=== PATIENT | male | born 1940 | race Caucasian/White ===

== ENCOUNTER → 2018-01-28 14:07 | Outpatient (CLI) | payer MEDICARE, OTHER, SELFPAY ==
[2018-01-28 15:46] LABS: Absolute Lymphocyte Count 2.33 X10^3/ul (0.83-4.51); Basophil# 0.03 X10^3/uL; Basophil% 0.4 % (0-1); Eosinophil# 0.25 X10^3/uL; Eosinophils% 3.4 % (0-5); Hematocrit 44.8 % (40-54); Hemoglobin 15.1 g/dl (13.0-16.5); Lymphocyte # 2.33 X10^3/ul (4.0); Lymphocyte % 32.1 % (19-41); Mean Corp Hgb Conc 33.7 g/gl (32-36); Mean Corpuscular Hgb 31.5 pg (27.0-32.0); Mean Corpuscular Volume 93.5 fL (80-94); Mean Platelet Vol. 10.4 fl (6.2-12.0); Monocyte# 0.63 X10^3/uL; Monocyte% 8.7 % (0-10); Neutrophil # 3.99 X10^3/uL (2.7-7.7); Neutrophil % 55.1 % (47-70); Platelet Count 215 K/mm3 (150-450); RBC Distribution Width CV 13.9 % (11.6-14.6); RBC Distribution Width SD 45.5 fl (35.1-43.9); Red Blood Count 4.79 M/mm3 (4.6-6.2); White Blood Count 7.3 K/mm3 (4.4-11.0)
[2018-01-28 15:51] LABS: Anion Gap 8 (5-15); BUN 18 mg/dL (7-18); BUN/Creat Ratio 18.2 RATIO (10-20); Calcium,Total 8.7 mg/dL (8.5-10.1); Chloride 109 mmol/L (98-107); Creatinine, Serum 0.99 mg/dL (0.70-1.30); EST Glomerular Filtration Rate 78 mL/min (>60); Est Glom Filt Rate - Afr Amer 94 mL/min (>60); Glucose 104 mg/dL (74-106); Potassium 3.9 mmol/L (3.5-5.1); Sodium Level 141 mmol/L (136-145); T4 Free Direct 1.03 ng/dL (0.76-1.46); Thyroid Stim Hormone (TSH) 2.56 uIU/mL (0.358-3.74); Uric Acid 7.5 mg/dL (3.5-7.2)
[2018-01-28 16:31] LABS: POSITIVE COUNT NO; POSITIVE DIFFERENTIAL NO; POSITIVE MORPHOLOGY NO
== END ==
PROVIDERS: Family Provider Family Medicine; PCP Family Medicine; Visit Provider Family Medicine
DX: I10 Essential (primary) hypertension (principal); R73.01 Impaired fasting glucose; M10.9 Gout, unspecified
CPT/HCPCS: 36415; 80048; 84439; 84443; 84550; 85025

== ENCOUNTER 2018-03-12 23:30 | Emergency (ER) | payer MEDICARE, OTHER, SELFPAY ==
[2018-03-12 23:33] VITALS: BP 159/63; PULSE 81; RESP 16; TEMP 36.9; O2SAT 92; BMI 32.6
--- NOTE | 2018-03-12 23:56 | ED.RN ---
PT ARRIVES W/SWELLING AND WARMTH TO LEFT FOOT. HX: LEFT HIP SX. STATES LLE IS NORMALLY SLIGHTLY SWOLLEN, BUT IT HAS WORSENED. NO KNOWN INJURY.
--- NOTE | 2018-03-13 00:14 | RAD_ITS ---
STUDY: X-RAY - LEFT ANKLE REASON FOR EXAM: Male, 77 years old. Left leg edema and pain, no known injury TECHNIQUE: 3 view(s) of the ankle. COMPARISON: None. FINDINGS: Normal visualized distal tibia and fibula. Normal medial and lateral malleoli. Minimal sclerosis along the medial malleolus apex likely from previous injury. Normal tibiotalar articulation and ankle mortise. Normal visualized talus and calcaneus allowing for a calcaneal spur.. The visualized subtalar, talonavicular, calcaneocuboid and tarsal articulations are normal. There is interstitial edema and soft tissue swelling. RAD/Ankle min 3 Views IMPRESSION: Mild degenerative changes. There is no acute displaced fracture or dislocation. There is soft tissue swelling. Electronically Signed: Luzma Joseph MD at 2:10 EDT , Service support ,
[2018-03-13] MEDS: oxyCODONE 5 MG Tablet PO (00:33)
[2018-03-13 00:36] LABS: Absolute Lymphocyte Count 2.32 X10^3/ul (0.83-4.51); Basophil# 0.05 X10^3/uL; Basophil% 0.7 % (0-1); Eosinophil# 0.32 X10^3/uL; Eosinophils% 4.4 % (0-5); Hematocrit 44.6 % (40-54); Hemoglobin 14.6 g/dl (13.0-16.5); Lymphocyte # 2.32 X10^3/ul (4.0); Lymphocyte % 31.7 % (19-41); Mean Corp Hgb Conc 32.7 g/gl (32-36); Mean Corpuscular Hgb 31.5 pg (27.0-32.0); Mean Corpuscular Volume 96.3 fL (80-94); Mean Platelet Vol. 10.1 fl (6.2-12.0); Monocyte# 0.61 X10^3/uL; Monocyte% 8.3 % (0-10); Neutrophil % 54.8 % (47-70); POSITIVE COUNT NO; POSITIVE DIFFERENTIAL NO; POSITIVE MORPHOLOGY NO; Platelet Count 151 K/mm3 (150-450); RBC Distribution Width CV 13.8 % (11.6-14.6); RBC Distribution Width SD 47.1 fl (35.1-43.9); Red Blood Count 4.63 M/mm3 (4.6-6.2); White Blood Count 7.3 K/mm3 (4.4-11.0)
[2018-03-13 01:31] LABS: Erythrocyte Sedimentation Rate 24 mm/hr (0-20)
[2018-03-13 01:47] LABS: Anion Gap 9 (5-15); BUN 20 mg/dL (7-18); BUN/Creat Ratio 21.1 RATIO (10-20); CRP 4.95 mg/L (0.0-3.0); Calcium,Total 8.7 mg/dL (8.5-10.1); Chloride 111 mmol/L (98-107); Creatinine, Serum 0.95 mg/dL (0.70-1.30); EST Glomerular Filtration Rate 82 mL/min (>60); Est Glom Filt Rate - Afr Amer 99 mL/min (>60); Glucose 116 mg/dL (74-106); Sodium Level 139 mmol/L (136-145); Uric Acid 8.5 mg/dL (3.5-7.2)
--- NOTE | 2018-03-13 02:33 | ED.VISSUMM ---
- ER Visit Summary Date of Service: 03/13/18 Chief Complaint: Left leg swelling and pain History of Present Illness: The patient is a 77 M who presents with swelling and pain of the left ankle. He complains of severe pain rating it as 10 out of 10. No exacerbating or relieving factors. This has worsened over the course of 3 days. He cannot identify any injury fall or increased activity. No history of prior similar symptoms. No history of gout. He denies any systemic symptoms such as fevers nausea vomiting chest pain shortness of breath. Physical Examination: Afebrile vitals are stable Moist mucous membranes Heart regular rate and rhythm Lungs are clear Abdomen soft Patient has mild soft tissue swelling of the left ankle he has tenderness focal to the ankle joint but does not have focal bony tenderness there is very slight overlying erythema there is no lymphangitic streaking it is not hot to the touch she has normal distal sensation brisk capillary refill and easily palpable dorsalis pedis pulse Test Results: X-ray of the left ankle shows mild degenerative changes but no fracture no dislocation. Laboratory studies are notable for ESR 24, CRP 4.9, uric acid 8.5. No leukocytosis. Emergency Department Course and Treatment: My clinical suspicion is that this is gout. He has good short arc range of motion without pain. He has no fever or leukocytosis. He has no risk factors for septic arthritis. He does have elevation of his uric acid. There was not significant effusion on ankle x-ray so I did not attempt arthrocentesis here. We will empirically treat with prednisone and oxycodone. The patient will follow up with Dr. Muhammad. He was instructed on specific signs and symptoms to monitor for, conditions under which to return to the emergency department. All questions answered at bedside, patient agreeable to plan. Patient discharged. Treatment Plan: [] Disposition: Discharge Impression: Monoarticular arthritis of left ankle, suspect gout This note was generated with Casper dictation software. It may contain incorrect words, spelling, and punctuation that were not noted in review of the chart prior to signing ED Disposition - Plan for ED Patient: Chief Complaint: Edema Referrals: Ethan Mcgarry MD [Primary Care Provider] -
--- NOTE | 2018-03-13 02:36 | ED.DCSUM_ITS ---
- ER Visit Summary Date of Service: 03/13/18 Chief Complaint: Left leg swelling and pain History of Present Illness: The patient is a 77 M who presents with swelling and pain of the left ankle. He complains of severe pain rating it as 10 out of 10. No exacerbating or relieving factors. This has worsened over the course of 3 days. He cannot identify any injury fall or increased activity. No history of prior similar symptoms. No history of gout. He denies any systemic symptoms such as fevers nausea vomiting chest pain shortness of breath. Physical Examination: Afebrile vitals are stable Moist mucous membranes Heart regular rate and rhythm Lungs are clear Abdomen soft Patient has mild soft tissue swelling of the left ankle he has tenderness focal to the ankle joint but does not have focal bony tenderness there is very slight overlying erythema there is no lymphangitic streaking it is not hot to the touch she has normal distal sensation brisk capillary refill and easily palpable dorsalis pedis pulse Test Results: X-ray of the left ankle shows mild degenerative changes but no fracture no dislocation. Laboratory studies are notable for ESR 24, CRP 4.9, uric acid 8.5. No leukocytosis. Emergency Department Course and Treatment: My clinical suspicion is that this is gout. He has good short arc range of motion without pain. He has no fever or leukocytosis. He has no risk factors for septic arthritis. He does have elevation of his uric acid. There was not significant effusion on ankle x-ray so I did not attempt arthrocentesis here. We will empirically treat with prednisone and oxycodone. The patient will follow up with Dr. Muhammad. He was instructed on specific signs and symptoms to monitor for, conditions under which to return to the emergency department. All questions answered at bedside , patient agreeable to plan. Patient discharged. Treatment Plan: [] Disposition: Discharge Impression: Monoarticular arthritis of left ankle, suspect gout This note was generated with [employer] dictation software. It may contain incorrect words, spelling, and punctuation that were not noted in review of the chart prior to signing ED Disposition - Plan for ED Patient: Chief Complaint: Edema Referrals: Ethan Mcgarry MD [Primary Care Provider] -
--- NOTE | 2018-03-13 02:37 | ED.DEP ---
ED Disposition - Plan for ED Patient: Chief Complaint: Edema Instructions: ED Arthritis Gout Prescriptions: Oxycodone HCl/Acetaminophen [Percocet 5/325] 1 tab PO Q6H PRN PRN 3 Days #12 tab PRN Reason: Pain Prednisone [Deltasone] 60 mg PO DAILY #15 tab Referrals: Ethan Mcgarry MD [Primary Care Provider] - Thaddeus Muhammad MD [STAFF PHYSICIAN] -
--- NOTE | 2018-03-13 02:58 | ED.RN ---
IV DC'ED, CATHETER INTACT, SMALL GAUZE DRESSING PLACED. DISCHARGE INSTRUCTIONS GIVEN TO AND REVIEWED WITH PATIENT AND , BOTH DENY QUESTIONS OR CONCERNS AND VOICE UNDERSTANDING OF DISCHARGE INSTRUCTIONS. PT TO PRIVATE VEHICLE VIA WHEELCHAIR.
== END 2018-03-13 02:58 | disposition home or self-care (01) ==
PROVIDERS: Emergency Provider Emergency Medicine; Family Provider Family Medicine; PCP Family Medicine
DX: M19.072 Primary osteoarthritis, left ankle and foot (principal)
CPT/HCPCS: 73610; 80048; 84550; 85025; 85652; 86140; 99284

== ENCOUNTER 2018-10-08 10:26 | Emergency (ER) | payer MEDICARE, OTHER, SELFPAY ==
[2018-10-08 10:28] VITALS: BP 164/73; PULSE 67; RESP 18; TEMP 36.3; O2SAT 96; BMI 31.9
[2018-10-08] MEDS: HYDROcodone Bitartrate/Apap 5/325 Tablet PO (10:53)
--- NOTE | 2018-10-08 11:08 | RAD_ITS ---
STUDY: X-RAY - CERVICAL SPINE REASON FOR EXAM: Male, 78 years old. Pain of the left neck x5 days TECHNIQUE: 4 view(s) of the cervical spine were obtained. COMPARISON: None FINDINGS: Normal anterior atlantoaxial articulation. Normal odontoid process. Normal cervical lordosis. There is multi-level endplate spondylosis. There is multi-level degenerative disc disease with multilevel disc space narrowing. The soft tissue structures are unremarkable. RAD/Cerv Spine 2 or 3 Views IMPRESSION: Degenerative changes without acute findings Electronically Signed: Baltazar Garcia DO at 11:56 EST Tel , Service support ,
--- NOTE | 2018-10-08 11:31 | ED.VISSUMM ---
- ER Visit Summary Date of Service: 10/08/18 Chief Complaint: Atraumatic posterior right neck pain History of Present Illness: The patient is a 78 M who presents with atraumatic posterior right neck pain that started 4 days ago. He denies any radicular pain. He denies paresthesia, anesthesia motors. He does report pain with movement of his head to the right and left or flexion. He also complains of pain with abduction past 120 degrees on the right. He denies cardiac arrest 20 symptoms. He denies fever, chills or night sweats. He denies history of autoimmune disorder. He denies prior problems with his neck. He did have fusion of L3-[address] Ethan Juarez at [facility]. Physical Examination: Vital signs noted and remarkable for an elevated blood pressure 164/73. He appears uncomfortable. He has limited rotation of the right and left especially to the right. He has limited flexion. Extension causes him discomfort as well. Axillary, median, radial and ulnar function intact. Bicep, tricep and brachialis reflex are 1-2+ symmetric. Radial pulses palpable. Heart is regular without murmur, gallop or rub. Lungs are clear to auscultation. He does have reproducible pain on the right side as well as midline. There is no pain abrasion over the clavicle or AC joint. There is no pain the patient over the proximal humerus. Test Results: Three-view x-ray of the cervical spine reveals significant degenerative changes with disc space abnormality and multiple osteophytes. Emergency Department Course and Treatment: Patient was medicated with [place] tab 1 and C-spine series was obtained. Treatment Plan: Opiate analgesia since NSAIDs are not recommended in this 78-year-old patient. Follow-up with his PCP or outpatient physical therapy Disposition: Discharge to home with spouse Impression: Posterior right neck pain initial encounter Degenerative disc disease multilevel initial encounter This note was generated with [employer] dictation software. It may contain incorrect words, spelling, and punctuation that were not noted in review of the chart prior to signing ED Disposition - Plan for ED Patient: Disposition: Home or Assisted Living Chief Complaint: Other, Pain/Inj Instructions: Osteoarthritis: Common Sites, ED Degenerative Joint Disease Prescriptions: Hydrocodone Bitart/Apap 5-325 [[place] 5MG-325MG] 1 tablet PO Q6H PRN PRN 3 Days #10 tablet PRN Reason: Pain Referrals: Ethan Mcgarry MD [Primary Care Provider] - Additional Instructions: Your prescription was electronically transmitted to [facility] pharmacy located on back [facility].
--- NOTE | 2018-10-08 11:36 | ED.DCSUM_ITS ---
- ER Visit Summary Date of Service: 10/08/18 Chief Complaint: Atraumatic posterior right neck pain History of Present Illness: The patient is a 78 M who presents with atraumatic posterior right neck pain that started 4 days ago. He denies any radicular pain. He denies paresthesia, anesthesia motors. He does report pain with movement of his head to the right and left or flexion. He also complains of pain with abduction past 120 degrees on the right. He denies cardiac arrest 20 symptoms. He denies fever, chills or night sweats. He denies history of autoimmune disorder. He denies prior problems with his neck. He did have fusion of L3-[address] Ethan Juarez at [facility]. Physical Examination: Vital signs noted and remarkable for an elevated blood pressure 164/73. He appears uncomfortable. He has limited rotation of the right and left especially to the right. He has limited flexion. Extension causes him discomfort as well. Axillary, median, radial and ulnar function intact. Bicep, tricep and brachialis reflex are 1-2+ symmetric. Radial pulses palpable. Heart is regular without murmur, gallop or rub. Lungs are clear to auscultation. He does have reproducible pain on the right side as well as midline. There is no pain abrasion over the clavicle or AC joint. There is no pain the patient over the proximal humerus. Test Results: Three-view x-ray of the cervical spine reveals significant degenerative changes with disc space abnormality and multiple osteophytes. Emergency Department Course and Treatment: Patient was medicated with [place] tab 1 and C-spine series was obtained. Treatment Plan: Opiate analgesia since NSAIDs are not recommended in this 78-year-old patient. Follow-up with his PCP or outpatient physical therapy Disposition: Discharge to home with spouse Impression: Posterior right neck pain initial encounter Degenerative disc disease multilevel initial encounter This note was generated with [employer] dictation software. It may contain incorrect words, spelling, and punctuation that were not noted in review of the chart prior to signing ED Disposition - Plan for ED Patient: Disposition: Home or Assisted Living Chief Complaint: Other, Pain/Inj Instructions: Osteoarthritis: Common Sites, ED Degenerative Joint Disease Prescriptions: Hydrocodone Bitart/Apap 5-325 [[place] 5MG-325MG] 1 tablet PO Q6H PRN PRN 3 Days #10 tablet PRN Reason: Pain Referrals: Ethan Mcgarry MD [Primary Care Provider] - Additional Instructions: Your prescription was electronically transmitted to [facility] pharmacy located on back [facility].
[2018-10-08 11:45] VITALS: BP 170/70; PULSE 62; RESP 16; O2SAT 96
== END 2018-10-08 11:47 | disposition home or self-care (01) ==
PROVIDERS: Emergency Provider Emergency Medicine; Family Provider Family Medicine; PCP Family Medicine
DX: M50.30 Other cervical disc degeneration, unspecified cervical region (principal); Z87.891 Personal history of nicotine dependence
CPT/HCPCS: 72040; 99283

== ENCOUNTER 2019-01-04 12:51 | Emergency (ER) | payer MEDICARE, OTHER, SELFPAY ==
[2019-01-04 12:52] VITALS: BP 171/75; PULSE 74; RESP 15; TEMP 36.5; O2SAT 97; BMI 36.4
[2019-01-04 12:56] VITALS: BP 171/75; PULSE 73; RESP 15; O2SAT 97
--- NOTE | 2019-01-04 13:25 | CT_ITS ---
STUDY: CT BRAIN WITHOUT CONTRAST REASON FOR EXAM: Male, 78 years old. Sudden onset dizziness beginning today. Fall 2 days ago. RADIATION DOSAGE (If Supplied By Facility): CTDIvol = ( 44.99 ) mGy, DLP = ( 812.98 ) mGycm TECHNIQUE: Transaxial CT imaging of the brain was performed without administration of intravenous contrast material. Individualized dose optimization techniques were used for this CT. COMPARISON: No relevant priors. FINDINGS: Normal soft tissue structures. Normal calvarium. There is mild cerebral atrophy with widening of the extra-axial spaces and ventricular dilatation. Normal white matter tracts of the cerebral hemispheres. Normal basal ganglia and thalami. Normal brainstem. Normal cerebellum. There is no intracranial hemorrhage. There are no findings of an acute ischemic infarction. Normal visualized paranasal sinuses. CT/Brain/Head without Contrast IMPRESSION: Mild cerebral atrophy without acute intracranial or calvarial abnormality. Electronically Signed: Raoul Wilson DO at 14:31 EDT Tel [phone], Service support ,
--- NOTE | 2019-01-04 13:25 | RAD_ITS ---
STUDY: X-RAY CHEST REASON FOR EXAM: Male, 78 years old. Sudden onset of dizziness and weakness. TECHNIQUE: Single frontal view of the chest. COMPARISON: None. FINDINGS: The lungs are mildly hyperexpanded. There is no demonstrated pleural abnormality. There is borderline cardiomegaly. Normal mediastinum and lindsay. Normal visualized pulmonary arteries. Normal visualized aortic arch and descending thoracic aorta. Normal visualized thoracic spine. Normal visualized ribs, clavicles, and shoulders. There is no demonstrated abnormality of the visualized soft tissue structures of the upper abdomen. RAD/Chest 1 View IMPRESSION: No active or acute cardiopulmonary disease. Electronically Signed: Clark Layton MD at 14:18 EDT , Service support ,
--- NOTE | 2019-01-04 13:25 | EKG12_ITS ---
Test Reason : PALPS Blood Pressure : / mmHG Vent. Rate : 075 BPM Atrial Rate : 075 BPM P-R Int : 150 ms QRS Dur : 082 ms QT Int : 404 ms P-R-T Axes : 041 024 046 degrees QTc Int : 451 ms Sinus rhythm with occasional Premature ventricular complexes Otherwise normal ECG Confirmed by CONNOR BARNES, ISSAC ([id number]), news assignment editor BERNARD MARINO ([id number]) on 01/06/2019 11:24:11 AM Referred By: FARHEEN Confirmed By:ISSAC RYAN MD
--- NOTE | 2019-01-04 13:26 | ED.VISSUMM ---
- ER Visit Summary Date of Service: 01/04/19 Chief Complaint: Dizziness History of Present Illness: The patient is a 78 M sudden dizziness while standing in the kitchen helping with breakfast at 11 AM. States that on balance had to grab the counters. States vision changes where he was seeing bright blue, there is no loss of vision. Became weak needed help to the couch. There is no falls, no syncopal episodes no chest pains. Similar symptoms 2-3 days ago after getting out of bed to go to the restroom where he fell to his knees that resolved. No stroke history. Patient states he does not take any daily medicines had lower lumbar surgery June of last year he did take an aspirin of onset of symptoms today. No previous similar symptoms in the past. States afraid to walk get up due to concerns of recurrent symptoms. Physical Examination: General: Alert and oriented ?3, no acute distress HEENT: Normocephalic, atraumatic. Moist mucosa membranes Neck: supple, nontender. Cardiovascular: Regular rate and rhythm, no murmurs Respiratory: Normal breath sounds, symmetric, no distress Abdomen: Soft, nontender, nondistended Extremities: Nontender, no edema, pulses intact ?4 Neuro: no focal neurological deficits. NIH equals 0. Cerebellar testing normal. Test Results: EKG: Sinus rate of [address] or T wave changes. PVC noted. Hemoglobin 12.5 creatinine 0.92 2140, potassium 4.2. Troponin negative. Urine negative. Chest x-ray negative CT head negative. Emergency Department Course and Treatment: Patient with dizziness causing unstable gait. There is no focal neurological deficits. Workup initially for stroke protocol was negative. Urine negative. Patient ambulated to the restroom with no return of symptoms was feeling steady. Discussed with patient this time with him have a normal gait with no focal deficits and can safely send him home with outpatient follow-up and testing as needed. Signs and symptoms discussed to return. All questions were answered. Treatment Plan: [] Disposition: Discharge Impression: Acute dizziness This note was generated with [employer] dictation software. It may contain incorrect words, spelling, and punctuation that were not noted in review of the chart prior to signing ED Disposition - Plan for ED Patient: Disposition: Home or Assisted Living Diagnosis: Dizziness Instructions: ED Dizziness [facility] Referrals: Ethan Mcgarry MD [Primary Care Provider] - 3-5 Days
[2019-01-04 13:40] LABS: Absolute Lymphocyte Count 2.21 X10^3/ul (0.83-4.51); Absolute Neutrophil Count 3.2 X10^3/uL (2.0-7.7); Basophil# 0.02 X10^3/uL; Basophil% 0.3 % (0-1); Eosinophil# 0.21 X10^3/uL; Eosinophils% 3.4 % (0-5); Hematocrit 38.9 % (40-54); Hemoglobin 12.5 g/dl (13.0-16.5); Lymphocyte # 2.21 X10^3/ul (4.0); Lymphocyte % 35.9 % (19-41); Mean Corp Hgb Conc 32.1 g/gl (32-36); Mean Corpuscular Hgb 30.8 pg (27.0-32.0); Mean Corpuscular Volume 95.8 fL (80-94); Mean Platelet Vol. 9.9 fl (6.2-12.0); Monocyte# 0.53 X10^3/uL; Monocyte% 8.6 % (0-10); Neutrophil # 3.18 X10^3/uL (2.7-7.7); Neutrophil % 51.6 % (47-70); Platelet Count 150 K/mm3 (150-450); RBC Distribution Width CV 14.4 % (11.6-14.6); RBC Distribution Width SD 47.9 fl (35.1-43.9); Red Blood Count 4.06 M/mm3 (4.6-6.2); White Blood Count 6.2 K/mm3 (4.4-11.0)
[2019-01-04 13:44] LABS: POSITIVE COUNT NO; POSITIVE DIFFERENTIAL NO; POSITIVE MORPHOLOGY NO; Partial Thromboplast Time 30.1 Seconds (24.1-36.2); Prothrombin Time (Protime)PT. 13.3 SECONDS (11.7-14.9)
[2019-01-04 13:51] LABS: Anion Gap 4 (5-15); BUN 19 mg/dL (7-18); BUN/Creat Ratio 20.7 RATIO (10-20); Calcium,Total 8.7 mg/dL (8.5-10.1); Chloride 110 mmol/L (98-107); Creatinine, Serum 0.92 mg/dL (0.70-1.30); EST Glomerular Filtration Rate 85 mL/min (>60); Est Glom Filt Rate - Afr Amer 102 mL/min (>60); Estimated Creatinine Clearance 64.02 ml/min; Glucose 90 mg/dL (74-106); Potassium 4.2 mmol/L (3.5-5.1); Sodium Level 140 mmol/L (136-145)
[2019-01-04 13:56] LABS: Bedside Glucose 87 mg/dL (70-110)
[2019-01-04 14:00] LABS: Bacteria 0 SEEN /hpf (None Seen); Mucous, Urine 0 SEEN /hpf (<or=2+); Squamous Epithelial Cells - UA 0 SEEN /hpf (0-5); White Blood Cells 0 SEEN /hpf (0-5)
[2019-01-04 14:04] LABS: Color, Urine Yellow (Yellow); Glucose, Dipstick Normal (Normal); Ketone-Dipstick Negative (Negative); Leukocyte Esterase-Dipstick Negative /ul (Negative); Nitrite-Dipstick Negative (Negative); Occult Blood-Urine Negative /ul (Negative); Protein-Dipstick Negative (Negative); Specific Gravity, Urine 1.015 (1.002-1.030); Urine Bilirubin Dipstick Negative (Negative); Urine Clarity Clear (Clear); Urine Urobilinogen Normal (Normal)
[2019-01-04 14:09] LABS: Red Blood Cells-Urine 0-5 SEEN /hpf (0-5)
[2019-01-04 15:14] VITALS: BP 170/74; PULSE 64; RESP 14; O2SAT 98
== END 2019-01-04 15:15 | disposition home or self-care (01) ==
PROVIDERS: Emergency Provider Emergency Medicine; Family Provider Family Medicine; PCP Family Medicine
DX: R42 Dizziness and giddiness (principal); Z91.81 History of falling
CPT/HCPCS: 70450; 71045; 80048; 81001; 82962; 84484; 85025; 85610; 85730; 93005; 99284

== ENCOUNTER → 2019-01-13 13:59 | Outpatient (CLI) | payer MEDICARE, OTHER, SELFPAY ==
[2019-01-04 12:52] VITALS: BMI 36.4
[2019-01-13 16:18] LABS: Absolute Lymphocyte Count 2.57 X10^3/ul (0.83-4.51); Absolute Neutrophil Count 4.6 X10^3/uL (2.0-7.7); Basophil# 0.02 X10^3/uL; Basophil% 0.3 % (0-1); Eosinophil# 0.21 X10^3/uL; Eosinophils% 2.6 % (0-5); Hemoglobin 15.4 g/dl (13.0-16.5); Lymphocyte # 2.57 X10^3/ul (4.0); Lymphocyte % 32.2 % (19-41); Mean Corp Hgb Conc 33.5 g/gl (32-36); Mean Corpuscular Hgb 31.6 pg (27.0-32.0); Mean Corpuscular Volume 94.3 fL (80-94); Mean Platelet Vol. 10.5 fl (6.2-12.0); Monocyte# 0.63 X10^3/uL; Monocyte% 7.9 % (0-10); Neutrophil # 4.55 X10^3/uL (2.7-7.7); Neutrophil % 56.9 % (47-70); POSITIVE COUNT NO; POSITIVE DIFFERENTIAL NO; Platelet Count 219 K/mm3 (150-450); RBC Distribution Width CV 14.3 % (11.6-14.6); Red Blood Count 4.88 M/mm3 (4.6-6.2)
[2019-01-13 16:19] LABS: POSITIVE MORPHOLOGY NO
[2019-01-13 16:54] LABS: Vitamin B12 524 pg/mL (211-911)
[2019-01-13 16:59] LABS: Ferritin 433 ng/mL (26-388); Iron 74 ug/dL (65-175)
== END ==
PROVIDERS: Family Provider Family Medicine; PCP Family Medicine; Visit Provider Family Medicine
DX: D64.9 Anemia, unspecified (principal); D75.89 Other specified diseases of blood and blood-forming organs
CPT/HCPCS: 36415; 82607; 82728; 82746; 83540; 85025

== ENCOUNTER → 2019-01-15 12:52 | Outpatient (CLI) | payer MEDICARE, OTHER, SELFPAY ==
[2019-01-04 12:52] VITALS: BMI 36.4
--- NOTE | 2019-01-15 12:55 | CDU_ITS ---
Reason For Study: Recent TIA Rt. Velocities/BP Lt. Velocities/BP Prox CCA 113/11 cm/sec. Prox CCA 101/12 cm/sec. Mid CCA 114/16 cm/sec. Mid CCA 129/18 cm/sec. Dist CCA 79/13 cm/sec. Dist CCA 100/12 cm/sec. Prox ICA 61/11 cm/sec. Prox ICA 85/19 cm/sec. Mid ICA 84/17 cm/sec. Mid ICA 99/22 cm/sec. Dist ICA 99/24 cm/sec. Dist ICA 102/19 cm/sec. Rt. ICA/CCA = 0.9. Lt. ICA/CCA = 0.8. Prox ECA 283 cm/sec. Prox ECA 304 cm/sec. Rt. Vert. 67/7 cm/sec. Lt. Vert. 85/5 cm/sec. Right Extracranial There is heterogeneous, smooth atherosclerotic plaque noted in the right common carotid artery. There is heterogeneous, irregular atherosclerotic plaque noted in the right internal carotid artery. There is heterogeneous, irregular atherosclerotic plaque noted in the right external carotid artery. Antegrade flow is noted in the right vertebral artery. Left Extracranial There is heterogeneous, irregular atherosclerotic plaque noted in the left common carotid artery. There is heterogeneous, irregular atherosclerotic plaque noted in the left internal carotid artery. There is heterogeneous, irregular atherosclerotic plaque noted in the left external carotid artery. Antegrade flow is noted in the left vertebral artery. Procedure Carotid Duplex 36252. Exam performed in department. 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
== END ==
PROVIDERS: Family Provider Family Medicine; PCP Family Medicine; Referring Provider Family Medicine; Visit Provider Family Medicine
DX: G45.3 Amaurosis fugax (principal); Z86.73 Personal history of transient ischemic attack (TIA), and cerebral infarction without residual deficits
CPT/HCPCS: 93880

== ENCOUNTER → 2019-01-21 12:35 | Outpatient (CLI) | payer MEDICARE, OTHER, SELFPAY ==
[2019-01-04 12:52] VITALS: BMI 36.4
--- NOTE | 2019-01-21 13:45 | MRI_ITS ---
STUDY: MRI BRAIN WITH AND WITHOUT CONTRAST REASON FOR EXAM: Male, 78 years old. 2 episodes of dizziness and altered LOC with TIA TECHNIQUE: Standardized multiplanar fat and water weighted pulse sequences were obtained. 18 IV Dotarem was administered for the contrast portion of the examination. COMPARISON: CT 01/04/2019 FINDINGS: Normal size of the ventricles and extra-axial spaces for the patient's age. Normal white matter tracts of the supratentorial brain. Normal bilateral basal ganglia. Normal thalami. There is no extra-axial fluid accumulation. Normal flow voids within the major intracranial circulation suggesting patency by spin echo criteria. Normal venous enhancement. There is no enhancing intra-axial or extra-axial abnormality. Normal sella turcica, pituitary gland, infundibular stalk, optic chiasm and hypothalamus. Normal tectal plate and pineal gland. Normal midbrain, stanley and medulla. Normal cerebellum. Normal basal cisterns. Normal bilateral temporal bones. Normal bilateral internal auditory canals. There are bilateral ocular lens implants with otherwise normal intraorbital contents. Normal visualized paranasal sinuses. Right mastoid sinus disease. Normal visualized soft tissue structures. Normal visualized upper cervical spine. MRI/Brain W/WO Contrast IMPRESSION: No evidence of acute infarct, hemorrhage, mass, or abnormal enhancement. Electronically Signed: Ross Chester MD at 8:55 EDT Tel , Service support ,
== END ==
PROVIDERS: Family Provider Family Medicine; PCP Family Medicine; Referring Provider Family Medicine; Visit Provider Family Medicine
DX: G45.3 Amaurosis fugax (principal); Z86.73 Personal history of transient ischemic attack (TIA), and cerebral infarction without residual deficits
CPT/HCPCS: 70553; A9575

== ENCOUNTER → 2020-03-16 07:53 | Outpatient (CLI) | payer MEDICARE, OTHER, SELFPAY ==
--- NOTE | 2020-03-16 07:58 | RAD_ITS ---
STUDY: X-RAY - ESOPHAGUS (BARIUM SWALLOW) WITH FLUOROSCOPY REASON FOR EXAM: Male, 79 years old. DYSPHAGIA X 2 YRS, PHLEGM D/C, COUGHING X 3 MOS. POSSIBLE ALLERGIES? TECHNIQUE: 18 view(s) of the esophagus were obtained following swallowing of barium. FLUOROSCOPY TIME (if supplied): (0:37) minutes/seconds COMPARISON: None. FINDINGS: There is no demonstrated esophageal foreign body. There is no demonstrated stricture or mucosal abnormality. Normal gastroesophageal junction, without a demonstrated hiatal hernia. The patient ingested a 12 mm tablet of barium without any difficulty. Normal visualized aortic arch and descending thoracic aorta. Normal visualized pulmonary parenchyma. There are diffuse degenerative changes of the visualized thoracic spine. RAD/Esophagus Single Contrast IMPRESSION: Normal plain film x-ray examination (barium swallow) of the esophagus. Electronically Signed: Per Cordero, at 10:23 EDT , Service support ,
== END ==
PROVIDERS: PCP Family Medicine; Referring Provider Otolaryngology Otolaryngology/Facial Plastic Surgery; Visit Provider Otolaryngology Otolaryngology/Facial Plastic Surgery
DX: R13.10 Dysphagia, unspecified (principal)
CPT/HCPCS: 74220

== ENCOUNTER 2020-07-19 13:05 | Day surgery (SDC) | payer MEDICARE, OTHER, SELFPAY ==
[2020-07-19] VITALS (7 sets, daily range): BP systolic 140–167; BP diastolic 59–78; PULSE 64–70; RESP 16–18; TEMP 36.1–36.7; O2SAT 95–98; BMI 31.6
[2020-07-19] MEDS: Lactated Ringers 1,000 ML 100 ML IV (13:40)
--- NOTE | 2020-07-19 15:20 | RAD_ITS ---
STUDY: X-RAY - LUMBAR SPINE REASON FOR EXAM: Male, 79 years old. SPINAL CORD STIMULATOR INSERTION X2 LEADS, thoracolumbar area TECHNIQUE: 8 fluoroscopic guided view(s) of the lumbar spine were obtained. COMPARISON: None FINDINGS: Fluoroscopic guided spinal cord stimulator was inserted and 8 images were obtained for documentation. 291.5 seconds of fluoroscopic time utilized during the exam. RAD/Lumbar Spine 2 or 3 Views IMPRESSION: Fluoroscopic guided spinal cord stimulator insertion. Electronically Signed: Kevan Clark MD at 16:42 EDT , Service support ,
[2020-07-19] MEDS: Bupivacaine 0.25% 30 ML Vial (16:30)
--- NOTE | 2020-07-19 17:30 | OP.PCM_ITS ---
Report of Operation Date of Procedure: 07/19/20 Description of Surgical Findings:: Pre-Operative Diagnosis: Lumbosacral radiculopathy, lumbosacral degenerative disc disease, lumbosacral spinal stenosis, postlaminectomy syndrome of the lumbar spine Post-Operative Diagnosis: Lumbosacral radiculopathy, lumbosacral degenerative disc disease, lumbosacral spinal stenosis, postlaminectomy syndrome of the lumbar spine Surgery/Procedure Performed:: 1. Spinal cord stimulator thoracolumbar leads placement x2 #2 spinal cord stimulator Medtronic intellus generator placement #3 spinal cord stimulator generator pocket creation at the left gluteal region #4 spinal cord stimulator simple programming, 5-intraoperative fluoroscopic interpretation Description of Surgical Findings:: PROCEDURES: 1. Spinal cord stimulator thoracolumbar leads placement x2 #2 spinal cord stimulator Medtronic intellus generator placement #3 spinal cord stimulator generator pocket creation at the left gluteal region #4 spinal cord stimulator simple programming 5-intraoperative fluoroscopic interpretation PREOPERATIVE DIAGNOSES: Lumbosacral radiculopathy, lumbosacral degenerative disc disease, lumbosacral spinal stenosis, postlaminectomy syndrome of the lumbar spine POSTOPERATIVE DIAGNOSES: Lumbosacral radiculopathy, lumbosacral degenerative disc disease, lumbosacral spinal stenosis, postlaminectomy syndrome of the lumbar spine ANESTHESIA: MAC COMPLICATIONS: None BLOOD LOSS: Minimal <25 CC Implanted device: Spinal cord stimulator lead [id number] lot number [id number], lead #2 lot number [id number], Medtronic spinal cord stimulator generator intellus serial number [id number] PROCEDURE IN DETAIL: History and physical today was reviewed. Risks and benefits of procedure explained. The patient understood, agreed to procedure, informed consent was obtained. IV inserted per routine protocol. The patient was taken to the operating room, placed in the prone position with a pillow positioned underneath the abdomen. a 900 mg of clindamycin IV piggyback was infused per anesthesia. The lower back and left gluteal area was prepped and draped in a sterile fashion using iodine x3. The C-arm was brought in position for AP view at the L1-2vertebral bodies under direct visualization fluoroscopy on a true AP view the L2-3 interlaminar space was identified skin and subcutaneous tissue and size approximately 10 cc of a mix of 2% lidocaine and 0.25% Marcaine using a 25- gauge regular needle followed by a 25-gauge 6 inch spinal needle towards the interlaminar space at L2-3, the skin and subcutaneous tissue were then anesthetized and using an 11-gauge blade was then taken down to the skin and subcutaneous tissue using a 14-gauge 6 inch Touhy needle provided by the [employer] kit the needle was passed through the skin towards the interlaminar space at L1-2 and a paramedian approach the needle was then advanced under direct visualization fluoroscopy towards the interlaminar space at L1-2 [id number] technique was then carried to air towards the interlaminar space at L3-4 once the tip of the needle was in the epidural space and loss of resistance was encountered to air and after confirmation of AP as well as oblique view of the spinal cord stimulator lead was then advanced under direct visualization fluoroscopy to be at the tip of the lead at T8 and the bottom of the lead around mid T10 after confirmation of AP as well as lateral view to confirm correct placement of the lead in the posterior compartment of the epidural space the previous procedure was then repeated to a level above at L2-3 interlaminar space the second lead was then inserted under direct visualization with fluoroscopy to be at the mid T8 and mid T11 area the leads were were then connected to the external neurostimulator and patient was then awakened to confirm satisfactory coverage of the painful area once satisfactory coverage was then achieved the stylette of each needle was then removed and the skin and subcutaneous tissue on to the left of the paramedian needles was then taken anesthetized with a total of 10 cc of the previous mixture of 0.25% Marcaine and 2% lidocaine using a 25-gauge regular needle the incision was then taken down through the skin and subcutaneous tissue towards the fascia making sure hemostasis was then maintained via cautery, the spinal cord stimulator leads were then passed through the above incision and secured using the bi-wing and sutured down with a 2-0 nylon to the fascia at that level the spinal cord stimulator leads were then tunneled via a tunneler provided by the Medtronic kit towards the previously incised spinal cord stimulator battery at the left gluteal region skin and subcutaneous tissue were anesthetized with approximately 10 cc of a mix of 2% lidocaine and 0.25% Marcaine using a 25 gauge regular needle, skin and subcutaneous tissue was then taken down with the 11-gauge blade hemostasis was maintained with Bovie and direct pressure the incision was then taken down to the fascia and the battery was then secured with the 2-0 silk sutures that were the spinal cord stimulator leads the upper lead was then marked the new until spinal cord stimulator battery was then provided Via [employer] kit the battery was then reattached of the spinal cord stimulator make ensure that the top lead is attached to the top position from 0-7 electrodes and the bottom from 8-15 electrodes once impedance was then checked to be in the proper average number the intellus battery was then inserted into the pocket and impedance with when checked again the pocket was then inspected to confirm he mostasis in place, the intellus battery was then secured to the fascia using a 2-0 silk to the upper and lower eyes of the battery confirming an upward writing of the intellus facing posterior, once complete confirmation the battery was then placed in the position and the the mid paramedian and the gluteal incisions were then closed primarily through a 3-0 Vicryl in a interrupted fashion followed by a 4-0 chromic to the skin, hemostasis was then maintained during the procedure the skin was then covered with a Steri-Strips and bacitracin patient was then returned into the supine position in a stable condition and returned to recovery in a stable condition patient experienced no signs or symptoms of intrathecal or intravascular injection patient experienced no paresthesia the procedure was completed without any apparent difficulty any complication the patient appeared to tolerate well, motor as well as sensory exam was unchanged from prior to the procedure. ESTIMATED BLOOD LOSS: Minimal less than 25 mL ASSESSMENT AND PLAN: This is a 79-year-old male with lumbosacral radiculopathy lumbosacral degenerative disc disease lumbosacral spinal stenosis, postlaminectomy syndrome of the lumbar spine, status post 1. Spinal cord stimulator thoracolumbar leads placement x2 #2 spinal cord stimulator Medtronic intellus generator placement #3 spinal cord stimulator generator pocket creation at the left gluteal region #4 spinal cord stimulator simple programming, 5-intraoperative fluoroscopic interpretation patient will continue his current medications a prescription was provided to the patient for Z-rocio as directed. postop instruction were given in writing to the patient as well as verbally and in writing to his . the patient will follow approximately 1 week for reevaluation.
== END 2020-07-19 17:55 | disposition home or self-care (01) ==
LOC: SDC 13:06 → AC 13:07
PROVIDERS: PCP Family Medicine; Referring Provider Anesthesiology Pain Medicine; Visit Provider Anesthesiology Pain Medicine
PROC: (CPT 63685; principal; 2020-07-19 14:25)
DX: M51.36 Other intervertebral disc degeneration, lumbar region (principal); M51.17 Intervertebral disc disorders with radiculopathy, lumbosacral region; M96.1 Postlaminectomy syndrome, not elsewhere classified; M48.07 Spinal stenosis, lumbosacral region; M51.37 Other intervertebral disc degeneration, lumbosacral region; M47.817 Spondylosis without myelopathy or radiculopathy, lumbosacral region; M46.96 Unspecified inflammatory spondylopathy, lumbar region; Z79.891 Long term (current) use of opiate analgesic
CPT/HCPCS: 63650; 63685; 72100; 76000; C1778; C1820; J7120

== ENCOUNTER → 2022-11-24 | Outpatient (CLI) | payer MEDICARE, OTHER, SELFPAY ==
[2022-11-24 16:04] LABS: Erythrocyte Sedimentation Rate 13 mm/hr (0-20)
[2022-11-24 16:05] LABS: Absolute Lymphocyte Count 2.62 X10^3/uL (0.83-4.51); Absolute Neutrophil Count 3.5 X10^3/uL (2.0-7.7); Basophil# 0.04 X10^3/uL; Basophil% 0.6 % (0-1); Eosinophil# 0.27 X10^3/uL; Eosinophils% 3.8 % (0-5); Hematocrit 45.6 % (40-54); Hemoglobin 14.7 g/dL (13.0-16.5); Lymphocyte # 2.62 X10^3/ul (0.83-4.51); Lymphocyte % 36.8 % (19-41); Mean Corp Hgb Conc 32.2 g/dL (32-36); Mean Corpuscular Hgb 30.8 pg (27.0-32.0); Mean Corpuscular Volume 95.4 fL (80-94); Mean Platelet Vol. 10.1 fl (6.2-12.0); Monocyte# 0.68 X10^3/uL; Monocyte% 9.6 % (0-10); NRBC Flagged by Analyzer 0 % (0-5); Neutrophil # 3.49 X10^3/uL (2.7-7.7); Neutrophil % 49.1 % (47-70); Platelet Count 216 K/mm3 (150-450); RBC Distribution Width CV 14.1 % (11.6-14.6); RBC Distribution Width SD 49.7 fl (35.1-43.9); Red Blood Count 4.78 M/mm3 (4.6-6.2); White Blood Count 7.1 K/mm3 (4.4-11.0)
[2022-11-24 16:29] LABS: ALB/GLOB Ratio 0.9 RATIO (0.9-2.4); AST(SGOT) 30 U/L (15-37); Alanine Aminotransfer ALT/SGPT 39 U/L (16-61); Albumin, Serum 3.7 g/dL (3.2-5.0); Alkaline Phosphatase 47 U/L (45-117); Anion Gap 6 (5-15); BUN 16 mg/dL (7-18); BUN/Creat Ratio 15.2 RATIO (10-20); CRP < 2.90 mg/L (0.0-3.0); Calcium,Total 9.1 mg/dL (8.5-10.1); Chloride 108 mmol/L (98-107); Creatinine, Serum 1.05 mg/dL (0.70-1.30); EST Glomerular Filtration Rate 72 mL/min (>60); Est Glom Filt Rate - Afr Amer 87 mL/min (>60); Globulin 4.2 g/dL (2.2-4.2); Glucose 95 mg/dL (74-106); Potassium 4.2 mmol/L (3.5-5.1); Protein, Total 7.9 g/dL (6.4-8.2); Sodium Level 141 mmol/L (136-145)
[2022-11-27 16:09] LABS: Endomysial Antibody IgA Negative (Negative)
[2022-11-27 23:21] LABS: Immunoglobulin A 427 mg/dL (61-437); t-Transglutaminase IgA <2 U/mL (0-3)
== END | disposition home or self-care (01) ==
LOC: LAB 14:34
PROVIDERS: PCP Family Medicine; Referring Provider Internal Medicine Gastroenterology; Visit Provider Internal Medicine Gastroenterology
DX: D64.9 Anemia, unspecified (principal); K57.92 Diverticulitis of intestine, part unspecified, without perforation or abscess without bleeding
CPT/HCPCS: 36415; 80053; 82784; 83516; 85025; 85652; 86140; 86255

== ENCOUNTER → 2022-12-07 | Outpatient (CLI) | payer MEDICARE, OTHER, SELFPAY ==
--- NOTE | 2022-12-07 13:15 | CT_ITS ---
STUDY: CT ABDOMEN AND PELVIS WITH CONTRAST REASON FOR EXAM: Male, 82 years old. Diverticulitis. Left lower quadrant pain. RADIATION DOSAGE (If Supplied By Facility): CTDIvol = ( 12.14 ) mGy, DLP = ( 1345.76 ) mGycm TECHNIQUE: Transaxial images were obtained from the dome of the diaphragm to the symphysis pubis with oral contrast. Oral and amp; IV Gastrografin and amp; 100mL Isovue-300 was administered. Sagittal and coronal images were reconstructed. Individualized dose optimization techniques were used for this CT. COMPARISON: None. FINDINGS: Mild degree of increased markings at the lung bases suggestive of scarring and/or atelectasis. Coronary artery calcification. There is decreased attenuation of the liver consistent with steatosis. There are multiple gallstones. Normal spleen. Normal pancreas. Normal bilateral adrenal glands. Normal right kidney. Normal left kidney. Normal visualized stomach. Normal small intestine. There are multiple colonic diverticula consistent with diverticulosis. The appendix is visualized and appears normal. There is diffuse atherosclerotic calcification of the abdominal aorta, without a demonstrated aneurysm. Normal inferior vena cava. Normal retroperitoneum. Normal urinary bladder. Normal abdominal wall. There are diffuse degenerative changes of the visualized lumbar spine. The patient is status post fusion at the L4-L5 level. CT/Abdomen/Pelvis WITH Contrast IMPRESSION: Sigmoid diverticulosis. No radiographic evidence of acute diverticulitis at this time. Gallstones. Fatty infiltration of the liver. Findings suggestive of scarring at the lung bases. Coronary artery calcification. Electronically Signed: Per Cordero MD at 14:23 EST ,
== END | disposition home or self-care (01) ==
LOC: CT 13:14
PROVIDERS: Referring Provider Internal Medicine Gastroenterology; Visit Provider Internal Medicine Gastroenterology
DX: K57.92 Diverticulitis of intestine, part unspecified, without perforation or abscess without bleeding (principal)
CPT/HCPCS: 74177; Q9967

== ENCOUNTER → 2022-12-14 | Outpatient (CLI) | payer MEDICARE, OTHER, SELFPAY ==
[2022-12-14 17:49] LABS: Absolute Lymphocyte Count 2.55 X10^3/uL (0.83-4.51); Absolute Neutrophil Count 3.9 X10^3/uL (2.0-7.7); Basophil# 0.04 X10^3/uL; Basophil% 0.5 % (0-1); Eosinophil# 0.26 X10^3/uL; Eosinophils% 3.5 % (0-5); Hematocrit 46.8 % (40-54); Hemoglobin 14.8 g/dL (13.0-16.5); Lymphocyte # 2.55 X10^3/ul (0.83-4.51); Lymphocyte % 34.4 % (19-41); Mean Corp Hgb Conc 31.6 g/dL (32-36); Mean Corpuscular Hgb 30.6 pg (27.0-32.0); Mean Corpuscular Volume 96.9 fL (80-94); Mean Platelet Vol. 10.5 fl (6.2-12.0); Monocyte# 0.63 X10^3/uL; Monocyte% 8.5 % (0-10); NRBC Flagged by Analyzer 0 % (0-5); Neutrophil % 52.6 % (47-70); Platelet Count 207 K/mm3 (150-450); RBC Distribution Width CV 14.5 % (11.6-14.6); RBC Distribution Width SD 52.4 fl (35.1-43.9); Red Blood Count 4.83 M/mm3 (4.6-6.2); White Blood Count 7.4 K/mm3 (4.4-11.0)
[2022-12-14 18:35] LABS: ALB/GLOB Ratio 0.9 RATIO (0.9-2.4); AST(SGOT) 32 U/L (15-37); Alanine Aminotransfer ALT/SGPT 39 U/L (16-61); Albumin, Serum 3.8 g/dL (3.2-5.0); Alkaline Phosphatase 46 U/L (45-117); Anion Gap 8 (5-15); BUN 22 mg/dL (7-18); Calcium,Total 9.1 mg/dL (8.5-10.1); Chloride 108 mmol/L (98-107); Cholesterol 239 mg/dL (200); EST Glomerular Filtration Rate 68 mL/min (>60); Est Glom Filt Rate - Afr Amer 82 mL/min (>60); Globulin 4.1 g/dL (2.2-4.2); Glucose 98 mg/dL (74-106); High Density Lipoprotein 35 mg/dL; Potassium 4.1 mmol/L (3.5-5.1); Protein, Total 7.9 g/dL (6.4-8.2); Sodium Level 140 mmol/L (136-145); Thyroid Stim Hormone (TSH) 4.08 uIU/mL (0.358-3.74); Triglycerides 190 mg/dL; Very Low Density Lipoprotein 38 mg/dL (5-40)
[2022-12-15 11:49] LABS: T4 Free Direct 0.97 ng/dL (0.76-1.46)
[2022-12-18 19:02] LABS: Thyroglobulin Antibody < 1.0 IU/mL (0.0-0.9); Thyroid Peroxidase AB 57 IU/mL (0-34)
== END | disposition home or self-care (01) ==
LOC: MFPLAB 15:11
PROVIDERS: PCP Family Medicine; Referring Provider Family Medicine; Visit Provider Family Medicine
DX: R79.89 Other specified abnormal findings of blood chemistry (principal); R60.9 Edema, unspecified; E66.9 Obesity, unspecified; K57.92 Diverticulitis of intestine, part unspecified, without perforation or abscess without bleeding
CPT/HCPCS: 36415; 80053; 80061; 84439; 84443; 85025; 86376; 86800

== ENCOUNTER → 2022-12-26 | Outpatient (CLI) | payer MEDICARE, OTHER, SELFPAY ==
--- NOTE | 2022-12-26 09:20 | RAD_ITS ---
EXAM: FL Esophagram, Double Contrast HISTORY: DYSPHAGIA COMPARISON: None 0:48 seconds of fluoroscopy. 6 fluoroscopic images obtained, radiation dose of 17.78 mGy FINDINGS: Swallowing was initiated normally. No nasopharyngeal reflux or aspiration. No Zenker diverticulum noted on the lateral view. Normal peristaltic activity noted in the esophagus. No evidence of hiatal hernia or intraesophageal reflux, there was evidence of GE reflux. 13 mm barium pill passed through the esophagus without difficulty. RAD/Esophagus Dual Contrast IMPRESSION: GE reflux Electronically Signed: Hardy Nichols MD at 10:03 EDT ,
== END | disposition home or self-care (01) ==
LOC: RAD 09:14
PROVIDERS: PCP Family Medicine; Referring Provider Family Medicine; Visit Provider Family Medicine
DX: R13.10 Dysphagia, unspecified (principal)
CPT/HCPCS: 74221

== ENCOUNTER → 2023-02-27 | Outpatient (CLI) | payer MEDICARE, OTHER, SELFPAY ==
--- NOTE | 2023-02-27 13:40 | ECHOCS_ITS ---
Reason For Study: SHORTNESS OF BREATH Procedure This was a 2D Doppler, Color Flow transthoracic echocardiogram. The study was technically difficult. Exam performed in department. Left Ventricle Normal LV size. Left ventricular systolic function is normal. The estimated ejection fraction is 60 %. Stage 1 diastolic dysfunction. No regional wall motion abnormalities noted. Right Ventricle Normal RV size. Normal systolic function. Atria Normal left atrium. Normal right atrium. Mitral Valve Normal mitral valve. Tricuspid Valve Normal tricuspid valve. Aortic Valve Trisinus/trileaflet aortic valve. Pulmonic Valve Normal pulmonic valve. Great Vessels Normal aortic root. The pulmonary artery is normal size. Normal inferior vena cava. Pericardium/Pleural No pericardial effusion. Medication 22 gauge I.V. with prn adaptor inserted into right arm. Diluted definity 1ml given slow IV push to enhance endocardial definition. MMode/2D Measurements & Calculations LVIDd: 5.1 cm IVSd: 1.1 cm Ao root diam: 3.4 cm LVIDs: 3.5 cm LVPWd: 1.2 cm RVDd: 3.3 cm FS: 31.2 % LAV(MOD-bp): 36.6 ml LVAd ap4: 25.8 cm2 SV(MOD-sp4): 43.8 ml LAV(MOD-bp) Indexed: 17.5 ml/m2 LVLd ap4: 7.6 cm LAV(MOD-sp2): 38.1 ml EDV(MOD-sp4): 71.3 ml LAV(MOD-sp4): 31.0 ml EDV(sp4-el): 73.6 ml LVAs ap4: 14.3 cm2 LVLs ap4: 6.0 cm ESV(MOD-sp4): 27.6 ml ESV(sp4-el): 29.2 ml EF(MOD-sp4): 61.3 % EF(sp4-el): 60.4 % SV(sp4-el): 44.4 ml LA A4 area: 15.3 cm2 LA dimension(2D): 3.7 cm RA A4 area: 15.6 cm2 Time Measurements MV dec time: 0.22 sec Doppler Measurements & Calculations MV E max andrew: 90.9 cm/sec Lat Peak E' Andrew: 10.7 cm/sec Med Peak E' Andrew: 8.5 cm/sec MV A max andrew: 100.4 cm/sec E/E' lat: 8.5 E/E' med: 10.7 MV E/A: 0.91 Ao V2 max: 169.7 cm/sec LV V1 max: 93.2 cm/sec PA V2 max: 110.4 cm/sec Ao max P.5 mmHg LV V1 max P.5 mmHg ECHO/Echo Complete W/ Contrast Interpretation Summary Normal LV size. Left ventricular systolic function is normal. The estimated ejection fraction is 60 %. Stage 1 diastolic dysfunction. Contrast injection was performed. Ordering Physician: Mahin Ryan Referring Physician: Mahin Ryan Performed By: Rema Vieira RDCS
== END | disposition home or self-care (01) ==
LOC: CVS 13:23
PROVIDERS: PCP Family Medicine; Referring Provider Family Medicine; Visit Provider Family Medicine
DX: I65.29 Occlusion and stenosis of unspecified carotid artery (principal); R06.02 Shortness of breath
CPT/HCPCS: 93306; Q9957; A4216; C8929

== ENCOUNTER → 2023-03-02 | Outpatient (CLI) | payer MEDICARE, OTHER, SELFPAY ==
--- NOTE | 2023-03-02 13:32 | CDU_ITS ---
Reason For Study: Carotid stenosis Rt. Velocities/BP Lt. Velocities/BP Prox CCA 105.8/11.3 cm/sec. Prox CCA 97.1/13.5 cm/sec. Mid CCA 100.3/10.2 cm/sec. Mid CCA 97.1/14.6 cm/sec. Dist CCA 88.3/11.3 cm/sec. Dist CCA 88.3/11.3 cm/sec. Prox ICA 79.1/15.2 cm/sec. Prox ICA 84.6/18.8 cm/sec. Mid ICA 112/17 cm/sec. Mid ICA 101/20.6 cm/sec. Dist ICA 99.2/18.8 cm/sec. Dist ICA 104.7/20.6 cm/sec. Rt. ICA/CCA = 1.12. Lt. ICA/CCA = 1.08. Prox ECA 272.5 cm/sec. Prox ECA 208.1 cm/sec. Rt. Vert. 40.9/6.9 cm/sec. Lt. Vert. 43.2/4.7 cm/sec. Right Extracranial There is homogeneous, smooth atherosclerotic plaque noted in the right common carotid artery. There is heterogeneous, irregular atherosclerotic plaque noted in the right internal carotid artery. There is heterogeneous, irregular atherosclerotic plaque noted in the right external carotid artery. Antegrade flow is noted in the right vertebral artery. Left Extracranial There is homogeneous, smooth atherosclerotic plaque noted in the left common carotid artery. There is heterogeneous, irregular atherosclerotic plaque noted in the left internal carotid artery. There is heterogeneous, irregular atherosclerotic plaque noted in the left external carotid artery. Antegrade flow is noted in the left vertebral artery. Procedure Carotid Duplex [id number]. This is a Carotid Duplex examination using B-mode, color flow and specral Doppler. Exam performed in department. VL/Carotid Duplex Ultrasound Interpretation Summary Irregular calcific plaque at the proximal right internal carotid artery with le ss than 50% stenosis Greater than 50% stenosis right external carotid artery Irregular calcific plaque at the proximal left internal carotid artery with les s than 50% stenosis Greater than 50% stenosis left external carotid artery Patent and antegrade vertebral arteries bilaterally No change from the previous examination of January 15, 2019 Ordering Physician: Mahin Ryan Referring Physician: Mahin Ryan Performed By: Griselda Preston RVT
--- NOTE | 2023-03-05 16:39 | SP.MBSS_ITS ---
Modified Barium Swallow - Patient Information Study Date: 03/02/23 Study Time: 13:00 Direct Billable Minutes: 120 Total Minutes procedure & reportin Diagnosis: Dysphagia (R13.10) Referring Physician: Mahin Ryan Reason for Referral: Objectively assess swallow function, assess risk for aspiration, and determine recommendations for least restrictive diet textures and compensatory strategies to improve safety of swallow. Medical History: PMH: GERD, hiatal hernia, HTN, HLD, diverticulitis (SEE EMR for full PMH). Current Diet Ordered: Regular textures / Thin liquids Mental Status: WNL Respiratory Status: Oxygenating on Room Air - Penetration-Aspiration Scale Penetration-Aspiration Scale: OBJECTIVE ASSESSMENT OF SWALLOW FUNCTION (QUANTITATIVE ? PER TRIAL): PENETRATION / ASPIRATION SCALE (TENORIO): 1 = does not enter airway 2 = enters airway/above vocal folds/ejected 3 = enters airway/above vocal folds/not ejected 4 = enters airway/contacts vocal folds/ejected 5 = enters airway/contacts vocal folds/not ejected 6 = enters airway/below vocal folds/ejected 7 = enters airway/below vocal folds/not ejected despite effort 8 = enters airway/below vocal folds/no effort VIDEOFLOROSCOPIC SCALE SCORE (TENORIO): Grade I = aspiration of material that has penetrated into the laryngeal vestibule, intact cough reflex Grade II = aspiration < 10 % of the bolus, intact cough reflex Grade III = aspiration of < 10 % of the bolus, reduced cough reflex or aspiration of > 10 % of the bolus, intact cough reflex Grade IV = aspiration of > 10 % of the bolus, reduced cough reflex - Penetration-Aspiration Scale Score Thin Liquid via teaspoon Result: 1= does not enter airway Thin Liquid via teaspoon Trial 2 Result: 1= does not enter airway Thin Liquid via small single sip from cup Result: 3= enters airways/above vocal folds/not ejected - trace contrast remaining in the laryngeal vestibule after the trial [place] Thick Liquid via small single sip from cup Result: 2= enter airway/above vocal folds/ejected Pudding via teaspoon with esophageal screen Result: 1= does not enter airway 1/2 Cookie Result: 1= does not enter airway Thin Liquid via sequential sips from straw Result: 5= enters airways/contacts vocal folds/not ejected - CANNOT DEFINITIVELY RULE OUT ASPIRATION - difficult to fully view the trachea below the level of the vocal folds due to pt's body habitus Thin Liquid via single sip from straw Result: 5= enters airways/contacts vocal folds/not ejected Thin Liquid via small single sip from cup Effortful swallow Result: 2= enter airway/above vocal folds/ejected - Oral Phase Labial Seal: No Labial Escape Tongue Control During Bolus Hold: Posterior escape of less than half of bolus Bolus Preparation/Mastication: Disorganized chewing/mashing with solid pieces of bolus unchewed - small piece of un-chewed cookie remained in the laryngeal vestibule after the swallow Bolus Transport/Lingual Motion: Delayed initiation of tongue motion Oral Residue: Residue collection on oral structures - Pharyngeal Phase Initiation of Pharyngeal Swallow: Bolus head at posterior laryngeal surgace of epiglottis Soft Palate Elevation: Trace column of contrast/air between soft palate and pharyngeal wall Laryngeal Elevation: Partial superior movement thyroid cart/partial apprx aryt- epig petiole Anterior Hyoid Excursion: Partial anterior movement Epiglottic Movement: Partial inversion Laryngeal Vestibule Closure at Height of Swallow: Incomplete; narrow column of air/contrast in laryngeal vestibule Pharyngeal Stripping Wave: Present - diminished Pharyngoesophageal Segment Opening: Parital distension and partial duration; parital obstruction of flow Tongue Base Retraction: Wide column of contrast between tongue base & post. pharyngeal wall Pharyngeal Residue: Majority of contrast within or on pharyngeal structures - ~1/2 of large, sequential sips remained after the initial swallow - Esophageal Phase Esophageal Clearance: Esophageal retention w/ retrograde flow below pharyngoesophageal seg. - Diagnosis/Impression Diagnosis: Mild oropharyngeal phase dysphagia (R13.12) Impression: The oral phase is primarily marked by... -Decreased bolus control with <1/2 of the bolus spilling posteriorly to the posterior surface of the epiglottis prior to swallow onset observed with sequential sips of thin liquids. -Timely mastication. The patient did, however, have a small piece of cookie that appeared un-chewed and remained in the pharynx after the swallow. Liquid wash effectively cleared residue. The pharyngeal phase is primarily marked by... -Mildly decreased airway closure during the swallow due to partial anterior hyoid excursion, partial epiglottic inversion, and decreased laryngeal elevation. Anterior cervical osteophytes at C3-4 and C4-5 (confirmed by radiologist, Dr. Lux) are impacting epiglottic inversion. Decreased epiglottic inversion is resulting in increased pharyngeal residues in the vallecula; however, patient is able to compensate with use of multiple swallows to mostly clear residues from the vallecula. -Decreased tongue base retraction, UES opening/duration, and pharyngeal stripping wave. -Deep laryngeal penetration of thin liquids via single and sequential straw sips to the vocal folds, which did not reliably eject placing patient at increased risk for aspiration. Decreased bolus size/rate and use of effortful swallows were most effective in decreasing risk for aspiration. The esophageal phase is primarily marked by... -Esophageal retention of pudding and thin liquids in lower esophagus with retrograde flow remaining well below the upper esophageal sphincter. - Recommendations Diet: Regular Textures, Thin Liquids Comment: hard/effortful swallows on bites/sips, continue use of double swallows (pt independently completes as needed at this time) Compensatory Strategies: Small Bites, Small Sips, No Straws, Slow Rate, Alternate bites/solids and sips/liquids, Sitting upright, Remain sitting upright for 30 minutes after PO intake Recommend Repeat Modified Barium Swallow: No Need for Skilled Speech Therapy Services: Yes Comment: Will recommend the patient for outpatient dysphagia therapy to address deficits in oropharyngeal swallow function. Will recommend the patient for oropharyngeal strengthening to improve tongue base retraction, hyolaryngeal elevation/excursion, pharyngeal contraction, and duration of UES opening (consider Maryjane, CTAR, effortful, Veronica). The patient would benefit from thorough education regarding diet recommendations and recommended compensatory strategies. Recommended Referrals: GI Consult Education Completed: 1. Described result of evaluation., 2. Pt understands evaluation & agrees with goals and treatment plan., 7. Pt requires further education on strategies & risks. - Status Active ST Patient: Active - Contact Information [facility] Speech Therapy:: Veronica Garcia M.A. [facility]PERFORMAN[employer] MAKEUP ARTIST Speech-Language Pathologist [facility] [address] [place] [address] [email or web address] [phone] 03/05/23 16:53
== END | disposition home or self-care (01) ==
PROVIDERS: PCP Family Medicine; Referring Provider Family Medicine; Visit Provider Family Medicine
DX: I65.23 Occlusion and stenosis of bilateral carotid arteries (principal); R13.10 Dysphagia, unspecified; R06.02 Shortness of breath
CPT/HCPCS: 74230; 92611; 93880

== ENCOUNTER → 2023-06-29 | Outpatient (CLI) | payer MEDICARE, OTHER, SELFPAY ==
[2023-06-29 12:07] LABS: Absolute Lymphocyte Count 2.26 X10^3/uL (0.83-4.51); Absolute Neutrophil Count 3.5 X10^3/uL (2.0-7.7); Basophil# 0.04 X10^3/uL; Basophil% 0.6 % (0-1); Eosinophil# 0.25 X10^3/uL; Eosinophils% 3.8 % (0-5); Hematocrit 45.6 % (40-54); Hemoglobin 14.7 g/dL (13.0-16.5); Lymphocyte # 2.26 X10^3/ul (0.83-4.51); Lymphocyte % 34.4 % (19-41); Mean Corp Hgb Conc 32.2 g/dL (32-36); Mean Corpuscular Hgb 31.1 pg (27.0-32.0); Mean Corpuscular Volume 96.4 fL (80-94); Monocyte# 0.55 X10^3/uL; Monocyte% 8.4 % (0-10); NRBC Flagged by Analyzer 0 % (0-5); Neutrophil # 3.45 X10^3/uL (2.7-7.7); Neutrophil % 52.5 % (47-70); Platelet Count 172 K/mm3 (150-450); RBC Distribution Width CV 13.3 % (11.6-14.6); RBC Distribution Width SD 47.5 fl (35.1-43.9); Red Blood Count 4.73 M/mm3 (4.6-6.2); White Blood Count 6.6 K/mm3 (4.4-11.0)
[2023-06-29 12:31] LABS: ALB/GLOB Ratio 0.9 RATIO (0.9-2.4); AST(SGOT) 29 U/L (15-37); Alanine Aminotransfer ALT/SGPT 33 U/L (16-61); Albumin, Serum 3.5 g/dL (3.2-5.0); Alkaline Phosphatase 59 U/L (45-117); Anion Gap 4 (5-15); BUN 17 mg/dL (7-18); Chloride 109 mmol/L (98-107); Cholesterol 137 mg/dL (200); Creatinine, Serum 1.06 mg/dL (0.70-1.30); EST Glomerular Filtration Rate 71 mL/min (>60); Est Glom Filt Rate - Afr Amer 86 mL/min (>60); Globulin 4.1 g/dL (2.2-4.2); Glucose 108 mg/dL (74-106); High Density Lipoprotein 40 mg/dL; Potassium 3.9 mmol/L (3.5-5.1); Protein, Total 7.6 g/dL (6.4-8.2); Sodium Level 139 mmol/L (136-145); T4 Free Direct 0.97 ng/dL (0.76-1.46); Triglycerides 182 mg/dL; Very Low Density Lipoprotein 36 mg/dL (5-40)
== END | disposition home or self-care (01) ==
LOC: MTLAB 11:11
PROVIDERS: PCP Family Medicine; Referring Provider Family Medicine; Visit Provider Family Medicine
DX: E78.5 Hyperlipidemia, unspecified (principal); E06.3 Autoimmune thyroiditis
CPT/HCPCS: 36415; 80053; 80061; 84439; 84443; 85025

== ENCOUNTER 2023-12-04 11:30 | Outpatient (RCR) | payer MEDICARE, OTHER, SELFPAY ==
--- NOTE | 2023-04-10 19:49 | ST ---
[facility] Speech Pathology [address] [place] [address] Modified Barium Swallow Study MR#: [id number] Acct: [id number] Name: HANNAH BLOCK I Rep #: [id number] : 1940 82 From: Veronica Garcia M.A., [facility]-PIPE WASHER Modified Barium Swallow - Patient Information Study Date: 03/02/23 Study Time: 13:00 Direct Billable Minutes: 120 Total Minutes procedure & reportin Diagnosis: Dysphagia (R13.10) Referring Physician: Mahin Ryan Reason for Referral: Objectively assess swallow function, assess risk for aspiration, and determine recommendations for least restrictive diet textures and compensatory strategies to improve safety of swallow. Medical History: PMH: GERD, hiatal hernia, HTN, HLD, diverticulitis (SEE EMR for full PMH). Current Diet Ordered: Regular textures / Thin liquids Mental Status: WNL Respiratory Status: Oxygenating on Room Air - Penetration-Aspiration Scale Penetration-Aspiration Scale: OBJECTIVE ASSESSMENT OF SWALLOW FUNCTION (QUANTITATIVE ? PER TRIAL): PENETRATION / ASPIRATION SCALE (TENORIO): 1 = does not enter airway 2 = enters airway/above vocal folds/ejected 3 = enters airway/above vocal folds/not ejected 4 = enters airway/contacts vocal folds/ejected 5 = enters airway/contacts vocal folds/not ejected 6 = enters airway/below vocal folds/ejected 7 = enters airway/below vocal folds/not ejected despite effort 8 = enters airway/below vocal folds/no effort VIDEOFLOROSCOPIC SCALE SCORE (TENORIO): Grade I = aspiration of material that has penetrated into the laryngeal vestibule, intact cough reflex Grade II = aspiration < 10 % of the bolus, intact cough reflex Grade III = aspiration of < 10 % of the bolus, reduced cough reflex or aspiration of > 10 % of the bolus, intact cough reflex Grade IV = aspiration of > 10 % of the bolus, reduced cough reflex - Penetration-Aspiration Scale Score Thin Liquid via teaspoon Result: 1= does not enter airway Thin Liquid via teaspoon Trial 2 Result: 1= does not enter airway Thin Liquid via small single sip from cup Result: 3= enters airways/above vocal folds/not ejected - trace contrast remaining in the laryngeal vestibule after the trial [place] Thick Liquid via small single sip from cup Result: 2= enter airway/above vocal folds/ejected Pudding via teaspoon with esophageal screen Result: 1= does not enter airway 1/2 Cookie Result: 1= does not enter airway Thin Liquid via sequential sips from straw Result: 5= enters airways/contacts vocal folds/not ejected - CANNOT DEFINITIVELY RULE OUT ASPIRATION - difficult to fully view the trachea below the level of the vocal folds due to pt's body habitus Thin Liquid via single sip from straw Result: 5= enters airways/contacts vocal folds/not ejected Thin Liquid via small single sip from cup Effortful swallow Result: 2= enter airway/above vocal folds/ejected - Oral Phase Labial Seal: No Labial Escape Tongue Control During Bolus Hold: Posterior escape of less than half of bolus Bolus Preparation/Mastication: Disorganized chewing/mashing with solid pieces of bolus unchewed - small piece of un-chewed cookie remained in the laryngeal vestibule after the swallow Bolus Transport/Lingual Motion: Delayed initiation of tongue motion Oral Residue: Residue collection on oral structures - Pharyngeal Phase Initiation of Pharyngeal Swallow: Bolus head at posterior laryngeal surgace of epiglottis Soft Palate Elevation: Trace column of contrast/air between soft palate and pharyngeal wall Laryngeal Elevation: Partial superior movement thyroid cart/partial apprx aryt-epig petiole Anterior Hyoid Excursion: Partial anterior movement Epiglottic Movement: Partial inversion Laryngeal Vestibule Closure at Height of Swallow: Incomplete; narrow column of air/contrast in laryngeal vestibule Pharyngeal Stripping Wave: Present - diminished Pharyngoesophageal Segment Opening: Parital distension and partial duration; parital obstruction of flow Tongue Base Retraction: Wide column of contrast between tongue base & post. pharyngeal wall Pharyngeal Residue: Majority of contrast within or on pharyngeal structures - ~1/2 of large, sequential sips remained after the initial swallow - Esophageal Phase Esophageal Clearance: Esophageal retention w/ retrograde flow below pharyngoesophageal seg. - Diagnosis/Impression Diagnosis: Mild oropharyngeal phase dysphagia (R13.12) Impression: The oral phase is primarily marked by... -Decreased bolus control with <1/2 of the bolus spilling posteriorly to the posterior surface of the epiglottis prior to swallow onset observed with sequential sips of thin liquids. -Timely mastication. The patient did, however, have a small piece of cookie that appeared un-chewed and remained in the pharynx after the swallow. Liquid wash effectively cleared residue. The pharyngeal phase is primarily marked by... -Mildly decreased airway closure during the swallow due to partial anterior hyoid excursion, partial epiglottic inversion, and decreased laryngeal elevation. Anterior cervical osteophytes at C3-4 and C4-5 (confirmed by radiologist, Dr. Lux) are impacting epiglottic inversion. Decreased epiglottic inversion is resulting in increased pharyngeal residues in the vallecula; however, patient is able to compensate with use of multiple swallows to mostly clear residues from the vallecula. -Decreased tongue base retraction, UES opening/duration, and pharyngeal stripping wave. -Deep laryngeal penetration of thin liquids via single and sequential straw sips to the vocal folds, which did not reliably eject placing patient at increased risk for aspiration. Decreased bolus size/rate and use of effortful swallows were most effective in decreasing risk for aspiration. The esophageal phase is primarily marked by... -Esophageal retention of pudding and thin liquids in lower esophagus with retrograde flow remaining well below the upper esophageal sphincter. - Recommendations Diet: Regular Textures, Thin Liquids Comment: hard/effortful swallows on bites/sips, continue use of double swallows (pt independently completes as needed at this time) Compensatory Strategies: Small Bites, Small Sips, No Straws, Slow Rate, Alternate bites/solids and sips/liquids, Sitting upright, Remain sitting upright for 30 minutes after PO intake Recommend Repeat Modified Barium Swallow: No Need for Skilled Speech Therapy Services: Yes Comment: Will recommend the patient for outpatient dysphagia therapy to address deficits in oropharyngeal swallow function. Will recommend the patient for oropharyngeal strengthening to improve tongue base retraction, hyolaryngeal elevation/excursion, pharyngeal contraction, and duration of UES opening (consider Maryjane, CTAR, effortful, Veronica). The patient would benefit from thorough education regarding diet recommendations and recommended compensatory strategies. Recommended Referrals: GI Consult Education Completed: 1. Described result of evaluation., 2. Pt understands evaluation & agrees with goals and treatment plan., 7. Pt requires further education on strategies & risks. - Status Active ST Patient: Active - Contact Information [facility] Speech Therapy:: Veronica Garcia M.A. [facility] Speech-Language Pathologist [place] [address] [address] [email or web address] [phone] 03/05/23 16:53 03/06/23 0913 <Electronically signed by Veronica Garcia M.A., [facility]-PIPE WASHER> Date/Time Veronica Garcia M.A., CCC-PIPE WASHER
--- NOTE | 2023-04-10 20:09 | HP.SP.EV_ITS ---
Visit History - Visit Info Date of Eval: 04/10/23 Visit: 1 Insurance Date Limit: 10/14/23 [employer]: MAL - History Attending Doctor: Reason for Referral: DYSPHAGIA / RX HERE Medical Diagnosis: Mild Oropharyngeal Dysphagia Previous speech therapy: No Results: MBSS completed on 03/05/23. SEE RESULTS BELOW. Other Relevant Medical History/Diagnoses/Surgery: HANNAH BLOCK is an 82 year old male who presents to [facility] Speech Therapy on 04/10/23 for follow-up from an MBSS completed on 03/05/23. MBSS revealing mild oropharyngeal dysphagia with recommendations for outpatient speech therapy to improve tongue base retraction, hyolaryngeal elevation and excursion, pharyngeal wall contraction, and duration and extension of UES. Hannah reporting adhering to recommendations at the time of MBSS for his safe swallowing strategies of effortful swallows, multiple swallows, and no straws. Pt reporting less frequent difficulty at home when implementing these strategies. Medications related to this diagnosis: balsalazide Smoking Status: Former smoker - Diagnosis Diagnosis: Mild Oropharyngeal Dysphagia - Pain Is pain an issue with your current prescribed condition?: No - Personal Preferred language: Andorran History - History Previous speech therapy: No Smoking Status: Former smoker Hx Smoking: Yes - QUIT 48 YRS AGO Hx Tobacco Use: No - Pain Is pain an issue with your current prescribed condition?: No Patient Allergies - Allergies Allergies adhesive tape Allergy (Intermediate, Verified 10/10/22 09:44) Other metoprolol Allergy (Intermediate, Verified 10/10/22 09:44) Other piperacillin [From Zosyn] Allergy (Intermediate, Verified 10/10/22 09:44) Other tazobactam [From Zosyn] Allergy (Intermediate, Verified 10/10/22 09:44) Other iodine Allergy (Verified 10/10/22 09:44) Anaphylaxis Penicillins [PCN] Allergy (Verified 10/10/22 09:44) Anaphylaxis shellfish derived Allergy (Verified 10/10/22 09:44) Anaphylaxis Subjective Dysphagia - Symptoms Reported Symptoms/Problems with: Difficulty Swallowing Solids, Difficulty Swallowing Liquids - Current Diet Solids Current Diet: Regular - Current Diet Liquids Current Liquids: Thin - Comments Questionnaire -: Pt reporting that he wears a BiPap at night between 7-[address] commenting on Pt's rough, gravelly voice. Pt does have a hx of GERD and hiatal hernia which he is seeing GI for. Pt reports not seeing ENT. Pt reporting drinking water throughout the day to help with the dryness he experiences from the BiPap. Education -: Extensive education provided re: Pt's MBSS results. Reviewed the safe swallowing strategies recommended at the time of the MBSS with Pt reporting that he adheres to not using straws, using multiple swallows intermittently throughout the course of a meal, and using effortful swallows when consuming meds and when he feels the bolus getting caught in throat. Direct education provided re: 6 oropharyngeal strengthening exercises including CTAR, Effortful Swallow, Gargle, Maryjane, Veronica, and Shaker. Rx all exercises except the gargle for 10 reps, 2x/day. Gargle for 5 reps, 2x/day and to only complete with water following oral care. Education provided re: importance of oral health to help prevent aspiration pneumonia given the degree of penetration observed on the MBSS. Education provided re: potential for participation in FEES to objectively assess swallow function following 4 weeks of home exercise program. A FEES would objectively assess his swallow function along with visualization of the vocal folds to assess rough, gravelly vocal quality. Pt showing understanding for all education presented today. A handout was provided for the exercises along with a checklist to keep track of completion. Modified Barium Results Hx MBS Report Entered: Yes MBS Results (from prior exam): 04/10/23 19:49 Speech Therapy by Marian Saldivar [facility] Speech Pathology [address] [place] [address] Modified Barium Swallow Study MR#: [id number] Acct: [id number] Name: HANNAH BLOCK I Rep #:[id number] : 1940 82 From: Veronica Harper, [facility]-PRODUCTION DIRECTOR Modified Barium Swallow - Patient Information Study Date: 03/02/23 Study Time: 13:00 Direct Billable Minutes: 120 Total Minutes procedure & reportin Diagnosis: Dysphagia (R13.10) Referring Physician: Mahin Ryan Reason for Referral: Objectively assess swallow function, assess risk for aspiration, and determine recommendations for least restrictive diet textures and compensatory strategies to improve safety of swallow. Medical History: PMH: GERD, hiatal hernia, HTN, HLD, diverticulitis (SEE EMR for full PMH). Current Diet Ordered: Regular textures / Thin liquids Mental Status: WNL Respiratory Status: Oxygenating on Room Air - Penetration-Aspiration Scale Penetration-Aspiration Scale: OBJECTIVE ASSESSMENT OF SWALLOW FUNCTION (QUANTITATIVE ? PER TRIAL): PENETRATION / ASPIRATION SCALE (TENORIO): 1 = does not enter airway 2 = enters airway/above vocal folds/ejected 3 = enters airway/above vocal folds/not ejected 4 = enters airway/contacts vocal folds/ejected 5 = enters airway/contacts vocal folds/not ejected 6 = enters airway/below vocal folds/ejected 7 = enters airway/below vocal folds/not ejected despite effort 8 = enters airway/below vocal folds/no effort VIDEOFLOROSCOPIC SCALE SCORE (TENORIO): Grade I = aspiration of material that has penetrated into the laryngeal vestibule, intact cough reflex Grade II = aspiration < 10 % of the bolus, intact cough reflex Grade III = aspiration of < 10 % of the bolus, reduced cough reflex or aspiration of > 10 % of the bolus, intact cough reflex Grade IV = aspiration of > 10 % of the bolus, reduced cough reflex - Penetration-Aspiration Scale Score Thin Liquid via teaspoon Result: 1= does not enter airway Thin Liquid via teaspoon Trial 2 Result: 1= does not enter airway Thin Liquid via small single sip from cup Result: 3= enters airways/above vocal folds/not ejected - trace contrast remaining in the laryngeal vestibule after the trial [place] Thick Liquid via small single sip from cup Result: 2= enter airway/above vocal folds/ejected Pudding via teaspoon with esophageal screen Result: 1= does not enter airway 1/2 Cookie Result: 1= does not enter airway Thin Liquid via sequential sips from straw Result: 5= enters airways/contacts vocal folds/not ejected - CANNOT DEFINITIVELY RULE OUT ASPIRATION - difficult to fully view the trachea below the level of the vocal folds due to pt's body habitus Thin Liquid via single sip from straw Result: 5= enters airways/contacts vocal folds/not ejected Thin Liquid via small single sip from cup Effortful swallow Result: 2= enter airway/above vocal folds/ejected - Oral Phase Labial Seal: No Labial Escape Tongue Control During Bolus Hold: Posterior escape of less than half of bolus Bolus Preparation/Mastication: Disorganized chewing/mashing with solid pieces of bolus unchewed - small piece of un-chewed cookie remained in the laryngeal vestibule after the swallow Bolus Transport/Lingual Motion: Delayed initiation of tongue motion Oral Residue: Residue collection on oral structures - Pharyngeal Phase Initiation of Pharyngeal Swallow: Bolus head at posterior laryngeal surgace of epiglottis Soft Palate Elevation: Trace column of contrast/air between soft palate and pharyngeal wall Laryngeal Elevation: Partial superior movement thyroid cart/partial apprx aryt- epig petiole Anterior Hyoid Excursion: Partial anterior movement Epiglottic Movement: Partial inversion Laryngeal Vestibule Closure at Height of Swallow: Incomplete; narrow column of air/contrast in laryngeal vestibule Pharyngeal Stripping Wave: Present - diminished Pharyngoesophageal Segment Opening: Parital distension and partial duration; parital obstruction of flow Tongue Base Retraction: Wide column of contrast between tongue base & post. pharyngeal wall Pharyngeal Residue: Majority of contrast within or on pharyngeal structures - ~1/2 of large, sequential sips remained after the initial swallow - Esophageal Phase Esophageal Clearance: Esophageal retention w/ retrograde flow below pharyngoesophageal seg. - Diagnosis/Impression Diagnosis: Mild oropharyngeal phase dysphagia (R13.12) Impression: The oral phase is primarily marked by... -Decreased bolus control with <1/2 of the bolus spilling posteriorly to the posterior surface of the epiglottis prior to swallow onset observed with sequential sips of thin liquids. -Timely mastication. The patient did, however, have a small piece of cookie that appeared un-chewed and remained in the pharynx after the swallow. Liquid wash effectively cleared residue. The pharyngeal phase is primarily marked by... -Mildly decreased airway closure during the swallow due to partial anterior hyoid excursion, partial epiglottic inversion, and decreased laryngeal elevation. Anterior cervical osteophytes at C3-4 and C4-5 (confirmed by r adiologist, Dr. Lux) are impacting epiglottic inversion. Decreased epiglottic inversion is resulting in increased pharyngeal residues in the vallecula; however, patient is able to compensate with use of multiple swallows to mostly clear residues from the vallecula. -Decreased tongue base retraction, UES opening/duration, and pharyngeal stripping wave. -Deep laryngeal penetration of thin liquids via single and sequential straw sips to the vocal folds, which did not reliably eject placing patient at increased risk for aspiration. Decreased bolus size/rate and use of effortful swallows were most effective in decreasing risk for aspiration. The esophageal phase is primarily marked by... -Esophageal retention of pudding and thin liquids in lower esophagus with retrograde flow remaining well below the upper esophageal sphincter. - Recommendations Diet: Regular Textures, Thin Liquids Comment: hard/effortful swallows on bites/sips, continue use of double swallows (pt independently completes as needed at this time) Compensatory Strategies: Small Bites, Small Sips, No Straws, Slow Rate, Alternate bites/solids and sips/liquids, Sitting upright, Remain sitting upright for 30 minutes after PO intake Recommend Repeat Modified Barium Swallow: No Need for Skilled Speech Therapy Services: Yes Comment: Will recommend the patient for outpatient dysphagia therapy to address deficits in oropharyngeal swallow function. Will recommend the patient for oropharyngeal strengthening to improve tongue base retraction, hyolaryngeal elevation/excursion, pharyngeal contraction, and duration of UES opening (consi mary Maryjane, CTAR, effortful, Veronica). The patient would benefit from thorough education regarding diet recommendations and recommended compensatory strategies. Recommended Referrals: GI Consult Education Completed: 1. Described result of evaluation., 2. Pt understands evaluation & agrees with goals and treatment plan., 7. Pt requires further ed ucation on strategies & risks. - Status Active ST Patient: Active - Contact Information [facility] Speech Therapy:: Veronica Garcia M.A. [facility] DIRECT[facility] Speech-Language Pathologist [address] [place] [address] [email or web address] [phone] 03/05/23 16:53 03/06/23 0913 <Electronically signed by Veronica Garcia M.A., CCC-PRODUCTION DIRECTOR> Date/Time Veronica Garcia M.A., CCC-PRODUCTION DIRECTOR Initialized on 04/10/23 19:49 - END OF NOTE Swallowing Performance Scale - Swallowing Performance Scale Swallowing Performance Scale Result: 4 Mild to Moderate Plan - Plan Plan: Will rx Pt for skilled outpatient tx to address mild deficits in oropharyngeal dysphagia. Pt would benefit from training and education re: process of diet tolerance checks, swallowing exercises, and objective assessment of swallowing function via FEES to aid in oropharyngeal strengthening and recommendations for least restrictive diet. Without skilled intervention, Pt is at risk for consuming a restrictive diet putting him at risk for aspiration pneumonia and atrophy of laryngeal musculature. - Recommendations Treatment Warranted: Yes Treatment Warranted: Dysphagia Comment: Pt would be appropriate for follow up with FEES imaging to assess benefit of oropharyngeal strengthening exercise program along with objective assessment of vocal quality. - Progress Prognosis: Good - Frequency Frequency: 1x/Week Duration: 2 Months - Goals that are Established Determination:: Goals will be added/modified as deemed necessary and appropriate. Therapy will be discontinued when results of re-evaluation indicate therapy is no longer needed or lack of progress has been documented. - Goal #1-5 Goal #1: Hannah will complete oropharyngeal exercises for 10 reps, 2x/day (CTAR, Effortful Swallow, Gargle, Maryjane, Veronica, and Shaker) independently to improve tongue base retraction, PES opening/distention, and hyolaryngeal elevation and excursion across 4 weeks. Goal #2: Hannah will participate in FEES to objectively assess Pt's oropharyngeal swallow function to determine the least restrictive means of nutrition and progress from participating in pharyngeal strengthening exercises. Goal #3: Hannah will utilize swallowing strategies (multiple swallows, no straws, effortful swallow) and tolerate least restrictive diet with no overt s/s of aspiration/penetration to aid in safe consumption of solid/liquids independently. Education - Patient has Indicated that the Following Identified Educational Needs: None The Patient has indicated that they have no educational or learning abilities that may effect their care.: Yes - Patient Instruction Patient Education: Diagnosis, Treatment Plan, Goals, Safety Precautions, Diet Level, Home Exercise Program Person Taught: Patient Teaching Method: Discussion, Demonstration, Handout, Teach back Response to teaching: Return demonstration, Verbalize understanding, Teaching Completed
--- NOTE | 2023-11-05 18:54 | SP.FEES_ITS ---
FEES Patient Information Date of Evaluation: 10/29/23 Time of Evaluation: 10:10 DIAGNOSIS:: Dysphagia Staff Providing this Care/Treatment:: CODI Direct Billable Minutes: 115 Subjective: Subjective:: HANNAH BLOCK is an 83 year old male who presents to [facility] for a FEES swallowing evaluation for follow-up from an MBSS completed on 03/05/23. MBSS revealing mild oropharyngeal dysphagia with recommendations for outpatient speech therapy to improve tongue base retraction, hyolaryngeal elevation and excursion, pharyngeal wall contraction, and duration and extension of UES. Hannah reporting adhering to recommendations at the time of MBSS for his safe swallowing strategies of effortful swallows, multiple swallows, and no straws. He participated in 3 sessions of dysphagia therapy in April 2023. FEES completed to reassess current abilities. Current Diet: Drinks/Liquids:: Thin Foods:: Regular Medication Administration:: orally Respiratory Status: Observation:: Room Air Vocal Quality: Observations:: Raspy Cognition: Observations:: WNL Dysphagia: TX/DX History:: Yes and MBSS Fiberoptic Endoscope: Size: 3.4 mm Nare:: Left Position During FEES: Position During FEES:: Upright Location: In Chair Anatomy: + Velopharyngeal Port Observations Movement: Yes and Symmetrical +Nasopharynx Observations Tissue Description: Davila red Location: Diffuse +Oropharynx Observations: Tissue Description: Moist and Davila red Location: Diffuse +Hypopharynx Observation: Tissue Description: Moist and Davila red Comments:: Observed Anterior cervical osteophytes at C3-4 and C4-5 (confirmed by radiologist, Dr. Lux per MBS on 03/06/23). Noted diffuse cobblestone appearance. Secretions: Description:: Thick and Clear Location:: Nasopharynx, Oropharynx, Hypopharynx and Diffuse Phonation: Arytenoid Adduction & Abduction: Patient participated in vocal screening tasks of sustained phonation task along with pitch glides with appropriate arytenoid adduction observed. Vocal Folds:: WNL Penetration-Aspiration Scale Penetration-Aspiration Scale Swallowing: Initiation:: Vallecula and Piriform Sinus Swallowing Trials: Swallowing Trials Results Below: Thin Liquid: Trial 1: Water - single sip Administered:: via a cup Aspiration: No - aspiration Residue: Yes Residue Location: Residue Location Piriform Sinuses PAS Score: PAS Score *1 Trial 2: Water - single sip Administered:: via a cup Residue: Yes Residue Location: Residue Location Vallecula PAS Score: PAS Score *1 Trial 3: water - sequential Administered:: via a cup Strategy: Double Swallow Aspiration: No - aspiration Residue: Yes Residue Location: Residue Location Piriform Sinuses PAS Score: PAS Score *1 Trial 4: water- single sips Administered:: via a straw Aspiration: No - aspiration Residue Location: Residue Location Vallecula PAS Score: PAS Score *5 Soft & Bite Texture: Trial 1: Mixed fruit cup Administered:: via a teaspoon Strategy: Double Swallow Aspiration: No - aspiration PAS Score: PAS Score *1 Regular Texture: Trial 1: Sahil Chip Strategy: Double Swallow and Liquid Wash Aspiration: No - aspiration Residue: Yes Residue Location: Residue Location Vallecula PAS Score: PAS Score *1 Trial 2: Granola Bar Strategy: Double Swallow and Liquid Wash Aspiration: No - aspiration Residue Location: Residue Location Vallecula PAS Score: PAS Score *1 Result: During second presentation of single cup sip of water, a small amount (droplet) of thin liquid prior to swallow was observed to project over the epiglottis toward laryngeal vestibule. Unable to determine if it progressed towards trachea or pyriform sinus due to patient triggering swallow. Unable to rule out penetration or aspiration of this droplet. All regular trials had spillage to vallecula with one bite of granola bar spilling to pyriform sinus prior to swallow trigger. Diffuse residue from all trials noted in vallecula and pyriform sinuses that clears majority of it with double swallow and liquid wash. Suspect base of the tongue weakness along with reduced pharyngeal wall movement which resulted in residue. Pharyngeal constriction was incomplete due to noting pink out instead of complete (white out) on all swallows. Noted intermittent piecemeal deglutition of solids. Recommendations: Recommended Diet Grade & Liquid Drinks/Liquids:: Thin Foods:: Regular Medication Administration:: orally Supervision/Cues: None Recommended Compensatory Strategies: Recommended Small Bites, Double Swallow, Small Sips, No Straws, Slow Rate, Alternate bites/solids and sips/liquids, Sitting upright, Remain sitting upright for 30 minutes after PO intake. Recommend Repeat Fiberoptic Endoscopic Evaluation of Swallowing: No Prognosis: Prognosis: Good Frequency: Frequency: Monthly Duration: 2 Months Visits in this POC: 2 Education: Education Completed: 1. Described result of evaluation. and 2. Pt understands evaluation & agrees with goals and treatment plan. Goals that are Established Determination:: Goals will be added/modified as deemed necessary and appropriate. Therapy will be discontinued when results of re-evaluation indicate therapy is no longer needed or lack of progress has been documented. Goal #1: Hannah will complete oropharyngeal exercises for 10 reps, 2x/day (CTAR, Effortful Swallow, Gargle, Maryjane, Veronica, and Shaker) independently to improve tongue base retraction, PES opening/distention, and hyolaryngeal elevation and excursion across 4 weeks. Goal #2: Hannah will participate in FEES to objectively assess Pt's oropharyngeal swallow function to determine the least restrictive means of nutrition and progress from participating in pharyngeal strengthening exercises. Goal #3: Hannah will utilize swallowing strategies (multiple swallows, no straws, effortful swallow) and tolerate least restrictive diet with no overt s/s of aspiration/penetration to aid in safe consumption of solid/liquids independently.
--- NOTE | 2023-12-05 14:31 | HP.SP.DC ---
ST Discharge Summary Discharged: Discharge: HANNAH BLOCK is an 83 year old male who presented to [facility] on April 10, 2023, following concern for dysphagia. He participated in 3 weeks of therapy to initiate a HEP targeting oropharyngeal strengthening and compensatory strategies during PO intake. He recently participated in a fiberoptic endoscopic evaluation of swallowing on 10/29/23 to objectively assess overall swallowing function following implementation of HEP. Results of the FEES indicated continuing diet of regular solids and thin liquids following compensatory strategies of Small Bites, Double Swallow, Small Sips, No Straws, Slow Rate, Alternate bites/solids and sips/liquids, Sitting upright, Remain sitting upright for 30 minutes after PO intake. Pt continues with mild tongue base weakness and mild pharyngeal constriction weakness. He was given new handouts and education on a HEP. Pt continues to complain of hoarseness in his voice. Suspect this may be d/t his hx of GERD (which is treated with Nexium) given his laryngeal vestibule appearing red and inflamed. However, Pt indicating noticing his hoarse voice only appearing within the past year or so despite a longer hx of GERD. Recommended Pt follow-up with PCP or ENT to determine management of hoarseness d/t GERD. Thank you for allowing me to participate in the care of your patient. Please contact me with any questions. Will re-evaluate following a script from physician.
== END 2023-12-04 19:00 | disposition home or self-care (01) ==
LOC: SP 11:30
PROVIDERS: PCP Family Medicine; Visit Provider Family Medicine
DX: R13.12 Dysphagia, oropharyngeal phase (principal)
CPT/HCPCS: 92526; 92610; 92612

== ENCOUNTER → 2024-07-30 | Outpatient (CLI) | payer MEDICARE, OTHER, SELFPAY ==
[2024-07-30 17:43] LABS: Absolute Lymphocyte Count 2.84 X10^3/uL (0.83-4.51); Absolute Neutrophil Count 4.1 X10^3/uL (2.0-7.7); Basophil# 0.04 X10^3/uL; Basophil% 0.5 % (0-1); Eosinophil# 0.26 X10^3/uL; Eosinophils% 3.3 % (0-5); Hematocrit 45.9 % (40-54); Hemoglobin 15.1 g/dL (13.0-16.5); Lymphocyte # 2.84 X10^3/ul (0.83-4.51); Lymphocyte % 35.9 % (19-41); Mean Corp Hgb Conc 32.9 g/dL (32-36); Mean Corpuscular Hgb 30.9 pg (27.0-32.0); Mean Corpuscular Volume 94.1 fL (80-94); Mean Platelet Vol. 10.6 fl (6.2-12.0); Monocyte# 0.67 X10^3/uL; Monocyte% 8.5 % (0-10); NRBC Flagged by Analyzer 0 % (0-5); Neutrophil # 4.07 X10^3/uL (2.7-7.7); Neutrophil % 51.4 % (47-70); Platelet Count 203 K/mm3 (150-450); RBC Distribution Width CV 13.6 % (11.6-14.6); RBC Distribution Width SD 46.9 fl (35.1-43.9); Red Blood Count 4.88 M/mm3 (4.6-6.2); White Blood Count 7.9 K/mm3 (4.4-11.0)
[2024-07-30 18:14] LABS: ALB/GLOB Ratio 0.8 RATIO (0.9-2.4); AST(SGOT) 39 U/L (15-37); Alanine Aminotransfer ALT/SGPT 56 U/L (16-61); Albumin, Serum 3.4 g/dL (3.2-5.0); Alkaline Phosphatase 71 U/L (45-117); Anion Gap 7 (5-15); BUN 19 mg/dL (7-18); BUN/Creat Ratio 14.7 RATIO (10-20); Calcium,Total 8.9 mg/dL (8.5-10.1); Chloride 108 mmol/L (98-107); Cholesterol 216 mg/dL (200); Creatinine, Serum 1.29 mg/dL (0.70-1.30); EST Glomerular Filtration Rate 56 mL/min (>60); Est Glom Filt Rate - Afr Amer 68 mL/min (>60); Globulin 4.1 g/dL (2.2-4.2); Glucose 99 mg/dL (74-106); High Density Lipoprotein 36 mg/dL; Potassium 3.8 mmol/L (3.5-5.1); Protein, Total 7.5 g/dL (6.4-8.2); Sodium Level 139 mmol/L (136-145); Triglycerides 173 mg/dL; Very Low Density Lipoprotein 35 mg/dL (5-40)
== END | disposition home or self-care (01) ==
LOC: MTLAB 15:46
PROVIDERS: PCP Family Medicine; Referring Provider Family Medicine; Visit Provider Family Medicine
DX: E06.3 Autoimmune thyroiditis (principal); E78.5 Hyperlipidemia, unspecified; I10 Essential (primary) hypertension
CPT/HCPCS: 36415; 80053; 80061; 84439; 84443; 85025

== ENCOUNTER → 2024-08-22 | Outpatient (CLI) | payer MEDICARE, OTHER, SELFPAY | END | disposition home or self-care (01) | LOC: MTRAD 09:46 | PROVIDERS: PCP Family Medicine; Referring Provider Family Medicine; Visit Provider Family Medicine | DX: J20.9 Acute bronchitis, unspecified (principal) | CPT/HCPCS: 71046 ==

== ENCOUNTER → 2024-12-18 | Outpatient (CLI) | payer MEDICARE, OTHER, SELFPAY ==
[2024-12-18 14:43] LABS: Absolute Lymphocyte Count 2.25 X10^3/uL (0.83-4.51); Absolute Neutrophil Count 3.4 X10^3/uL (2.0-7.7); Basophil# 0.05 X10^3/uL; Basophil% 0.8 % (0-1); Eosinophil# 0.29 X10^3/uL; Eosinophils% 4.5 % (0-5); Hematocrit 40.8 % (40-54); Hemoglobin 13.7 g/dL (13.0-16.5); Lymphocyte # 2.25 X10^3/ul (0.83-4.51); Lymphocyte % 34.6 % (19-41); Mean Corp Hgb Conc 33.6 g/dL (32-36); Mean Corpuscular Hgb 31.6 pg (27.0-32.0); Mean Corpuscular Volume 94.2 fL (80-94); Mean Platelet Vol. 10.4 fl (6.2-12.0); Monocyte# 0.49 X10^3/uL; Monocyte% 7.5 % (0-10); NRBC Flagged by Analyzer 0 % (0-5); Neutrophil % 52.3 % (47-70); Platelet Count 178 K/mm3 (150-450); RBC Distribution Width CV 13.5 % (11.6-14.6); RBC Distribution Width SD 47.4 fl (35.1-43.9); Red Blood Count 4.33 M/mm3 (4.6-6.2); White Blood Count 6.5 K/mm3 (4.4-11.0)
[2024-12-18 15:04] LABS: ALB/GLOB Ratio 1.2 RATIO (0.9-2.4); AST(SGOT) 40 U/L (<=37); Alanine Aminotransfer ALT/SGPT 52 U/L (<=46); Albumin, Serum 3.9 g/dL (3.4-4.8); Alkaline Phosphatase 74 U/L (40-129); Anion Gap 11 (5-15); BUN 18 mg/dL (4-19); Carbon Dioxide 23.4 mmol/L (21.0-32.0); Chloride 107 mmol/L (98-108); Cholesterol 162 mg/dL (<=200); Creatinine, Serum 1.03 mg/dL (0.70-1.20); EST Glomerular Filtration Rate 72 (>60); Globulin 3.1 g/dL (2.2-4.2); Glucose 100 mg/dL (70-99); High Density Lipoprotein 38 mg/dL; Low Density Lipoprotein Calc. 87 mg/dL; Potassium 3.7 mmol/L (3.3-5.1); Sodium Level 142 mmol/L (133-145); Total Bilirubin 0.37 mg/dL (0.00-1.30); Triglycerides 184 mg/dL; Very Low Density Lipoprotein 37 mg/dL (5-40); cholesterol:hdl ratio screen 4.29
== END | disposition home or self-care (01) ==
PROVIDERS: PCP Family Medicine; Referring Provider Family Medicine; Visit Provider Family Medicine
DX: I10 Essential (primary) hypertension (principal); E06.3 Autoimmune thyroiditis
CPT/HCPCS: 36415; 80053; 80061; 84439; 84443; 85025

== ENCOUNTER → 2025-02-17 | Outpatient (CLI) | payer MEDICARE, OTHER, SELFPAY ==
--- NOTE | 2025-02-17 09:44 | CDU_ITS ---
Reason For Study Reason For Study: Rt ICA Stenosis Rt. Velocities/BP Lt. Velocities/BP Prox CCA 87.9/16.7 cm/sec. Prox CCA 100.8/13.0 cm/sec. Mid CCA 84.2/21.6 cm/sec. Mid CCA 115.8/17.4 cm/sec. Dist CCA 72.0/17.9 cm/sec. Dist CCA 113.9/15.1 cm/sec. Prox ICA 144.0/45.2 cm/sec. Prox ICA 103.0/23.9 cm/sec. Mid ICA 137.9/29.1 cm/sec. Mid ICA 113.9/30.5 cm/sec. Dist ICA 146.7/32.7 cm/sec. Dist ICA 113.9/28.3 cm/sec. Rt. ICA/CCA = 1.7. Lt. ICA/CCA = 1.0. Prox ECA 316.2/37.7 cm/sec. Prox ECA 177.5/9.4 cm/sec. Rt. Vert. 64.6/9.3 cm/sec. Lt. Vert. 54.8/5.4 cm/sec. Right Extracranial There is heterogeneous, irregular atherosclerotic plaque noted in the right common carotid artery. There is heterogeneous, irregular atherosclerotic plaque noted in the right internal carotid artery. There is heterogeneous, irregular atherosclerotic plaque noted in the right external carotid artery. Antegrade flow is noted in the right vertebral artery. Left Extracranial There is heterogeneous, smooth atherosclerotic plaque noted in the left common carotid artery. There is heterogeneous, irregular atherosclerotic plaque noted in the left internal carotid artery. There is heterogeneous, irregular atherosclerotic plaque noted in the left external carotid artery. Antegrade flow is noted in the left vertebral artery. Procedure Carotid Duplex [id number]. This is a Carotid Duplex examination using B-mode, color flow and specral Doppler. The exam was diagnostic. Exam performed in department. 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 Mild (<50%) stenosis left extracranial internal carotid. Patent and antegrade vertebrals bilaterally. Ordering Physician: Mahin Ryan Referring Physician: Mahin Ryan Performed By: Jevon Davenport RVT
== END | disposition home or self-care (01) ==
LOC: CVS 09:43
PROVIDERS: PCP Family Medicine; Referring Provider Family Medicine; Visit Provider Family Medicine
DX: I65.23 Occlusion and stenosis of bilateral carotid arteries (principal)
CPT/HCPCS: 93880

== ENCOUNTER → 2025-06-24 | Outpatient (CLI) | payer MEDICARE, OTHER, SELFPAY ==
[2025-06-24 11:23] LABS: Mucous, Urine 0 SEEN /hpf (<or=2+); Red Blood Cells-Urine 0 SEEN /hpf (0-5); Squamous Epithelial Cells - UA 0 SEEN /hpf (0-5)
[2025-06-24 15:26] LABS: Hematocrit 39.8 % (40-54); Hemoglobin 13.0 g/dL (13.0-16.5); Immature Granulocytes Count 0.010 X10^3/uL (0.0-0.0); Mean Corp Hgb Conc 32.7 g/dL (32-36); Mean Corpuscular Volume 95.0 fL (80-94); Mean Platelet Vol. 11.0 fl (6.2-12.0); NRBC Flagged by Analyzer 0 % (0-5); Platelet Count 183 K/mm3 (150-450); RBC Distribution Width CV 13.8 % (11.6-14.6); RBC Distribution Width SD 47.7 fl (35.1-43.9); Red Blood Count 4.19 M/mm3 (4.6-6.2); White Blood Count 7.7 K/mm3 (4.4-11.0)
[2025-06-24 15:35] LABS: Color, Urine Yellow (Yellow); Glucose, Dipstick Normal (Normal); Ketone-Dipstick Negative (Negative); Leukocyte Esterase-Dipstick Negative /ul (Negative); Nitrite-Dipstick Negative (Negative); Occult Blood-Urine Negative /ul (Negative); Protein-Dipstick 15 mg/dl (Negative); Specific Gravity, Urine 1.010 (1.002-1.030); Urine Bilirubin Dipstick Negative (Negative)
[2025-06-24 16:07] LABS: AST(SGOT) 27 U/L (<=37); Alanine Aminotransfer ALT/SGPT 26 U/L (<=46); Albumin, Serum 3.9 g/dL (3.4-4.8); Alkaline Phosphatase 70 U/L (40-129); Anion Gap 11 (5-15); BUN 21 mg/dL (4-19); BUN/Creat Ratio 16.3 RATIO (10-20); Calcium,Total 9.2 mg/dL (7.6-11.0); Carbon Dioxide 23.8 mmol/L (21.0-32.0); Chloride 106 mmol/L (98-108); Cholesterol 162 mg/dL (<=200); Globulin 3.2 g/dL (2.2-4.2); Glucose 93 mg/dL (70-99); Low Density Lipoprotein Calc. 104 mg/dL; Potassium 4.1 mmol/L (3.3-5.1); Triglycerides 130 mg/dL; Very Low Density Lipoprotein 26 mg/dL (5-40); cholesterol:hdl ratio screen 4.98
== END | disposition home or self-care (01) ==
LOC: MTLAB 11:05
PROVIDERS: PCP Family Medicine; Referring Provider Family Medicine; Visit Provider Family Medicine
DX: I10 Essential (primary) hypertension (principal); R73.09 Other abnormal glucose; E06.3 Autoimmune thyroiditis; E78.5 Hyperlipidemia, unspecified
CPT/HCPCS: 36415; 80053; 80061; 81001; 83036; 84439; 84443; 85025

== ENCOUNTER → 2025-07-02 | Outpatient (CLI) | payer MEDICARE, OTHER, SELFPAY ==
[2025-07-02 12:55] LABS: Anion Gap 12 (5-15); BUN 23 mg/dL (4-19); BUN/Creat Ratio 21.1 RATIO (10-20); Calcium,Total 9.0 mg/dL (7.6-11.0); Carbon Dioxide 22.1 mmol/L (21.0-32.0); Chloride 107 mmol/L (98-108); Glucose 103 mg/dL (70-99); Potassium 4.0 mmol/L (3.3-5.1)
== END | disposition home or self-care (01) ==
LOC: LAB.FUTURE 11:08
PROVIDERS: PCP Family Medicine; Visit Provider Family Medicine
DX: I10 Essential (primary) hypertension (principal)
CPT/HCPCS: 36415; 80048

== ENCOUNTER 2025-09-16 16:11 | Observation (INO) | payer MEDICARE, OTHER, SELFPAY ==
[2025-09-16] VITALS (7 sets, daily range): BP systolic 170–205; BP diastolic 67–83; PULSE 62–74; RESP 15–18; TEMP 36.7–36.8; O2SAT 96–100; BMI 32.3; BMI 31.8
--- NOTE | 2025-09-16 16:23 | EX.ED.VIS.EY ---
HPI History of Present Illness Chief Complaint: Eye Problem Informant: patient Onset/Context/Timing Location: Right Eye Onset: Today Context: Sudden Onset Timing: Intermittent Worsened by: Nothing Relieved by: Nothing Associated Symptoms Visual Changes: right: Visual field cut History of injury: No Narrative Narrative: Patient presents with vision loss to his right eye that occurred today. Patient states that around 2 PM today he noted loss of vision of his right eye that looked like a curtain being pulled down over his vision. Patient states this last approximately 20 minutes. Patient states he saw his pipe fitter helper who examined him and referred him to the emergency department. Patient states nothing makes it better and nothing makes it worse. Patient denies any headaches or weakness. [facility] Medical History (Updated 09/16/25 @ 18:[address] Dayton Haynes, DO) Diverticulitis History of squamous cell carcinoma Lumbar disc disease Impaired fasting glucose HLD (hyperlipidemia) Osteoarthritis EFREN (obstructive sleep apnea) Internal hemorrhoids BPH (benign prostatic hyperplasia) HTN (hypertension) Gout Hiatal hernia GERD (gastroesophageal reflux disease) Benign neoplasm of colon Actinic keratosis Home Medications ?Medication ?Instructions ?Recorded ?Last Taken ?Type losartan 100 mg tablet 100 mg PO QDAY 01/28/25 Unknown History pravastatin 20 mg tablet 20 mg PO QDAY 01/28/25 Unknown History lubiprostone 8 mcg capsule 8 mcg PO BID #60 caps 02/03/25 Unknown Rx (Amitiza) Allergy/AdvReac Type Severity Reaction Status Date / Time adhesive tape Allergy Intermediate Other Verified 09/16/25 16:12 metoprolol Allergy Intermediate Other Verified 09/16/25 16:12 piperacillin (From Zosyn) Allergy Intermediate Other Verified 09/16/25 16:12 tazobactam (From Zosyn) Allergy Intermediate Other Verified 09/16/25 16:12 iodine Allergy Anaphylaxis Verified 09/16/25 16:12 Penicillins (PCN) Allergy Anaphylaxis Verified 09/16/25 16:12 shellfish derived Allergy Anaphylaxis Verified 09/16/25 16:12 Family History Father TIA (transient ischemic attack) Brother Melanoma Surgical History S/P insertion of spinal cord stimulator S/P left knee arthroscopy History of back surgery History of cataract extraction Status post bilateral total hip replacement Social History (Updated 09/16/25 @ 17:14 by Janeth Hernandez) household members: spouse housing: house Smoking Status: Former smoker alcohol intake: current ROS ROS ED Constitutional Constitutional ED: Denies chills or fever(s) Eyes Eyes: Reports change in vision right ENT ENT ED: Denies rhinorrhea or sore throat Cardiovascular Cardiovascular: Denies chest pain or palpitations Respiratory/Chest Respiratory/Chest: Denies cough or dyspnea Gastrointestinal Gastrointestinal: Denies nausea or vomiting Genitourinary Genitourinary ED: Denies dysuria or hematuria Musculoskeletal Musculoskeletal: Reports back pain; Denies neck pain Integumentary Denies abscess or rash Neurologic Neurologic: Denies headache(s) or weakness Allergic/Immunologic Allergic/Immunologic ED: Denies mouth swelling or urticaria EXAM Physical Exam Const Vital Signs: 09/16/25 16:12 Temperature 98.3 F Temperature Source Oral Pulse Rate 74 Respiratory Rate 18 Blood Pressure 205/76 H Blood Pressure Mean 119 Pulse Ox 100 Oxygen Delivery Method Room Air Positive well nourished and well developed General Appearance ED: well developed and NAD HEENT atraumatic Eyes Eyes Narrative: The right pupil was dilated. (Patient reports this was done at the pipe fitter helper office). Extraocular muscles are intact. Conjunctiva is clear. Neck supple and no JVD Resp normal respiratory effort and clear to auscultation bilaterally Cardio regular rate and regular rhythm Neuro oriented x3, CN's II-XII intact bilaterally, moves all extremities and no sensory deficits noted Sensorium / Orientation: alert Motor Exam: strength 5/5 throughout MDM MDM MDM Narrative Medical decision making narrative: Stroke workup was initiated. CT scan of the brain will be obtained to assess for stroke and intracranial bleeding. CTA of the head and neck will be obtained to assess for large vessel occlusion and vascular stenosis. EKG will be obtained to assess for cardiac dysrhythmia and cardiac ischemia. CBC will be obtained to assess for leukocytosis and anemia. Basic metabolic profile will be obtained to assess for electrolyte abnormality and renal function. High-sensitivity troponin will be obtained to assess for cardiac ischemia. 2-hour repeat high-sensitivity troponin will be obtained to assess for ongoing cardiac ischemia. Radiography Diagnostic Testing: CT scan of the brain was obtained. There is no acute large territorial infarction. This was interpreted by the radiologist. I also independently reviewed the images. I do not see any acute infarct or bleed. CTA of the head and neck was obtained. There is no evidence of large vessel occlusion. There is bilateral carotid stenosis. There is moderate on the left and there is an area of severe stenosis on the right. This was interpreted by the radiologist. I also independently reviewed the images. They did not see any evidence of large vessel occlusion or intracranial bleeding. EKG Initial EKG: Attestation: I personally reviewed and interpreted this EKG as follows: Interpretation: Sinus Rhythm (With occasional PVC with a rate of 65) and Non-Specific ST Changes Comments: EKG was obtained. On my independent interpretation, it showed a normal sinus rhythm with occasional PVC with a rate of 65. TN interval, QRS interval, and QTc intervals were all normal. [place] was normal. There are nonspecific ST-T wave changes. Prior EKG tracings: available for review Prior: Unchanged (01/04/2019) Management Discussion w/another healthcare provider: Hospitalist Treatment and Re-Evaluation Narrative: Patient's blood pressure improved to 179/76. Patient was advised of his findings. Patient was advised of the need for hospitalization for further evaluation. Patient is agreeable with this. Case was discussed with the hospitalist. He will admit the patient to PCU for observation. Patient and spouse understood and were agreeable with the plan. All questions were answered. Discharge Plan Dx/Rx/DC Orders Clinical Impression: Amaurosis fugax of right eye, Hypertension, EFREN (obstructive sleep apnea) Disposition Disposition: Acute Care Hospital [facility]
--- NOTE | 2025-09-16 16:31 | CT_ITS ---
PROCEDURE: STROKE BRAIN/HEAD WITHOUT CONT 09/16/2025 REASON FOR EXAM: NEURO DEFICIT, ACUTE, STROKE SUSPECTED TECHNIQUE: Procedure Code: CTBR.ST Modality: CT Procedure: STROKE BRAIN/HEAD WITHOUT CONT Coronal and Sagittal reconstruction series were provided. One or more dose reduction techniques were used (e.g., Automated exposure control, adjustment of the mA and/or kV according to patient size, use of iterative reconstruction technique. RADIATION DOSE SUMMARY: DLP: 890 MGycm COMPARISON: Head none FINDINGS: There is no acute infarct, intracranial hemorrhage, or mass effect. There is no hydrocephalus or significant midline shift. There is moderate to severe chronic microvascular ischemic changes and moderate to severe parenchymal volume loss. No acute, depressed calvarial fractures. No large scalp hematomas. The paranasal sinuses are clear. CT/STROKE Brain/Head without Cont IMPRESSION: No acute, large territorial infarction. Stroke Alert: Negative The critical findings in the findings and impression above were relayed directl y by me by telephone to Dayton Haynes on 09/16/2025 at 5:31 pm EST with readback verification. Reading Location: [id number]
--- NOTE | 2025-09-16 16:31 | EKG12_ITS ---
Test Reason : Blood Pressure : */* mmHG Vent. Rate : 65 BPM Atrial Rate : 65 BPM P-R Int : 160 ms QRS Dur : 90 ms QT Int : 458 ms P-R-T Axes : 36 40 51 degrees QTcB Int : 476 ms Sinus rhythm with occasional Premature ventricular complexes Nonspecific ST abnormality Abnormal ECG Confirmed by CONNOR BARNES, ISSAC ([id number]), communications editor ZEINAB GONZALEZ ([id number]) on 09/18/2025 9:05:06 AM Referred By: Confirmed By: ISSAC RYAN MD
--- NOTE | 2025-09-16 16:32 | CT_ITS ---
PROCEDURE: STROKE CTA HEAD AND NECK W/CON 09/16/2025 REASON FOR EXAM: NEURO DEFICIT, ACUTE, STROKE SUSPECTED TECHNIQUE: Procedure Code: CTCTA.ST.HN Modality: CT Procedure: STROKE CTA HEAD AND NECK W/CON Multiplanar Sagittal and Coronal images were obtained. CONTRAST: 100 mL of Isovue 370 One or more dose reduction techniques were used (e.g., Automated exposure control, adjustment of the mA and/or kV according to patient size, use of iterative reconstruction technique). RADIATION DOSE SUMMARY: DLP: 1857 mGycm COMPARISON: none FINDINGS: The aortic arch demonstrates a type I configuration. The ostia of the great vessels are patent. There is conventional branching. The right CCA is patent. There is mild to moderate stenosis of the right carotid bifurcation by NASCET criteria. Severe stenosis of the proximal right ICA best seen on series 5, image 228, due to atherosclerotic plaque. The right MCA and right KAMLA appear patent. There is no large vessel occlusion. The left CCA is patent. There is mild to moderate stenoses at the left carotid bifurcation by NASCET criteria. Mild stenosis of the proximal left ICA and carotid siphon due to atherosclerotic plaque. The left MCA and left KAMLA appear patent. There is no large vessel occlusion. The right vertebral artery arises from the right subclavian artery. The left vertebral artery arises from the left subclavian artery. Both vertebral arteries are patent. Both vertebral arteries join to form the patent basilar artery. Both posterior cerebral arteries arise from the tip of the basilar. origin of the left [employer] INSTALLATION SPECIALIST. both proximal IRR[employer] INSTALLATION SPECIALIST segments are patent. There is no large vessel occlusion. There is no enhancing intracranial mass. Shotty cervical lymph nodes are identified. The thyroid gland is heterogeneous. The lung apices demonstrate no pneumothorax. No destructive osseous abnormalities identified. 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 Scattered mild to moderate stenosis due to atherosclerotic plaque. No large ve ssel occlusions. Reading Location: [id number]
[2025-09-16 17:00] LABS: Hematocrit 40.7 % (40-54); Hemoglobin 13.7 g/dL (13.0-16.5); Immature Granulocytes Count 0.020 X10^3/uL (0.0-0.0); Mean Corp Hgb Conc 33.7 g/dL (32-36); Mean Corpuscular Volume 92.7 fL (80-94); Mean Platelet Vol. 10.2 fl (6.2-12.0); NRBC Flagged by Analyzer 0 % (0-5); Platelet Count 197 K/mm3 (150-450); RBC Distribution Width CV 13.5 % (11.6-14.6); RBC Distribution Width SD 46.2 fl (35.1-43.9); Red Blood Count 4.39 M/mm3 (4.6-6.2); White Blood Count 8.2 K/mm3 (4.4-11.0)
[2025-09-16 17:10] LABS: Prothrombin Time (Protime)PT. 14.8 SECONDS (11.7-14.9)
[2025-09-16 17:11] LABS: Partial Thromboplast Time 29.1 Seconds (24.1-36.2)
[2025-09-16 17:21] LABS: Anion Gap 15 (5-15); BUN 19 mg/dL (4-19); BUN/Creat Ratio 17.5 RATIO (10-20); Calcium,Total 9.0 mg/dL (7.6-11.0); Carbon Dioxide 19.3 mmol/L (21.0-32.0); Chloride 106 mmol/L (98-108); Estimated Creatinine Clearance 55.85 ml/min (50-250); Glucose 100 mg/dL (70-99); Potassium 4.2 mmol/L (3.3-5.1)
[2025-09-16 17:37] LABS: Troponin T High Sensitivity 13 ng/L (<=22)
--- NOTE | 2025-09-16 18:39 | ED.RN ---
Pt. called out for nurse. This RN entered patients room and pt. requested for all monitoring devices to be removed. Pt. then stated I did all these tests 2 hours ago and no one has come back in. This RN explained to patient that the drYann would be back in to discuss test results when all results were back. Pt. then stated Well i know he has the results back he is just too busy to come in here. Pt. requesting clothes to get dress and have PIV removed. PT. agreeable to waiting for PIV removal until after sees patient. Dr Haynes notified and he stated he would be in to talk to patient.
--- NOTE | 2025-09-16 19:00 | ECHOCS_ITS ---
Reason For Study Reason For Study: TIA/CVA Procedure This was a 2D Doppler, Color Flow transthoracic echocardiogram. The study was technically difficult. Due to body habitus. Contrast injection was performed. Exam performed portable in patient room. Left Ventricle Normal LV size. Left ventricular systolic function is normal. The left ventricular ejection fraction is 65 %. Stage 1 diastolic dysfunction. No regional wall motion abnormalities noted. Right Ventricle Normal RV size. Normal systolic function. Atria The left atrium is mildly enlarged. Normal right atrium. Mitral Valve Normal mitral valve. Mild (1+) eccentric mitral valve insufficiency. Tricuspid Valve Normal tricuspid valve. Mild (1+) tricuspid valve insufficiency. Pulmonary artery systolic pressure is 26 mmHg. Aortic Valve Trisinus/trileaflet aortic valve. Mild focal aortic valve calcification. Pulmonic Valve Normal pulmonic valve. Great Vessels Normal aortic root. The pulmonary artery is normal size. Inferior vena cava collapse with respiration. Pericardium/Pleural No pericardial effusion. Medication Diluted definity 2.0ml given slow IV push to enhance endocardial definition. MMode/2D Measurements & Calculations LVIDd: 5.4 cm IVSd: 1.0 cm Ao root diam: 3.1 cm LVIDs: 4.0 cm LVPWd: 1.0 cm RVDd: 3.8 cm FS: 26.4 % LAV(MOD-bp): 71.2 ml LVAd ap4: 31.8 cm2 LVAd ap2: 34.0 cm2 LAV(MOD-bp) Indexed: 34.2 ml/m2 LVLd ap4: 8.4 cm LVLd ap2: 9.0 cm LAV(MOD-sp2): 62.5 ml EDV(MOD-sp4): 100.4 ml EDV(MOD-sp2): 109.4 ml LAV(MOD-sp4): 74.9 ml EDV(sp4-el): 101.6 ml EDV(sp2-el): 108.7 ml LVAs ap4: 16.4 cm2 LVAs ap2: 19.1 cm2 LVLs ap4: 7.4 cm LVLs ap2: 7.8 cm ESV(MOD-sp4): 31.1 ml ESV(MOD-sp2): 41.7 ml ESV(sp4-el): 30.9 ml ESV(sp2-el): 39.6 ml EF(MOD-sp4): 69.0 % EF(MOD-sp2): 61.9 % EF(sp4-el): 69.6 % SV(MOD-sp4): 69.3 ml SV(MOD-sp2): 67.7 ml SV(sp4-el): 70.7 ml SI(MOD-sp4): 33.3 ml/m2 SI(MOD-sp2): 32.5 ml/m2 LA A4 area: 23.2 cm2 LA dimension(2D): 4.5 cm TAPSE: 2.7 cm Time Measurements MV dec time: 0.23 sec Doppler Measurements & Calculations MV E max andrew: 54.7 cm/sec Lat Peak E' Andrew: 9.0 cm/sec Med Peak E' Andrew: 4.9 cm/sec MV A max andrew: 84.3 cm/sec E/E' lat: 6.1 E/E' med: 11.1 MV E/A: 0.65 MV V2 max: 119.3 cm/sec MV P1/2t max andrew: 89.8 cm/sec Ao V2 max: 154.3 cm/sec MV max P.7 mmHg MV P1/2t: 94.4 msec Ao max P.5 mmHg MV V2 mean: 59.7 cm/sec MV dec slope: 278.7 cm/sec2 Ao V2 mean: 107.5 cm/sec MV mean P.7 mmHg MVA(P1/2t): 2.3 cm2 Ao mean P.3 mmHg MV V2 VTI: 25.1 cm Ao V2 VTI: 39.3 cm AV (velocity ratio): 0.55 LV V1 max: 75.0 cm/sec PA V2 max: 118.5 cm/sec PI dec slope: 218.2 cm/sec2 LV V1 max P.2 mmHg LV V1 mean P.4 mmHg LV V1 mean: 57.3 cm/sec LV V1 VTI: 21.8 cm TR max andrew: 240.8 cm/sec TR max P.2 mmHg ECHO/Echo Complete W/ Contrast Interpretation Summary Normal LV size. Left ventricular systolic function is normal. The left ventricular ejection fraction is 65 %. Stage 1 diastolic dysfunction. Pulmonary artery systolic pressure is 26 mmHg. Ordering Physician: Dayton Villagomez Referring Physician: Mahin Ryan Performed By: Cris Chen, KAYE, RVT
--- NOTE | 2025-09-16 19:14 | PCM.HP.STD ---
[facility] - General General Date of Service: 09/16/25 Chief Complaint: Right eye vision changes HPI Narrative HANNAH BLOCK, is a 85 M who presents with right eye vision changes. Today, the patient was in normal state of health and his vision went black in his right eye. Symptoms lasted about 20 minutes. 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 Patient denied any other symptoms such as headache, dysarthria, paresthesias and weakness. 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 [ ] [facility] Medical History Diverticulitis History of squamous cell carcinoma Lumbar disc disease Impaired fasting glucose HLD (hyperlipidemia) Osteoarthritis EFREN (obstructive sleep apnea) Internal hemorrhoids BPH (benign prostatic hyperplasia) HTN (hypertension) Gout Hiatal hernia GERD (gastroesophageal reflux disease) Benign neoplasm of colon Actinic keratosis Home Medications ?Medication ?Instructions ?Recorded ?Last Taken ?Type losartan 100 mg tablet 100 mg PO QDAY 01/28/25 Unknown History pravastatin 20 mg tablet 20 mg PO QDAY 01/28/25 Unknown History lubiprostone 8 mcg capsule 8 mcg PO BID #60 caps 02/03/25 Unknown Rx (Amitiza) Allergy/AdvReac Type Severity Reaction Status Date / Time adhesive tape Allergy Intermediate Other Verified 09/16/25 16:12 metoprolol Allergy Intermediate Other Verified 09/16/25 16:12 piperacillin (From Zosyn) Allergy Intermediate Other Verified 09/16/25 16:12 tazobactam (From Zosyn) Allergy Intermediate Other Verified 09/16/25 16:12 iodine Allergy Anaphylaxis Verified 09/16/25 16:12 Penicillins (PCN) Allergy Anaphylaxis Verified 09/16/25 16:12 shellfish derived Allergy Anaphylaxis Verified 09/16/25 16:12 Family History Father TIA (transient ischemic attack) Brother Melanoma Surgical History S/P insertion of spinal cord stimulator S/P left knee arthroscopy History of back surgery History of cataract extraction Status post bilateral total hip replacement Social History household members: spouse housing: house Smoking Status: Former smoker alcohol intake: current ROS ROS Narrative All review of systems were negative except as mentioned above in the history of present illness and the other review of systems. Vital Signs Vital Signs Vital Signs: 09/16/25 16:12 09/16/25 17:11 09/16/25 18:00 Temperature 36.8 C Temperature Source Oral Pulse Rate 74 68 62 Respiratory Rate 18 17 15 Blood Pressure 205/76 H 170/67 H 179/76 H Blood Pressure Mean 119 101 110 Pulse Ox 100 Oxygen Delivery Method Room Air Weight Weight: 96.615 kg Body Mass Index (BMI) 32.3 Physical Exam Const alert and no apparent distress HEENT normocephalic, head/scalp atraumatic, hearing grossly normal bilaterally, moist oral mucous membranes, oropharynx normal and dentition normal Eyes EOMs intact bilaterally and conjunctivae normal Eyes Narrative: Dilated right pupil as he did not have a dilated for his ophthalmology exam today. Neck no lymphadenopathy and no carotid bruits Resp normal respiratory effort, no retractions, no use of accessory muscles and clear to auscultation bilaterally Cardio regular rate, regular rhythm, S1 normal heart sound and S2 normal heart sound GI normal to inspection, nondistended, normoactive bowel sounds, soft to palpation, non-tender and non-distended Extremity normal to inspection, full ROM and no clubbing, cyanosis or edema Neuro oriented x3, moves all extremities and no focal motor deficits Sensorium / Orientation: awake, alert, oriented to person, oriented to place and oriented to time Coordination / Balance: [id number] test normal Speech: speech normal Psych affect normal Results Lab / Micro Data Attestation: I reviewed the patient's lab results. 09/16/25 16:50 09/16/25 16:50 Labs: Laboratory Results - last 24 hr 09/16/25 16:50: WBC 8.2, RBC 4.39 L, Hgb 13.7, Hct 40.7, MCV 92.7, MCH 31.2, MCHC 33.7, RDW Std Deviation 46.2 H, RDW Coeff of Kelsey 13.5, Plt Count 197, MPV 10.2, Immature Gran % (Auto) 0.200, Neut % (Auto) 51.1, Lymph % (Auto) 33.8, Dooly % (Auto) 8.4, Eos % (Auto) 5.9 H, Baso % (Auto) 0.6, Absolute Neuts (auto) 4.2, Absolute Lymphs (auto) 2.76, Nucleated RBC % 0, PT 14.8, INR 1.1, APTT 29.1, Sodium 140, Potassium 4.2, Chloride 106, Carbon Dioxide 19.3 L, Anion Gap 15, BUN 19, Creatinine 1.09, Estim Creat Clear Calc 55.85, Est GFR (MDRD) Non-Af 67, BUN/Creatinine Ratio 17.5, Glucose 100 H, Calcium 9.0, Troponin T High Sens 13 EKG Initial EKG: Attestation: I personally reviewed and interpreted this EKG as follows: Prior EKG tracings: available for review EKG Rhythm Intrepretation: Sinus Rhythm Imaging Radiology Impression Brain CT 09/16/25 16:31 IMPRESSION: No acute, large territorial infarction. Stroke Alert: Negative The critical findings in the findings and impression above were relayed directly by me by telephone to Dayton Haynes on 09/16/2025 at 5:31 pm EST with readback verification. Reading Location: [facility] Head/Neck CTA 09/16/25 16:32 IMPRESSION: Severe stenosis of the proximal right ICA due to atherosclerotic plaque with distal reconstitution as above. Scattered mild to moderate stenosis due to atherosclerotic plaque. No large vessel occlusions. Reading Location: [facility] Assessment & Plan Assessment/Plan (1) Amaurosis fugax of right eye: PLAN: Symptoms lasted about 20 minutes and have completely abated. Patient already takes daily baby aspirin and will continue with that. Patient underwent head CT and CTA of the head and neck showed no acute stroke nor any LVO. Though CTA did show severe stenosis of the proximal right ICA. Patient MRI of the brain as well as 2 echocardiogram fasting lipid panel. [facility] to evaluate and make further recommendations. PLAN: Plan Hypertension will allow permissive hypertensive at this point time in light of the amaurosis fugax Hyperlipidemia: Will check a fasting lipid panel but continue with the pravastatin. VTE prophylaxis: Low risk not indicated this time given observation status. CODE STATUS: Verified with patient. Patient is DNR comfort care as noted patient. Case discussed with patient's at bedside. Disposition: Patient be admitted overnight as observation status. Anticipated disposition will be on the fourth after all the testing and neurology evaluation are completed. Charges/Coding Visit Charges Inpatient E&M: 88717 Init Hosp L2
[2025-09-16 19:19] LABS: Troponin T High Sens 2 HR 14 ng/L (<=22)
[2025-09-16 21:46] LABS: Troponin T High Sens 4 HR 16 ng/L (<=22)
[2025-09-17 01:00] VITALS: BP 152/66; PULSE 70; RESP 18; TEMP 36.4; O2SAT 94
[2025-09-17 02:41] VITALS: BMI 31.8
[2025-09-17 02:42] VITALS: BMI 31.8
[2025-09-17 05:00] VITALS: BP 141/77; PULSE 72; RESP 18; TEMP 36.3; O2SAT 96
--- NOTE | 2025-09-17 07:51 | CDU_ITS ---
Reason For Study Reason For Study: ICA Stenosis Rt. Velocities/BP Lt. Velocities/BP Prox CCA 97.7/11.8 cm/sec. Prox CCA 122.1/12.3 cm/sec. Mid CCA 86.7/11.8 cm/sec. Mid CCA 130.8/21.1 cm/sec. Dist CCA 80.6/10.6 cm/sec. Dist CCA 101.6/13.9 cm/sec. Prox ICA 308.4/69.1 cm/sec. Prox ICA 86.9/16.7 cm/sec. Mid ICA 225.0/26.9 cm/sec. Mid ICA 97.9/23.0 cm/sec. Dist ICA 153.9/31.0 cm/sec. Dist ICA 110.7/23.0 cm/sec. Rt. ICA/CCA = 3.6. Lt. ICA/CCA = 0.8. Prox ECA 334.9/9.7 cm/sec. Prox ECA 179.7/0.0 cm/sec. Rt. Vert. 49.0/6.2 cm/sec. Lt. Vert. 66.8/4.7 cm/sec. Right Extracranial There is homogeneous, smooth atherosclerotic plaque noted in the right common carotid artery. There is heterogeneous, irregular atherosclerotic plaque noted in the right internal carotid artery. There is heterogeneous, irregular atherosclerotic plaque noted in the right external carotid artery. Antegrade flow is noted in the right vertebral artery. Left Extracranial There is heterogeneous, irregular atherosclerotic plaque noted in the left common carotid artery. There is heterogeneous, irregular atherosclerotic plaque noted in the left internal carotid artery. There is heterogeneous, irregular atherosclerotic plaque noted in the left external carotid artery. Antegrade flow is noted in the left vertebral artery. Procedure Carotid Duplex 09136. This is a Carotid Duplex examination using B-mode, color flow and specral Doppler. Exam performed in department. 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 Mild (<50%) stenosi s left extracranial internal carotid. Flow within the vertebral arteries is antegrade bilaterally. Elevated velocitie s in the right external carotid artery are suggestive of stenosis >50%. Ordering Physician: Gladis Wilks Referring Physician: Mahin Ryan MD Performed By: Apple Rm and Student, RVT
--- NOTE | 2025-09-17 07:55 | PCM.DC.SUM ---
Providers Date of Admission: 09/16/25 Date of Discharge: 09/17/25 Primary Care Physician: Dr. Mahin Ryan MD Consultations 09/16/25 20:16 Consult: Tele-Neurology Routine Consulting Provider: [facility] Reason for Consult: Acute Ischemic Stroke/TIA EMERGENT Consult: No MD Notified: Yes Date Notified: 09/16/25 Time Notified: 20:49 Method of Notification: Answering Service Nursing Unit Staff Notify [facility] of Tele-Neurology Consult: Yes Reason For Visit: VISION CHANGE Diagnosis Discharge Diagnosis (1) Amaurosis fugax of right eye: Status: Acute Code(s): G45.3 - Amaurosis fugax Medications at Discharge Home Medications losartan 100 mg tablet 100 mg PO QDAY blood pressure 01/28/25 aspirin 81 mg capsule 81 mg PO DAILY heart health 09/16/25 esomeprazole magnesium 20 mg capsule,delayed release (Acid Corn Husk Baler (esomeprazole)) 20 mg PO DAILY reflux 09/16/25 vit C 250 mg-vit E 90 mg-zinc 40 mg-copper 1 [id number] capsule (PreserVision AREDS-2) 1 tab PO BID macular degeneration 09/16/25 atorvastatin 40 mg tablet 40 mg PO QHS #30 tabs 09/17/25 clopidogrel 75 mg tablet 75 mg PO DAILY #30 tabs 09/17/25 Hospital Course Procedures 2-D Echocardiogram, EKG and - (CT brain/CTA head and neck/carotid ultrasound/MRI brain) Summary of Care Provided Minutes Spent on Discharge: 37 Hospital Course: Mr. Paredes is an 85-year-old white male who presented to the emergency department at [facility] on 09/16/2025 with a chief complaint of right visual changes. He was in his normal state of health when his eye went completely black on the right side. It lasted about 20 minutes and then resolved. He went to his clinical phlebotomist and his eye looked good with his vision in 2019 and he refer the patient to the emergency room for amaurosis fugax workup. Patient had no other associated symptoms. Patient has known history of carotid artery stenosis. Vital signs on presentation showed a temperature of 36.8, heart rate was 74, initial blood pressure was 205/76 with a repeat of 170/67 and pulse ox was 100% on room air. CBC was unremarkable. Chemistry panel was unremarkable. Initial troponin was 13. Blood glucose was 100. EKG was sinus rhythm without any ST-T wave changes concerning for acute ischemia. CTA of the brain was unremarkable. CTA of the head and neck showed severe stenosis in the proximal right carotid internal artery due to atherosclerotic plaque with distal reconstitution and scattered mild to moderate stenosis on the right. No large vessel occlusion was identified. He was admitted to the PCU for ongoing workup as a stroke. [facility] neurolog[facility] was consulted. He was placed on aspirin, statin and an MRI and echocardiogram were ordered. He had a recent hemoglobin A1c on 06/24/2025 which was 5.6 so this was not repeated. His total cholesterol was 145 with an LDL of 94 and HDL of 28 on no cholesterol medication at home. Echocardiogram showed normal ejection fraction at 65% with stage I diastolic dysfunction and pulm artery systolic pressure of 26 mmHg. MRI was unremarkable for acute findings. His blood pressure medicine was held to allow for permissive hypertension on admission. Blood pressure medication was restarted at discharge. He was continued on aspirin and Plavix was added to his home regimen as well as atorvastatin 40 mg at at bedtime. I discussed the case with Dr. Brooks from vascular surgery with regards to his right carotid stenosis and he will need follow-up as soon as possible. Patient is to call the office tomorrow and set up an appointment to be seen. I do suspect he will either need a carotid endarterectomy or carotid stent. Patient and family were informed of the findings. He will also likely need improved blood pressure control. I do not have a good idea of what his blood pressure runs typically at baseline. We did restart his losartan 100 mg daily at discharge and I encouraged him to follow-up with his primary care physician within the next week. He states he already has appointment on the and will keep that. We did discuss the goal blood pressure for him at this time would be under 130/80. Patient voiced understanding. Prescriptions for his atorvastatin and Plavix were sent to the local pharmacy at the time of discharge. Discharge diagnoses: Amaurosis fugax Hyperlipidemia Essential hypertension Carotid artery stenosis bilateral right greater than left Macular degeneration GERD Obesity History of diverticulitis Osteoarthritis EFREN BPH without obstruction Hiatal hernia Physical Exam Const alert, oriented x3, no apparent distress and no limitations Constitutional Narrative: Obese, elderly, white male, very pleasant, family at bedside, appears comfortable, nontoxic General Appearance: cooperative, comfortable, well kempt and well developed Exam Limitations: no limitations Nutritional Appearance: obese HEENT normocephalic, head/scalp atraumatic and moist oral mucous membranes; Negative for hearing grossly normal bilaterally HEENT Narrative: Mild to moderate hearing loss, Mallampati is 3, no thrush Resp normal respiratory effort, no retractions, no use of accessory muscles and clear to auscultation bilaterally Auscultation: Negative for crackles, rhonchi or wheezes Cardio regular rate, regular rhythm, S1 normal heart sound, S2 normal heart sound, no murmurs, no rub, no gallops and no clicks GI normal to inspection, nondistended, normoactive bowel sounds, soft to palpation and non-tender Extremity no clubbing, cyanosis or edema Extremity Narrative: 2+ pedal and radial pulses Neuro moves all extremities and no focal motor deficits Speech: speech normal Psych affect normal Psych Narrative: Very pleasant, makes good eye contact, interacts appropriately Weight / BMI Weight Weight: 95.1 kg Body Mass Index (BMI) 31.8 ABG / Lab / Microbiology Data 09/16/25 16:50 09/16/25 16:50 Laboratory: Laboratory Results - last 24 hr 09/16/25 18:53: Troponin T Hi Sens 2 Hr 14 09/16/25 20:56: Troponin T Hi Sens 4Hr 16 09/17/25 05:55: Triglycerides 130, Cholesterol 145, LDL Cholesterol, Calc 94, VLDL Cholesterol 26, HDL Cholesterol 28 L, Cholesterol/HDL Ratio 5.20 Radiography Diagnostic Testing: Radiology Impression Echocardiogram 09/16/25 19:00 Interpretation Summary Normal LV size. Left ventricular systolic function is normal. The left ventricular ejection fraction is 65 %. Stage 1 diastolic dysfunction. Pulmonary artery systolic pressure is 26 mmHg. Ordering Physician: Dayton Villagomez Referring Physician: Mahin Ryan Performed By: Cris Chen, KAYE, RVT Brain MRI 09/17/25 19:00 IMPRESSION: No acute infarct, hemorrhage, or significant mass effect. Chronic microvascular ischemic changes. Reading Location: [facility] D/C Instructions Discharge Activity: Return to Normal Activity DC O2, CPAP, BIPAP Needs Home O2 Discharge instructions: No Meaningful Use Info Meaningful Use Meaningful Use Diagnoses (Choose all that apply): None applicable Discharge Plan Admission Admit Date/Time: 09/16/25 18:56 Primary Reason for Your Visit: Amaurosis fugax right eye Attending Provider: Gladis Wilks Primary Care Provider: Mahin Ryan Consulting Providers: Martín Woodward; Dariusz Lutz; Kathi Bates; Priyanka Knowles; Valentina Francis; London Rushing; Petra Prescott; Jeyson Hidalgo; Anoop Angel; Patrick Camp; Aisha Rader; Maribell Hawk; Tab Ta; Guera Cotsa; Emily Daniel; Garry Lozano; Gustavo Patel; Zainab Price; Juwan Heard; Orquidea Wilks; Keyur Navarro; Dayton Villagomez Discharge Orders/Prescriptions Prescriptions: New atorvastatin 40 mg Tablet 40 mg PO QHS Qty: 30 2RF clopidogrel 75 mg Tablet 75 mg PO DAILY Qty: 30 2RF Continued losartan 100 mg tablet 100 mg PO QDAY aspirin 81 mg capsule 81 mg PO DAILY esomeprazole magnesium [Acid Corn Husk Baler (esomeprazole)] 20 mg capsule,delayed release(DR/EC) 20 mg PO DAILY PreserVision AREDS-2 250-90-40-1 mg capsule 1 tab PO BID Discontinued pravastatin 20 mg tablet 20 mg PO QDAY Referrals / Follow Up: Dayton Brooks MD [Med Staff - Active Staff, Vascular Surgery] - See Referral Note Referral Note: Call tomorrow and ask for follow-up as soon as possible for significant blockage in your right internal carotid artery Mahin Ryan MD [Primary Care Provider, Family Practice] - See Referral Note Referral Note: As scheduled on 09/23/2025 Disposition Disposition (needs filled in before D/C Order can be placed): Home, Self Care Charges/Coding Visit Charges Inpatient E&M: 43335 Disch Hosp >30min
[2025-09-17 09:13] LABS: Cholesterol 145 mg/dL (<=200); Low Density Lipoprotein Calc. 94 mg/dL; Triglycerides 130 mg/dL; Very Low Density Lipoprotein 26 mg/dL (5-40); cholesterol:hdl ratio screen 5.20
[2025-09-17 10:00] VITALS: BP 159/69; PULSE 74; RESP 17; TEMP 37.1; O2SAT 96
--- NOTE | 2025-09-17 13:50 | CON.PCM.NE_ITS ---
Assessment and Plan: Stroke Assessment/Plan HANNAH BLOCK is a 85 M with a history of HTN, HLD, EFREN who presents for evaluation of Amaurasis fugax. Neurological examination shows NIH 0 Neuroimaging shows ABDIAS stenosis. LICA stenosis. Recommend DAPT Vascular or NSGY consult for DCA, and possible stent for Symptomatic Carotid. High dose statin - change Pravastatin to Lipitor 80 Control SBP < 130 - Anti-platelet medication: Aspirin 81 mg daily/ Plavix - Occupational/ Physical therapy consults - DVT prophylaxis with SCDs and heparin SQ - Vascular risk factor modification. The following are the recommended guidelines: LDL Goal < 70 Smoking Cessation Diabetes Management alf blood pressure control should achieve <130/80 mmHg. BP management should aim to achieve long-term contorl in a reasonable amount of time, taking into consideration the individual patient's requirements and characteristics. Weight Management: Goal for BMI is 18.5 -24.9 kg/m2 Alcohol: No more than 2 drinks/day for men or 1 drink/day for non- women - Promote lifestyle modification: weight control, physical activity, moderation of alcohol intake, moderate sodium intake. Followup with PCP in 1-2 weeks, and in Neurology clinic in 6-12 weeks. Vascular Clinic within 13 days. HPI Consult Data Date of Consult: 09/17/25 HPI Narrative HPI Narrative: HANNAH BLOCK, is a 85 M who presents [ ] [facility] Medical History Diverticulitis History of squamous cell carcinoma Lumbar disc disease Impaired fasting glucose HLD (hyperlipidemia) Osteoarthritis EFREN (obstructive sleep apnea) Internal hemorrhoids BPH (benign prostatic hyperplasia) HTN (hypertension) Gout Hiatal hernia GERD (gastroesophageal reflux disease) Benign neoplasm of colon Actinic keratosis Home Medications ?Medication ?Instructions ?Recorded ?Last Taken ?Type losartan 100 mg tablet 100 mg PO QDAY 01/28/2512/09 History pravastatin 20 mg tablet 20 mg PO QDAY 01/28/2509/15 History aspirin 81 mg capsule 81 mg PO DAILY 09/16/2512/09 History esomeprazole magnesium 20 mg 20 mg PO DAILY 09/16/25 1 11/16/24 History capsule,delayed release (Acid Instructional Technologist (esomeprazole)) vit C 250 mg-vit E 90 mg-zinc 40 1 tab PO BID macular degeneration 09/16/25 09/15/25 History mg-copper 1 [id number] capsule (PreserVision AREDS-2) Allergy/AdvReac Type Severity Reaction Status Date / Time adhesive tape Allergy Intermediate Other Verified 09/16/25 16:12 metoprolol Allergy Intermediate Other Verified 09/16/25 16:12 piperacillin (From Zosyn) Allergy Intermediate Other Verified 09/16/25 16:12 tazobactam (From Zosyn) Allergy Intermediate Other Verified 09/16/25 16:12 iodine Allergy Anaphylaxis Verified 09/16/25 16:12 Penicillins (PCN) Allergy Anaphylaxis Verified 09/16/25 16:12 shellfish derived Allergy Anaphylaxis Verified 09/16/25 16:12 Family History Father TIA (transient ischemic attack) Brother Melanoma Surgical History S/P insertion of spinal cord stimulator S/P left knee arthroscopy History of back surgery History of cataract extraction Status post bilateral total hip replacement Social History household members: spouse housing: house Smoking Status: Former smoker alcohol intake: current Vital Signs Vital Signs Vital Signs: 09/16/25 16:12 09/16/25 17:11 09/16/25 18:00 Temperature 98.3 F Temperature Source Oral Pulse Rate 74 68 62 Respiratory Rate 18 17 15 Respiratory Effort Respiratory Depth Respiratory Pattern Blood Pressure 205/76 H 170/67 H 179/76 H Blood Pressure Mean 119 101 110 Blood Pressure Source Blood Pressure Position Blood Pressure Location Pulse Ox 100 Oxygen Delivery Method Room Air 09/16/25 20:04 09/16/25 21:00 09/16/25 21:00 Temperature 98.3 F 98.1 F Temperature Source Oral Pulse Rate 62 72 Respiratory Rate 15 18 Respiratory Effort Normal Non-Labored Respiratory Depth Normal Respiratory Pattern Normal Blood Pressure 179/76 H 204/83 H Blood Pressure Mean 110 123 Blood Pressure Source Monitor Blood Pressure Position Semi-Fowlers Blood Pressure Location Right Arm Pulse Ox 100 96 Oxygen Delivery Method Room Air Room Air 09/16/25 22:03 09/16/25 22:05 09/17/25 01:00 Temperature 97.6 F L Temperature Source Temporal Pulse Rate 70 Respiratory Rate 18 Respiratory Effort Respiratory Depth Respiratory Pattern Blood Pressure 198/72 H 192/74 H 152/66 H Blood Pressure Mean 114 113 94 Blood Pressure Source Monitor Manual Monitor Blood Pressure Position Semi-Fowlers Semi-Fowlers Semi-Fowlers Blood Pressure Location Right Arm Right Arm Right Arm Pulse Ox 94 Oxygen Delivery Method Room Air 09/17/25 05:00 09/17/25 10:00 09/17/25 10:00 Temperature 97.3 F L 98.8 F Temperature Source Temporal Oral Pulse Rate 72 74 Respiratory Rate 18 17 Respiratory Effort Normal Non-Labored Respiratory Depth Normal Respiratory Pattern Normal Blood Pressure 141/77 H 159/69 H Blood Pressure Mean 98 99 Blood Pressure Source Monitor Monitor Blood Pressure Position Semi-Fowlers Semi-Fowlers Blood Pressure Location Right Forearm Right Arm Pulse Ox 96 96 Oxygen Delivery Method Room Air Room Air Room Air 09/17/25 10:35 Temperature Temperature Source Pulse Rate Respiratory Rate Respiratory Effort Respiratory Depth Respiratory Pattern Blood Pressure Blood Pressure Mean Blood Pressure Source Blood Pressure Position Blood Pressure Location Pulse Ox Oxygen Delivery Method Room Air Weight Weight: 95.1 kg Body Mass Index (BMI) 31.8 EEG Results Procedure Details EEG Procedure Details: HANNAH BLOCK is a 85 year old M with a past medical history of , who presents for evaluation of Electroencephalogram on DATE at TIME Lab / Micro Data 09/16/25 16:50 09/16/25 16:50 Labs: Laboratory Results - last 24 hr 09/16/25 16:50: WBC 8.2, RBC 4.39 L, Hgb 13.7, Hct 40.7, MCV 92.7, MCH 31.2, MCHC 33.7, RDW Std Deviation 46.2 H, RDW Coeff of Kelsey 13.5, Plt Count 197, MPV 10.2, Immature Gran % (Auto) 0.200, Neut % (Auto) 51.1, Lymph % (Auto) 33.8, [place] % (Auto) 8.4, Eos % (Auto) 5.9 H, Baso % (Auto) 0.6, Absolute Neuts (auto) 4.2, Absolute Lymphs (auto) 2.76, Nucleated RBC % 0, PT 14.8, INR 1.1, APTT 29.1, Sodium 140, Potassium 4.2, Chloride 106, Carbon Dioxide 19.3 L, Anion Gap 15, BUN 19, Creatinine 1.09, Estim Creat Clear Calc 55.85, Est GFR (MDRD) Non-Af 67, BUN/Creatinine Ratio 17.5, Glucose 100 H, Calcium 9.0, Troponin T High Sens 13 09/16/25 18:53: Troponin T Hi Sens 2 Hr 14 09/16/25 20:56: Troponin T Hi Sens 4Hr 16 09/17/25 05:55: Triglycerides 130, Cholesterol 145, LDL Cholesterol, Calc 94, VLDL Cholesterol 26, HDL Cholesterol 28 L, Cholesterol/HDL Ratio 5.20 Imaging Radiology Impression Brain CT 09/16/25 16:31 IMPRESSION: No acute, large territorial infarction. Stroke Alert: Negative The critical findings in the findings and impression above were relayed directly by me by telephone to Dayton Haynes on 09/16/2025 at 5:31 pm EST with readback verification. 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 Scattered mild to moderate stenosis due to atherosclerotic plaque. No large vessel occlusions. Reading Location: [facility] Echocardiogram 09/16/25 19:00 Interpretation Summary Normal LV size. Left ventricular systolic function is normal. The left ventricular ejection fraction is 65 %. Stage 1 diastolic dysfunction. Pulmonary artery systolic pressure is 26 mmHg. Ordering Physician: Dayton Villagomez Referring Physician: Mahin Ryan Performed By: Cris Chen, RDCS, RVT Active Medications Active Medications Active Medications: Current Medications Generic Name Dose Route Start Last Admin Trade Name Freq PRN Reason Stop Dose Admin Acetaminophen 650 mg 09/16/25 20:16 Acetaminophen 325 Mg Tablet PO Q6H PRN PRN Pain 1-10 Or Fever>100.7 Clopidogrel Bisulfate 75 mg 09/17/25 10:00 09/17/25 10:12 Clopidogrel Bisulfate 75 Mg Tablet PO 75 mg DAILY KYMBERLY Administration Hydralazine HCl 5 mg 09/16/25 20:16 Hydralazine 20 Mg/Ml Vial IV 09/17/25 20:16 Q30M PRN maintain BP parameters with HR <60 Sodium Chloride 250 mls @ 15 mls/hr 09/16/25 20:55 IV .[id number] PRN Saline Flush Sodium Chloride 250 mls @ 15 mls/hr 09/16/25 20:55 IV .[id number] PRN Additional IVPB Infusion Labetalol HCl 10 - 20 mg 09/16/25 20:16 Labetalol 20 Mg/4 Ml Vial IV 09/17/25 20:16 Q10M PRN PRN maintain BP parameters with HR >/=60 Ondansetron HCl 4 mg 09/16/25 20:16 Ondansetron 4 Mg/2 Ml Vial IV Q8H PRN PRN NAUSEA/VOMITING Pravastatin Sodium 20 mg 09/16/25 22:00 09/16/25 21:56 Pravastatin 20 Mg Tablet PO 20 mg QHS KYMBERLY Administration Sodium Chloride 10 - 40 ml 09/16/25 20:55 0.9% Saline Lock 10 Ml Syringe IV UD PRN SALINE FLUSH NIHSS NIHSS Nursing Documentation NIHSS Nursing Documentation: NIHSS: Ischemic Stroke/TIA Start: 09/16/25 20:16 Text: For PCU Patients: NIH and Neuro Check every 4 Status: Active hours, PRN and with change in RN caregiver. Freq: [id number] Protocol: Activity Type Activity Date Activity User E-sign Co-sign Detail Recorded Client Recorded Date Recorded By Document 09/17/25 10:00 EM [id number] 09/17/25 10:11 EM 09/17/25 10:00 NIH Stroke Scale [NIHSS] A score of 0 is normal or asymptomatic . Total possible score is 42. Inpatient: RN or Physician to activate a stroke alert for onset of new stroke symptoms or with NIHSS increase >/= 3 points. Following change in neurological status, NIHSS will be performed per physician order or more frequently PRN. -1a. Level of Consciousness 0 - Alert; keenly responsive -1b. LOC Questions 0 - Answers BOTH questions correctly -1c. LOC Commands 0 - Performs BOTH tasks correctly -2. Best Gaze 0 - Normal -3. Visual 0 - No visual loss -4. Facial Palsy 0 - Normal symmetrical movements -5a. Left Arm 0 - No drift; arm holds 90 ( or 45) degrees for full 10 seconds -5b. Right Arm 0 - No drift; arm holds 90 ( or 45) degrees for full 10 seconds -6a. Left Leg 0 - No drift; leg holds 30- degree position for full 5 seconds -6b. Right Leg 0 - No drift; leg holds 30- degree position for full 5 seconds -7. Limb Ataxia 0 - Absent -8. Sensory 0 - Normal; no sensory loss -9. Best Language 0 - No aphasia; normal -10. Dysarthria 0 - Normal -11. Extinction and Inattention 0 - No abnormality -Total 0 Query Text:A score of 0 is normal or asymptomatic. Total possible score is 42 . ED: Notify Physician for NIHSS increase by > / = 3 points. Inpatient: RN or Physician to activate a stroke alert for NIHSS increase of > / = 3 points. Coma Scale [Assess] -Eye Opening Spontaneous -Motor Obeys Commands -Verbal Oriented [Total] -Coma Scale Total 15
--- NOTE | 2025-09-17 14:29 | CHAPLAIN ---
Type of Pastoral Visit _x__ Initial Visit ___ Follow-up Visit ___ On-call Visit ___ General Patient Visit ___ Spiritual Assessment ___ Family Conference ___ Bereavement ___ Rapid Response ___ Code Blue ___ Other (describe below) Pastoral Care Referral From _x__ Patient ___ Family ___ Nurse ___ Physician ___ Lead Php Developer ___ Conditioner Tumbler Operator ___ Other (describe below) Sacrament/Intervention _x__ Active listening ___ Anointing ___ Jewish ___ Bereavement ___ Communion ___ Apple exploration ___ ___ Life review _x__ Prayer ___ Reconciliation ___ Sacrament of Sick _x__ Supportive presence ___ Wedding ___ Other (describe below) Pastoral Comments patient is welcoming and immediately asks some questions and interacts in conversation; pt believes that he is doing pretty well but just wanting to get things checked out; spouse, son, and daughter are in the room and showing much support and interest; family attends buddhist and asks for prayer support; casual visit with mostly positive atmosphere
--- NOTE | 2025-09-17 15:55 | CASEMGMT ---
Social Work Per imaging pt negative for stroke, therefore PHQ9 not completed. MARILYNN Cedeño
[2025-09-17 16:00] VITALS: BP 183/69; PULSE 71; RESP 17; TEMP 37.1; O2SAT 96
--- NOTE | 2025-09-17 16:18 | CASEMGMT ---
ZAVALA Met with patient to complete ZAVALA form. ZAVALA form and its content were verbally explained and patient's questions were answered to the best of my ability.? Patient voiced understanding and signed ZAVALA form.? Patient provided a copy of signed ZAVALA form and original placed in patient's chart.? Patient had no further questions. Gala Mensah, Discharge Planning Asst
[2025-09-17 16:52] VITALS: BMI 31.8
--- NOTE | 2025-09-17 19:00 | MRI_ITS ---
PROCEDURE: BRAIN WITHOUT CONTRAST 09/17/2025 REASON FOR EXAM: VISION CHANGES TECHNIQUE: Procedure Code: MRIBR Modality: MR Procedure: BRAIN WITHOUT CONTRAST Multiplanar and multisequence images were obtained. COMPARISON: MRI brain 01/21/2019 FINDINGS: No acute infarct or hemorrhage. There are periventricular and subcortical T2/FLAIR white matter hyperintensities in the cerebral hemispheres compatible with chronic microvascular changes. No extra-axial fluid collection. No significant mass effect or herniation of the brain. Global cerebral volume loss. No hydrocephalus. The basal cisterns are patent. The intracranial large vessel arterial flow voids are maintained. The mastoid air cells clear. There is scattered paranasal mucosal thickening. Bilateral ocular lens replacements. The calvarial bone marrow signal is within normal limits. MRI/Brain without Contrast IMPRESSION: No acute infarct, hemorrhage, or significant mass effect. Chronic microvascular ischemic changes. Reading Location: [id number]
== END 2025-09-17 18:44 | disposition home or self-care (01) ==
LOC: ED 18:59 → PCU 19:59
PROVIDERS: Emergency Provider Emergency Medicine; PCP Family Medicine; Visit Provider Internal Medicine
DX: G45.3 Amaurosis fugax (principal); Z79.02 Long term (current) use of antithrombotics/antiplatelets; N40.0 Benign prostatic hyperplasia without lower urinary tract symptoms; K21.9 Gastro-esophageal reflux disease without esophagitis; Z79.82 Long term (current) use of aspirin; H35.30 Unspecified macular degeneration; I10 Essential (primary) hypertension; G47.33 Obstructive sleep apnea (adult) (pediatric); K44.9 Diaphragmatic hernia without obstruction or gangrene; Z87.891 Personal history of nicotine dependence; M19.90 Unspecified osteoarthritis, unspecified site; E78.5 Hyperlipidemia, unspecified; E66.9 Obesity, unspecified; I65.23 Occlusion and stenosis of bilateral carotid arteries
CPT/HCPCS: 36415; 70450; 70496; 70498; 70551; 80048; 80061; 84484; 85025; 85610; 85730; 92610; 93005; 93306; 93880; 97802; 99221; 99285; Q9957; Q9967; A4216; C8929; G0378

== ENCOUNTER 2025-10-13 09:50 | Inpatient (IN) | payer MEDICARE, OTHER, SELFPAY ==
--- NOTE | 2025-09-29 15:35 | PAT.ANESEVAL ---
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 When Was Last Pacemaker Check QUESTION #4 FULL TEXT: You/Your Family Experience fever (hyperthermia) with Anesthesia Last Oral Intake Last Oral intake: Last Oral Intake NPO since Meds taken in AM with sips of water? Meds patient instructed to take am of surgery PONV PONV - healthcare liaison: PONV - healthcare liaison Female No 09/29/25 15:15 HX of Motion Sickness No 09/29/25 15:15 HX of N/V After Surgery No 09/29/25 15:15 Non-Smoker Yes 09/29/25 15:15 Duration of Surgery greater Yes 09/29/25 15:15 than 60 minutes Number of Risk Factors 2 09/29/25 15:15 PONV Score Moderate Risk 09/29/25 15:15 Height & Weight Height & Weight: Anesthesia: Height & Weight Height 5 ft 8 in 09/17/25 16:01 Respiratory Assessment Respiratory Assessment - healthcare liaison: Respiratory Tract Infection Hx - healthcare liaison Hx Respiratory Tract Infection No 09/29/25 15:15 STOP Sleep Apnea STOP Sleep Apnea - healthcare liaison: STOP Sleep Apnea - healthcare liaison Hx Hypertension Yes: CONTROLLED ON MED 09/29/25 15:15 Hx Sleep Apnea Yes 09/29/25 15:15 CPAP No 09/29/25 15:15 BIPAP Yes 09/29/25 15:15 Do you snore loudly (louder than talking or can be heard Do you often feel tired/ fatigued/ sleepy during daytime? Has anyone observed you stop breathing during sleep? STOP Results Positive 09/29/25 15:15 QUESTION #5 FULL TEXT : Do you snore loudly (louder than talking or can be heard through closed doors)? 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 Specify any problems Hx of Preganancy in last 3 N/A 09/29/25 15:15 Months Nurse Filling Out Transfusion VCHRISTIN 09/29/25 15:15 & Questions: Date: 09/29/25 09/29/25 15:15 Time: 15:17 09/29/25 15:15 Patient unable to answer at this time (ie. confused, unrespo /Reproduction History /Reproductive History - healthcare liaison: /Reproductive Hx- healthcare liaison Hx Now No 09/29/25 15:15 Gestational Age (in weeks): EDC: Hx Hx Para Hx Section SAB No 09/29/25 15:15 Does the father of the baby or his family experience fever w Father of the baby Malignant Hypertension history comment PFSH Medical History Hearing aid worn Wears glasses Cancer Alcohol use Arthritis High cholesterol Back pain TIA (transient ischemic attack) Gastric reflux Non-smoker BiPAP (biphasic positive airway pressure) dependence Sleep apnea Hx of edema Hx of echocardiogram History of Holter monitoring Amaurosis fugax of right eye Diverticulitis History of squamous cell carcinoma Lumbar disc disease Impaired fasting glucose HLD (hyperlipidemia) Osteoarthritis EFREN (obstructive sleep apnea) Internal hemorrhoids BPH (benign prostatic hyperplasia) HTN (hypertension) Gout Hiatal hernia GERD (gastroesophageal reflux disease) Benign neoplasm of colon Actinic keratosis Home Medications ?Medication ?Instructions ?Recorded ?Last Taken ?Type losartan 100 mg tablet 100 mg PO QDAY blood pressure 01/28/25 09/15/25 History aspirin 81 mg capsule 81 mg PO DAILY heart health 09/16/25 09/15/25 History esomeprazole magnesium 20 mg 20 mg PO DAILY reflux 09/16/25 09/15/25 History capsule,delayed release (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)) vit C 250 mg-vit E 90 mg-zinc 40 1 tab PO BID macular degeneration 09/16/25 09/15/25 History mg-copper 1 cs-spvhbo-szhasa capsule (PreserVision AREDS-2) atorvastatin 40 mg tablet 40 mg PO QHS CHOLESTEROL #30 tabs 09/17/25 Unknown Rx clopidogrel 75 mg tablet 75 mg PO DAILY BLOOD THINNER #30 09/17/25 Unknown Rx tabs prednisone 50 mg tablet 50 mg PO Q6H STEROID 3 doses #3 09/24/25 Unknown Rx tabs ticagrelor 90 mg tablet 90 mg PO Q12H BLOOD THINNER #70 09/24/25 Unknown Rx tabs amlodipine 5 mg tablet 5 mg PO DAILY BP 09/29/25 Unknown History Allergy/AdvReac Type Severity Reaction Status Date / Time adhesive tape Allergy Intermediate Other Verified 09/29/25 14:57 metoprolol Allergy Intermediate Other Verified 09/29/25 14:57 piperacillin (From Zosyn) Allergy Intermediate Other Verified 09/29/25 14:57 tazobactam (From Zosyn) Allergy Intermediate Other Verified 09/29/25 14:57 iodine Allergy Anaphylaxis Verified 09/29/25 14:57 Penicillins (PCN) Allergy Anaphylaxis Verified 09/29/25 14:57 shellfish derived Allergy Anaphylaxis Verified 09/29/25 14:57 Family History Father TIA (transient ischemic attack) Brother Melanoma Surgical History S/P insertion of spinal cord stimulator S/P left knee arthroscopy History of back surgery History of cataract extraction Status post bilateral total hip replacement Social History household members: spouse housing: house Smoking Status: Former smoker alcohol intake: current Audit: Pertinent Findings Pertinent Findings EKG Perinent findings: [facility] Cardiovascular Services [address] [place] [address] 12 Lead EKG 09/16/25 1651 MR#: [id number] Acct: [id number] Name: HANNAH BLOCK I Rep #: [id number] : 1940 85 From: Terrence Ryan MD Attending Dr: Dr. Gladis Wilks, DO Status: DIS UMA Ordering Dr: Dayton Haynes DO Date: 09/16/25 Location: U Sex: M C Admitted: 09/16/25 Test Reason : Blood Pressure : */* mmHG Vent. Rate : 65 BPM Atrial Rate : 65 BPM P-R Int : 160 ms QRS Dur : 90 ms QT Int : 458 ms P-R-T Axes : 36 40 51 degrees QTcB Int : 476 ms Sinus rhythm with occasional Premature ventricular complexes Nonspecific ST abnormality Abnormal ECG Confirmed by CONNOR BARNES, TERRENCE ([id number]), city editor ZEINAB GONZALEZ ([id number]) on 09/18/2025 9:05:06 AM Referred By: Confirmed By: TERRENCE RYAN MD 09/18/25 09 Date Terrence Ryan MD CC: Dr. Dayton Haynes, ; Dr. Mahin Ryan MD; Dr. Gladis Wilks, ~ Signed Echo (EF%) pertinent findings: [facility] Cardiovascular Services [address] [place] [address] Echo Complete W/ Contrast 09/17/25 0756 MR#: [id number] Acct: [id number] Name: HANNAH BLOCK I Rep #: [id number] : 1940 85 From: Terrence Ryan MD Attending Dr: Dr. Gladis Wilks, DO Status: ADM UMA Ordering Dr: Dayton Villagomez DO Date: 09/16/25 Location: [facility] Sex: M C Admitted: 09/16/25 Reason For Study Reason For Study: TIA/CVA Procedure This was a 2D Doppler, Color Flow transthoracic echocardiogram. The study was technically difficult. Due to body habitus. Contrast injection was performed. Exam performed portable in patient room. Left Ventricle Normal LV size. Left ventricular systolic function is normal. The left ventricular ejection fraction is 65 %. Stage 1 diastolic dysfunction. No regional wall motion abnormalities noted. Right Ventricle Normal RV size. Normal systolic function. Atria The left atrium is mildly enlarged. Normal right atrium. Mitral Valve Normal mitral valve. Mild (1+) eccentric mitral valve insufficiency. Tricuspid Valve Normal tricuspid valve. Mild (1+) tricuspid valve insufficiency. Pulmonary artery systolic pressure is 26 mmHg. Aortic Valve Trisinus/trileaflet aortic valve. Mild focal aortic valve calcification. Pulmonic Valve Normal pulmonic valve. Great Vessels Normal aortic root. The pulmonary artery is normal size. Inferior vena cava collapse with respiration. Pericardium/Pleural No pericardial effusion. Medication Diluted definity 2.0ml given slow IV push to enhance endocardial definition. MMode/2D Measurements & Calculations LVIDd: 5.4 cm IVSd: 1.0 cm Ao root diam: 3.1 cm LVIDs: 4.0 cm LVPWd: 1.0 cm RVDd: 3.8 cm FS: 26.4 % LAV(MOD-bp): 71.2 ml LVAd ap4: 31.8 cm2 LVAd ap2: 34.0 cm2 LAV(MOD-bp) Indexed: 34.2 ml/m2 LVLd ap4: 8.4 cm LVLd ap2: 9.0 cm LAV(MOD-sp2): 62.5 ml EDV(MOD-sp4): 100.4 ml EDV(MOD-sp2): 109.4 ml LAV(MOD-sp4): 74.9 ml EDV(sp4-el): 101.6 ml EDV(sp2-el): 108.7 ml LVAs ap4: 16.4 cm2 LVAs ap2: 19.1 cm2 LVLs ap4: 7.4 cm LVLs ap2: 7.8 cm ESV(MOD-sp4): 31.1 ml ESV(MOD-sp2): 41.7 ml ESV(sp4-el): 30.9 ml ESV(sp2-el): 39.6 ml EF(MOD-sp4): 69.0 % EF(MOD-sp2): 61.9 % EF(sp4-el): 69.6 % SV(MOD-sp4): 69.3 ml SV(MOD-sp2): 67.7 ml SV(sp4-el): 70.7 ml SI(MOD-sp4): 33.3 ml/m2 SI(MOD-sp2): 32.5 ml/m2 LA A4 area: 23.2 cm2 LA dimension(2D): 4.5 cm TAPSE: 2.7 cm Time Measurements MV dec time: 0.23 sec Doppler Measurements & Calculations MV E max andrew: 54.7 cm/sec Lat Peak E' Andrew: 9.0 cm/sec Med Peak E' Andrew: 4.9 cm/sec MV A max andrew: 84.3 cm/sec E/E' lat: 6.1 E/E' med: 11.1 MV E/A: 0.65 MV V2 max: 119.3 cm/sec MV P1/2t max andrew: 89.8 cm/sec Ao V2 max: 154.3 cm/sec MV max P.7 mmHg MV P1/2t: 94.4 msec Ao max P.5 mmHg MV V2 mean: 59.7 cm/sec MV dec slope: 278.7 cm/sec2 Ao V2 mean: 107.5 cm/sec MV mean P.7 mmHg MVA(P1/2t): 2.3 cm2 Ao mean P.3 mmHg MV V2 VTI: 25.1 cm Ao V2 VTI: 39.3 cm AV (velocity ratio): 0.55 LV V1 max: 75.0 cm/sec PA V2 max: 118.5 cm/sec PI dec slope: 218.2 cm/sec2 LV V1 max P.2 mmHg LV V1 mean P.4 mmHg LV V1 mean: 57.3 cm/sec LV V1 VTI: 21.8 cm TR max andrew: 240.8 cm/sec TR max P.2 mmHg ECHO/Echo Complete W/ Contrast Interpretation Summary Normal LV size. Left ventricular systolic function is normal. The left ventricular ejection fraction is 65 %. Stage 1 diastolic dysfunction. Pulmonary artery systolic pressure is 26 mmHg. Ordering Physician: Dayton Villagomez Referring Physician: Mahin Ryan Performed By: Cris Chen, KAYE, RVT 09/17/25 1225 Date Terrence Ryan MD CC: Dr. Dayton Villagomez DO; Dr. Mahin Ryan MD; Dr. Gladis Wilks DO ~ Date Dictated: 09/17/25 0756 Date Transcribed: 09/17/25 122 Sports Medicine Physician: Signed Additional pertinent findings: [facility] Cardi[facility] Services [address] [place] [address] Carotid Duplex Ultrasound 09/17/25 0910 MR#: [id number] Acct: [id number] Name: HANNAH BLOCK I Rep #: [id number] : 1940 85 From: Jordon Martinez MD Attending Dr: Dr. Gladis Wilks DO Status: DIS UMA Ordering Dr: Gladis Wilks DO Date: 09/17/25 Location: [facility] Sex: M C Admitted: 09/16/25 Reason For Study Reason For Study: ICA Stenosis Rt. Velocities/BP Lt. Velocities/BP Prox CCA 97.7/11.8 cm/sec. Prox CCA 122.1/12.3 cm/sec. Mid CCA 86.7/11.8 cm/sec. Mid CCA 130.8/21.1 cm/sec. Dist CCA 80.6/10.6 cm/sec. Dist CCA 101.6/13.9 cm/sec. Prox ICA 308.4/69.1 cm/sec. Prox ICA 86.9/16.7 cm/sec. Mid ICA 225.0/26.9 cm/sec. Mid ICA 97.9/23.0 cm/sec. Dist ICA 153.9/31.0 cm/sec. Dist ICA 110.7/23.0 cm/sec. Rt. ICA/CCA = 3.6. Lt. ICA/CCA = 0.8. Prox ECA 334.9/9.7 cm/sec. Prox ECA 179.7/0.0 cm/sec. Rt. Vert. 49.0/6.2 cm/sec. Lt. Vert. 66.8/4.7 cm/sec. Right Extracranial There is homogeneous, smooth atherosclerotic plaque noted in the right common carotid artery. There is heterogeneous, irregular atherosclerotic plaque noted in the right internal carotid artery. There is heterogeneous, irregular atherosclerotic plaque noted in the right external carotid artery. Antegrade flow is noted in the right vertebral artery. Left Extracranial There is heterogeneous, irregular atherosclerotic plaque noted in the left common carotid artery. There is heterogeneous, irregular atherosclerotic plaque noted in the left internal carotid artery. There is heterogeneous, irregular atherosclerotic plaque noted in the left external carotid artery. Antegrade flow is noted in the left vertebral artery. Procedure Carotid Duplex [id number]. This is a Carotid Duplex examination using B-mode, color flow and specral Doppler. Exam performed in department. 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 Mild (<50%) stenosis left extracranial internal carotid. Flow within the vertebral arteries is antegrade bilaterally. Elevated velocities in the right external carotid artery are suggestive of stenosis >50%. Ordering Physician: Gladis Wilks Referring Physician: Mahin Ryan MD Performed By: Apple Rm and Student, T 09/18/252136 Date Jordon Martinez MD CC: Dr. Mahin Ryan MD; Dr. Gladis Wilks DO ~ Date Dictated: 09/17/25909 Date Transcribed: 09/18/252136 Sports Medicine Physician: Signed Recommendation Anesthesia Recommendation Anesthesia recommendation: OPTIMIZED for anesthesia
[2025-10-02 10:27] LABS: Hematocrit 40.0 % (40-54); Hemoglobin 13.3 g/dL (13.0-16.5); Mean Corp Hgb Conc 33.3 g/dL (32-36); Mean Corpuscular Volume 93.0 fL (80-94); Mean Platelet Vol. 10.2 fl (6.2-12.0); Platelet Count 190 K/mm3 (150-450); RBC Distribution Width CV 13.4 % (11.6-14.6); RBC Distribution Width SD 45.8 fl (35.1-43.9); Red Blood Count 4.30 M/mm3 (4.6-6.2); White Blood Count 8.4 K/mm3 (4.4-11.0)
[2025-10-02 11:06] LABS: Anion Gap 13 (5-15); BUN 25 mg/dL (4-19); BUN/Creat Ratio 19.9 RATIO (10-20); Calcium,Total 9.3 mg/dL (7.6-11.0); Carbon Dioxide 23.2 mmol/L (21.0-32.0); Chloride 107 mmol/L (98-108); Glucose 108 mg/dL (70-99); Potassium 4.4 mmol/L (3.3-5.1)
[2025-10-13] VITALS (24 sets, daily range): BP systolic 110–182; BP diastolic 46–72; PULSE 73–97; RESP 11–22; TEMP 35.7–37.4; O2SAT 94–99; BMI 31.5; BMI 31.9
--- OUTSIDE RECORDS SUMMARY | 2025-10-13 05:19 | XMS RPT_ITS | CCD ---
Author Organization [facility] Care Team Providers Care Business Services Administrator Name Role Phone Aleks Garcia Unavailable Unavailable PROVIDER, UNKNOWN Unavailable Unavailable No, PCP Unavailable Unavailable Mahni Erwin II Unavailable Unavailable Ethan Mcgarry Unavailable Unavailable Connor DANIELLE, Nerissa Unavailable UnavailEthan Ramos Unavailable [phone] Loni Pineda Unavailable Unavailmike Ryan RN, Nerissa Unavailable Unavailmike Ryan RN, Nerissa Unavailable UnavailEthan Ramos Unavailable Unavailable Unavailable Dr. Ethan Mcgarry Primary Care Provider Dr. Ethan Mcgarry Referring Provider Dr. Kennedy Kenny Attending Provider Dr. Ethan Mcgarry Primary Care Provider Dr. Ethan Mcgarry Referring Provider Dr. Kennedy Kenny Attending Provider Dr. Ethan Mcgarry Primary Care Unavail able Dr. Marc Rahman Attending Unavaila ble Dr. Mahin Ryan Primary Care Provider [phone] Dr. Terrence Bullard Attending Provider Dr. Terrence Bullard Referring Provider Dr. Mahin Ryan Referring Provider Dr. Jonny Shoemaker Attending Provider Connor DANIELLE, Nerissa Unavailable UnavailROSS Torres JR Attending Unavailable Dr. Mahin Ryan Primary Care Provider Dr. Mahin Ryan Referring Provider [phone] JUANITA Pak Attending Provider Dr. Mahin Ryan MD Primary Care Provider [phone] Dr. Mahin Ryan MD Attending Provider [phone] Dr. Mahin Ryan MD Referring Provider Isac JOHNSON-CSofia Attending Provider Dr. Dayton Brooks MD Attending Provider Dr. Mahin Ryan MD Primary Care Physician Shelby BARNES, Dr. Mahin Vicente Attending Physician Dr. Mahin Ryan MD Referring Provider Mahin Ryan Primary Care Unavailable Mahin Ryan Referring Unavailable Sofia Chau Attending Unavailable Mahin Ryan Primary Care Unavailable Mahin Ryan Referring Unavailable Mahin Ryan Attending Unavailable Mahin Ryan Referring Unavailable Mahin Ryan Attending Unavailable Mahin Ryan Primary Care Unavailable Mahin Ryan Referring Unavailable Mahin Ryan Attending Unavailable Mahin Ryan Primary Care Unavailable Mahin Ryan Referring Unavailable Mahin Ryan Attending Unavailable Mahin Ryan Primary Care Unavailable Mahin Ryan Primary Care Unavailable Mahin Ryan Referring Unavailable Dayton Brooks Attending Unavailable Mahin Ryan Primary Care Unavailable Mahin Ryan Attending Unavailable Mahin Ryan Primary Care Unavailable Mahin Ryan Referring Unavailable Mahin Ryan Attending Unavailable SELF Referring Unavailable KOSTAS YI Attending Unavailable Allergies Allergy Classification Reported Allergen(s) Allergy Type Date of Onset Reaction(s) Facility (2 sources) Adhesive bandage; Translations: [Adhesive Bandages] drug allergy [place] Work Phone: (20 sources) Amoxicillin; Translations: [amoxicillin] Drug Allergy 5 [facility] (3 sources) Ciprofloxacin; Translations: [Cipro] Drug Allergy Palpitations, Rash [facility] Work Phone: (20 sources) Iodine; Translations: [iodine] Drug Allergy 5 Hives, Swelling [facility] (20 sources) Metoprolol; Translations: [metoprolol] Drug Allergy 6 Other: See Comments [facility] (2 sources) Penicillins; Translations: [Penicillins] drug allergy [facility] Work Phone: (2 sources) Piperacillin / tazobactam; Translations: [Zosyn] Drug Allergy [facility] Work Phone: (20 sources) shellfish, unspecified; Translations: [SHELLFISH] food allergy 5 Hives [facility] Work Phone: (20 sources) Adhesive Tape; Translations: [ADHESIVE TAPE (ROSINS)] Allergy to substance 4 Other: See Comments [facility] Work Phone: (20 sources) Ciprofloxacin; Translations: [CIPROFLOXACIN] Drug Allergy 2 Rash [facility] (20 sources) Naproxen; Translations: [NAPROXEN] Drug Allergy 6 Other: See Comments [facility] (20 sources) Piperacillin / tazobactam; Translations: [PIPERACILLIN-TA ZOBACTAM] Drug Allergy 8 [facility] (18 sources) Polysporin, Bacitracin [Other] Propensity to adverse reactions 2 Rash [facility] Work Phone: (1 source) Tape - Adhesive, Bandaids, Paper Hives/Urticaria [facility] (12 sources) Adhesive Tape; Translations: [adhesive tape] Allergy to substance [address] [facility] (11 sources) Penicillins Allergy to substance [address] [facility] (11 sources) Piperacillin Drug Allergy [address] [facility] (12 sources) Shellfish; Translations: [shellfish derived] Allergy to substance [address] [facility] (11 sources) tazobactam Drug Allergy [address] [facility] (10 sources) Doxycycline; Translations: [DOXYCYCLINE] Drug Allergy 3 Swelling [facility] (1 source) OTHER; Translations: [OTHER] Propensity to adverse reactions (disorder) [address] [facility] (1 source) Penicillins Drug allergy (disorder) [address] [facility] (1 source) Piperacillin Drug Allergy [address] [facility] (1 source) tazobactam Drug Allergy [address] [facility] (1 source) Bacitracin; Translations: [BACITRACIN] Drug Allergy 5 [facility] Medications Current Medications Medication Drug Class(es) Dates Sig (Normalized) Sig (Original) CPAP/BIPAP/OTHER (20 sources) Start: 03-23-2023 End: 08-07-2050 CPAP/BIPAP/OTHER Indications: Obstructive sleep apnea (adult) (pediatric) Pressure adjust to IPAP 19, EPAP 9, PS 5 cm H2O, suitable mask per pt preference, chin strap, head gear, humidity, tubing, lifetime supplies. G47.33 EFREN 1 Each 11 03/23/2023 08/07/2050 Active Start: 11-29-2022 End: 04-15-2050 CPAP/BIPAP/OTHER Pressure ad just to IPAP 19, EPAP 12, PS 5 cm H2O, suitable mask per pt preference, chin strap, head gear, humidity, tubing, lifetime supplies. G47.33 EFREN 1 Each 11 11/29/2022 04/15/2050 Active Start: 08-28-2022 End: 11-29-2022 CPAP/BIPAP/OTHER Indications : Obstructive sleep apnea (adult) (pediatric) Auto titrating Bilevel PAP with IPAP max 25, EPAP min 12 cmH2O with pressure support (PS) 5 cmH2O. A medium ResMed AirFit F30 full face mask. 1 Each 0 08/28/2022 11/29/2022 Discontinued Start: 08-28-2022 End: 01-12-2050 CPAP/BIPAP/OTHER Indications : Obstructive sleep apnea (adult) (pediatric) Auto titrating Bilevel PAP with IPAP max 25, EPAP min 12 cmH2O with pressure support (PS) 5 cmH2O. A medium ResMed AirFit F30 full face mask. 1 Each 0 08/28/2022 01/12/2050 Active Start: 08-23-2022 End: 11-29-2022 CPAP/BIPAP/OTHER Indications : Obstructive sleep apnea (adult) (pediatric) Auto titrating Bilevel PAP with IPAP max 25, EPAP min 15 cmH2O with pressure support (PS) 5 cmH2O. A medium ResMed AirFit F30 full face mask. 1 Each 0 08/23/2022 11/29/2022 Discontinued Start: 08-23-2022 End: 01-07-2050 CPAP/BIPAP/OTHER Indications : Obstructive sleep apnea (adult) (pediatric) Auto titrating Bilevel PAP with IPAP max 25, EPAP min 15 cmH2O with pressure support (PS) 5 cmH2O. A medium ResMed AirFit F30 full face mask. 1 Each 0 08/23/2022 01/07/2050 Active Comment on above: Auto titrating Bilev el PAP with IPAP max 25, EPAP min 15 cmH2O with pressure support (PS) 5 cmH2O. A medium ResMed AirFit F30 full face mask. Auto titrating Bilev el PAP with IPAP max 25, EPAP min 12 cmH2O with pressure support (PS) 5 cmH2O. A medium ResMed AirFit F30 full face mask. Pressure adjust to I PAP 19, EPAP 12, PS 5 cm H2O, suitable mask per pt preference, chin strap, head gear, humidity, tubing, lifetime supplies. G47.33 EFREN Pressure adjust to I PAP 19, EPAP 9, PS 5 cm H2O, suitable mask per pt preference, chin strap, head gear, humidity, tubing, lifetime supplies. G47.33 EFREN hydrocortisone 25 mg/ml topical cream (18 sources) Corticosteroid Start: 017 hydrocortisone 2.5 % cream Indications: Eczema intertrigo , Tinea pedis, unspecified laterality Apply to irritant dermatitis rash at any sensitive deep fold areas (eg., groin area), selectively twice up to three times per day until clear and then stop or taper off as able. AVOID direct application to eyelids//eyes. 60 g 01/16/2017 Active Comment on above: Apply to irritant de rmatitis rash at any sensitive deep fold areas (eg., groin area), selectively twice up to three times per day until clear and then stop or taper off as able. AVOID direct application to eyelids//eyes. losartan potassium 100 mg oral tablet (3 sources) Angiotensin 2 Receptor Gatito Start: 025 take 1 tablet by mouth once daily lubiprostone 0.008 mg oral capsule (3 sources) Chloride Channel Activator Start: 025 take 1 capsule by mouth twice daily multivitamin tablet (18 sources) Start: 014 take 1 tablet by mouth once daily multivitamin tablet Take 1 tablet by mouth once daily. 0 07/13/2014 Active Comment on above: Take 1 tablet by christy once daily. pravastatin sodium 20 mg oral tablet (3 sources) HMG-CoA Reductase Inhibitor Start: 025 take 1 tablet by mouth once daily psyllium 3400 mg powder for oral suspension (8 sources) Psyllium Seed-Escalera crose Take 1 Tablespoonful by mouth once daily. Active Comment on above: Take 1 Tablespoonful by mouth once daily. vvhageo-zpof-ifppf-ore g-capryl 100 mg-150 mg- 50 mg-150 mg cap (18 sources) take 1 capsule by mouth once daily mzbwhvy-ramw-djtwi-or eg-capryl 100 mg-150 mg- 50 mg-150 mg cap Take 300 mg by mouth once daily. Active take 1 capsule by mo [facility] once daily pqhojkp-atpp-xgxfj-oreg-capryl 100 mg-15 0 mg- 50 mg-150 mg cap Take 300 mg by mouth once daily. 0 Active Comment on above: Take 300 mg by mouth once daily. Completed/Discontinued Medications Medication Drug Class(es) Dates Sig (Normalized) Sig (Original) acetaminophen 325 mg / HYDROcodone bitartrate 5 mg oral tablet (11 sources) Opioid Agonist Start: 10-08-2018 End: 10-11-2018 Hydrocodone-Acetamino phen 1 TABLET tablet Discontinued 1 {tbl} PO EVERY 6 HOURS NEEDED as needed for Pain 10 3 0 October 08, 2018 1:00am October 10, 2018 1:00am October 11, 2018 1:08am Degeneration of intervertebral disc of cervical region Other cervical disc degeneration, unspecified cervical region Start: 10-08-2018 End: 10-11-2018 take 1 tablet by mouth every six hours as needed Hydrocodone-Acetaminophen Discontinued 1 TABLET PO EVERY 6 HOURS NEEDED 10 3 October 08, 2018 12:00am October 11, 2018 12:08am 24 hr alfuzosin hydrochloride 10 mg extended release oral tablet (20 sources) alpha-Adrenergic Gatito Start: 02-23-2011 End: 11-29-2022 take 1 tablet by mouth once daily Alfuzosin 10 MG Tab.Er.24h Discontinued 10 mg PO DAILY August 20, 2017 1:00am August 25, 2017 8:25am Comment on above: Take 1 tablet by christy once daily. balsalazide disodium 750 mg oral capsule (6 sources) Aminosalicylate Start: 04-09-2023 End: 07-08-2023 take 1 capsule by mouth once daily Balsalazide 750 mg capsule Discontinued 2250 mg PO DAILY 270 90 0 April 09, 2023 12:00am July 07, 2023 12:00am July 08, 2023 12:04am Start: 04-09-2023 End: 07-08-2023 take 2250 mg by mouth once daily Balsalazide Discontinued 2250 MG PO DAILY 270 90 April 08, 2023 11:00pm July 07, 2023 11:04pm celecoxib 100 mg oral capsule (2 sources) Nonsteroidal Anti-inflammatory Drug Celecoxib 100 MG Ora l Capsule Quantity: 0 Refills: 0 Ordered: 21-Jul-2019 DO Active Celecoxib 100 MG Oral Capsule Refills: 0 Active cholestyramine resin 4000 mg powder for oral suspension (3 sources) Bile Acid Sequestrant Start: 01-28-2025 End: 01-28-2025 Cholestyramine (With Sugar) 4 gram powder Discontinued NMA PO January 28, 2025 12:00am January 28, 2025 9:01am CPAP (20 sources) Start: 09-16-2021 End: 11-29-2022 [facility] 1 Each 09/16/2021 11/29/2022 Discontinued Start: 09-16-2021 [facility]. 1 Each 09/16/2021 Active Start: 06-06-2021 End: 11-29-2022 CPAP Indications: Obstructiv e sleep apnea (adult) (pediatric) Please adjust AutoPAP to 12-16 cmH2O with download in 2 weeks. Thank you. 1 Device 06/06/2021 11/29/2022 Discontinued Start: 06-06-2021 CPAP Indicatio ns: Obstructive sleep apnea (adult) (pediatric) Please adjust AutoPAP to 12-16 cmH2O with download in 2 weeks. Thank you. 1 Device 06/06/2021 Active Start: 02-11-2021 End: 11-29-2022 CPAP Indications: Obstructiv e sleep apnea (adult) (pediatric) Please change autoPAP setting to 12-20 cmH2O. 1 Device 02/11/2021 11/29/2022 Discontinued Start: 02-11-2021 CPAP Indicatio ns: Obstructive sleep apnea (adult) (pediatric) Please change autoPAP setting to 12-20 cmH2O. 1 Device 02/11/2021 Active Start: 01-21-2021 End: 11-29-2022 CPAP Indications: Obstructiv e sleep apnea (adult) (pediatric) Please increase pressure to 13 cmH2O on patient's CPAP. Please also get a download from his auto-PAP device as unclear why he was unable to tolerate. Thank you. 1 Device 01/21/2021 11/29/2022 Discontinued Start: 01-21-2021 CPAP Indicatio ns: Obstructive sleep apnea (adult) (pediatric) Please increase pressure to 13 cmH2O on patient's CPAP. Please also get a download from his auto-PAP device as unclear why he was unable to tolerate. Thank you. 1 Device 01/21/2021 Active Start: 11-19-2020 End: 11-29-2022 CPAP Indications: Obstructiv e sleep apnea (adult) (pediatric) Please set Auto-PAP with humidity for 8-16 cmH2O. Please provide us download in 4 weeks. Thank you. DME = [facility] 1 Device 11/19/2020 11/29/2022 Discontinued Start: 11-19-2020 CPAP Indicatio ns: Obstructive sleep apnea (adult) (pediatric) Please set Auto-PAP with humidity for 8-16 cmH2O. Please provide us download in 4 weeks. Thank you. DME = [facility] 1 Device 11/19/2020 Active Start: 10-18-2020 End: 11-29-2022 CPAP Indications: Obstructiv e sleep apnea (adult) (pediatric) Please increase PAP setting to 12 cmH2O, and provide use download in 4 weeks for review. Ross Saldaña MD 1 Device 10/18/2020 11/29/2022 Discontinued Start: 10-18-2020 CPAP Indicatio ns: Obstructive sleep apnea (adult) (pediatric) Please increase PAP setting to 12 cmH2O, and provide use download in 4 weeks for review. Ross Saldaña MD 1 Device 10/18/2020 Active Comment on above: Please increase PAP setting to 12 cmH2O, and provide use download in 4 weeks for review. Ross Saldaña MD Please set Auto-PAP with humidity for 8-16 cmH2O. Please provide us download in 4 weeks. Thank you. DME = [facility] Please increase pres sure to 13 cmH2O on patient's CPAP. Please also get a download from his auto-PAP device as unclear why he was unable to tolerate. Thank you. Please change autoPA P setting to 12-20 cmH2O. Please adjust AutoPA P to 12-16 cmH2O with download in 2 weeks. Thank you. Mask fitting at [facility] when available. diphenhydrAMINE hydrochloride 25 mg oral capsule (10 sources) Histamine-1 Receptor Antagonist Start: 023 End: 025 take 1 capsule by mouth every hour as needed, then take 1 capsule by mouth once as needed Diphenhydramine Hcl (Benadryl) 25 mg capsule Discontinued 25 mg PO Q8H 4 0 December 05, 2022 1:00am January 28, 2025 8:28am take one capsule one hour prior to procedure. May repeat one capsule every eight hours after as needed. doxycycline hyclate 100 mg oral capsule (7 sources) Tetracycline-class Drug Start: 023 End: 023 take 1 capsule by mouth twice daily Doxycycline Hyclate 100 mg capsule Discontinued 100 mg PO TWICE A DAY 56 28 0 February 21, 2023 12:00am March 20, 2023 12:00am March 21, 2023 12:03am Fish Oil CAPS (1 source) Fish Oil CAPS Quantity: 0 Refills: 0 Ordered: 21-Jul-2019 DO Active gabapentin 300 mg oral capsule (13 sources) Anti-epileptic Agent Start: 020 End: 022 take 1 capsule by mouth three times daily at mealtime Gabapentin 300 MG capsule Discontinued 300 mg PO 3 TIMES DAILY WITH MEALS July 16, 2020 12:00am October 10, 2022 10:45am Start: 11-05-2018 Gabapentin 100 MG Oral Capsule Quantity: 90 Refills: 0 Ordered: 05-Nov-2018 DO Start : 05-Nov-2018 Active Start: 11-05-2018 Gabapentin 100 MG Oral Capsule Quantity: 90 Refills: 0 Start : 05-Nov-2018 Active imipramine hydrochloride 50 mg oral tablet (2 sources) Tricyclic Antidepressant Start: 07-28-2019 take 1 tablet by mouth once daily Imipramine HCl - 50 MG Oral Tablet Take 1 tablet daily Quantity: 30 Refills: 11 Ordered: 28-Jul-2019 Mahin Erwin II, MD Start : 28-Jul-2019 Active ketoconazole 20 mg/ml topical cream (10 sources) Azole Antifungal Start: 07-04-2016 End: 11-29-2022 ketoconazole (NIZORAL) 2 % cream Apply 1 application to affected area once daily. to groin rash 30 g 5 07/04/2016 11/29/2022 Discontinued Comment on above: Apply 1 application to affected area once daily. to groin rash linaclotide 0.145 mg oral capsule (3 sources) Guanylate Cyclase-C Agonist Start: 01-28-2025 End: 02-03-2025 take 1 capsule by mouth once daily in the morning Linaclotide (Linzess) 145 mcg capsule Discontinued 145 ug PO EVERY MORNING 90 0 January 28, 2025 12:00am February 03, 2025 5:19pm magnesium oxide 400 mg oral tablet (11 sources) Start: 10-10-2022 End: 01-28-2025 take 1 tablet by mouth once daily Magnesium Oxide 400 mg magnesium tablet Discontinued 400 mg PO DAILY October 10, 2022 1:00am January 28, 2025 8:28am Metamucil Fiber PACK (1 source) Metamucil Fiber PACK Refills: 0 Active Metamucil Fiber PACK (1 source) Metamucil Fiber PACK Quantity: 0 Refills: 0 Ordered: 21-Jul-2019 DO Active Multi Vitamin Oral Tablet (1 source) Multi Vitamin Oral Tablet Refills: 0 Active Multivitamin (One Daily Multivitamin) tablet (11 sources) Start: 10-10-2022 End: 01-28-2025 take 1 tablet by mouth once daily Multivitamin (One Daily Multivitamin) tablet Discontinued 1 {tbl} PO DAILY October 10, 2022 1:00am January 28, 2025 9:01am Start: 10-10-2022 take 1 tablet by christy th once daily Multivitamin (One Daily Multivitamin) tablet Active 1 {tbl} PO DAILY October 10, 2022 1:00am Start: 10-10-2022 take 1 tablet by christy th once daily Multivitamin (One Daily Multivitamin) tablet Active 1 TABLET PO DAILY October 10, 2022 1:00am Start: 10-10-2022 take 1 tablet by christy th once daily Multivitamin (One Daily Multivitamin) tablet Active 1 TABLET PO DAILY October 10, 2022 12:00am Fish Oil CAPS (1 source) Fish Oil CAPS Refills: 0 Active predniSONE 20 mg oral tablet (10 sources) Start: 023 End: take 1 tablet by mouth once daily Prednisone 20 mg tablet Discontinued 20 mg PO DAILY 1 0 December 05, 2022 1:00am January 28, 2025 8:28am take one hour prior to procedure Psyllium Seed-Sucrose (METAMUCIL) powd (10 sources) Psyllium Seed-Sucrose (METAMUCIL) powd Take 1 Tablespoonful by mouth once daily. 0 Active Comment on above: Take 1 Tablespoonful by mouth once daily. sildenafil 50 mg oral tablet (10 sources) Phosphodiesterase 5 Inhibitor Start: 007 End: sildenafil (VIAGRA) 50 mg ORAL Tab Take one(1) tablet 30-60 minutes before sexual intercourse as needed. 0 04/10/2007 11/29/2022 Discontinued Comment on above: Take one(1) tablet 3 0-60 minutes before sexual intercourse as needed. sulfamethoxazole 800 mg / trimethoprim 160 mg oral tablet (5 sources) Dihydrofolate Reductase Inhibitor Antibacterial, Sulfonamide Antimicrobial Start: 023 End: Sulfamethoxazole-Tr imethoprim (Bactrim Ds) 800-160 mg tablet Discontinued 1 {tbl} PO Q12H 14 7 0 September 20, 2023 1:00am September 26, 2023 1:00am September 27, 2023 1:05am sulfaSALAzine 500 mg delayed release oral tablet (7 sources) Aminosalicylate Start: 023 End: 025 take 1 g by mouth twice daily Sulfasalazine 500 mg tablet,delayed release (DR/EC) Discontinued 1 g PO TWICE A DAY 120 30 February 21, 2023 12:00am January 28, 2025 8:28am Start: 02-21-2023 take 1 g by mouth twice daily Sulfasalazine Active 1 GM PO TWICE A DAY 120 February 20, 2023 11:00pm Turmeric Curcumin Oral Capsu le (1 source) Turmeric Curcumi n Oral Capsule Quantity: 0 Refills: 0 Ordered: 23-Oct-2022 DO Active Vitamin C CAPS (1 source) Vitamin C CAPS Q uantity: 0 Refills: 0 Ordered: 23-Oct-2022 DO Active Vitamin D CAPS (1 source) Vitamin D CAPS Q uantity: 0 Refills: 0 Ordered: 23-Oct-2022 DO Active NEGATED: Highlighted row has not occurred!No Current Medications (1 source) No Current Medic ations Problems Active Problems Problem Classification Problem Date Documented Da te Episodic/Chronic Abdominal hernia (18 sources) Diaphragmatic hernia; Translations: [Diaphragmatic hernia without obstruction or gangrene] 06-27-2006 Episodic Chronic ulcer of skin (18 sources) Pressure ulcer of unspecified site, unspecified stage; Translations: [Pressure ulcer, unspecified site] Onset: 5 07-14-2015 Chronic Conditions associated with dizziness or vertigo (11 sources) Dizziness; Translations: [Dizziness and giddiness] 01-05-2019 Episodic Disorders of lipid metabolism (20 sources) Hyperlipidemia; Translations: [Hyperlipidemia, unspecified] Onset: 6 11-04-2015 Chronic Diverticulosis and diverticulitis (20 sources) Diverticulosis of colon; Translations: [Diverticulosis of large intestine without perforation or abscess without bleeding] 06-27-2006 Chronic Esophageal disorders (18 sources) Gastroesophageal reflux disease; Translations: [Gastro-esophageal reflux disease without esophagitis] 06-27-2006 Chronic Essential hypertension (20 sources) Essential hypertension; Translations: [Essential (primary) hypertension] Onset: 6 Resolved: 6 10-10-2021 Chronic Genitourinary symptoms and ill-defined conditions (2 sources) Urinary incontinence; Translations: [Urinary incontinence, unspecified] Chronic Genitourinary symptoms and ill-defined conditions (4 sources) Retention of urine, unspecified; Translations: [Nocturia] Onset: 8 Episodic Hyperplasia of prostate (20 sources) Benign prostatic hypertrophy without outflow obstruction; Translations: [Benign prostatic hyperplasia without lower urinary tract symptoms] 06-27-2006 Chronic Occlusion or stenosis of precerebral arteries (1 source) Occlusion and stenosis of bilateral carotid arteries; Translations: [Occlusion and stenosis of bilateral carotid arteries] Onset: 5 Chronic Open wounds of extremities (1 source) Laceration of hand; Translations: [Open wound of hand except finger(s) alone, without mention of complication] 03-24-2022 Episodic Osteoarthritis (20 sources) Osteoarthritis; Translations: [Unspecified osteoarthritis, unspecified site] Onset: 5 06-27-2006 Chronic Other connective tissue disease (18 sources) History of total hip arthroplasty; Translations: [Presence of unspecified artificial hip joint] Onset: 4 07-27-2014 Chronic Other gastrointestinal disorders (4 sources) Constipation; Translations: [Constipation, unspecified] 01-28-2025 Episodic Other nervous system disorders (18 sources) Piriformis syndrome; Translations: [Lesion of sciatic nerve, unspecified lower limb] Onset: 6 12-05-2015 Chronic Other non-traumatic joint disorders (1 source) Knee pain; Translations: [Knee pain] Episodic Other non-traumatic joint disorders (1 source) Pain in unspecified knee; Translations: [Knee pain] Episodic Other nutritional; endocrine; and metabolic disorders (20 sources) Obesity; Translations: [Obesity, unspecified] Onset: 6 06-27-2006 Chronic Other skin disorders (18 sources) Actinic keratosis; Translations: [Actinic keratosis] 04-07-2011 Episodic Residual codes; unclassified (20 sources) Obstructive sleep apnea syndrome; Translations: [Obstructive sleep apnea (adult) (pediatric)] Onset: 1 Chronic Residual codes; unclassified (2 sources) Obstructive sleep apnea (adult) (pediatric); Translations: [Obstructive sleep apnea] Onset: 3 Chronic Skin and subcutaneous tissue infections (14 sources) Paronychia of finger; Translations: [Cellulitis of right finger] Onset: 9 Resolved: 4 09-20-2023 Episodic Spondylosis; intervertebral disc disorders; other back problems (18 sources) Degeneration of intervertebral disc; Translations: [Degeneration of intervertebral disc, site unspecified] Onset: 7 04-10-2007 Chronic Thyroid disorders (1 source) Autoimmune thyroiditis; Translations: [Autoimmune thyroiditis] Onset: Chronic Unclassified (2 sources) LACERATION TO RT HAND 03-24-2022 Comment on above: LACERATION TO RT CORRIGAN D Unclassified (1 source) Hand laceration 03-24-2022 Past or Other Problems Problem Classification Problem Date Documented Da te Episodic/Chronic Acute bronchitis (1 source) Acute bronchitis, unspecified; Translations: [Acute bronchitis, unspecified] Onset: 09-17-2024 Episodic Allergic reactions (20 sources) Allergy status to penicillin; Translations: [Radiographic dye allergy status] Onset: 05-19-2009 Resolved: 08-26-2010 09-29-2010 Episodic Complications of surgical procedures or medical care (4 sources) Postoperative wound infection; Translations: [Infection following a procedure, other surgical site, initial encounter] Onset: 04-06-2013 Resolved: 04-23-2014 04-23-2014 Episodic Diabetes mellitus without complication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 150-[address] [facility] Comment on above: Order Comment: Order Date: 06/24/25 Order Info: 018- - CBCD Performed By: #### L 506.0400, L100.0100, L500.4100, L501.9985, L500.4050, L501.9520 #### [facility] [address] [place], [address] RBC (Bld) [#/Vol] 4.19 10*6/uL Low 4.6-6.2 [facility] Comment on above: Order Comment: Order Date: 06/24/25 Order Info: 0184-1 - CBCD Performed By: #### L 506.0400, L100.0100, L500.4100, L501.9985, L500.4050, L501.9520 #### [facility] [address] [place], [address] RDW SD 47.7 fl High 35.1-43.[address] [facility] Comment on above: Order Comment: Order Date: 06/24/25 Order Info: 0184-1 - CBCD Performed By: #### L 506.0400, L100.0100, L500.4100, L501.9985, L500.4050, L501.9520 #### [facility] [address] [facility] [place], [address] WBC (Bld) [#/Vol] 7.7 10*3/uL Normal 4.4-11.0 [facility] Comment on above: Order Comment: Order Date: 06/24/25 Order Info: 0184-1 - CBCD Performed By: #### L 506.0400, L100.0100, L500.4100, L501.9985, L500.4050, L501.9520 #### [facility] [address] [place], [address] Calculated very low density lipoprotein (VLDL) cholesterol measurementOrdered By: Mahin Ryan on 06-24-2025 Calculated very low density lipoprotein (VLDL) cholesterol measurement 26 mg/dL 5-[address] [facility] Carbon dioxide, total [Moles /volume] in Central venous bloodOrdered By: Mahin Ryan on 06-24-2025 CO2 [Moles/Vol] 23.8 mmol/L 21.0-32.[address] [facility] Chloride assayOrdered By: Yuni Ryan on 06-24-2025 Chloride [Moles/Vol] 106 mmol/L 98-108 [facility] Metabolic Prof ilon 06-24-2025 Albumin [Mass/Vol] 3.9 g/dL Normal 3.4-4.8 [facility] Comment on above: Order Comment: Order Date: 07/31/24 Order Info: 666-10 - BMP Order Date: 06/24/25 Order Info: 785-1 - CMP Order Info: [id number] - LIPID Order Info: 6-3 - TSH Order Info: 4-7 - T4F Performed By: #### L 506.0400, L100.0100, L500.4100, L501.9985, L500.4050, L501.9520 #### [facility] [address] [place], [place], [id number] Albumin/Globulin [Mass ratio] 1.2 {ratio} Normal 0.9-2.[address] [facility] Comment on above: Order Comment: Order Date: 07/31/24 Order Info: 666-10 - BMP Order Date: 06/24/25 Order Info: 785-10 - CMP Order Info: - LIPID Order Info: 3 - TSH Order Info: 3024-7 - T4F Performed By: #### L 506.0400, L100.0100, L500.4100, L501.9985, L500.4050, L501.9520 #### [facility] [address] [place], [place], [id number] ALK PHOS 70 U/L Normal 40-[address] [facility] Comment on above: Order Comment: Order Date: 07/31/24 Order Info: 666-10 - BMP Order Date: 06/24/25 Order Info: 1 - CMP Order Info: [id number] - LIPID Order Info: 3016-3 - TSH Order Info: 3024-7 - T4F Performed By: #### L 506.0400, L100.0100, L500.4100, L501.9985, L500.4050, L501.9520 #### [facility] [address] [place], [address] ALT [Catalytic activity/Vol] 26 U/L Normal <=[address] [facility] Comment on above: Order Comment: Order Date: 07/31/24 Order Info: 06- - BMP Order Date: 06/24/25 Order Info: 86-1 - CMP Order Info: [id number] - LIPID Order Info: 3016-3 - TSH Order Info: 3024-7 - T4F Performed By: #### L 506.0400, L100.0100, L500.4100, L501.9985, L500.4050, L501.9520 #### [facility] [address] [place], [place], [id number] AST [Catalytic activity/Vol] 27 U/L Normal <=[address] [facility] Comment on above: Order Comment: Order Date: 07/31/24 Order Info: 666-10 - BMP Order Date: 06/24/25 Order Info: 785-1 - CMP Order Info: [id number] - LIPID Order Info: 3016-3 - TSH Order Info: 3024-7 - T4F Performed By: #### L 506.0400, L100.0100, L500.4100, L501.9985, L500.4050, L501.9520 #### [facility] [address] [place], [place], [address] Bilirubin [Mass/Vol] 0.48 mg/dL Normal 0.00-1.30 [facility] Comment on above: Order Comment: Order Date: 07/31/24 Order Info: 666-10 - BMP Order Date: 06/24/25 Order Info: 0786-1 - CMP Order Info: [id number] - LIPID Order Info: 3016-3 - TSH Order Info: 3024-7 - T4F Performed By: #### L 506.0400, L100.0100, L500.4100, L501.9985, L500.4050, L501.9520 #### [facility] [address] [place], [address] BUN/CRE 16.3 RATIO Normal 10-[address] [facility] Comment on above: Order Comment: Order Date: 07/31/24 Order Info: 666- - BMP Order Date: 06/24/25 Order Info: 0786-1 - CMP Order Info: [id number] - LIPID Order Info: 3016-3 - TSH Order Info: 3024-7 - T4F Performed By: #### L 506.0400, L100.0100, L500.4100, L501.9985, L500.4050, L501.9520 #### [facility] [address] [place], [address] Calcium [Mass/Vol] 9.2 mg/dL Normal 7.6-11.0 [facility] Comment on above: Order Comment: Order Date: 07/31/24 Order Info: 666-10 - BMP Order Date: 06/24/25 Order Info: 785-1 - CMP Order Info: [id number] - LIPID Order Info: 6-3 - TSH Order Info: 3024-7 - T4F Performed By: #### L 506.0400, L100.0100, L500.4100, L501.9985, L500.4050, L501.9520 #### [facility] [address] [place], [address] Chloride [Moles/Vol] 106 mmol/L Normal 98-108 [facility] Comment on above: Order Comment: Order Date: 07/31/24 Order Info: 666-10 - BMP Order Date: 06/24/25 Order Info: 86-1 - CMP Order Info: [id number] - LIPID Order Info: 3016-3 - TSH Order Info: 3024-7 - T4F Performed By: #### L 506.0400, L100.0100, L500.4100, L501.9985, L500.4050, L501.9520 #### [facility] [address] [place], [address] CO2 [Moles/Vol] 23.8 mmol/L Normal 21.0-32.[address] [facility] Comment on above: Order Comment: Order Date: 07/31/24 Order Info: 0667-1 - BMP Order Date: 06/24/25 Order Info: 0786-1 - CMP Order Info: [id number] - LIPID Order Info: 3016-3 - TSH Order Info: 3024-7 - T4F Performed By: #### L 506.0400, L100.0100, L500.4100, L501.9985, L500.4050, L501.9520 #### [facility] [address] [place], [address] Creatinine [Mass/Vol] 1.27 mg/dL High 0.70-1.20 [facility] Comment on above: Order Comment: Order Date: 07/31/24 Order Info: 06- - BMP Order Date: 06/24/25 Order Info: 0786-1 - CMP Order Info: [id number] - LIPID Order Info: 6-3 - TSH Order Info: 3024-7 - T4F Performed By: #### L 506.0400, L100.0100, L500.4100, L501.9985, L500.4050, L501.9520 #### [facility] [address] [place], [address] GAP 11 Normal 5-[address] [facility] Comment on above: Order Comment: Order Date: 07/31/24 Order Info: 0667- - BMP Order Date: 06/24/25 Order Info: 0786-1 - CMP Order Info: [id number] - LIPID Order Info: 3016-3 - TSH Order Info: 3024-7 - T4F Performed By: #### L 506.0400, L100.0100, L500.4100, L501.9985, L500.4050, L501.9520 #### [facility] [address] [place], [address] GFR/1.73 sq M.predicted among non-blacks MDRD (S/P/Bld) [Vol rate/Area] 56 mL/min/{1.73_m2} Low >[address] [facility] Comment on above: Order Comment: Order Date: 07/31/24 Order Info: 666- - BMP Order Date: 06/24/25 Order Info: 07-1 - CMP Order Info: [id number] - LIPID Order Info: 3015-12 - TSH Order Info: 3024-04 - T4F Result Comment: mL/m in/1.73m2 CKD-EPI Creatinine Equation (2020) Performed By: #### L 506.0400, L100.0100, L500.4100, L501.9985, L500.4050, L501.9520 #### [facility] [address] [place], [place], [id number] Globulin (S) [Mass/Vol] 3.2 g/dL Normal 2.2-4.2 [facility] Comment on above: Order Comment: Order Date: 07/31/24 Order Info: 666-10 - BMP Order Date: 06/24/25 Order Info: 785-10 - CMP Order Info: - LIPID Order Info: 3015-12 - TSH Order Info: 3024-04 - T4F Performed By: #### L 506.0400, L100.0100, L500.4100, L501.9985, L500.4050, L501.9520 #### [facility] [address] [place], [place], [address] Glucose [Mass/Vol] 93 mg/dL Normal 70-99 [facility] Comment on above: Order Comment: Order Date: 07/31/24 Order Info: 666-10 - BMP Order Date: 06/24/25 Order Info: 07 - CMP Order Info: [id number] - LIPID Order Info: 3015-12 - TSH Order Info: 7 - T4F Performed By: #### L 506.0400, L100.0100, L500.4100, L501.9985, L500.4050, L501.9520 #### [facility] [address] [place], [address] Potassium [Moles/Vol] 4.1 mmol/L Normal 3.3-5.1 [facility] Comment on above: Order Comment: Order Date: 07/31/24 Order Info: 666-10 - BMP Order Date: 06/24/25 Order Info: 86-1 - CMP Order Info: 80012-3 - LIPID Order Info: 3016-3 - TSH Order Info: 3024-7 - T4F Performed By: #### L 506.0400, L100.0100, L500.4100, L501.9985, L500.4050, L501.9520 #### [facility] [address] [place], [address] Sodium [Moles/Vol] 140 mmol/L Normal 133-145 [facility] Comment on above: Order Comment: Order Date: 07/31/24 Order Info: 666-10 - BMP Order Date: 06/24/25 Order Info: 785-1 - CMP Order Info: 03456-7 - LIPID Order Info: 6-3 - TSH Order Info: 3024-7 - T4F Performed By: #### L 506.0400, L100.0100, L500.4100, L501.9985, L500.4050, L501.9520 #### [facility] [address] [place], [address] T PROT 7.0 g/dL Normal 5.9-8.[address] [facility] Comment on above: Order Comment: Order Date: 07/31/24 Order Info: 666-10 - BMP Order Date: 06/24/25 Order Info: 785-1 - CMP Order Info: [id number] - LIPID Order Info: 3016-3 - TSH Order Info: 3024-7 - T4F Performed By: #### L 506.0400, L100.0100, L500.4100, L501.9985, L500.4050, L501.9520 #### [facility] [address] [place], [place], [address] Urea nitrogen [Mass/Vol] 21 mg/dL High 4-[address] [facility] Comment on above: Order Comment: Order Date: 07/31/24 Order Info: 0667-1 - BMP Order Date: 06/24/25 Order Info: 0786-1 - CMP Order Info: [id number] - LIPID Order Info: 3016-3 - TSH Order Info: 3024-7 - T4F Performed By: #### L 506.0400, L100.0100, L500.4100, L501.9985, L500.4050, L501.9520 #### [facility] [address] [place], [address] Eosinophil percentageOrdered By: Mahin Ryan on 06-24-2025 Eosinophils/100 WBC (Bld) 5.2 % High 0-[address] [facility] Erythrocyte distribution wid th ratioOrdered By: Mahin Ryan on 06-24-2025 Erythrocyte distribution width (RBC) [Ratio] 13.8 % 11.6-14.[address] [facility] Erythrocyte distribution wid th standard deviationOrdered By: Mahin Ryan on 06-24-2025 Erythrocyte distribution width (RBC) [Ratio] 47.7 fl High 35.1-43.[address] [facility] Glomerular filtration rate ( GFR) estimation/1.73 sq m using serum, plasma, or whole bOrdered By: Mahin Ryan on 06-24-2025 GFR/1.73 sq M.predicted among non-blacks MDRD (S/P/Bld) [Vol rate/Area] 56 mL/min/{1.73_m2} Low >[address] [facility] Comment on above: mL/min/1.73m2 CKD-EP I Creatinine Equation (2020) Hematocrit Auto (Bld) [Volum e fraction]Ordered By: Mahin Ryan on 06-24-2025 Hematocrit (Bld) [Volume fraction] 39.8 % Low 40-[address] [facility] Hemoglobin A1con 06-24-2025 HbA1c (Bld) [Mass fraction] 5.6 % Normal <=5.[address] [facility] Comment on above: Order Comment: Order Date: 06/24/25Order Info: 4548-4 - A1C Result Comment: Norm al < 5.7 % Prediabetic 5.7 - 6.4 % Diabetic >or= 6.5 % Please note range changes. Performed By: #### L 501.9520, L506.0400, L500.4100, L500.4050, L100.0100 #### [facility] [address] [place], [place], [address] Hemoglobin A1c percentageOrd ered By: Mahin Ryan on 06-24-2025 HbA1c (Bld) [Mass fraction] 5.6 % <5.[address] [facility] Comment on above: Normal < 5.7 % Predi abetic 5.7 - 6.4 % Diabetic >or= 6.5 % Please note range changes. Hemoglobin measurementOrdere d By: Mahin Ryan on 06-24-2025 Hemoglobin (Bld) [Mass/Vol] 13.0 g/dL 13.0-16.[address] [facility] Immature granulocytes/100 WB C Auto (Bld)Ordered By: Mahin Ryan on 06-24-2025 Immature granulocytes/100 WBC (Bld) 0.100 % 0.0-0.[address] [facility] Comment on above: IG% - Immature Granu locytes (promyelocytes, myelocytes and metamyelocytes) > 1% indicates that a LEFT SHIFT is Present. Ketones Test strip Ql (U)Ord ered By: Mahin Ryan on 06-24-2025 Ketones Ql (U) Negative Negative [facility] LDL calc ser/plasOrdered By: Mahin Ryan on 06-24-2025 Cholesterol in LDL [Mass/Vol] 104 mg/dL [facility] Comment on above: Aarswgjnjs=477-820 m g/dL & Higher Zuxz=582 mg/dL or greaterFriedwald Equation for LDL-C Laboratory - Chemistry and C hemistry - challengeOrdered By: Mahin Ryan on 06-24-2025 AST [Catalytic activity/Vol] 27 U/L <[address] [facility] Lipid Profileon 06-24-2025 CHOL:HDL 4.[address] [facility] Comment on above: Order Comment: Order Date: 07/31/24Order Info: 666- - BMPOrder Date: 06/24/25Order Info: 86-1 - CMPOrder Info: [id number] - LIPIDOrder Info: 3 - TSHOrder Info: 3024-04 T4F Performed By: #### L 501.9520, L506.0400, L500.4100, L500.4050, L100.0100 #### [facility] [address] [place], [address] Cholesterol [Mass/Vol] 162 mg/dL Normal <=200 [facility] Comment on above: Order Comment: Order Date: 07/31/24Order Info: 666-10 - BMPOrder Date: 06/24/25Order Info: 785-1 - CMPOrder Info: [id number] - LIPIDOrder Info: 3 - TSHOrder Info: 3024-04 - T4F Result Comment: Chol esterol level, Desirable <200 mg/dL Borderline high cholesterol 200-239 mg/dL High cholesterol >=240 mg/dL Recommendations of the NCEP Adult Treatment Panel for the following risk-cutoff thresholds for the [place] population. Performed By: #### L 501.9520, L506.0400, L500.4100, L500.4050, L100.0100 #### [facility] [address] [place], [address] Cholesterol in HDL [Mass/Vol] 33 mg/dL Low [facility] Comment on above: Order Comment: Order Date: 07/31/24Order Info: 666-10 - BMPOrder Date: 06/24/25Order Info: 785-1 - CMPOrder Info: [id number] - LIPIDOrder Info: 3 - TSHOrder Info: 3024-04 - T4F Result Comment: Elysia onal Cholesterol Education Program (NCEP) guidelines: <40 mg/dL: Low HDL-cholesterol (major risk factor for CHD) >= 60 mg/dL: High HDL-cholesterol (negative risk factor for CHD) HDL-cholesterol is affected by a number of factors, e.g. smoking, exercise, hormones, sex and age. Performed By: #### L 501.9520, L506.0400, L500.4100, L500.4050, L100.0100 #### [facility] [address] [place], [address] Cholesterol in LDL [Mass/Vol] 104 mg/dL Normal [facility] Comment on above: Order Comment: Order Date: 07/31/24Order Info: 666- - BMPOrder Date: 06/24/25Order Info: 0786-1 - CMPOrder Info: [id number] - LIPIDOrder Info: [id number] - TSHOrder Info: 302-7 - T4F Result Comment: Bord nptlmv=408-825 mg/dL Higher Lumz=456 mg/dL or greater Friedwald Equation for LDL-C Performed By: #### L 501.9520, L506.0400, L500.4100, L500.4050, L100.0100 #### [facility] [address] [place], [address] Cholesterol in VLDL [Mass/Vol] 26 mg/dL Normal 5-[address] [facility] Comment on above: Order Comment: Order Date: 07/31/24Order Info: 666-10 - BMPOrder Date: 06/24/25Order Info: 785-1 - CMPOrder Info: [id number] - LIPIDOrder Info: [id number] - TSHOrder Info: 47 - T4F Performed By: #### L 501.9520, L506.0400, L500.4100, L500.4050, L100.0100 #### [facility] [address] [place], [address] Triglyceride [Mass/Vol] 130 mg/dL Normal [facility] Comment on above: Order Comment: Order Date: 07/31/24Order Info: 666- - BMPOrder Date: 06/24/25Order Info: 0786-1 - CMPOrder Info: [id number] - LIPIDOrder Info: [id number] - TSHOrder Info: 3024-7 - T4F Result Comment: The drugs N-Acetylcysteine and Metamizole may falsely depress this assay. Normal range: <150 mg/dL Borderline High: 150-199 mg/dL High: 200-499 mg/dL Very High: >500 mg/dL Performed By: #### L 501.9520, L506.0400, L500.4100, L500.4050, L100.0100 #### [facility] [address] [place], [address] MCV (mean corpuscular volume ) determinationOrdered By: Mahin Ryan on 06-24-2025 MCV (RBC) [Entitic vol] 95.0 fL High 80-94 [facility] Mean corpuscular hemoglobin (MCH) determinationOrdered By: Mahin Ryan on 06-24-2025 MCH (RBC) [Entitic mass] 31.0 pg 27.0-32.[address] [facility] Mean corpuscular hemoglobin concentration (MCHC) determinationOrdered By: Mahin Ryan on 06-24-2025 MCHC (RBC) [Mass/Vol] 32.7 g/dL 32-36 [facility] Mean platelet volume determi nationOrdered By: Mahin Ryan on 06-24-2025 Platelet mean volume (Bld) [Entitic vol] 11.0 fL 6.2-12.[address] [facility] Microscopic analysis of urin e for red blood cells (RBC)Ordered By: Mahin Ryan on 06-24-2025 Microscopic analysis of urine for red blood cells (RBC) 0 SEEN /hpf 0-[address] [facility] Monocyte percentageOrdered B y: Mahin Ryan on 06-24-2025 Monocytes/100 WBC (Bld) 9.2 % 0-10 [facility] Mucus LM Ql (Urine sed)Order ed By: Mahin Ryan on 06-24-2025 Mucus Ql (Urine sed) 0 SEEN /hpf [facility] Neutrophil percentageOrdered By: Mahin Ryan on 06-24-2025 Neutrophils/100 WBC (Bld) 51.8 % 47-[address] [facility] Nitrite Test strip Ql (U)Ord ered By: Mahin Ryan on 06-24-2025 Nitrite Ql (U) Negative Negative [facility] Nucleated red blood cell per centageOrdered By: Mahin Ryan on 06-24-2025 Nucleated RBC/100 WBC (Bld) [Ratio] 0 % 0-[address] [facility] Platelet countOrdered By: Yuni Ryan on 06-24-2025 Platelets (Bld) [#/Vol] 183 10*3/uL 150-[address] [facility] Potassium measurement (mass/ volume)Ordered By: Mahin Ryan on 06-24-2025 Potassium (Unsp spec) [Mass/Vol] 4.1 mmol/L 3.3-5.[address] [facility] Protein Test strip Ql (U)Ord ered By: aMhin Ryan on 06-24-2025 Protein Ql (U) 15 mg/dl High Negative [facility] RBC Auto (Bld) [#/Vol]Ordere d By: Mahin Ryan on 06-24-2025 RBC (Bld) [#/Vol] 4.19 10*6/uL Low 4.6-6.2 [facility] Screening total cholesterol/ high density lipoprotein (HDL) cholesterol ratioOrdered By: Mahin Ryan on 06-24-2025 Cholesterol.total/Choles terol in HDL [Mass ratio] 4.98 {ratio} [facility] Serum creatinine measurement (mass/volume)Ordered By: Mahin Ryan on 06-24-2025 Creatinine [Mass/Vol] 1.27 mg/dL High 0.70-1.20 [facility] Serum globulin measurementOr dered By: Mahin Ryan on 06-24-2025 Globulin (S) [Mass/Vol] 3.2 g/dL 2.2-4.2 [facility] Serum glucose measurement (m ass/volume)Ordered By: Mahin Ryan on 06-24-2025 Glucose [Mass/Vol] 93 mg/dL 70-99 [facility] Serum or plasma alanine rogers otransferase (ALT) measurementOrdered By: Mahin Ryan on 06-24-2025 ALT [Catalytic activity/Vol] 26 U/L <[address] [facility] Serum or plasma albumin cammie urement (mass/volume)Ordered By: Mahin Ryan on 06-24-2025 Albumin [Mass/Vol] 3.9 g/dL 3.4-4.8 [facility] Serum or plasma albumin/glob ulin mass ratioOrdered By: Mahin Ryan on 06-24-2025 Albumin/Globulin [Mass ratio] 1.2 {ratio} 0.9-2.[address] [facility] Serum or plasma alkaline abel sphatase measurementOrdered By: Mahin Ryan on 06-24-2025 ALP [Catalytic activity/Vol] 70 U/L 40-[address] [facility] Serum or plasma calcium cammie urement (mass/volume)Ordered By: Mahin Ryan on 06-24-2025 Calcium [Mass/Vol] 9.2 mg/dL 7.6-11.0 [facility] Serum or plasma cholesterol in HDL measurement (mass/volume)Ordered By: Mahin Ryan on 06-24-2025 Cholesterol in HDL [Mass/Vol] 33 mg/dL Low >[address] [facility] Comment on above: National Cholesterol Education Program (NCEP) guidelines:<40 mg/dL: Low HDL-cholesterol (major risk factor for CHD)>= 60 mg/dL: High HDL-cholesterol (negative risk factor for CHD)HDL-cholesterol is affected by a number of factors, e.g. smoking, exercise, hormones, sex and age. Serum or plasma cholesterol measurement (mass/volume)Ordered By: Mahin Ryan on 06-24-2025 Cholesterol [Mass/Vol] 162 mg/dL <201 [facility] Comment on above: Cholesterol level, D esirable <200 mg/dLBorderline high cholesterol 200-239 mg/dLHigh cholesterol >=240 mg/dLRecommendations of the NCEP Adult Treatment Panel for the following risk-cutoff thresholds for the [place] population. Serum or plasma urea nitroge n measurement (mass/volume)Ordered By: Mahin Ryan on 06-24-2025 Urea nitrogen [Mass/Vol] 21 mg/dL High 4-[address] [facility] Sodium levelOrdered By: Mahin Ryan on 06-24-2025 Sodium [Moles/Vol] 140 mmol/L 133-145 [facility] Squamous epithelial cells de tection in urine sediment by light microscopyOrdered By: Mahin Ryan on 06-24-2025 Epithelial cells.squamous LM Ql (Urine sed) 0 SEEN /hpf 0-[address] [facility] T4 Free Directon 06-24-2025 T4 FREE DIRECT 1.10 ng/dL Normal 0.76-1.[address] [facility] Comment on above: Order Comment: Order Date: 07/31/24Order Info: [id number] - BMPOrder Date: 06/24/25Order Info: [id number] - CMPOrder Info: [id number] - LIPIDOrder Info: [id number] - TSHOrder Info: 7 - T4F Performed By: #### L 501.9520, L506.0400, L500.4100, L500.4050, L100.0100 #### [facility] [address] [place], [address] T4 freeOrdered By: Mahin osborne on 06-24-2025 Free T4 [Mass/Vol] 1.10 ng/dL 0.76-1.46 [facility] TSH DL <= 0.005 mIU/L QnOrde red By: Mahin Ryan on 06-24-2025 TSH Qn 3.930 uIU/mL 0.300-4.[address] [facility] Thyroid Stim Hormone (TSH)on 06-24-2025 TSH 3.930 uIU/mL Normal 0.300-4.[address] [facility] Comment on above: Order Comment: Order Date: 07/31/24Order Info: [id number] - BMPOrder Date: 06/24/25Order Info: [id number] - CMPOrder Info: [id number] - LIPIDOrder Info: 3 - TSHOrder Info: 7 - T4F Performed By: #### L 501.9520, L506.0400, L500.4100, L500.4050, L100.0100 #### [facility] [address] [place], [address] Total proteinOrdered By: Aubrey Ryan on 06-24-2025 Protein [Mass/Vol] 7.0 g/dL 5.9-8.4 [facility] Triglycerides measurementOrd ered By: Mahin Ryan on 06-24-2025 Triglyceride [Mass/Vol] 130 mg/dL <199 [facility] Comment on above: The drugs N-Acetylcy steine and Metamizole may falsely depress this assay. Normal range: <150 mg/dLBorderline High: 150-199 mg/dLHigh: 200-499 mg/dLVery High: >500 mg/dL Urinalysis, Completeon 06-24 BACTERIA 0 SEEN Normal None Seen [facility] Comment on above: Order Comment: CLEAN CATCH Performed By: #### L 501.9520, L506.0400, L500.4100, L500.4050, L100.0100 #### [facility] [address] [place], [address] EPI,SQUAMOUS 0 SEEN Normal 0-[address] [facility] Comment on above: Order Comment: CLEAN CATCH Performed By: #### L 501.9520, L506.0400, L500.4100, L500.4050, L100.0100 #### [facility] [address] [place], [address] Mucus Ql (Urine sed) 0 SEEN Normal [facility] Comment on above: Order Comment: CLEAN CATCH Performed By: #### L 501.9520, L506.0400, L500.4100, L500.4050, L100.0100 #### [facility] [address] [place], [address] RBC 0 SEEN Normal 0-[address] [facility] Comment on above: Order Comment: CLEAN CATCH Performed By: #### L 501.9520, L506.0400, L500.4100, L500.4050, L100.0100 #### [facility] [address] [place], [address] WBC 0 SEEN Normal 0-[address] [facility] Comment on above: Order Comment: CLEAN CATCH Performed By: #### L 501.9520, L506.0400, L500.4100, L500.4050, L100.0100 #### [facility] [address] [place], [address] Urine clarityOrdered By: Aubrey Ryan on 06-24-2025 Clarity (U) Clear Clear [facility] Urine color determinationOrd ered By: Mahin Ryan on 06-24-2025 Color (U) Yellow Yellow [facility] Urine glucose detectionOrder ed By: Mahin Ryan on 06-24-2025 Glucose Ql (U) Normal mg/dl Normal [facility] Urine leukocyte esterase det ection by dipstickOrdered By: Mahin Ryan on 06-24-2025 Leukocyte esterase Test strip Ql (U) Negative Negative [facility] Urine pHOrdered By: Mahin sims on 06-24-2025 pH (U) 6.0 [pH] 5.0 - 8.[address] [facility] Urine sediment bacteria coun t by microscopy (number/high power field)Ordered By: Mahin Ryan on 06-24-2025 Bacteria LM.HPF (Urine sed) [#/Area] 0 /[HPF] None Seen [facility] Urine specific gravity measu rementOrdered By: Mahin Ryan on 06-24-2025 Specific gravity (U) [Rel density] 1.010 1.002-1.[address] [facility] Urine urobilinogen measureme ntOrdered By: Mahin Ryan on 06-24-2025 Urobilinogen Ql (U) Normal mg/dl Normal [facility] White blood cell (WBC) count Ordered By: Mahin Ryan on 06-24-2025 WBC (Bld) [#/Vol] 7.7 10*3/uL 4.4-11.0 [facility] White blood cell countOrdere d By: Mahin Ryan on 06-24-2025 White blood cell count 0 SEEN /hpf 0-5 [facility] Carotid Duplex Ultrasoundon 02-17-2025 Carotid Duplex Ultrasound [facility] [address] [place] [address] Carotid Duplex Ultrasound 02/17/25 0953 MR#: [id number] Acct: [id number] Name: PAREDESHANNAH I Rep #: [id number] : 1940 84 From: Dayton Brooks MD Attending Dr: Dr. Mahin Ryan MD Status: R EG CLI Ordering Dr: Mahin Ryan MD Date: 02/17/25 Location: [facility] Sex: M C Admitted: Reason For Study Reason For Study: Rt ICA Stenosis Rt. Velocities/BP Lt. Velocities/BP Prox CCA 87.9/16.7 cm/sec. Prox CCA 100.8/13.0 cm/sec. Mid CCA 84.2/21.6 cm/sec. Mid CCA 115.8/17.4 cm/sec. Dist CCA 72.0/17.9 cm/sec. Dist CCA 113.9/15.1 cm/sec. Prox ICA 144.0/45.2 cm/sec. Prox ICA 103.0/23.9 cm/sec. Mid ICA 137.9/29.1 cm/sec. Mid ICA 113.9/30.5 cm/sec. Dist ICA 146.7/32.7 cm/sec. Dist ICA 113.9/28.3 cm/sec. Rt. ICA/CCA = 1.7. Lt. ICA/CCA = 1.0. Prox ECA 316.2/37.7 cm/sec. Prox ECA 177.5/9.4 cm/sec. Rt. Vert. 64.6/9.3 cm/sec. Lt. Vert. 54.8/5.4 cm/sec. Right Extracranial There is heterogeneous, irregular atherosclerotic plaque noted in the right common carotid artery. There is heterogeneous, irregular atherosclerotic plaque noted in the right internal carotid artery. There is heterogeneous, irregular atherosclerotic plaque noted in the right external carotid artery. Antegrade flow is noted in the right vertebral artery. Left Extracranial There is heterogeneous, smooth atherosclerotic plaque noted in the left common carotid artery. There is heterogeneous, irregular atherosclerotic plaque noted in the left internal carotid artery. There is heterogeneous, irregular atherosclerotic plaque noted in the left external carotid artery. Antegrade flow is noted in the left vertebral artery. Procedure Carotid Duplex 17187. This is a Carotid Duplex examination using B-mode, color flow and specral Doppler. The exam was diagnostic. Exam performed in department. 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 Mild (<50%) stenosis left extracranial internal carotid. Patent and antegrade vertebrals bilaterally. Ordering Physician: Mahin Ryan Referring Physician: Mahin Ryan Performed By: Jevon Davenport T 02/17/25 1237 Date Dayton Brooks MD CC: Dr. Mahin Ryan MD Date Dictated: 02/17/2553 Date Transcribed: 02/17/25 1237 Network Programmer: Signed Normal [facility] Duplex ultrasound of carotid artery reportOrdered By: Dayton Brooks on 02-17-2025 Study report [facility] [address] [place] [address] Carotid Duplex Ultrasound 02/17/2553 MR#: [id number] Acct: [id number] Name: HANNAH PAREDES I Rep #:[id number] : 1940 84 From: Dayton Bean Attending Dr: Dr. Mahin Ryan MD Status: REG CLI Ordering Dr: Mahin Ryan MD Date: 02/17/25 Location: [facility] Sex: M C Admitted: Reason For Study Reason For Study: Rt ICA Stenosis Rt. Velocities/BP Lt. Velocities/BP Prox CCA 87.9/16.7 cm/sec. Prox CCA 100.8/13.0 cm/sec. Mid CCA 84.2/21.6 cm/sec. Mid CCA 115.8/17.4 cm/sec. Dist CCA 72.0/17.9 cm/sec. Dist CCA 113.9/15.1 cm/sec. Prox ICA 144.0/45.2 cm/sec. Prox ICA 103.0/23.9 cm/sec. Mid ICA 137.9/29.1 cm/sec. Mid ICA 113.9/30.5 cm/sec. Dist ICA 146.7/32.7 cm/sec. Dist ICA 113.9/28.3 cm/sec. Rt. ICA/CCA = 1.7. Lt. ICA/CCA = 1.0. Prox ECA 316.2/37.7 cm/sec. Prox ECA 177.5/9.4 cm/sec. Rt. Vert. 64.6/9.3 cm/sec. Lt. Vert. 54.8/5.4 cm/sec. Right Extracranial There is heterogeneous, irregular atherosclerotic plaque noted in the right common carotid artery. There is heterogeneous, irregular atherosclerotic plaque noted in the right internal carotid artery. There is heterogeneous, irregular atherosclerotic plaque noted in the right external carotid artery. Antegrade flow is noted in the right vertebral artery. Left Extracranial There is heterogeneous, smooth atherosclerotic plaque noted in the left common carotid artery. There is heterogeneous, irregular atherosclerotic plaque noted in the left internal carotid artery. There is heterogeneous, irregular atherosclerotic plaque noted in the left external carotid artery. Antegrade flowis noted in the left vertebral artery. Procedure Carotid Duplex 57572. This is a Carotid Duplex examination using B-mode, color flow and specral Doppler. The exam was diagnostic. Exam performed in department. 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 Mild (<50%) stenosis left extracranial internal carotid. Patent and antegrade vertebrals bilaterally. Ordering Physician: Mahin Ryan Referring Physician: Mahin Ryan Performed By: Jevon Davenport RVT 02/17/25 1237 Date _ Dayton Brooks MD CC: Dr. Mahin Ryan MD ~ Date Dictated: 02/17/2553 Date Transcribed: 02/17/25 1237 Network Programmer: Signed [facility] Work Phone: Pathology biopsy report Jorge (Tiss)on 02-09-2025 AP DISCLAIMER Normal [facility] Comment on above: Order Comment: Speci men Type: TISSUE SPECIMEN Ordering Facility: [facility] Address: [address] [place] [address] Result Comment: Doreen brady Developed Test (LDT) Disclaimer: Performance characteristics of immunohistochemical, immunofluorescent, and chromogenic in-situ hybridization tests have been determined by the performing laboratory within [facility] Pathology and Laboratory Medicine Department ([facility], [facility], [facility], [facility], [facility], [facility], or [facility]) in a manner consistent with CLIA requirements. One or more of these tests may not have been cleared or approved by the FDA. RT[facility]PLM is regulated under CLIA as qualified to perform high-complexity testing. These tests are used for clinical purposes. These should not be regarded as investigational or for research. Positive and negative controls stain appropriately. Performed By: #### 6 6121-5 #### [facility] CLIA [id number] [address] [place] [address] [place] CASE REPORT Normal [facility] Comment on above: Order Comment: Speci men Type: TISSUE SPECIMEN Ordering Facility: [facility] Address: [address] [place] [address] Result Comment: Surg ical Pathology Report Case: [id number] Authorizing Provider: Albert Stoner MD Collected: 02/09/2025 11:38 AM Ordering Location: [facility] Received: 02/10/2025 09:05 PM [facility] Pathologist: Kate Rahman MD Specimen: Skin, Shave Biopsy, Left distal calf Performed By: #### 6 6121-5 #### [facility] CLIA [id number] [address] [place], [place] [id number] [place] CLINICAL HIST[place] Morphology: Annular erythematous scaly plaque. DDX: Neoplasm of uncertain behavior vs psoriasis vs majocchi. Normal [facility] Comment on above: Order Comment: Speci men Type: TISSUE SPECIMEN Ordering Facility: [facility] Address: [address] [place] [address] Performed By: #### 6 6121-5 #### [facility] CLIA [id number] [address] [place] [address] [place] FINAL DIAGNOSIS Normal [facility] Comment on above: Order Comment: Speci men Type: TISSUE SPECIMEN Ordering Facility: [facility] Address: [address] [place] [address] Result Comment: A. S kin, left distal calf, shave biopsy: - Porokeratosis. CR 02/12/2025 at 1422 EDT Performed By: #### 6 6121-5 #### [facility] CLIA [id number] [address] [place] [address] [place] FINAL PERFORMING LAB Normal [facility] Comment on above: Order Comment: Speci men Type: TISSUE SPECIMEN Ordering Facility: [facility] Address: [address] [place] [address] Result Comment: Diag nostic interpretation performed at: [facility], [address] [place], [place] [address] CLIA# [id number] Manager Statistical Programming: Newton Morton MD Performed By: #### 6 6121-5 #### [facility] CLIA [id number] [address] [place] [address] [place] GROSS DESCRIPTION Normal [facility] Comment on above: Order Comment: Speci men Type: TISSUE SPECIMEN Ordering Facility: [facility] Address: [address] [place] [address] Result Comment: A. S kin, Shave Biopsy Received in formalin is a 1.3 x 1.1 x 0.1 cm shave of skin. On the skin surface there is a 1.3 cm rao-brown and slightly elevated area. The specimen is trisected. Totally submitted in two cassettes. SS February 10, 2025 11:51 PM Gross examination performed at [facility], [address] [place] [address] Performed By: #### 6 6121-5 #### [facility] CLIA [id number] [address] [place] [address] Gastroenterology Visit Repor ton 01-28-2025 Gastroenterology Visit Report [facility] [address] [place] [address] OFFICE VISIT Date of Service: 01/28/25 MR#: [id number] Acct: [id number] Name: HANNAH PAREDES I Rep #: [id number] : 1940 Provider: NATE oliva Age/Sex: 84/M Location: [facility] Status: Signed Intake Vital Signs 09/20/23 13:49 01/28/25 08:35 Height 5 ft 8 in 5 ft 8 in Weight: 214 lb BMI 32.5 BP 163/79 H Respiration 18 Pulse 70 Pulse Oximetry (%) 94 Oxygen Delivery Method room air Intake Visit Reasons: constipation Chief Complaint: constipation Dredge Or Barge [place] Hand Required: No Is patient in pain?: No Allergies adhesive tape Allergy (Intermediate, Verified 01/28/25 08:32) Other metoprolol Allergy (Intermediate, Verified 01/28/25 08:32) Other piperacillin (From Zosyn) Allergy (Intermediate, Verified 01/28/25 08:32) Other tazobactam (From Zosyn) Allergy (Intermediate, Verified 01/28/25 08:32) Other iodine Allergy (Verified 01/28/25 08:32) Anaphylaxis Penicillins (PCN) Allergy (Verified 01/28/25 08:32) Anaphylaxis shellfish derived Allergy (Verified 01/28/25 08:32) Anaphylaxis Medications ???Medication ???Instructions ???Recorded ???Confirmed ???Type linaclotide 145 mcg capsule 145 mcg PO QAM #90 caps 01/28/25 0 01/28/25 Rx (Linzess) losartan 100 mg tablet 100 mg PO QDAY 01/28/25 01/28/25 H istory pravastatin 20 mg tablet 20 mg PO QDAY 01/28/25 01/28/25 Hi story Have you fallen in the past year?: No Nurse's Note: Has been having a difficult time balancing his bowel movements. He was constipated frequently now its more like diarrhea. He feels like he isn't emptying all of the way. Dr. Kenny [facility] Medical History Diverticulitis History of squamous cell carcinoma Lumbar disc disease Impaired fasting glucose HLD (hyperlipidemia) Osteoarthritis EFREN (obstructive sleep apnea) Internal hemorrhoids BPH (benign prostatic hyperplasia) HTN (hypertension) Gout Hiatal hernia GERD (gastroesophageal reflux disease) Benign neoplasm of colon Actinic keratosis Surgical History S/P insertion of spinal cord stimulator S/P left knee arthroscopy History of back surgery History of cataract extraction Status post bilateral total hip replacement Family History Father TIA (transient ischemic attack) Brother Melanoma Social History Smoking Status: Former smoker alcohol intake: current HPI HPI Chief Complaint: constipation Details: HANNAH PAREDES, is a 84 M who presents to the office today for OV 02/21/[address] Kenny Patient is still having some left lower quadrant abdominal pain with some bloating. It is not constant pain. He has been a little bit more constipated. He denies any blood per rectum. He had CT scan abdomen pelvis that displayed diverticulosis. He is not having any abdominal pain at this time. I will put him on sulfasalazine and doxycycline for sigmoid colitis associated with diverticulosis. I also gave him and antiinflammatory diet. Medications: New doxycycline hyclate 100 mg PO BID 56 caps 0RF 28 days sulfasalazine 1 g (2 x 500 mg) PO BID 120 tabs 1RF 30 days - reports he quit taking OTC supplement yesterday with Burberine for constipation and stools are now moving a little better - states he does not fully evacuate - straining with BM - he has a BM daily - reports after 6 months of Sulfasalazine LLQ pain resolved and has done very well - reports a weight loss of nearly 20lbs with a low carb diet B: yogurt with berries L: D: protein, vegetable, starch - he is taking 1 tsp of Metamucil once daily - reports his water intake is 6 glasses a day - reports his exercise/activity is limited due to back pain ROS Const Constitutional: Positive for weight change (loss); No fatigue or fever(s) ENT ENT: No difficulty swallowing Gastro GI: Positive for bloating; No abdominal pain, belching, change in bowel habits, change in stool character, coffee ground emesis, constipation, cramping, diarrhea, heartburn, difficulty swallowing, feeling full early, excessive flatus, incontinent of stools, Vomiting blood/hematemesis, Blood in stool, loose stools, Black,tarry stools, nausea/dyspepsia, pain with swallowing, vomiting or other Musc Musculoskeletal: Positive for abnormal gait and Arthritis; No joint pain Skin Skin: No yellowing of the eye or itchy eyes Neuro Neurology: Positive for abnormal gait Psych Psychiatric: No anxiety and No depression Endo Endocrine: Positive for weight change (loss); No fatigue Aller/Imm Allergy/Immunologic: No (more content not included)... Normal [facility] Absolute lymphocyte countOrd ered By: Mahin Ryan on 12-18-2024 Lymphocytes Auto (Unsp spec) [#/Vol] 2.25 10*3/uL 0.83-4.[address] [facility] Absolute neutrophil countOrd ered By: Mahin Ryan on 12-18-2024 Neutrophils (Bld) [#/Vol] 3.4 10*3/uL 2.0-7.[address] [facility] Anion gap in Serum or Plasma Ordered By: Mahin Ryan on 12-18-2024 Anion gap [Moles/Vol] 11 mmol/L 5-15 [facility] Automated lymphocyte count a s percentage of total leukocytesOrdered By: Mahin Ryan on 12-18-2024 Lymphocytes/100 WBC Auto (Unsp spec) 34.6 % 19-[address] [facility] BUN/creatinine ratioOrdered By: Mahin Shelby on 12-18-2024 Urea nitrogen/Creatinine [Mass ratio] 17.0 mg/mg 10- [facility] Basophil percentageOrdered B y: Mahin Ryan on 12-18-2024 Basophils/100 WBC (Bld) 0.8 % 0-1 [facility] Bilirubin, totalOrdered By: Mahin Ryan on 12-18-2024 Bilirubin [Mass/Vol] 0.37 mg/dL 0.00-1.30 [facility] CBC W/Diff, Automatedon Absolute Lymph 2.25 X10 3/uL Normal 0.83-4.[address] [facility] Comment on above: Order Comment: Order Date: 12/18/24Order Info: [id number] - CBCD Performed By: #### L 501.9520, L506.0400, L500.4100, L500.4050, L100.0100 #### [facility] [address] [place], [address] Absolute Neut 3.4 X10 3/uL Normal 2.0-7.[address] [facility] Comment on above: Order Comment: Order Date: 12/18/24Order Info: [id number] - CBCD Performed By: #### L 501.9520, L506.0400, L500.4100, L500.4050, L100.0100 #### [facility] [address] [place], [address] Basophils/100 WBC (Bld) 0.8 % Normal 0-1 [facility] Comment on above: Order Comment: Order Date: 12/18/24Order Info: [id number] - CBCD Performed By: #### L 501.9520, L506.0400, L500.4100, L500.4050, L100.0100 #### [facility] [address] [place], [address] Eosinophils/100 WBC (Bld) 4.5 % Normal 0-[address] [facility] Comment on above: Order Comment: Order Date: 12/18/24Order Info: 0184-1 - CBCD Performed By: #### L 501.9520, L506.0400, L500.4100, L500.4050, L100.0100 #### [facility] [address] [place], [address] Erythrocyte distribution width (RBC) [Ratio] 13.5 % Normal 11.6-14.[address] [facility] Comment on above: Order Comment: Order Date: 12/18/24Order Info: [id number] - CBCD Performed By: #### L 501.9520, L506.0400, L500.4100, L500.4050, L100.0100 #### [facility] [address] [place], [address] Hematocrit (Bld) [Volume fraction] 40.8 % Normal 40-[address] [facility] Comment on above: Order Comment: Order Date: 12/18/24Order Info: [id number] - CBCD Performed By: #### L 501.9520, L506.0400, L500.4100, L500.4050, L100.0100 #### [facility] [address] [place], [address] Hemoglobin (Bld) [Mass/Vol] 13.7 g/dL Normal 13.0-16.[address] [facility] Comment on above: Order Comment: Order Date: 12/18/24Order Info: 0184-1 - CBCD Performed By: #### L 501.9520, L506.0400, L500.4100, L500.4050, L100.0100 #### [facility] [address] [place], [address] IG% 0.300 Normal 0.0-0.[address] [facility] Comment on above: Order Comment: Order Date: 12/18/24Order Info: [id number] - CBCD Result Comment: IG% - Immature Granulocytes (promyelocytes, myelocytes and metamyelocytes) > 1% indicates that a LEFT SHIFT is Present. Performed By: #### L 501.9520, L506.0400, L500.4100, L500.4050, L100.0100 #### [facility] [address] [place], [address] Lymphocytes/100 WBC (Bld) 34.6 % Normal 19-[address] [facility] Comment on above: Order Comment: Order Date: 12/18/24Order Info: 0184-1 - CBCD Performed By: #### L 501.9520, L506.0400, L500.4100, L500.4050, L100.0100 #### [facility] [address] [place], [address] MCH (RBC) [Entitic mass] 31.6 pg Normal 27.0-32.[address] [facility] Comment on above: Order Comment: Order Date: 12/18/24Order Info: 0184-1 - CBCD Performed By: #### L 501.9520, L506.0400, L500.4100, L500.4050, L100.0100 #### [facility] [address] [place], [address] MCHC (RBC) [Mass/Vol] 33.6 g/dL Normal 32-36 [facility] Comment on above: Order Comment: Order Date: 12/18/24Order Info: 0184-1 - CBCD Performed By: #### L 501.9520, L506.0400, L500.4100, L500.4050, L100.0100 #### [facility] [address] [place], [address] MCV (RBC) [Entitic vol] 94.2 fL High 80-94 [facility] Comment on above: Order Comment: Order Date: 12/18/24Order Info: 0184-1 - CBCD Performed By: #### L 501.9520, L506.0400, L500.4100, L500.4050, L100.0100 #### [facility] [address] [place], [address] Monocytes/100 WBC (Bld) 7.5 % Normal 0-10 [facility] Comment on above: Order Comment: Order Date: 12/18/24Order Info: [id number] - CBCD Performed By: #### L 501.9520, L506.0400, L500.4100, L500.4050, L100.0100 #### [facility] [address] [place], [address] Neutrophils/100 WBC (Bld) 52.3 % Normal 47-[address] [facility] Comment on above: Order Comment: Order Date: 12/18/24Order Info: [id number] - CBCD Performed By: #### L 501.9520, L506.0400, L500.4100, L500.4050, L100.0100 #### [facility] [address] [place], [address] Nucleated RBC (Bld) [#/Vol] 0 10*3/uL Normal 0-[address] [facility] Comment on above: Order Comment: Order Date: 12/18/24Order Info: [id number] - CBCD Performed By: #### L 501.9520, L506.0400, L500.4100, L500.4050, L100.0100 #### [facility] [address] [place], [address] Platelet mean volume (Bld) [Entitic vol] 10.4 fL Normal 6.2-12.[address] [facility] Comment on above: Order Comment: Order Date: 12/18/24Order Info: [id number] - CBCD Performed By: #### L 501.9520, L506.0400, L500.4100, L500.4050, L100.0100 #### [facility] [address] [place], [address] Platelets (Bld) [#/Vol] 178 10*3/uL Normal 150-[address] [facility] Comment on above: Order Comment: Order Date: 12/18/24Order Info: [id number] - CBCD Performed By: #### L 501.9520, L506.0400, L500.4100, L500.4050, L100.0100 #### [facility] [address] [place], [address] RBC (Bld) [#/Vol] 4.33 10*6/uL Low 4.6-6.2 [facility] Comment on above: Order Comment: Order Date: 12/18/24Order Info: [id number] - CBCD Performed By: #### L 501.9520, L506.0400, L500.4100, L500.4050, L100.0100 #### [facility] [address] [place], [address] RDW SD 47.4 fl High 35.1-43.[address] [facility] Comment on above: Order Comment: Order Date: 12/18/24Order Info: [id number] - CBCD Performed By: #### L 501.9520, L506.0400, L500.4100, L500.4050, L100.0100 #### [facility] [address] [place], [address] WBC (Bld) [#/Vol] 6.5 10*3/uL Normal 4.4-11.0 [facility] Comment on above: Order Comment: Order Date: 12/18/24Order Info: [id number] - CBCD Performed By: #### L 501.9520, L506.0400, L500.4100, L500.4050, L100.0100 #### [facility] [address] [place], [address] Calculated very low density lipoprotein (VLDL) cholesterol measurementOrdered By: Mahin Ryan on 12-18-2024 Calculated very low density lipoprotein (VLDL) cholesterol measurement 37 mg/dL 5-[address] [facility] VLDL Cholesterol 37 mg/dL 5-[address] [facility] Carbon dioxide, total [Moles /volume] in Central venous bloodOrdered By: Mahin Ryan on 12-18-2024 CO2 [Moles/Vol] 23.4 mmol/L 21.0-32.[address] [facility] Chloride assayOrdered By: Yuni Ryan on 12-18-2024 Chloride [Moles/Vol] 107 mmol/L 98-108 [facility] ilon 12-18-2024 Albumin [Mass/Vol] 3.9 g/dL Normal 3.4-4.8 [facility] Comment on above: Order Comment: Order Date: 12/18/24Order Info: [id number] - CMPOrder Info: [id number] - LIPIDOrder Info: [id number] - TSHOrder Info: 7 - T4F Performed By: #### L 501.9520, L506.0400, L500.4100, L500.4050, L100.0100 #### [facility] [address] [place], [address] Albumin/Globulin [Mass ratio] 1.2 {ratio} Normal 0.9-2.[address] [facility] Comment on above: Order Comment: Order Date: 12/18/24Order Info: [id number] - CMPOrder Info: [id number] - LIPIDOrder Info: 3 - TSHOrder Info: [id number] - T4F Performed By: #### L 501.9520, L506.0400, L500.4100, L500.4050, L100.0100 #### [facility] [address] [place], [address] ALK PHOS 74 U/L Normal 40-[address] [facility] Comment on above: Order Comment: Order Date: 12/18/24Order Info: [id number] - CMPOrder Info: [id number] - LIPIDOrder Info: 3 - TSHOrder Info: 7 - T4F Performed By: #### L 501.9520, L506.0400, L500.4100, L500.4050, L100.0100 #### [facility] [address] [place], [address] ALT [Catalytic activity/Vol] 52 U/L High <=[address] [facility] Comment on above: Order Comment: Order Date: 12/18/24Order Info: [id number] - CMPOrder Info: [id number] - LIPIDOrder Info: [id number] - TSHOrder Info: [id number] - T4F Performed By: #### L 501.9520, L506.0400, L500.4100, L500.4050, L100.0100 #### [facility] [address] [place], [address] AST [Catalytic activity/Vol] 40 U/L High <=[address] [facility] Comment on above: Order Comment: Order Date: 12/18/24Order Info: [id number] - CMPOrder Info: [id number] - LIPIDOrder Info: 6-3 - TSHOrder Info: [id number] - T4F Performed By: #### L 501.9520, L506.0400, L500.4100, L500.4050, L100.0100 #### [facility] [address] [place], [address] Bilirubin [Mass/Vol] 0.37 mg/dL Normal 0.00-1.30 [facility] Comment on above: Order Comment: Order Date: 12/18/24Order Info: [id number] - CMPOrder Info: [id number] - LIPIDOrder Info: [id number] - TSHOrder Info: [id number] - T4F Performed By: #### L 501.9520, L506.0400, L500.4100, L500.4050, L100.0100 #### [facility] [address] [place], [address] BUN/CRE 17.0 RATIO Normal 10-[address] [facility] Comment on above: Order Comment: Order Date: 12/18/24Order Info: 86-1 - CMPOrder Info: [id number] - LIPIDOrder Info: [id number] - TSHOrder Info: [id number] - T4F Performed By: #### L 501.9520, L506.0400, L500.4100, L500.4050, L100.0100 #### [facility] [address] [place], [address] Calcium [Mass/Vol] 9.0 mg/dL Normal 7.6-11.0 [facility] Comment on above: Order Comment: Order Date: 12/18/24Order Info: 86-1 - CMPOrder Info: [id number] - LIPIDOrder Info: 3 - TSHOrder Info: [id number] - T4F Performed By: #### L 501.9520, L506.0400, L500.4100, L500.4050, L100.0100 #### [facility] [address] [place], [address] Chloride [Moles/Vol] 107 mmol/L Normal 98-108 [facility] Comment on above: Order Comment: Order Date: 12/18/24Order Info: 86-1 - CMPOrder Info: [id number] - LIPIDOrder Info: 6-3 - TSHOrder Info: [id number] - T4F Performed By: #### L 501.9520, L506.0400, L500.4100, L500.4050, L100.0100 #### [facility] [address] [place], [address] CO2 [Moles/Vol] 23.4 mmol/L Normal 21.0-32.[address] [facility] Comment on above: Order Comment: Order Date: 12/18/24Order Info: 86-1 - CMPOrder Info: [id number] - LIPIDOrder Info: [id number] - TSHOrder Info: [id number] - T4F Performed By: #### L 501.9520, L506.0400, L500.4100, L500.4050, L100.0100 #### [facility] [address] [place], [address] Creatinine [Mass/Vol] 1.03 mg/dL Normal 0.70-1.20 [facility] Comment on above: Order Comment: Order Date: 12/18/24Order Info: [id number] - CMPOrder Info: [id number] - LIPIDOrder Info: [id number] - TSHOrder Info: [id number] - T4F Performed By: #### L 501.9520, L506.0400, L500.4100, L500.4050, L100.0100 #### [facility] [address] [place], [address] GAP 11 Normal 5-[address] [facility] Comment on above: Order Comment: Order Date: 12/18/24Order Info: [id number] - CMPOrder Info: [id number] - LIPIDOrder Info: 3 - TSHOrder Info: 7 - T4F Performed By: #### L 501.9520, L506.0400, L500.4100, L500.4050, L100.0100 #### [facility] [address] [place], [address] GFR/1.73 sq M.predicted among non-blacks MDRD (S/P/Bld) [Vol rate/Area] 72 mL/min/{1.73_m2} Normal >[address] [facility] Comment on above: Order Comment: Order Date: 12/18/24Order Info: [id number] - CMPOrder Info: [id number] - LIPIDOrder Info: [id number] - TSHOrder Info: [id number] - T4F Result Comment: mL/m in/1.73m2 CKD-EPI Creatinine Equation (2020) Performed By: #### L 501.9520, L506.0400, L500.4100, L500.4050, L100.0100 #### [facility] [address] [place], [address] Globulin (S) [Mass/Vol] 3.1 g/dL Normal 2.2-4.2 [facility] Comment on above: Order Comment: Order Date: 12/18/24Order Info: [id number] - CMPOrder Info: [id number] - LIPIDOrder Info: [id number] - TSHOrder Info: [id number] - T4F Performed By: #### L 501.9520, L506.0400, L500.4100, L500.4050, L100.0100 #### [facility] [address] [place], [address] Glucose [Mass/Vol] 100 mg/dL High 70-99 [facility] Comment on above: Order Comment: Order Date: 12/18/24Order Info: [id number] - CMPOrder Info: [id number] - LIPIDOrder Info: 3 - TSHOrder Info: [id number] - T4F Performed By: #### L 501.9520, L506.0400, L500.4100, L500.4050, L100.0100 #### [facility] [address] [place], [address] Potassium [Moles/Vol] 3.7 mmol/L Normal 3.3-5.1 [facility] Comment on above: Order Comment: Order Date: 12/18/24Order Info: 07-1 - CMPOrder Info: [id number] - LIPIDOrder Info: 3 - TSHOrder Info: [id number] - T4F Performed By: #### L 501.9520, L506.0400, L500.4100, L500.4050, L100.0100 #### [facility] [address] [place], [address] Sodium [Moles/Vol] 142 mmol/L Normal 133-145 [facility] Comment on above: Order Comment: Order Date: 12/18/24Order Info: [id number] - CMPOrder Info: [id number] - LIPIDOrder Info: 3 - TSHOrder Info: [id number] - T4F Performed By: #### L 501.9520, L506.0400, L500.4100, L500.4050, L100.0100 #### [facility] [address] [place], [place], [address] T PROT 7.0 g/dL Normal 5.9-8.[address] [facility] Comment on above: Order Comment: Order Date: 12/18/24Order Info: [id number] - CMPOrder Info: [id number] - LIPIDOrder Info: 6-3 - TSHOrder Info: [id number] - T4F Performed By: #### L 501.9520, L506.0400, L500.4100, L500.4050, L100.0100 #### [facility] [address] [place], [address] Urea nitrogen [Mass/Vol] 18 mg/dL Normal 4-[address] [facility] Comment on above: Order Comment: Order Date: 12/18/24Order Info: [id number] - CMPOrder Info: [id number] - LIPIDOrder Info: 6-3 - TSHOrder Info: [id number] - T4F Performed By: #### L 501.9520, L506.0400, L500.4100, L500.4050, L100.0100 #### [facility] [address] [place], [place], [address] Eosinophil percentageOrdered By: Mahin Ryan on 12-18-2024 Eosinophils/100 WBC (Bld) 4.5 % 0-[address] [facility] Erythrocyte distribution wid th ratioOrdered By: Mahin Ryan on 12-18-2024 Erythrocyte distribution width (RBC) [Ratio] 13.5 % 11.6-14.[address] [facility] Erythrocyte distribution wid th standard deviationOrdered By: Mahin Ryan on 12-18-2024 Erythrocyte distribution width (RBC) [Entitic vol] 47.4 fL High 35.1-43.[address] [facility] Erythrocyte distribution width (RBC) [Ratio] 47.4 fl High 35.1-43.[address] [facility] GFR/1.73 sq M.predicted kamala g non-blacks MDRD (S/P/Bld) [Vol rate/Area]Ordered By: Mahin Ryan on 12-18-2024 Estimated GFR (MDRD) Non-Af Amer 72 >[address] [facility] Comment on above: mL/min/1.73m2 CKD-EP I Creatinine Equation (2020) Glomerular filtration rate ( GFR) estimation/1.73 sq m using serum, plasma, or whole bOrdered By: Mahin Ryan on 12-18-2024 GFR/1.73 sq M.predicted among non-blacks MDRD (S/P/Bld) [Vol rate/Area] 72 mL/min/{1.73_m2} >[address] [facility] Comment on above: mL/min/1.73m2 CKD-EP I Creatinine Equation (2020) Hematocrit Auto (Bld) [Volum e fraction]Ordered By: Mahin Ryan on 12-18-2024 Hematocrit (Bld) [Volume fraction] 40.8 % 40-[address] [facility] Hemoglobin measurementOrdere d By: Mahin Ryan on 12-18-2024 Hemoglobin (Bld) [Mass/Vol] 13.7 g/dL 13.0-16.[address] [facility] Immature granulocytes/100 WB C Auto (Bld)Ordered By: Mahin Ryan on 12-18-2024 Immature granulocytes/100 WBC (Bld) 0.300 % 0.0-0.[address] [facility] Comment on above: IG% - Immature Granu locytes (promyelocytes, myelocytes and metamyelocytes) > 1% indicates that a LEFT SHIFT is Present. LDL calc ser/plasOrdered By: Mahin Ryan on 12-18-2024 Cholesterol in LDL [Mass/Vol] 87 mg/dL [facility] Comment on above: Qwkizoqomp=032-461 m g/dL & Higher Qqpr=250 mg/dL or greater LDL Cholesterol, Calculated 87 mg/dL [facility] Comment on above: Jmowjertgo=131-440 m g/dL & Higher Kwoc=220 mg/dL or greater Laboratory - Chemistry and C hemistry - challengeOrdered By: Mahin Ryan on 12-18-2024 AST [Catalytic activity/Vol] 40 U/L High <[address] [facility] Lipid Profileon 12-18-2024 CHOL:HDL 4.[address] [facility] Comment on above: Order Comment: Order Date: 12/18/24Order Info: [id number] - CMPOrder Info: [id number] - LIPIDOrder Info: 6-3 - TSHOrder Info: 7 - T4F Performed By: #### L 501.9520, L506.0400, L500.4100, L500.4050, L100.0100 #### [facility] [address] [place], [address] Cholesterol [Mass/Vol] 162 mg/dL Normal <=200 [facility] Comment on above: Order Comment: Order Date: 12/18/24Order Info: [id number] - CMPOrder Info: [id number] - LIPIDOrder Info: 63 - TSHOrder Info: 7 - T4F Result Comment: Chol esterol level, Desirable <200 mg/dL Borderline high cholesterol 200-239 mg/dL High cholesterol >=240 mg/dL Recommendations of the NCEP Adult Treatment Panel for the following risk-cutoff thresholds for the [place] population. Performed By: #### L 501.9520, L506.0400, L500.4100, L500.4050, L100.0100 #### [facility] [address] [place], [address] Cholesterol in HDL [Mass/Vol] 38 mg/dL Low [facility] Comment on above: Order Comment: Order Date: 12/18/24Order Info: [id number] - CMPOrder Info: [id number] - LIPIDOrder Info: 63 - TSHOrder Info: 7 - T4F Result Comment: Elysia onal Cholesterol Education Program (NCEP) guidelines: <40 mg/dL: Low HDL-cholesterol (major risk factor for CHD) >= 60 mg/dL: High HDL-cholesterol (negative risk factor for CHD) HDL-cholesterol is affected by a number of factors, e.g. smoking, exercise, hormones, sex and age. Performed By: #### L 501.9520, L506.0400, L500.4100, L500.4050, L100.0100 #### [facility] [address] [place], [address] Cholesterol in LDL [Mass/Vol] 87 mg/dL Normal [facility] Comment on above: Order Comment: Order Date: 12/18/24Order Info: [id number] - CMPOrder Info: [id number] - LIPIDOrder Info: 6-3 - TSHOrder Info: [id number] - T4F Result Comment: Bord kmtame=383-060 mg/dL Higher Ksvj=438 mg/dL or greater Performed By: #### L 501.9520, L506.0400, L500.4100, L500.4050, L100.0100 #### [facility] [address] [place], [address] Cholesterol in VLDL [Mass/Vol] 37 mg/dL Normal 5-[address] [facility] Comment on above: Order Comment: Order Date: 12/18/24Order Info: 07-1 - CMPOrder Info: [id number] - LIPIDOrder Info: 63 - TSHOrder Info: [id number] - T4F Performed By: #### L 501.9520, L506.0400, L500.4100, L500.4050, L100.0100 #### [facility] [address] [place], [address] Triglyceride [Mass/Vol] 184 mg/dL Normal [facility] Comment on above: Order Comment: Order Date: 12/18/24Order Info: 07-1 - CMPOrder Info: [id number] - LIPIDOrder Info: 63 - TSHOrder Info: [id number] - T4F Result Comment: The drugs N-Acetylcysteine and Metamizole may falsely depress this assay. Normal range: <150 mg/dL Borderline High: 150-199 mg/dL High: 200-499 mg/dL Very High: >500 mg/dL Performed By: #### L 501.9520, L506.0400, L500.4100, L500.4050, L100.0100 #### [facility] [place], [address] Lymphocytes Auto (Unsp spec) [#/Vol]Ordered By: Mahin Ryan on 12-18-2024 Lymphocytes (Bld) [#/Vol] 2.25 10*3/uL 0.83-4.[address] [facility] Lymphocytes/100 WBC Auto (Un sp spec)Ordered By: Mahin Ryan on 12-18-2024 Lymphocytes/100 WBC (Bld) 34.6 % 19-[address] [facility] MCV (mean corpuscular volume ) determinationOrdered By: Mahin Ryan on 12-18-2024 MCV (RBC) [Entitic vol] 94.2 fL High 80-94 [facility] Mean corpuscular hemoglobin (MCH) determinationOrdered By: Mahin Ryan on 12-18-2024 MCH (RBC) [Entitic mass] 31.6 pg 27.0-32.[address] [facility] Mean corpuscular hemoglobin concentration (MCHC) determinationOrdered By: Mahin Ryan on 12-18-2024 MCHC (RBC) [Mass/Vol] 33.6 g/dL 32-36 [facility] Mean platelet volume determi nationOrdered By: Mahin Ryan on 12-18-2024 Platelet mean volume (Bld) [Entitic vol] 10.4 fL 6.2-12.[address] [facility] Monocyte percentageOrdered B y: Mahin Ryan on 12-18-2024 Monocytes/100 WBC (Bld) 7.5 % 0-10 [facility] Neutrophil percentageOrdered By: Mahin Ryan on 12-18-2024 Neutrophils/100 WBC (Bld) 52.3 % 47-[address] [facility] Nucleated red blood cell per centageOrdered By: Mahin Ryan on 12-18-2024 Nucleated RBC/100 WBC (Bld) [Ratio] 0 % 0-[address] [facility] Platelet countOrdered By: Yuni Ryan on 12-18-2024 Platelets (Bld) [#/Vol] 178 10*3/uL 150-[address] [facility] Potassium (Unsp spec) [Mass/ Vol]Ordered By: Mahin Ryan on 12-18-2024 Potassium [Moles/Vol] 3.7 mmol/L 3.3-5.1 [facility] Potassium measurement (mass/ volume)Ordered By: Mahin Ryan on 12-18-2024 Potassium (Unsp spec) [Mass/Vol] 3.7 mmol/L 3.3-5.[address] [facility] RBC Auto (Bld) [#/Vol]Ordere d By: Mahin Ryan on 12-18-2024 RBC (Bld) [#/Vol] 4.33 10*6/uL Low 4.6-6.2 [facility] Screening total cholesterol/ high density lipoprotein (HDL) cholesterol ratioOrdered By: Mahin Ryan on 12-18-2024 Cholesterol.total/Choles terol in HDL [Mass ratio] 4.29 {ratio} [facility] Serum creatinine measurement (mass/volume)Ordered By: Mahin Ryan on 12-18-2024 Creatinine [Mass/Vol] 1.03 mg/dL 0.70-1.20 [facility] Serum globulin measurementOr dered By: Mahin Ryan on 12-18-2024 Globulin (S) [Mass/Vol] 3.1 g/dL 2.2-4.2 [facility] Serum glucose measurement (m ass/volume)Ordered By: Mahin Ryan on 12-18-2024 Glucose [Mass/Vol] 100 mg/dL High 70-99 [facility] Serum or plasma alanine rogers otransferase (ALT) measurementOrdered By: Mahin Ryan on 12-18-2024 ALT [Catalytic activity/Vol] 52 U/L High <[address] [facility] Serum or plasma albumin cammie urement (mass/volume)Ordered By: Mahin Ryan on 12-18-2024 Albumin [Mass/Vol] 3.9 g/dL 3.4-4.8 [facility] Serum or plasma albumin/glob ulin mass ratioOrdered By: Mahin Ryan on 12-18-2024 Albumin/Globulin [Mass ratio] 1.2 {ratio} 0.9-2.[address] [facility] Serum or plasma alkaline abel sphatase measurementOrdered By: Mahin Ryan on 12-18-2024 ALP [Catalytic activity/Vol] 74 U/L 40-[address] [facility] Serum or plasma calcium cammie urement (mass/volume)Ordered By: Mahin Ryan on 12-18-2024 Calcium [Mass/Vol] 9.0 mg/dL 7.6-11.0 [facility] Serum or plasma cholesterol in HDL measurement (mass/volume)Ordered By: Mahin Ryan on 12-18-2024 Cholesterol in HDL [Mass/Vol] 38 mg/dL Low >[address] [facility] Comment on above: National Cholesterol Education Program (NCEP) guidelines:<40 mg/dL: Low HDL-cholesterol (major risk factor for CHD)>= 60 mg/dL: High HDL-cholesterol (negative risk factor for CHD)HDL-cholesterol is affected by a number of factors, e.g. smoking, exercise, hormones, sex and age. Serum or plasma cholesterol measurement (mass/volume)Ordered By: Mahin Ryan on 12-18-2024 Cholesterol [Mass/Vol] 162 mg/dL <201 [facility] Comment on above: Cholesterol level, D esirable <200 mg/dLBorderline high cholesterol 200-239 mg/dLHigh cholesterol >=240 mg/dLRecommendations of the NCEP Adult Treatment Panel for the following risk-cutoff thresholds for the [place] population. Serum or plasma urea nitroge n measurement (mass/volume)Ordered By: Mahin Ryan on 12-18-2024 Urea nitrogen [Mass/Vol] 18 mg/dL 4-[address] [facility] Sodium levelOrdered By: Mahin Ryan on 12-18-2024 Sodium [Moles/Vol] 142 mmol/L 133-145 [facility] T4 Free Directon 12-18-2024 T4 FREE DIRECT 1.10 ng/dL Normal 0.76-1.[address] [facility] Comment on above: Order Comment: Order Date: 12/18/24Order Info: [id number] - CMPOrder Info: [id number] - LIPIDOrder Info: [id number] - TSHOrder Info: [id number] - T4F Performed By: #### L 501.9520, L506.0400, L500.4100, L500.4050, L100.0100 #### [facility] [address] [place], [place], [address] T4 freeOrdered By: Mahin osborne on 12-18-2024 Free T4 [Mass/Vol] 1.10 ng/dL 0.76-1.46 [facility] TSH DL <= 0.005 mIU/L QnOrde red By: Mahin Ryan on 12-18-2024 Thyroid Stimulating Hormone (TSH) 3.320 uIU/mL 0.300-4.[address] [facility] TSH Qn 3.320 uIU/mL 0.300-4.[address] [facility] Thyroid Stim Hormone (TSH)on 12-18-2024 TSH 3.320 uIU/mL Normal 0.300-4.[address] [facility] Comment on above: Order Comment: Order Date: 12/18/24Order Info: [id number] - CMPOrder Info: [id number] - LIPIDOrder Info: [id number] - TSHOrder Info: [id number] - T4F Performed By: #### L 501.9520, L506.0400, L500.4100, L500.4050, L100.0100 #### [facility] [address] [place], [place], [address] Total proteinOrdered By: Aubrey Ryan on 12-18-2024 Protein [Mass/Vol] 7.0 g/dL 5.9-8.4 [facility] Triglycerides measurementOrd ered By: Mahin Ryan on 12-18-2024 Triglyceride [Mass/Vol] 184 mg/dL <199 [facility] Comment on above: The drugs N-Acetylcy steine and Metamizole may falsely depress this assay. Normal range: <150 mg/dLBorderline High: 150-199 mg/dLHigh: 200-499 mg/dLVery High: >500 mg/dL White blood cell (WBC) count Ordered By: Mahin Ryan on 12-18-2024 WBC (Bld) [#/Vol] 6.5 10*3/uL 4.4-11.0 [facility] Chest PA and Lateralon 08-22 Chest PA and Lateral [facility] Services [address] [place], [place] [address] Chest PA and Lateral MR#: [id number] Acct: [id number] Name: HANNAH PAREDES I Rep #: [id number] : 1940 M 83 From: Clark Layton MD PCP: Dr. Mahin Ryan MD Status: REG CL Study: Chest PA and Lateral Date of Exam: 08/22/24 Exam# [id number] Ordering Dr: Mahin Ryan MD [id number] STUDY: X-RAY CHEST REASON FOR EXAM: Male, 83 years old. Bronchitis. Crackles. TECHNIQUE: Frontal and lateral views of the chest on 3 images. COMPARISON: January 04, 2019 FINDINGS: Stable mild hyperinflation. There is no demonstrated pleural abnormality. Cardiomegaly unchanged. Normal mediastinum and lidnsay. Normal visualized pulmonary arteries. Stable aortic tortuosity. New epidural catheter since prior study. Diffuse osteopenia with moderate diffuse thoracic spondylosis. No abnormality of the visualized soft tissue structures of the upper abdomen. RAD/Chest PA and Lateral IMPRESSION: New epidural catheter since the prior study. Stable cardiomegaly with hyperinflation. Electronically Signed: Clark Layton MD at 14:03 EST , CC: Dr. Mahin Ryan MD Network Programmer: Signed Normal [facility] CBC W/Diff, Automatedon 10- Absolute Lymph 2.84 X10 3/uL Normal 0.83-4.[address] [facility] Comment on above: Performed By: #### L 501.6570, L506.0400, L500.4100, L500.4050, L100.0100 #### [facility] [address] [place], [address] Absolute Neut 4.1 X10 3/uL Normal 2.0-7.[address] [facility] Comment on above: Performed By: #### L [id number], L506.0400, L500.4100, L500.4050, L100.0100 #### [facility] [address] [place], [address] Basophils/100 WBC (Bld) 0.5 % Normal 0-1 [facility] Comment on above: Performed By: #### L [id number], L506.0400, L500.4100, L500.4050, L100.0100 #### [facility] [address] [place], [address] Eosinophils/100 WBC (Bld) 3.3 % Normal 0-[address] [facility] Comment on above: Performed By: #### L [id number], L506.0400, L500.4100, L500.4050, L100.0100 #### [facility] [address] [place], [address] Erythrocyte distribution width (RBC) [Ratio] 13.6 % Normal 11.6-14.[address] [facility] Comment on above: Performed By: #### L [id number], L506.0400, L500.4100, L500.4050, L100.0100 #### [facility] [address] [place], [address] Hematocrit (Bld) [Volume fraction] 45.9 % Normal 40-[address] [facility] Comment on above: Performed By: #### L [id number], L506.0400, L500.4100, L500.4050, L100.0100 #### [facility] [address] [place], [address] Hemoglobin (Bld) [Mass/Vol] 15.1 g/dL Normal 13.0-16.[address] [facility] Comment on above: Performed By: #### L 501.9520, L506.0400, L500.4100, L500.4050, L100.0100 #### [facility] [address] [place], [address] IG% 0.400 Normal 0.0-0.[address] [facility] Comment on above: Result Comment: IG% - Immature Granulocytes (promyelocytes, myelocytes and metamyelocytes) > 1% indicates that a LEFT SHIFT is Present. Performed By: #### L [id number], L506.0400, L500.4100, L500.4050, L100.0100 #### [facility] [address] [place], [address] Lymphocytes/100 WBC (Bld) 35.9 % Normal 19-[address] [facility] Comment on above: Performed By: #### L 501.9520, L506.0400, L500.4100, L500.4050, L100.0100 #### [facility] [address] [place], [address] MCH (RBC) [Entitic mass] 30.9 pg Normal 27.0-32.[address] [facility] Comment on above: Performed By: #### L 501.9520, L506.0400, L500.4100, L500.4050, L100.0100 #### [facility] [address] [place], [address] MCHC (RBC) [Mass/Vol] 32.9 g/dL Normal 32-36 [facility] Comment on above: Performed By: #### L 501.9520, L506.0400, L500.4100, L500.4050, L100.0100 #### [facility] [address] [place], [address] MCV (RBC) [Entitic vol] 94.1 fL High 80-94 [facility] Comment on above: Performed By: #### L 501.9520, L506.0400, L500.4100, L500.4050, L100.0100 #### [facility] [address] [place], [address] Monocytes/100 WBC (Bld) 8.5 % Normal 0-10 [facility] Comment on above: Performed By: #### L 501.9520, L506.0400, L500.4100, L500.4050, L100.0100 #### [facility] [address] [place], [address] Neutrophils/100 WBC (Bld) 51.4 % Normal 47-[address] [facility] Comment on above: Performed By: #### L 501.9520, L506.0400, L500.4100, L500.4050, L100.0100 #### [facility] [address] [place], [address] Nucleated RBC (Bld) [#/Vol] 0 10*3/uL Normal 0-[address] [facility] Comment on above: Performed By: #### L 501.9520, L506.0400, L500.4100, L500.4050, L100.0100 #### [facility] [address] [place], [address] Platelet mean volume (Bld) [Entitic vol] 10.6 fL Normal 6.2-12.[address] [facility] Comment on above: Performed By: #### L 501.9520, L506.0400, L500.4100, L500.4050, L100.0100 #### [facility] [address] [place], [address] Platelets (Bld) [#/Vol] 203 10*3/uL Normal 150-[address] [facility] Comment on above: Performed By: #### L 501.9520, L506.0400, L500.4100, L500.4050, L100.0100 #### [facility] [address] [place], [address] RBC (Bld) [#/Vol] 4.88 10*6/uL Normal 4.6-6.2 [facility] Comment on above: Performed By: #### L 501.9520, L506.0400, L500.4100, L500.4050, L100.0100 #### [facility] [address] [place], [address] RDW SD 46.9 fl High 35.1-43.[address] [facility] Comment on above: Performed By: #### L 501.9520, L506.0400, L500.4100, L500.4050, L100.0100 #### [facility] [address] [place], [address] WBC (Bld) [#/Vol] 7.9 10*3/uL Normal 4.4-11.0 [facility] Comment on above: Performed By: #### L 501.9520, L506.0400, L500.4100, L500.4050, L100.0100 #### [facility] [address] [place], [address] Comprehensive Metabolic [facility] 07-30-2024 Albumin [Mass/Vol] 3.4 g/dL Normal 3.2-5.0 [facility] Comment on above: Performed By: #### L 501.9520, L506.0400, L500.4100, L500.4050, L100.0100 #### [facility] [address] [place], [address] Albumin/Globulin [Mass ratio] 0.8 {ratio} Low 0.9-2.[address] [facility] Comment on above: Performed By: #### L 501.9520, L506.0400, L500.4100, L500.4050, L100.0100 #### [facility] [address] [place], [address] ALK P 71 U/L Normal 45-[address] [facility] Comment on above: Performed By: #### L 501.9520, L506.0400, L500.4100, L500.4050, L100.0100 #### [facility] [address] [place], [address] ALT [Catalytic activity/Vol] 56 U/L Normal 16-[address] [facility] Comment on above: Performed By: #### L 501.9520, L506.0400, L500.4100, L500.4050, L100.0100 #### [facility] [address] [place], [address] AST [Catalytic activity/Vol] 39 U/L High 15-[address] [facility] Comment on above: Performed By: #### L 501.9520, L506.0400, L500.4100, L500.4050, L100.0100 #### [facility] [address] [place], [address] Bilirubin [Mass/Vol] 0.50 mg/dL Normal 0.20-1.00 [facility] Comment on above: Result Comment: For patients on eltrombopag therapy, use of Dimension [place] TBIL is not recommended. Performed By: #### L 501.9520, L506.0400, L500.4100, L500.4050, L100.0100 #### [facility] [address] [place], [address] BUN/CRE 14.7 RATIO Normal 10-[address] [facility] Comment on above: Performed By: #### L 501.9520, L506.0400, L500.4100, L500.4050, L100.0100 #### [facility] [address] [place], [address] CA,Total 8.9 mg/dL Normal 8.5-10.[address] [facility] Comment on above: Performed By: #### L 501.9520, L506.0400, L500.4100, L500.4050, L100.0100 #### [facility] [address] [place], [address] Chloride [Moles/Vol] 108 mmol/L High 98-107 [facility] Comment on above: Performed By: #### L 501.9520, L506.0400, L500.4100, L500.4050, L100.0100 #### [facility] [address] [place], [address] CO2 [Moles/Vol] 24.0 mmol/L Normal 21.0-32.[address] [facility] Comment on above: Performed By: #### L 501.9520, L506.0400, L500.4100, L500.4050, L100.0100 #### [facility] [address] [place], [address] Creatinine [Mass/Vol] 1.29 mg/dL Normal 0.70-1.30 [facility] Comment on above: Result Comment: The validity of the calculated GFR GFRAA in patients over 70 years has not been determined. Clinical correlation is essential. Performed By: #### L 501.9520, L506.0400, L500.4100, L500.4050, L100.0100 #### [facility] [address] [place], [address] EST GFR - AA 68 mL/min Normal >[address] [facility] Comment on above: Result Comment: Afri can [place] GFR Calc Performed By: #### L 501.9520, L506.0400, L500.4100, L500.4050, L100.0100 #### [facility] [address] [place], [address] GAP 7 Normal 5-[address] [facility] Comment on above: Performed By: #### L 501.9520, L506.0400, L500.4100, L500.4050, L100.0100 #### [facility] [address] [place], [address] GFR/1.73 sq M.predicted among non-blacks MDRD (S/P/Bld) [Vol rate/Area] 56 mL/min/{1.73_m2} Low >[address] [facility] Comment on above: Result Comment: Non- GFR Calc Performed By: #### L 501.9520, L506.0400, L500.4100, L500.4050, L100.0100 #### [facility] [address] [place], [address] Globulin (S) [Mass/Vol] 4.1 g/dL Normal 2.2-4.2 [facility] Comment on above: Performed By: #### L 501.9520, L506.0400, L500.4100, L500.4050, L100.0100 #### [facility] [address] [place], [address] Glucose [Mass/Vol] 99 mg/dL Normal 74-106 [facility] Comment on above: Performed By: #### L 501.9520, L506.0400, L500.4100, L500.4050, L100.0100 #### [facility] [address] [place], [address] Potassium [Moles/Vol] 3.8 mmol/L Normal 3.5-5.1 [facility] Comment on above: Performed By: #### L 501.9520, L506.0400, L500.4100, L500.4050, L100.0100 #### [facility] [address] [place], [address] Sodium [Moles/Vol] 139 mmol/L Normal 136-145 [facility] Comment on above: Performed By: #### L 501.9520, L506.0400, L500.4100, L500.4050, L100.0100 #### [facility] [address] [place], [address] T PROT 7.5 g/dL Normal 6.4-8.[address] [facility] Comment on above: Performed By: #### L 501.9520, L506.0400, L500.4100, L500.4050, L100.0100 #### [facility] [address] [place], [address] Urea nitrogen [Mass/Vol] 19 mg/dL High 7-[address] [facility] Comment on above: Performed By: #### L 501.9520, L506.0400, L500.4100, L500.4050, L100.0100 #### [facility] [address] [place], [address] Lipid Profileon 07-30-2024 Cholesterol [Mass/Vol] 216 mg/dL High 200 [facility] Comment on above: Result Comment: <200 mg/dL Desirable 200-240 mg/dL Borderline >240 mg/dL High Risk Performed By: #### L 501.9520, L506.0400, L500.4100, L500.4050, L100.0100 #### [facility] [address] [place], [address] Cholesterol in HDL [Mass/Vol] 36 mg/dL Low [facility] Comment on above: Result Comment: The drugs N-Acetylcysteine and Metamizole may falsely depress this assay. Reference Range HDL <40 mg/dL Low HDL Cholesterol HDL >or= 60 mg/dL High HDL Cholesterol Performed By: #### L 501.9520, L506.0400, L500.4100, L500.4050, L100.0100 #### [facility] [address] [place], [address] Cholesterol in LDL [Mass/Vol] 145 mg/dL High 0-[address] [facility] Comment on above: Performed By: #### L 501.9520, L506.0400, L500.4100, L500.4050, L100.0100 #### [facility] [address] [place], [address] Cholesterol in VLDL [Mass/Vol] 35 mg/dL Normal 5-[address] [facility] Comment on above: Performed By: #### L 501.9520, L506.0400, L500.4100, L500.4050, L100.0100 #### [facility] [address] [place], [address] Triglyceride [Mass/Vol] 173 mg/dL Normal [facility] Comment on above: Result Comment: The drugs N-Acetylcysteine and Metamizole may falsely depress this assay. Serum Triglycerides Reference Interval Normal <150 mg/dL Borderline high 150 - 199 mg/dL High 200 - 499 mg/dL Very High > or = 500 mg/dL Performed By: #### L 501.9520, L506.0400, L500.4100, L500.4050, L100.0100 #### [facility] [address] [place], [address] T4 Free Directon 07-30-2024 T4 FREE DIRECT 0.90 ng/dL Normal 0.76-1.[address] [facility] Comment on above: Performed By: #### L 501.9520, L506.0400, L500.4100, L500.4050, L100.0100 #### [facility] [address] [place], [address] Thyroid Stim Hormone (TSH)on 07-30-2024 TSH 3.460 uIU/mL Normal 0.358-3.[address] [facility] Comment on above: Performed By: #### L 501.9520, L506.0400, L500.9780, L500.4050, L100.0100 #### [facility] [place], [address] CNPNon 07-17-2023 CNPN Telephone (NESLBA) HANNAH PAREDES I ([id number]) 1940 M Date Time Provider Department 07/17/23 ROSS SALDAÑA JR During your visit today, we recorded the following information about you: Jacqueline Dela Cruz LPN 07/17/2023 10:59 AM Signed Spoke with Shena and requested 90 day pap download Waiting for report to be faxed Jacqueline Dela Cruz LPN Allergies As of Date: 07/17/2023 Noted Allergy Reaction IODINE 07/24/2005 4 - Hives 7 - Swelling Comments: pts states he got tongue swelling with iv dye the last time he had it,not just hives. kmr 02/15/16 Polysporin, Bacitracin [Other] 03/31/2012 2 - Rash Comments: Acute blistering eczematous allergic contact dermatitis type rash from use of Polysporin on an inflamed keratosis at left side of neck during this past winter/spring season. Had to stop it and go on a strong cortisone cream (Rx type) to clear it up. Likely to be allergic to both Polysporin and Bacitracin because of this reaction. ---Bakari Merino M.D. ADHESIVE TAPE (ROSINS) 08/18/2014 14 - Other: See Comments Comments: blisters AMOXICILLIN 02/16/2015 4 - Hives CIPROFLOXACIN 03/20/2022 2 - Rash DOXYCYCLINE 03/23/2023 7 - Swelling METOPROLOL 02/21/2016 14 - Other: See Comments Comments: leg cramps NAPROXEN 02/02/2016 14 - Other: See Comments Comments: elevates blood pressure SHELLFISH 07/24/2005 4 - Hives Comments: Blue crab only. No reaction to betadine ZOSYN (PIPERACILLIN-TAZOBAC OSUNA) 04/20/2008 Comments: flushed and itching - IV - er visit. Date Reviewed: 03/23/2023 Reviewed by: Ross Saldaña Jr., MD - Fully Assessed Reason for Visit: cpap compliance [Other] Prescriptions as of 07/17/2023 - CPAP/BIPAP/OTHER Pressure adjust to IPAP 19, EPAP 9, PS 5 cm H2O, suitable mask per pt preference, chin strap, head gear, humidity, tubing, lifetime supplies. G47.33 EFREN - bsfjwkv-svhi-zlpwj-or eg-capryl 100 mg-150 mg- 50 mg-150 mg cap Take 300 mg by mouth once daily. - hydrocortisone 2.5 % cream Apply to irritant dermatitis rash at any sensitive deep fold areas (eg., groin area), selectively twice up to three times per day until clear and then stop or taper off as able. AVOID direct application to eyelids//eyes. - Psyllium Seed-Sucrose Take 1 Tablespoonful by mouth once daily. - multivitamin tablet Take 1 tablet by mouth once daily. 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] Essential hypertension [I10] 06/27/2006 OVERWEIGHT [E66.9] 06/27/2006 HYPERGLYCEMIA [R79.89] 12/21/2006 Neck Sprain and Strain [S13.9XXA] 03/01/2007 07/08/2010 DISC DEGENERATION NOS [[id number]] 04/10/2007 Gout, Unspecified [M10.9] 04/10/2007 07/08/2010 SOLAR LENTIGINES///DYSCHROM IA OTHER [L81.9] 10/09/2007 03/31/2012 Other seborrheic keratosis [L82.1] 10/09/2007 03/31/2012 Unspecified hypertrophic and atrophic condition*10/09/2007 03/31/2012 Personal history of other malignant neoplasm of*10/09/2007 Disorder of thyroid [E07.9] 12/12/2007 Unspecified disorder of prostate [N42.9] 06/11/2008 Benign neoplasm of colon [D12.6] 07/07/2008 Internal hemorrhoids without mention of complic*07/07/2008 05/08/2016 Insomnia, unspecified [G47.00] 12/25/2008 LIPOMA NEC [D17.79] 12/25/2008 Viral warts, unspecified [B07.9] 01/05/2009 03/31/2012 SEBORRHEIC KERATOSIS: IRRITATED//INFLAMED [L82*01/05/2009 08/26/2010 Impetigo [L01.00] 05/19/2009 07/08/2010 Contact dermatitis and other eczema, due to uns*05/19/2009 08/26/2010 INTERTRIGO///ERYTHEMA TOUS COND NEC [L53.8] 05/19/2009 08/26/2010 Epidermal Inclusion Cyst (at L outer eyebrow ar*11/05/2009 08/26/2010 Open wnd site [T14.8XXA] 01/26/2010 08/26/2010 Impaired fasting glucose [R73.01] 09/13/2010 Actinic Damage//Sun-damaged skin [L57.8] 09/29/2010 Pain in joint, lower leg [M25.569] 08/29/2011 Obstructive sleep apnea (adult) (pediatric) [G4*09/20/2011 Actinic skin damage [L57.8] 03/31/2012 Xerosis cutis [L85.3] 03/31/2012 Solar Lentigines [L81.4] 03/31/2012 Pyoderma, unspecified: potential from wounds an*03/31/2012 04/23/2014 Contact dermatitis and other eczema due to othe*03/31/2012 Hypertension [I10] 09/02/2012 05/08/2016 Surgical wound infection [T81.49XA] 04/06/2013 04/23/2014 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 Normal [facility] Absolute lymphocyte countOrd ered By: Mahin Ryan on 06-29-2023 Lymphocytes Auto (Unsp spec) [#/Vol] 2.26 10*3/uL 0.83-4.[address] [facility] Basophil percentageOrdered B y: Mahin Ryan on 06-29-2023 Basophils/100 WBC (Bld) 0.6 % 0-1 [facility] Bilirubin [Mass/Vol] 0.50 mg/dL 0.20-1.00 [facility] Comment on above: For patients on eltr ombopag therapy, use of Dimension [place] TBIL is not recommended. Chloride [Moles/Vol] 109 mmol/L 98-107 [facility] Cholesterol [Mass/Vol] 137 mg/dL <200 [facility] Comment on above: <200 mg/dL Desirable 200-240 mg/dL Borderline >240 mg/dL High Risk Eosinophils/100 WBC (Bld) 3.8 % 0-[address] [facility] Glucose [Mass/Vol] 108 mg/dL 74-106 [facility] Comment on above: Fasting Glucose resu lt from 100 to 125 mg/dL suggests IMPAIRED HOMEOSTASIS per A.D.A. criteria. Neutrophils (Bld) [#/Vol] 3.5 10*3/uL 2.0-7.[address] [facility] Neutrophils/100 WBC (Bld) 52.5 % 47-[address] [facility] Potassium [Moles/Vol] 3.9 mmol/L 3.5-5.1 [facility] Protein [Mass/Vol] 7.6 g/dL 6.4-8.2 [facility] Sodium [Moles/Vol] 139 mmol/L 136-145 [facility] Triglyceride [Mass/Vol] 182 mg/dL <199 [facility] Comment on above: The drugs N-Acetylcy steine and Metamizole may falsely depress this assay.Serum Triglycerides Reference Interval Normal <150 mg/dL Borderline high 150 - 199 mg/dL High 200 - 499 mg/dL Very High > or = 500 mg/dL WBC (Bld) [#/Vol] 6.6 10*3/uL 4.4-11.0 [facility] Blood erythrocytes count (nu mber/volume)Ordered By: Mahin Ryan on 06-29-2023 RBC (Bld) [#/Vol] 4.73 10*6/uL 4.6-6.2 [facility] Blood hemoglobin measurement (mass/volume)Ordered By: Mahin Ryan on 06-29-2023 Hemoglobin (Bld) [Mass/Vol] 14.7 g/dL 13.0-16.[address] [facility] Blood lymphocytes/100 leukoc ytesOrdered By: Mahin Ryan on 06-29-2023 Lymphocytes/100 WBC (Bld) 34.4 % 19-[address] [facility] Blood monocytes/100 leukocyt esOrdered By: Mahin Ryan on 06-29-2023 Monocytes/100 WBC (Bld) 8.4 % 0-10 [facility] Blood platelet mean volumeOr dered By: Mahin Ryan on 06-29-2023 Platelet mean volume (Bld) [Entitic vol] 10.0 fL 6.2-12.[address] [facility] Determination of erythrocyte mean corpuscular volume (MCV)Ordered By: Mahin Ryan on 06-29-2023 MCV (RBC) [Entitic vol] 96.4 fL 80-94 [facility] Hematocrit Auto (Bld) [Volum e fraction]Ordered By: Mahin Ryan on 06-29-2023 Hematocrit (Bld) [Volume fraction] 45.6 % 40-[address] [facility] - Chemistry and C hemistry - challengeOrdered By: Mahin Ryan on 06-29-2023 ALP [Catalytic activity/Vol] 59 U/L 45-[address] [facility] ALT [Catalytic activity/Vol] 33 U/L 16-[address] [facility] CO2 [Moles/Vol] 26.0 mmol/L 21.0-32.[address] [facility] Free T4 [Mass/Vol] 0.97 ng/dL 0.76-1.46 [facility] Globulin (S) [Mass/Vol] 4.1 g/dL 2.2-4.2 [facility] Urea nitrogen/Creatinine [Mass ratio] 16.0 mg/mg 10-[address] [facility] - Hematology and Cell countsOrdered By: Mahin Ryan on 06-29-2023 Erythrocyte distribution width (RBC) [Entitic vol] 47.5 fL 35.1-43.[address] [facility] Erythrocyte distribution width (RBC) [Ratio] 13.3 % 11.6-14.[address] [facility] Immature granulocytes/100 WBC (Bld) 0.300 % 0.0-0.[address] [facility] Comment on above: IG% - Immature Granu locytes (promyelocytes, myelocytes and metamyelocytes) > 1% indicates that a LEFT SHIFT is Present. MCH (RBC) [Entitic mass] 31.1 pg 27.0-32.[address] [facility] Nucleated RBC/100 WBC (Bld) [Ratio] 0 % 0-[address] [facility] MCHC Auto (RBC) [Mass/Vol]Or dered By: Mahin Ryan on 06-29-2023 MCHC (RBC) [Mass/Vol] 32.2 g/dL 32-36 [facility] No Panel InformationOrdered By: Mahin Ryan on 06-29-2023 Estimated GFR (MDRD) Amer 86 mL/min >[address] [facility] Comment on above: GFR Calc Estimated GFR (MDRD) Non-Af Amer 71 mL/min >[address] [facility] Comment on above: Non- GFR Calc Thyroid Stimulating Hormone (TSH) 3.30 uIU/mL 0.358-3.[address] [facility] Platelets bldOrdered By: Aubrey Ryan on 06-29-2023 Platelets (Bld) [#/Vol] 172 10*3/uL 150-[address] [facility] Serum or plasma albumin cammie urement (mass/volume)Ordered By: Mahin Ryan on 06-29-2023 Albumin [Mass/Vol] 3.5 g/dL 3.2-5.0 [facility] Serum or plasma albumin/glob ulin mass ratioOrdered By: Mahin Ryan on 06-29-2023 Albumin/Globulin [Mass ratio] 0.9 {ratio} 0.9-2.[address] [facility] Serum or plasma calcium cammie urement (mass/volume)Ordered By: Mahin Ryan on 06-29-2023 Calcium [Mass/Vol] 9.0 mg/dL 8.5-10.1 [facility] Serum or plasma cholesterol in HDL measurement (mass/volume)Ordered By: Mahin Ryan on 06-29-2023 Cholesterol in HDL [Mass/Vol] 40 mg/dL >[address] [facility] Comment on above: The drugs N-Acetylcy steine and Metamizole may falsely depress this assay. Reference Range HDL <40 mg/dL Low HDL Cholesterol HDL >or= 60 mg/dL High HDL Cholesterol Serum or plasma cholesterol in VLDL measurement (mass/volume)Ordered By: Mahin Ryan on 06-29-2023 Cholesterol in VLDL [Mass/Vol] 36 mg/dL 5-[address] [facility] Serum or plasma creatinine m easurement (mass/volume)Ordered By: Mahin Ryan on 06-29-2023 Creatinine [Mass/Vol] 1.06 mg/dL 0.70-1.30 [facility] Comment on above: The validity of the calculated GFR & GFRAA in patients over 70 years has not been determined. Clinical correlation is essential. Serum or plasma low density lipoprotein (LDL) cholesterol measurement (mass/volume)Ordered By: Mahin Ryan on 06-29-2023 Cholesterol in LDL [Mass/Vol] 61 mg/dL 0-[address] [facility] Serum or plasma urea nitroge n measurement (mass/volume)Ordered By: Mahin Ryan on 06-29-2023 Urea nitrogen [Mass/Vol] 17 mg/dL 7-[address] [facility] Thin prep Papanicolaou smear with manual screeningOrdered By: Mahin Ryan on 06-29-2023 Thin prep Papanicolaou smear with manual screening 29 U/L 15-[address] [facility] Thin prep Papanicolaou smear with manual screening 4 5-[address] [facility] Absolute lymphocyte countOrd ered By: Dr. Ryan on 12-14-2022 Lymphocytes Auto (Unsp spec) [#/Vol] 2.55 10*3/uL 0.83-4.[address] [facility] Basophil percentageOrdered B y: Dr. Ryan on 12-14-2022 Basophils/100 WBC (Bld) 0.5 % 0-1 [facility] Bilirubin [Mass/Vol] 0.50 mg/dL 0.20-1.00 [facility] Comment on above: For patients on eltr ombopag therapy, use of Dimension [place] TBIL is not recommended. Chloride [Moles/Vol] 108 mmol/L 98-107 [facility] Cholesterol [Mass/Vol] 239 mg/dL <200 [facility] Comment on above: <200 mg/dL Desirable 200-240 mg/dL Borderline >240 mg/dL High Risk Eosinophils/100 WBC (Bld) 3.5 % 0-[address] [facility] Glucose [Mass/Vol] 98 mg/dL 74-106 [facility] Neutrophils (Bld) [#/Vol] 3.9 10*3/uL 2.0-7.[address] [facility] Neutrophils/100 WBC (Bld) 52.6 % 47-[address] [facility] Potassium [Moles/Vol] 4.1 mmol/L 3.5-5.1 [facility] Protein [Mass/Vol] 7.9 g/dL 6.4-8.2 [facility] Sodium [Moles/Vol] 140 mmol/L 136-145 [facility] Triglyceride [Mass/Vol] 190 mg/dL <199 [facility] Comment on above: The drugs N-Acetylcy steine and Metamizole may falsely depress this assay.Serum Triglycerides Reference Interval Normal <150 mg/dL Borderline high 150 - 199 mg/dL High 200 - 499 mg/dL Very High > or = 500 mg/dL WBC (Bld) [#/Vol] 7.4 10*3/uL 4.4-11.0 [facility] Blood erythrocytes count (nu mber/volume)Ordered By: Dr. Ryan on 12-14-2022 RBC (Bld) [#/Vol] 4.83 10*6/uL 4.6-6.2 [facility] Blood hemoglobin measurement (mass/volume)Ordered By: Dr. Ryan on 12-14-2022 Hemoglobin (Bld) [Mass/Vol] 14.8 g/dL 13.0-16.[address] [facility] Blood lymphocytes/100 leukoc ytesOrdered By: Dr. Ryan on 12-14-2022 Lymphocytes/100 WBC (Bld) 34.4 % 19-[address] [facility] Blood monocytes/100 leukocyt esOrdered By: Dr. Ryan on 12-14-2022 Monocytes/100 WBC (Bld) 8.5 % 0-10 [facility] Blood platelet mean volumeOr dered By: Dr. Ryan on 12-14-2022 Platelet mean volume (Bld) [Entitic vol] 10.5 fL 6.2-12.[address] [facility] Determination of erythrocyte mean corpuscular volume (MCV)Ordered By: Dr. Ryan on 12-14-2022 MCV (RBC) [Entitic vol] 96.9 fL 80-94 [facility] Hematocrit Auto (Bld) [Volum e fraction]Ordered By: Dr. Ryan on 12-14-2022 Hematocrit (Bld) [Volume fraction] 46.8 % 40-[address] [facility] Laboratory - Chemistry and C hemistry - challengeOrdered By: Dr. Ryan on 12-14-2022 ALP [Catalytic activity/Vol] 46 U/L 45-[address] [facility] ALT [Catalytic activity/Vol] 39 U/L 16-[address] [facility] CO2 [Moles/Vol] 24.0 mmol/L 21.0-32.[address] [facility] Globulin (S) [Mass/Vol] 4.1 g/dL 2.2-4.2 [facility] Urea nitrogen/Creatinine [Mass ratio] 20.0 mg/mg 10-[address] [facility] Free T4 [Mass/Vol] 0.97 ng/dL 0.76-1.46 [facility] Laboratory - Hematology and Cell countsOrdered By: Dr. Ryan on 12-14-2022 Erythrocyte distribution width (RBC) [Entitic vol] 52.4 fL 35.1-43.[address] [facility] Erythrocyte distribution width (RBC) [Ratio] 14.5 % 11.6-14.[address] [facility] Immature granulocytes/100 WBC (Bld) 0.500 % 0.0-0.[address] [facility] Comment on above: IG% - Immature Granu locytes (promyelocytes, myelocytes and metamyelocytes) > 1% indicates that a LEFT SHIFT is Present. MCH (RBC) [Entitic mass] 30.6 pg 27.0-32.[address] [facility] Nucleated RBC/100 WBC (Bld) [Ratio] 0 % 0-[address] [facility] MCHC Auto (RBC) [Mass/Vol]Or dered By: Dr. Ryan on 12-14-2022 MCHC (RBC) [Mass/Vol] 31.6 g/dL 32-36 [facility] No Panel InformationOrdered By: Dr. Ryan on 12-14-2022 Estimated GFR (MDRD) Amer 82 mL/min >[address] [facility] Comment on above: GFR Calc Estimated GFR (MDRD) Non-Af Amer 68 mL/min >[address] [facility] Comment on above: Non- GFR Calc Thyroid Stimulating Hormone (TSH) 4.08 uIU/mL 0.358-3.[address] [facility] Thyroglobulin Antibody < 1.0 IU/mL 0.0-0.9 [facility] Comment on above: Thyroglobulin Antibo dy measured by Marjan CoulterMethodology Platelets bldOrdered By: Dr. Ryan on 12-14-2022 Platelets (Bld) [#/Vol] 207 10*3/uL 150-[address] [facility] Serum or plasma albumin cammie urement (mass/volume)Ordered By: Dr. Ryan on 12-14-2022 Albumin [Mass/Vol] 3.8 g/dL 3.2-5.0 [facility] Serum or plasma albumin/glob ulin mass ratioOrdered By: Dr. Ryan on 12-14-2022 Albumin/Globulin [Mass ratio] 0.9 {ratio} 0.9-2.[address] [facility] Serum or plasma calcium cammie urement (mass/volume)Ordered By: Dr. Ryan on 12-14-2022 Calcium [Mass/Vol] 9.1 mg/dL 8.5-10.1 [facility] Serum or plasma cholesterol in HDL measurement (mass/volume)Ordered By: Dr. Ryan on 12-14-2022 Cholesterol in HDL [Mass/Vol] 35 mg/dL >[address] [facility] Comment on above: The drugs N-Acetylcy steine and Metamizole may falsely depress this assay. Reference Range HDL <40 mg/dL Low HDL Cholesterol HDL >or= 60 mg/dL High HDL Cholesterol Serum or plasma cholesterol in VLDL measurement (mass/volume)Ordered By: Dr. Ryan on 12-14-2022 Cholesterol in VLDL [Mass/Vol] 38 mg/dL 5-[address] [facility] Serum or plasma creatinine m easurement (mass/volume)Ordered By: Dr. Ryan on 12-14-2022 Creatinine [Mass/Vol] 1.10 mg/dL 0.70-1.30 [facility] Comment on above: The validity of the calculated GFR & GFRAA in patients over 70 years has not been determined. Clinical correlation is essential. Serum or plasma low density lipoprotein (LDL) cholesterol measurement (mass/volume)Ordered By: Dr. Ryan on 12-14-2022 Cholesterol in LDL [Mass/Vol] 166 mg/dL 0-[address] [facility] Serum or plasma thyroperoxid ase antibody assay (units/volume)Ordered By: Dr. Ryan on 12-14-2022 TPO Ab Qn 57 [IU]/mL 0-[address] [facility] Comment on above: Performed at: [address] Director: Jordan Wallace PhD, Phone: [phone] Serum or plasma urea nitroge n measurement (mass/volume)Ordered By: Dr. Ryan on 12-14-2022 Urea nitrogen [Mass/Vol] 22 mg/dL 7-[address] [facility] Thin prep Papanicolaou smear with manual screeningOrdered By: Dr. Ryan on 12-14-2022 Thin prep Papanicolaou smear with manual screening 32 U/L 15-[address] [facility] Thin prep Papanicolaou smear with manual screening 8 5-[address] [facility] Absolute lymphocyte countOrd ered By: Kennedy Kenny on 11-24-2022 Lymphocytes Auto (Unsp spec) [#/Vol] 2.62 10*3/uL 0.83-4.[address] [facility] Basophil percentageOrdered B y: Kennedy Kenny on 11-24-2022 Basophils/100 WBC (Bld) 0.6 % 0-1 [facility] Bilirubin [Mass/Vol] 0.60 mg/dL 0.20-1.00 [facility] Comment on above: For patients on eltr ombopag therapy, use of Dimension [place] TBIL is not recommended. Chloride [Moles/Vol] 108 mmol/L 98-107 [facility] Eosinophils/100 WBC (Bld) 3.8 % 0-[address] [facility] Glucose [Mass/Vol] 95 mg/dL 74-106 [facility] Neutrophils (Bld) [#/Vol] 3.5 10*3/uL 2.0-7.[address] [facility] Neutrophils/100 WBC (Bld) 49.1 % 47-[address] [facility] Potassium [Moles/Vol] 4.2 mmol/L 3.5-5.1 [facility] Protein [Mass/Vol] 7.9 g/dL 6.4-8.2 [facility] Sodium [Moles/Vol] 141 mmol/L 136-145 [facility] WBC (Bld) [#/Vol] 7.1 10*3/uL 4.4-11.0 [facility] Blood erythrocytes count (nu mber/volume)Ordered By: Kennedy Kenny on 11-24-2022 RBC (Bld) [#/Vol] 4.78 10*6/uL 4.6-6.2 [facility] Blood hemoglobin measurement (mass/volume)Ordered By: Kennedy Kenny on 11-24-2022 Hemoglobin (Bld) [Mass/Vol] 14.7 g/dL 13.0-16.[address] [facility] Blood lymphocytes/100 leukoc ytesOrdered By: Kennedy Kenny on 11-24-2022 Lymphocytes/100 WBC (Bld) 36.8 % 19-[address] [facility] Blood monocytes/100 leukocyt esOrdered By: Kennedy Kenny on 11-24-2022 Monocytes/100 WBC (Bld) 9.6 % 0-10 [facility] Blood platelet mean volumeOr dered By: Kennedy Kenny on 11-24-2022 Platelet mean volume (Bld) [Entitic vol] 10.1 fL 6.2-12.[address] [facility] Determination of erythrocyte mean corpuscular volume (MCV)Ordered By: Kennedy Kenny on 11-24-2022 MCV (RBC) [Entitic vol] 95.4 fL 80-94 [facility] Erythrocyte sedimentation ra teOrdered By: Kennedy Kenny on 11-24-2022 ESR (Bld) [Velocity] 13 mm/h 0-20 [facility] Hematocrit Auto (Bld) [Volum e fraction]Ordered By: Kennedy Kenny on 11-24-2022 Hematocrit (Bld) [Volume fraction] 45.6 % 40-[address] [facility] Laboratory - Chemistry and C hemistry - challengeOrdered By: Kennedy Kenny on 11-24-2022 ALP [Catalytic activity/Vol] 47 U/L 45-[address] [facility] ALT [Catalytic activity/Vol] 39 U/L 16-[address] [facility] CO2 [Moles/Vol] 27.0 mmol/L 21.0-32.[address] [facility] Globulin (S) [Mass/Vol] 4.2 g/dL 2.2-4.2 [facility] Urea nitrogen/Creatinine [Mass ratio] 15.2 mg/mg 10-[address] [facility] Laboratory - Hematology and Cell countsOrdered By: Kennedy Kenny on 11-24-2022 Erythrocyte distribution width (RBC) [Entitic vol] 49.7 fL 35.1-43.[address] [facility] Erythrocyte distribution width (RBC) [Ratio] 14.1 % 11.6-14.[address] [facility] Immature granulocytes/100 WBC (Bld) 0.100 % 0.0-0.[address] [facility] Comment on above: IG% - Immature Granu locytes (promyelocytes, myelocytes and metamyelocytes) > 1% indicates that a LEFT SHIFT is Present. MCH (RBC) [Entitic mass] 30.8 pg 27.0-32.[address] [facility] Nucleated RBC/100 WBC (Bld) [Ratio] 0 % 0-[address] [facility] MCHC Auto (RBC) [Mass/Vol]Or dered By: Kennedy Kenny on 11-24-2022 MCHC (RBC) [Mass/Vol] 32.2 g/dL 32-36 [facility] No Panel InformationOrdered By: Kennedy Kenny on 11-24-2022 Endomysial IgA Antibody Negative Negative [facility] Estimated GFR (MDRD) Amer 87 mL/min >[address] [facility] Comment on above: GFR Calc Estimated GFR (MDRD) Non-Af Amer 72 mL/min >[address] [facility] Comment on above: Non- GFR Calc Platelets bldOrdered By: Elpidio Kenny on 11-24-2022 Platelets (Bld) [#/Vol] 216 10*3/uL 150-[address] [facility] Serum IgA measurement (units /volume)Ordered By: Kennedy Kenny on 11-24-2022 IgA Qn (S) 427 mg/dL 61-[address] [facility] Comment on above: Performed at: [address] Director: Jordan Wallace PhD, Phone: [phone] Serum or plasma C reactive p rotein measurement (mass/volume)Ordered By: Kennedy Kenny on 11-24-2022 CRP [Mass/Vol] mg/L 0.0-3.[address] [facility] Comment on above: C-Reactive Protein ( CRP) provides useful information for thediagnosis, therapy and monitoring of inflammatory processesand associated diseases. For the evaluation of Relative Riskfor Cardiovascular Disease, a High Sensitivity CRP (HSCRP)should be ordered. Serum or plasma albumin cammie urement (mass/volume)Ordered By: Kennedy Kenny on 11-24-2022 Albumin [Mass/Vol] 3.7 g/dL 3.2-5.0 [facility] Serum or plasma albumin/glob ulin mass ratioOrdered By: Kennedy Kenny on 11-24-2022 Albumin/Globulin [Mass ratio] 0.9 {ratio} 0.9-2.[address] [facility] Serum or plasma calcium cammie urement (mass/volume)Ordered By: Kennedy Kenny on 11-24-2022 Calcium [Mass/Vol] 9.1 mg/dL 8.5-10.1 [facility] Serum or plasma creatinine m easurement (mass/volume)Ordered By: Kennedy Kenny on 11-24-2022 Creatinine [Mass/Vol] 1.05 mg/dL 0.70-1.30 [facility] Comment on above: The validity of the calculated GFR & GFRAA in patients over 70 years has not been determined. Clinical correlation is essential. Serum or plasma urea nitroge n measurement (mass/volume)Ordered By: Kennedy Kenny on 11-24-2022 Urea nitrogen [Mass/Vol] 16 mg/dL 7-[address] [facility] Serum tissue transglutaminas e IgA antibody assay (units/volume)Ordered By: Kennedy Kenny on 11-24-2022 tTG IgA Qn (S) <2 U/mL 0-[address] [facility] Comment on above: Negative 0 - 3 Weak Positive 4 - 10 Positive >10 Tissue Transglutaminase (tTG) has been identified as the endomysial antigen. Studies have demonstr- ated that endomysial IgA antibodies have over 99% specificity for gluten sensitive enteropathy. Thin prep Papanicolaou smear with manual screeningOrdered By: Kennedy Kenny on 11-24-2022 Thin prep Papanicolaou smear with manual screening 30 U/L 15-[address] [facility] Thin prep Papanicolaou smear with manual screening 6 5-[address] [facility] Provider Note - ED v3on 03-15 Provider Note - ED v3 Provider Note: Chart Review: HISTORY OF PRESENTING ILLNESS HANNAH is a 81 year old Male and was seen by me at 24-Mar-2022 13:45 for a chief complaint of lacerations (states he cut his right hand on a broken measuring cup)(1). Triage Information: Most recent Vital Sign Value Date Temp (F): 97.4 03-24-2022 13:53 Temp (C): 36.3 03-24-2022 13:53 Heart Rate (beats/min): 69 03-24-2022 13:53 Respirations (breaths/min): 16 03-24-2022 13:53 SpO2 (%): 97 03-24-2022 13:53 BP Systolic (mm Hg): 204 03-24-2022 13:53 BP Diastolic (mm Hg): 71 03-24-2022 13:53 PAST MEDICAL HISTORY ALLERGIES/INTOLERANCE S: Allergy Allergen: Amoxil Type: Drug Reaction: Hives/Urticaria Allergen: Cipro Type: Drug Reaction: Hives/Urticaria Allergen: Tape - Adhesive, Bandaids, Paper Type: Environment Reaction: Hives/Urticaria HEALTH HISTORY: No documented data. OUTPATIENT MEDICATIONS: Home Medications Review Status for Reconciliation: Complete Med Status: No Current Medications SIGNIFICANT EVENTS: No documented data. MDM MDM/ED COURSE: PMH: Reviewed PSH: Reviewed Social History: Reviewed. Allergies reviewed. HPI: This is a left handed 81 year old male who presents to the ED today with complaints of right hand laceration. He was making pizza crust at home. He was putting water into a Pyrex measuring cup. It hit against the [place] countertop and shattered. He has a laceration of the right hand at the base of the fifth finger. Bleeding is controlled. No blood thinners. Tetanus is not up-to-date. PHYSICAL EXAM: GENERAL: Vitals noted, no distress. Alert and oriented x 3. Non-toxic. CARDIAC: Regular rate, rhythm. RESPIRATORY: No respiratory distress. MUSCULOSKELETAL & SKIN: Warm, dry, and intact except for a 1.5cm volar aspect laceration of the right hand at the base of the fifth finger. No rash/lesions. No peripheral edema. NEURO: No focal neurologic deficits, acting appropriately. ED COURSE: This patient was seen and examined by myself independently. I am concerned that there may be glass shards from the breaking of the glass Pyrex cup however the patient is refusing an x-ray. Also declined tetanus update today. He was set for suture repair. His right hand is draped in a sterile fashion and the site was cleansed using Shur-cleanse. He was anesthetized with 1% lidocaine. The wound was copiously irrigated using normal saline. It was explored under a bloodless field. No foreign bodies, no tendon or bony involvement are noted. He had a total of 3 simple interrupted sutures placed using 5.0 ethilon. The wound edges are well approximated post-closure. He has bacitracin/adaptic/ga uze dressing applied. He is educated on scar formation and wound care. Advised of possibility of retained glass FB. Sutures are to come out in 7-10 days by primary care or by returning to the ED. Pt tolerated the suturing well. He is discharged home in a stable condition with computer instructions given and is encouraged to return to the ER for any new or worsening symptoms. DIAGNOSTIC IMPRESSION: #1 right hand laceration #2 elevated blood pressure reading DISPOSITION Diagnosis/Annotation: ED Dx Name:Hand laceration Code:S61.419A Disposition: discharged Type: home CONSULT CRITICAL CARE TIME Is this a critically ill patient: no Electronic Signatures: Loni Pineda ([employer] DIRECT[employer]) (Signed 24-Mar-2022 15:37) Authored: HPI, PMH, MDM/ED Course, Clinical Impression, Attestation, Chart Review, Scores Last Updated: 24-Mar-2022 15:37 by Loni Pineda ([employer] DIRECT[employer]) References: 1. Data Referenced From Triage - ED 24-Mar-2022 13:53 Normal [facility] Risk Screen - Adult Emergenc yon 03-24-2022 Risk Screen - Adult Emergency Preferred Language: Preferred Language: Preferred Language for Discussing Health Care (patient/designee)Eng jozef Advanced Directives: Advance Directive/DNRyes Advance Directive typeLiving Will Family Violence Adult: Abuse Screen: Are you or have you been threatened or abused physically, emotionally, or sexually by anyoneno Learning Assessment (Patient): Learning Assessment (Patient): Patient is Able to be Assessed for Learningyes Factors Influencing Readiness to Learnn/a Factors that Impact Ability to Learnnone Devices/Methods Used to Communicatenone Learning Preferencesverbal instruction; written material Cultural Considerationsnone Developmental Considerationsnone Caodaism Considerationsnone Other Learnersspouse Learning Assessment (Other Learner): Learning Assessment (Other Learner): Other learner availableyes... Learnerspouse Factors Influencing Readiness to Learnn/a Factors that Impact Ability to Learnnone Devices/Methods Used to Communicatenone Learning Preferencesverbal instruction, written material Cultural Considerationsnone Developmental Considerationsnone Caodaism Considerationsnone Pressure Injury/TB/Substance: Pressure Injury: Do you have a coughno Smoking Statusnever smoker Alcohol Useoccasionally Drug Usedenies Admission Risk Screen: Significant IndicatorsComplete CAGE: CAGE: Is this an injured patient at a Tra[place] Center [place] [place]/[place] no Electronic Signatures: Haritha Zepeda (RN) (Signed 24-Mar-2022 13:58) Authored: Preferred Language, Advanced Directives, Family Violence Adult, Learning Assessment (Patient), Learning Assessment (Other Learner), Pressure Injury/TB/Substance, Pressure Injury, CAGE Last Updated: 24-Mar-2022 13:58 by Haritha Zepeda (RN) [facility] Triage - EDon 03-24-2022 Triage - ED Chart Review: PRIMARY ASSESSMENT ABCD Normal Findings: airway open and patent, circulation normal and alert and oriented ARRIVAL INFORMATION Means of Arrival: Ambulatory Mode of Arrival: private vehicle Arrival From: home Accompanied By: spouse/significant other CHIEF COMPLAINT HANNAH PAREDES is a Male patient with a chief complaint of lacerations (states he cut his right hand on a broken measuring cup). Triage Date/Time: 24-Mar-2022 13:47 LEELA: 4 Pain Rating (0-10): 3 = Mild Pain location: right hand Vital Signs: Temperature: 97.4F ( 36.3C) Blood Pressure: 204/71 Mean: Heart Rate: 69 Respiratory Rate: 16 Pulse Oximetry: 97% Height: 5 feet 8.00 inches. 172.7 CM Weight: 210.1 pounds. Calculated 95.3 kg. (stated) Calculated BMI (kg/m2): 31.952 Calculated BSA (m2) 2.14 [place] Coma Scale: Best Eye Response: (E4) spontaneous Best Motor Response: (M6) obeys commands Best Verbal Response: (V5) oriented Nette Score: 15 Patient has homicidal thoughts: no Symptoms Are POSITIVE For: laceration. Risk Screens Suicide Risk Screen In the Past Month: Have you wished you were or wished you could go to sleep and not wake up no In the Past Month: Have you had any actual thoughts of killing yourself no In Your Lifetime: Have you ever done anything, started to do anything, or prepared to do anything to end your life no Interventions: Ford Fall Interventions: LOW INTERVENTIONS: *patient oriented to surroundings and call system, * patient/family falls education completed and documented, *patients fall status communicated during bedside handoff, *whiteboard updated, *mode of toileting discussed with patient, *bed in low position with brakes locked, *call light in reach, * non-skid footwear PAST MEDICAL HISTORY Immunization History: Last Known Tetanus Immunization: Unknown TRAVEL HISTORY Travel History Coronavirus Screening: no exposure or symptoms Travel Exposure History: NO travel to International locations in the past 30 days PAIN Pain Scale Used: ANGELIKA Pain Rating (0-10): 3 = Mild Past Medical History: Past Medical History Reviewedyes Electronic Signatures: Haritha Zepeda (RN) (Signed 24-Mar-2022 13:56) Authored: Quick Triage, Risk Screens, Pain, Arrival, ABCD, Immunizations, Travel History, Chart Review, Scores, Past Medical History Last Updated: 24-Mar-2022 13:56 by Haritha Zepeda (RN) Normal [facility] Creatinineon 06-30-2019 Creatinine [Mass/Vol] 0.8 mg/dL Normal 0.5-1.3 [facility] Comment on above: Performed By: #### 2 [id number] #### OFELIA [facility] [place] [address] eGFRon 06-30-2019 GFR/1.73 sq M predicted among non-blacks MDRD (S/P/Bld) [Vol rate/Area] mL/min/{1.73_m2} Normal [facility] Comment on above: Order Comment: Order added by Discern Expert. Performed By: #### 1 [id number] #### OFELIA [facility] [place] [address] .Auto Diffon 05-28-2019 Ammonia (P) [Mass/Vol] 0.60 10 3/mcL Normal 0.15-1.00 [facility] ([place]) Comment on above: Performed By: #### C ABDON WARNER, ANEU #### [address] [id number] #### BMP, GFR #### [facility] [address] [place] [id number] Basophils (Bld) [#/Vol] 0.00 10 3/mcL Normal 0.00-0.19 [facility] ([place]) Comment on above: Performed By: #### C BCCRISTIANAIFF, ANEU #### [address] [address] #### BMP, GFR #### [address] [address] Basophils/100 WBC (Bld) 0.2 % Normal 0.0-2.5 [facility] ([place]) Comment on above: Performed By: #### C BC, ADIFF, ANEU #### [address] [address] #### BMP, GFR #### [address] [address] Eosinophils (Bld) [#/Vol] 0.00 10 3/mcL Normal 0.00-0.40 [facility] ([place]) Comment on above: Performed By: #### C BC, ADIFF, ANEU #### [address] [address] #### BMP, GFR #### [address] [address] Eosinophils/100 WBC (Bld) 0.1 % Normal 0.0-7.0 [facility] ([place]) Comment on above: Performed By: #### C BC, ADIFF, ANEU #### [address] [address] #### BMP, GFR #### [address] [address] Lymphocytes (Bld) [#/Vol] 1.20 10 3/mcL Normal 0.77-3.85 [facility] ([place]) Comment on above: Performed By: #### C BC, ADIFF, ANEU #### [place] [address] #### BMP, GFR #### [address] [address] Lymphocytes/100 WBC (Bld) 9.7 % Low 10.0-50.0 [facility] ([place]) Comment on above: Performed By: #### C BC, ADIFF, ANEU #### [address] [address] #### BMP, GFR #### [address] [address] Monocytes/100 WBC (Bld) 4.5 % Normal 1.7-13.0 A [facility] ([place]) Comment on above: Performed By: #### C BC, ADIFF, ANEU #### Jayla [address] [address] #### BMP, GFR #### [address] [address] Neutrophils/100 WBC (Bld) 85.5 % High 37.0-80.0 [facility] ([place]) Comment on above: Performed By: #### C BC, ADIFF, ANEU #### [place]la [address] [address] #### BMP, GFR #### [address] [address] .GFRon 05-28-2019 GFR Non- 63 ml/min/1.73sqm Normal [facility] ([place]) Comment on above: Result Comment: GFR Population mean for , Non- Americans Ages 20-29 = 116 mL/min/1.73 sq.m. Ages 30-39 = 107 mL/min/1.73 sq.m. Ages 40-49 = 99 mL/min/1.73 sq.m. Ages 50-59 = 93 mL/min/1.73 sq.m. Ages 60-69 = 85 mL/min/1.73 sq.m. Ages 70+ = 75 mL/min/1.73 sq.m. Chronic Kidney Disease: Less than 60 mL/min/1.73 square meters End Stage Renal Disease: Less than 15 mL/min/1.73 square meters Performed By: #### C BC, ADIFF, ANEU #### [place]la [address] [address] #### BMP, GFR #### [address] [address] GFR 76 ml/min/1.73sqm Normal [facility] ([place]) Comment on above: Result Comment: GFR Population mean for , Non- Americans Ages 20-29 = 116 mL/min/1.73 sq.m. Ages 30-39 = 107 mL/min/1.73 sq.m. Ages 40-49 = 99 mL/min/1.73 sq.m. Ages 50-59 = 93 mL/min/1.73 sq.m. Ages 60-69 = 85 mL/min/1.73 sq.m. Ages 70+ = 75 mL/min/1.73 sq.m. Chronic Kidney Disease: Less than 60 mL/min/1.73 square meters End Stage Renal Disease: Less than 15 mL/min/1.73 square meters Performed By: #### C ABDON WARNER, ANEU #### [place] [address] #### BMP, GFR #### [address] [address] .NEUABSon 05-28-2019 Neutrophils (Bld) [#/Vol] 10.80 10 3/mcL High 2.85-6.16 [facility] ([place]) Comment on above: Performed By: #### C ABDON WARNER ANEU #### [place] [address] #### BMP, GFR #### [address] [address] BMPon 05-28-2019 Calcium [Mass/Vol] 7.9 mg/dL Low 8.4-10.2 [facility] ([place]) Comment on above: Performed By: #### ABDON KRAMER, ANEU #### [place] [address] #### BMP, GFR #### [place] [address] Chloride [Moles/Vol] 104 mmol/L Normal 98-107 [facility] ([place]) Comment on above: Performed By: #### C ABDON WARNER ANEU #### [place] [id number] #### BMP, GFR #### [address] [address] CO2 [Moles/Vol] 24 mmol/L Normal 23-31 [facility] ([place]) Comment on above: Performed By: #### ABDON KRAMER, ANEU #### [address] [address] #### BMP, GFR #### [address] [address] Creatinine [Mass/Vol] 1.13 mg/dL Normal 0.70-1.30 [facility] ([place]) Comment on above: Performed By: #### C BC, ADIFF, ANEU #### [address] [address] #### BMP, GFR #### [address] [address] Electrolyte Balance 10.0 mEq/L Normal [facility] ([place]) Comment on above: Performed By: #### C BC, ADIFF, ANEU #### [address] [address] #### BMP, GFR #### [address] [address] Glucose [Mass/Vol] 149 mg/dL High 83-110 [facility] ([place]) Comment on above: Performed By: #### C BC, ADIFF, ANEU #### [address] [address] #### BMP, GFR #### [address] [address] Potassium [Moles/Vol] 4.6 mmol/L Normal 3.5-5.1 [facility] ([place]) Comment on above: Performed By: #### C BC, ADIFF, ANEU #### [address] [address] #### BMP, GFR #### [address] [address] Sodium [Moles/Vol] 138 mmol/L Normal 136-145 [facility] ([place]) Comment on above: Performed By: #### C BC, ADIFF, ANEU #### [address] [address] #### BMP, GFR #### [address] [address] Urea nitrogen [Mass/Vol] 19 mg/dL High 7-18 [facility] ([place]) Comment on above: Performed By: #### C CRISTIANA WARNERIFF, ANEU #### [address] [address] #### BMP, GFR #### [address] [address] Urea nitrogen/Creatinine [Mass ratio] 17 ratio Normal 7-27 [facility] ([place]) Comment on above: Performed By: #### C BC ADIFF, ANEU #### [address] [address] #### BMP, GFR #### [address] [address] CBCon 05-28-2019 Erythrocyte distribution width (RBC) [Ratio] 13.4 % Normal 11.5-14.5 [facility] ([place]) Comment on above: Performed By: #### C ABDON WARNER, ANEU #### [place] [address] #### BMP, GFR #### [address] [address] Hematocrit (Bld) [Volume fraction] 41.3 % Low 42.0-52.0 [facility] ([place]) Comment on above: Performed By: #### C ABDON WARNER, ANEU #### [address] [address] #### BMP, GFR #### [address] [address] Hemoglobin (Bld) [Mass/Vol] 13.4 G/dL Low 14.0-18.0 [facility] ([place]) Comment on above: Performed By: #### C ALNAA ADIFF, ANEU #### [address] [address] #### BMP, GFR #### [address] [address] MCH (RBC) [Entitic mass] 31.4 pg High 27.0-31.2 [facility] ([place]) Comment on above: Performed By: #### C BCCRISTIANAIFF, ANEU #### [address] [address] #### BMP, GFR #### [address] [address] MCHC (RBC) [Mass/Vol] 32.4 G/dL Normal 31.8-35.4 [facility] ([place]) Comment on above: Performed By: #### C BC, ADIFF, ANEU #### [place] [address] #### BMP, GFR #### [place] [address] MCV (RBC) [Entitic vol] 96.8 fL High 80.0-94.0 A [facility] ([place]) Comment on above: Performed By: #### C ALANA, ADIFF, ANEU #### [place] [address] #### BMP, GFR #### [place] [address] Platelet mean volume (Bld) [Entitic vol] 8.2 fL Normal 7.4-10.4 [facility] ([place]) Comment on above: Performed By: #### C ALANA, ABDON, ANEU #### [place] [address] #### BMP, GFR #### [place] [address] Platelets (Bld) [#/Vol] 166 10 3/mcL Normal 130-400 [facility] ([place]) Comment on above: Performed By: #### C BC, ADIFF, ANEU #### [place] [address] #### BMP, GFR #### [place] [id number] RBC (Bld) [#/Vol] 4.27 10 6/mcL Normal 4.04-6.13 [facility] ([place]) Comment on above: Performed By: #### C BC, ADIFF, ANEU #### Jayla [address] [address] #### BMP, GFR #### [address] [address] WBC (Bld) [#/Vol] 12.70 10 3/mcL High 4.60-10.80 [facility] ([place]) Comment on above: Performed By: #### C BCCRISTIANAIFF, ANEU #### [place] [address] #### BMP, GFR #### [place] [address] XR KNEE 1 OR 2 VIEWS LEFTon 05-27-2019 XR KNEE 1 OR 2 VIEWS LEFT ORIGINAL XR KNEE portable AP and crosstable lateral 2 VIEWS LEFT CLINICAL STATEMENT: Status Post Arthroplasty check prosthesis COMPARISON: CT 05/06/2019 FINDINGS: Interval Replacement with a total knee prosthesis show satisfactory alignment. Expected postoperative changes in the soft tissues. IMPRESSION: Expected Postoperative appearance of the knee following replacement surgery. Interpreted By: Chidi Burr MD Preliminary Report By: Chidi Burr MD Electronically Signed By: Chidi Burr MD Dictated Date: 05/27/2019 3:32:31 PM Prelim Date: 05/27/2019 3:32:31 PM Sign Date: 05/27/2019 3:33:17 PM Normal [facility] ([place]) .Auto Diffon 05-12-2019 Ammonia (P) [Mass/Vol] 0.70 10 3/mcL Normal 0.15-1.00 [facility] ([place]) Comment on above: Performed By: #### C ABDON WARNER, ANEU #### [place] [address] #### BMP, GFR #### [place] [address] Basophils (Bld) [#/Vol] 0.10 10 3/mcL Normal 0.00-0.19 [facility] ([place]) Comment on above: Performed By: #### C BCABDON, ANEU #### [place] [id number] #### BMP, GFR #### [place] [address] Basophils/100 WBC (Bld) 1.1 % Normal 0.0-2.5 A [facility] ([place]) Comment on above: Performed By: #### C BC, ADIFF, ANEU #### [address] [address] #### BMP, GFR #### [address] [address] Eosinophils (Bld) [#/Vol] 0.30 10 3/mcL Normal 0.00-0.40 [facility] ([place]) Comment on above: Performed By: #### C BC, ADIFF, ANEU #### [address] [address] #### BMP, GFR #### [address] [address] Eosinophils/100 WBC (Bld) 4.0 % Normal 0.0-7.0 [facility] ([place]) Comment on above: Performed By: #### C ALANA, ADIFF, ANEU #### [address] [address] #### BMP, GFR #### [address] [address] Lymphocytes (Bld) [#/Vol] 1.90 10 3/mcL Normal 0.77-3.85 [facility] ([place]) Comment on above: Performed By: #### C ABDON WARNER, ANEU #### [place] [address] #### BMP, GFR #### [address] [address] Lymphocytes/100 WBC (Bld) 28.0 % Normal 10.0-50.0 [facility] ([place]) Comment on above: Performed By: #### C BC, ADIFF, ANEU #### [place] [address] #### BMP, GFR #### [address] [address] Monocytes/100 WBC (Bld) 10.6 % Normal 1.7-13.0 [facility] ([place]) Comment on above: Performed By: #### C BC, ADIFF, ANEU #### [address] [address] #### BMP, GFR #### [address] [address] Neutrophils/100 WBC (Bld) 56.3 % Normal 37.0-80.0 [facility] ([place]) Comment on above: Performed By: #### C BC, ADIFF, ANEU #### [place]la [address] [address] #### BMP, GFR #### [address] [address] .GFRon 05-12-2019 GFR Non- 73 ml/min/1.73sqm Normal [facility] ([place]) Comment on above: Result Comment: GFR Population mean for , Non- Americans Ages 20-29 = 116 mL/min/1.73 sq.m. Ages 30-39 = 107 mL/min/1.73 sq.m. Ages 40-49 = 99 mL/min/1.73 sq.m. Ages 50-59 = 93 mL/min/1.73 sq.m. Ages 60-69 = 85 mL/min/1.73 sq.m. Ages 70+ = 75 mL/min/1.73 sq.m. Chronic Kidney Disease: Less than 60 mL/min/1.73 square meters End Stage Renal Disease: Less than 15 mL/min/1.73 square meters Performed By: #### C BC, ADIFF, ANEU #### [address] [address] #### BMP, GFR #### [address] [address] GFR 89 ml/min/1.73sqm Normal [facility] ([place]) Comment on above: Result Comment: GFR Population mean for , Non- Americans Ages 20-29 = 116 mL/min/1.73 sq.m. Ages 30-39 = 107 mL/min/1.73 sq.m. Ages 40-49 = 99 mL/min/1.73 sq.m. Ages 50-59 = 93 mL/min/1.73 sq.m. Ages 60-69 = 85 mL/min/1.73 sq.m. Ages 70+ = 75 mL/min/1.73 sq.m. Chronic Kidney Disease: Less than 60 mL/min/1.73 square meters End Stage Renal Disease: Less than 15 mL/min/1.73 square meters Performed By: #### C BCCRISTIANAIFF, ANEU #### [place] [address] #### BMP, GFR #### [address] [address] .NEUABSon 05-12-2019 Neutrophils (Bld) [#/Vol] 3.70 10 3/mcL Normal 2.85-6.16 [facility] ([place]) Comment on above: Performed By: #### C ABDON WARNER, ANEU #### [place] [address] #### BMP, GFR #### [place] [address] BMPon 05-12-2019 Calcium [Mass/Vol] 9.2 mg/dL Normal 8.4-10.2 [facility] ([place]) Comment on above: Performed By: #### C CRISTIANA WARNERIFF, ANEU #### [address] [address] #### BMP, GFR #### [place] [id number] Chloride [Moles/Vol] 105 mmol/L Normal 98-107 [facility] ([place]) Comment on above: Performed By: #### C BC, ADIFF, ANEU #### [place] [address] #### BMP, GFR #### [place] [id number] CO2 [Moles/Vol] 26 mmol/L Normal 23-31 [facility] ([place]) Comment on above: Performed By: #### C BCCRISTIANAIFF, ANEU #### [address] [address] #### BMP, GFR #### [address] [address] Creatinine [Mass/Vol] 0.99 mg/dL Normal 0.70-1.30 [facility] ([place]) Comment on above: Performed By: #### C BC, ADIFF, ANEU #### [address] [address] #### BMP, GFR #### [address] [address] Electrolyte Balance 9.0 mEq/L Normal [facility] ([place]) Comment on above: Performed By: #### C BC, ADIFF, ANEU #### [address] [address] #### BMP, GFR #### [address] [address] Glucose [Mass/Vol] 101 mg/dL Normal 83-110 [facility] ([place]) Comment on above: Performed By: #### C BC, ADIFF, ANEU #### [address] [address] #### BMP, GFR #### [address] [address] Potassium [Moles/Vol] 4.3 mmol/L Normal 3.5-5.1 [facility] ([place]) Comment on above: Performed By: #### C BC, ADIFF, ANEU #### [address] [address] #### BMP, GFR #### [address] [address] Sodium [Moles/Vol] 140 mmol/L Normal 136-145 [facility] ([place]) Comment on above: Performed By: #### C BC, ADIFF, ANEU #### [address] [address] #### BMP, GFR #### [address] [address] Urea nitrogen [Mass/Vol] 17 mg/dL Normal 7-18 [facility] ([place]) Comment on above: Performed By: #### C BC, ADIFF, ANEU #### [address] [address] #### BMP, GFR #### [address] [address] Urea nitrogen/Creatinine [Mass ratio] 17 ratio Normal 7-27 [facility] ([place]) Comment on above: Performed By: #### C BC, ADIFF, ANEU #### [place] [address] #### BMP, GFR #### [address] [address] CBCon 05-12-2019 Erythrocyte distribution width (RBC) [Ratio] 13.9 % Normal 11.5-14.5 [facility] ([place]) Comment on above: Performed By: #### C BC, ADIFF, ANEU #### [place] [address] #### BMP, GFR #### [address] [address] Hematocrit (Bld) [Volume fraction] 43.4 % Normal 42.0-52.0 [facility] ([place]) Comment on above: Performed By: #### C BC, ADIFF, ANEU #### [address] [address] #### BMP, GFR #### [address] [address] Hemoglobin (Bld) [Mass/Vol] 14.8 G/dL Normal 14.0-18.0 [facility] ([place]) Comment on above: Performed By: #### C BC, ADIFF, ANEU #### [place] [address] #### BMP, GFR #### [address] [address] MCH (RBC) [Entitic mass] 31.9 pg High 27.0-31.2 [facility] ([place]) Comment on above: Performed By: #### C BC, ADIFF, ANEU #### [place] [id number] #### BMP, GFR #### [address] [address] MCHC (RBC) [Mass/Vol] 34.2 G/dL Normal 31.8-35.4 [facility] ([place]) Comment on above: Performed By: #### C BC, ADIFF, ANEU #### [place] [address] #### BMP, GFR #### [address] [address] MCV (RBC) [Entitic vol] 93.5 fL Normal 80.0-94.0 A [facility] ([place]) Comment on above: Performed By: #### C BC, ADIFF, ANEU #### [place] [address] #### BMP, GFR #### [place] [address] Platelet mean volume (Bld) [Entitic vol] 8.0 fL Normal 7.4-10.4 [facility] ([place]) Comment on above: Performed By: #### C BC, ADIFF, ANEU #### [place] [address] #### BMP, GFR #### [address] [address] Platelets (Bld) [#/Vol] 175 10 3/mcL Normal 130-400 [facility] ([place]) Comment on above: Performed By: #### C BC, ADIFF, ANEU #### [place] [id number] #### BMP, GFR #### [address] [address] RBC (Bld) [#/Vol] 4.65 10 6/mcL Normal 4.04-6.13 [facility] ([place]) Comment on above: Performed By: #### C BC, ADIFF, ANEU #### [place] [address] #### BMP, GFR #### [facility] [address] [place] [address] WBC (Bld) [#/Vol] 6.60 10 3/mcL Normal 4.60-10.80 [facility] ([place]) Comment on above: Performed By: #### C BC, ADIFF, ANEU #### [place] [address] [place], [place] [address] #### BMP, GFR #### [address] [address] [address] KNEE W/O CONTRAST LEFTon 05-06-2019 CT KNEE W/O CONTRAST LEFT ORIGINAL CT KNEE W/O CONTRAST LEFT This exam was performed according to our departmental dose optimization program, and includes the following measures where applicable: automated exposure control, adjustment of the mAs and/or kVp according to patient size and/or exam, and an iterative reconstruction algorithm. CLINICAL STATEMENT: VARUS DEFORMITY COMPARISON: None FINDINGS: Axial images were acquired at the hip, knee, and ankle. Sagittal and coronal reformations of the knee were acquired. The medial tibiofemoral joint compartment is narrowed. Small tricompartmental osteophyte formation is demonstrated. There also are traction osteophytes from the patella. There is small to moderate suprapatellar effusion. A small popliteal cyst is demonstrated. There is no fracture. A LEFT total hip arthroplasty appears intact. There may be enthesopathy or remote avulsion from the anterior inferior iliac spine. There is no acute abnormality of the LEFT ankle. 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 Interpreted By: Indu Smith MD Preliminary Report By: Indu Smith MD Electronically Signed By: Indu Smith MD Dictated Date: 05/06/2019 10:13:46 AM Prelim Date: 05/06/2019 10:13:46 AM Sign Date: 05/06/2019 11:18:08 AM Normal [facility] ([place]) PSA Totalon 03-06-2019 PSA Total 0.36 ng/mL Normal [facility] Comment on above: Result Comment: AGE- SPECIFIC REFERENCE RANGES FOR SERUM PSA REFERENCE RANGE NG/ML AGE ASIANS BLACKS WHITE 40-49 0-2 0-2 0-2.5 50-59 0-3 0-4 0-3.5 60-69 0-4 0-4.5 0-4.5 70-79 0-5 0-5.5 0-6.5 PSA INCREASES WITH AGE, RACE, AND EJACULATION WITHIN 48 HRS. [facility] VOL24,NO.2, , PG.339 Performed By: #### 1 [id number] #### [facility] [address] [place] [address] Comp Metabolic Panelon 06-15 ALP enzyme act/vol 47 U/L Normal 38-126 [facility] Comment on above: Performed By: #### H EMDF, PT, CMP3 ####[place] [address] [employer] [place], [place] ALT enzyme act/vol 44 U/L Normal 13-69 [facility] Comment on above: Performed By: #### H EMDF, PT, CMP3 ####[place] [address] [employer] [place], [place] Anion gap 3 molar conc 10 Normal [facility] Comment on above: Performed By: #### H EMDF, PT, CMP3 ####[place] [address] [employer] [place] AST enzyme act/vol 33 U/L Normal 15-46 [facility] Comment on above: Performed By: #### H EMDF, PT, CMP3 ####[place] [address] [employer] [place] Bilirubin mass conc 0.4 mg/dL Normal 0.2-1.3 [facility] Comment on above: Performed By: #### H EMDF, PT, CMP3 ####[place] [address] [employer] [place] Calcium mass conc 9.1 mg/dL Normal 8.4-10.4 [facility] Comment on above: Performed By: #### H EMDF, PT, CMP3 ####[place] [address] [employer] [place], [place] CO2 molar conc 21 mmol/L Low 22-30 [facility] Comment on above: Performed By: #### H EMDF, PT, CMP3 ####[facility] [id number] [place] [address] Glucose mass conc 123 mg/dL High 70-100 [facility] Comment on above: Performed By: #### H DELL PT, CMP3 ####[facility] [address] [place] [address] Protein mass conc 7.1 g/dL Normal 6.3-8.2 [facility] Comment on above: Performed By: #### H DELL PT, CMP3 ####[facility] [address] [address] Urea nitrogen mass conc 16 mg/dL Normal 7-20 S [facility] Comment on above: Performed By: #### H DELL PT, CMP3 ####[facility] [address] [address] Creatinine mass conc 0.84 mg/dL Normal 0.52-1.25 [facility] Comment on above: Performed By: #### H DELL PT, CMP3 ####[facility] [address] [address] GFR/1.73 sq M predicted among blacks MDRD vol rate/area (S/P/Bld) mL/min/{1.73_m2} Normal >60 [facility] Comment on above: Performed By: #### H DELL PT, CMP3 ####[facility] [address] [address] GFR/1.73 sq M predicted among non-blacks MDRD vol rate/area (S/P/Bld) mL/min/{1.73_m2} Normal >60 [facility] Comment on above: Result Comment: Sour ce- MDRD equation with creatinine calibration to IDMS(NKDEP) eGFR not recommended for drug dose adjustment Performed By: #### H DELL PT, CMP3 ####[facility] [address] [address] Albumin mass conc 4.2 g/dL Normal 3.5-5.0 [facility] Comment on above: Performed By: #### H DELL PT, CMP3 ####[place] [address] [place], [place] Chloride molar conc 109 mmol/L High 98-107 [facility] Comment on above: Performed By: #### H DELL PT, CMP3 ####[address] Potassium molar conc 4.0 mmol/L Normal 3.5-5.1 [facility] Comment on above: Performed By: #### H DELL PT, CMP3 ####[address] Sodium molar conc 140 mmol/L Normal 137-145 [facility] Comment on above: Performed By: #### H DELL PT, CMP3 ####[address] Hemogram w/ Autodiffon 06-15 Abs Baso Cnt 0.0 10*3/uL Normal 0.0-0.2 [facility] Comment on above: Performed By: #### H DELL PT, CMP3 ####[address] Abs Neutrophile Cnt 14.2 10*3/uL High 1.8-7.0 [facility] Comment on above: Performed By: #### H DELL PT, CMP3 ####[address] Basophils/100 WBC Auto (Bld) 0.3 % Normal 0.0-2.0 [facility] Comment on above: Performed By: #### H DELL PT, CMP3 ####[place] [address] [place], [place] Eosinophils Auto #/vol (Bld) 0.0 10*3/uL Normal 0.0-0.5 [facility] Comment on above: Performed By: #### H DELL PT, CMP3 ####[place] [address] [place], [place] Eosinophils/100 WBC Auto (Bld) 0.0 % Low 1.0-6.0 [facility] Comment on above: Performed By: #### H DELL PT, CMP3 ####[address] Erythrocyte distribution width Auto Ratio (RBC) 13.9 % Normal 11.5-14.5 [facility] Comment on above: Performed By: #### H DELL PT, CMP3 ####[address] Granulocytes/100 WBC (Bld) 85.7 % High 40.0-80.0 [facility] Comment on above: Performed By: #### H DELL PT, CMP3 ####[address] Hematocrit Auto Volume Fraction (Bld) 45.9 % Normal 40.0-52.0 [facility] Comment on above: Performed By: #### H DELL PT, CMP3 ####[address] Hemoglobin mass conc (Bld) 15.6 g/dL Normal 13.0-18.0 [facility] Comment on above: Performed By: #### H DELL PT, CMP3 ####[address] Lymphocytes Auto #/vol (Bld) 1.3 10*3/uL Normal 1.0-4.3 [facility] Comment on above: Performed By: #### H DELL PT, CMP3 ####[address] Lymphocytes/100 WBC Auto (Bld) 8.1 % Low 20.0-40.0 [facility] Comment on above: Performed By: #### H EMDF PT, CMP3 ####[address] MCH Auto Entitic mass (RBC) 31.2 pg Normal 26.0-34.0 [facility] Comment on above: Performed By: #### H EMDF, PT, CMP3 ####[address] MCHC Auto mass conc (RBC) 34.0 % Normal 32.0-36.0 [facility] Comment on above: Performed By: #### H EMDF, PT, CMP3 ####[address] MCV Auto Entitic volume (RBC) 92.0 fL Normal 80.0-98.0 [facility] Comment on above: Performed By: #### H EMDF, PT, CMP3 ####[address] Monocytes Auto #/vol (Bld) 1.0 10*3/uL High 0.0-0.8 [facility] Comment on above: Performed By: #### H EMDF, PT, CMP3 ####[address] Monocytes/100 WBC Auto (Bld) 5.9 % Normal 2.0-10.0 [facility] Comment on above: Performed By: #### H EMDF, PT, CMP3 ####[address] Platelet mean volume Auto Entitic volume (Bld) 7.9 fL Normal 7.4-10.4 [facility] Comment on above: Performed By: #### H EMDF, PT, CMP3 ####[address] Platelets Auto #/vol (Bld) 190 10*3/uL Normal 140-440 [facility] Comment on above: Performed By: #### H EMDF, PT, CMP3 ####[address] RBC Auto #/vol (Bld) 4.99 10*6/uL Normal 4.40-5.90 [facility] Comment on above: Performed By: #### H EMDF, PT, CMP3 ####[facility] [place], [place] WBC Auto #/vol (Bld) 16.5 10*3/uL High 3.6-10.7 [facility] Comment on above: Performed By: #### H EMDF, PT, CMP3 ####[facility] [address] Prothrombin Timeon 8 INR Coag RelTime (PPP) 1.0 Normal 0.9-1.1 [facility] Comment on above: Result Comment: Berny mmended Anticoagulant Therapy: SEE BELOW----- INR of 2.0 - 3.0 : - Prophylaxis of Venous Thrombosis (high-risk surgery) - Treatment of Venous Thrombosis - Treatment of Pulmonary Embolism (Includes tissue heart valves, Acute Myocardial Infarction to prevent systemic embolism, Valvular Heart Disease, and Atrial Fibrillation)----- INR of 2.5 - 3.5 : - Mechanical Prosthetic Valves (high risk) - If oral anticoagulant therapy is used to prevent Myocardial Infarction Performed By: #### H EMDF, PT, CMP3 ####[facility] [address] [address] Prothrombin time (PT) Coag time (PPP) 10.9 s Normal 9.0-12.0 [facility] Comment on above: Result Comment: . Performed By: #### H EMDF, PT, CMP3 ####[facility] [address] Urinalysis,Macroon 8 Appearance cloudy Normal Clear [facility] Comment on above: Performed By: #### U AMAC, UAMIC ####[facility] [address] [place], [place] Bilirubin,Ur Negative Normal Negative [facility] Comment on above: Performed By: #### U AMAC, UAMIC ####[facility] [id number] [place], [place] Color red Normal Lt. Yellow [facility] Comment on above: Performed By: #### U AMAC, UAMIC ####[facility] [address] Glucose Ql (U) NORM Normal Negative [facility] Comment on above: Performed By: #### U AMAC, UAMIC ####[address] [place], [place] Ketone,Urine Trace Normal Negative [facility] Comment on above: Performed By: #### U AMAC, UAMIC ####[address] [place], [place] Leukocytes Trace Normal Negative [facility] Comment on above: Performed By: #### U AMAC, UAMIC ####[facility] [address] [place], [place] Nitrites Negative Normal Negative [facility] Comment on above: Performed By: #### U AMAC, UAMIC ####[address] [place], [place] Occult Blood,Ur 250 {RBC}/uL Normal Negative [facility] Comment on above: Performed By: #### U AMAC, UAMIC ####[address] [place], [place] pH Test strip (U) 5.0 Normal 5.0-8.0 [facility] Comment on above: Performed By: #### U AMAC, UAMIC ####[address] [place], [place] Specific [place],Urine 1.010 Normal 1.005-1.030 S [facility] Comment on above: Performed By: #### U AMAC, UAMIC ####[address] [place], [place] Total Protein,Urine 150 mg/dL Normal Negative [facility] Comment on above: Performed By: #### U AMAC, UAMIC ####[facility] [id number] [place], [place] Urobilinogen NORM Normal 0-1 [facility] Comment on above: Performed By: #### U AMAC, UAMIC ####[address] [place], [place] Urinalysis,Microscopicon Bacteria Present Normal Negative [facility] Comment on above: Performed By: #### U AMAC, UAMIC ####[facility] [id number] [place] [address] Epithelial Cells Negative Normal 3-5 [facility] Comment on above: Performed By: #### U AMAC, UAMIC ####[facility] [address] [place] [address] RBC LM.HPF #/area (Urine sed) see below Normal 0-2 [facility] Comment on above: Result Comment: Toña sly loaded, unable to identify any other formed elements. Performed By: #### U AMAC, UAMIC ####[facility] [id number] [place] [address] WBC LM.HPF #/area (Urine sed) Present Normal 0-5 [facility] Comment on above: Performed By: #### U AMAC, UAMIC ####[facility] [id number] [place], [place] Vital Signs Date Time Vital Sign Value Performing Clinician Facility 01-28-2025 08:35-0400 Body height 172.[address] Mahin Ryan MD Work Phone: [facility] 01-28-2025 08:35-0400 Body mass index (BMI) [Ratio] 32.5 kg/m2 Dr. Mahin Ryan MD Work Phone: [facility] 01-28-2025 08:35-0400 Body weight 97.[address] Mahin Ryan MD Work Phone: [facility] 01-28-2025 08:35-0400 Diastolic blood pressure 79 mm[Hg] Dr. Mahin Ryan MD Work Phone: [facility] 01-28-2025 08:35-0400 Heart rate 70 /min Dr. Mahin Ryan MD Work Phone: [facility] 01-28-2025 08:35-0400 Respiratory rate 18 /min Dr. Mahin Ryan MD Work Phone: [facility] 01-28-2025 08:35-0400 SaO2% (BldA) [Mass fraction] 94 % Dr. Mahin Ryan MD Work Phone: [facility] 01-28-2025 08:35-0400 Systolic blood pressure 163 mm[Hg] Dr. Mahin Ryan MD Work Phone: [facility] 07-04-2024 10:13-0400 Body mass index (BMI) [Ratio] 34.16 kg/m2 Ross Saldaña Jr., MD Work Phone: [facility] 07-04-2024 10:13-0400 Body weight 101.88 kg Ross Saldaña Jr., MD Work Phone: [facility] 07-04-2024 10:13-0400 Diastolic blood pressure 99 mm[Hg] Ross Saldaña Jr., MD Work Phone: [facility] 07-04-2024 10:13-0400 Heart rate 82 /min Ross Saldaña Jr., MD Work Phone: [facility] 07-04-2024 10:13-0400 SaO2% (BldA) [Mass fraction] 96 % Ross Saldaña Jr., MD Work Phone: [facility] 07-04-2024 10:13-0400 Systolic blood pressure 167 mm[Hg] Ross Saldaña Jr., MD Work Phone: [facility] 09-20-2023 13:49-0500 Body height 172.[address] Mahin Ryan Work Phone: [facility] 09-20-2023 13:49-0500 Body mass index (BMI) [Ratio] 34.2 kg/m2 Dr. Mahin Ryan Work Phone: [facility] 09-20-2023 13:49-0500 Body temperature 98.6 [degF] Dr. Mahin Ryan Work Phone: [facility] 09-20-2023 13:49-0500 Body weight 102.[address] Mahin Ryan Work Phone: [facility] 09-20-2023 13:49-0500 Diastolic blood pressure 62 mm[Hg] Dr. Mahin Ryan Work Phone: [facility] 09-20-2023 13:49-0500 Heart rate 86 /min Dr. Mahin Ryan Work Phone: [facility] 09-20-2023 13:49-0500 Respiratory rate 14 /min Dr. Mahin Ryan Work Phone: [facility] 09-20-2023 13:49-0500 SaO2% (BldA) [Mass fraction] 94 % Dr. Mahin Ryan Work Phone: [facility] 09-20-2023 13:49-0500 Systolic blood pressure 142 mm[Hg] Dr. Mahin Ryan Work Phone: [facility] 03-24-2022 15:53-0400 Body height 172.7 cm Ethan Mcgarry Other Phone: [facility] 03-24-2022 15:53-0400 Body temperature 97.34 [degF] Ethan Mcgarry Other Phone: [facility] 03-24-2022 15:53-0400 Body weight 95.3 kg Ethan Mcgarry Other Phone: [facility] 03-24-2022 15:53-0400 Diastolic blood pressure 71 mm[Hg] Ethan Mcgarry Other Phone: [facility] 03-24-2022 15:53-0400 Heart rate 69 /min Ethan Mcgarry Other Phone: [facility] 03-24-2022 15:53-0400 Respiratory rate 16 /min Ethan Mcgarry Other Phone: [facility] 03-24-2022 15:53-0400 SaO2% (BldA) [Mass fraction] 97 % Ethan Mcgarry Other Phone: [facility] 03-24-2022 15:53-0400 Systolic blood pressure 204 mm[Hg] Ethan Mcgarry Other Phone: [facility] 03-20-2022 13:47-0400 Body temperature 97.3 [degF] Ross Saldaña Jr., MD Work Phone: [facility] 03-20-2022 13:47-0400 Body weight 97.34 kg Ross Saldaña Jr., MD Work Phone: [facility] 03-20-2022 13:47-0400 Diastolic blood pressure 70 mm[Hg] Ross Saldaña Jr., MD Work Phone: [facility] 03-20-2022 13:47-0400 Heart rate 62 /min Ross Saldaña Jr., MD Work Phone: [facility] 03-20-2022 13:47-0400 Respiratory rate 18 /min Ross Saldaña Jr., MD Work Phone: [facility] 03-20-2022 13:47-0400 SaO2% (BldA) [Mass fraction] 96 % Ross Saldaña Jr., MD Work Phone: [facility] 03-20-2022 13:47-0400 Systolic blood pressure 128 mm[Hg] Ross Saldaña Jr., MD Work Phone: [facility] Encounters Encounter Date Encounter Type Care Provider Facility Start: 07-20-2025 End: 07-20-2025 ambulatory SELF Facility:[facility] Start: 07-02-2025 End: 07-02-[address] Mahin Ryan MD Work Phone: -[facility] Start: 07-02-2025 End: 07-02-[address] Mahin Rayn MD -[facility]atory [facility] Work Phone: Start: 07-02-2025 End: 07-02-2025 ambulatory Mahin Ryan Facility:[facility] Start: 06-24-2025 End: 06-24-[address] Mahin Ryan MD Work Phone: -Laboratory [place] Start: 06-24-2025 End: 06-24-[address] Mahin Ryan MD -Laboratory [place] Work Phone: Start: 06-24-2025 End: 06-24-2025 ambulatory Mahin Ryna Facility:[facility] Start: 02-18-2025 End: 06-02-2025 E-mail encounter from caregiver Ross Saldaña Jr., MD Work Phone: Neurology Start: 02-18-2025 End: 06-02-2025 Patient encounter procedure Ross Saldaña MD Work Phone: Neurology Comment on above: Appointment Request Start: 02-17-2025 Non-patient / Non-visit Dr. Dayton mejia MD -[facility] Start: 02-17-2025 End: 02-17-[address] Mahin Ryan MD Work Phone: [facility] Work Phone: Start: 02-17-2025 End: 02-17-[address] Mahin Ryan MD -Cardiovascular Services Work Phone: Start: 02-17-2025 End: 02-17-2025 ambulatory Mahin Ryan Facility:[facility] Start: 01-28-2025 End: 01-28-2025 Patient encounter procedure Sofia SULLIVAN -[facility] Work Phone: Start: 01-28-2025 End: 01-28-2025 ambulatory Mahin Ryan Facility:[facility] Start: 12-18-2024 End: 12-18-[address] Mahin Ryan MD Work Phone: [facility] Work Phone: Start: 12-18-2024 End: 12-18-[address] Mahin Ryan MD -Laboratory, [place] Work Phone: Start: 12-18-2024 End: 12-18-2024 ambulatory Mahin Ryan Facility:[facility] Start: 08-22-2024 End: 08-22-2024 ambulatory [facility] Jules Ryan Facility:[facility] Start: 07-30-2024 End: 07-30-2024 [facility] Start: 07-04-2024 End: 07-04-2024 Patient encounter procedure Ross Saldaña MD Work Phone: Neurology Comment on above: EFREN on CPAP (Primary Dx); Class 1 obesity with body mass index (BMI) of 34.0 to 34.9 in adult, unspecified obesity type, unspecified whether serious comorbidity present Start: 03-21-2024 Telephone encounter Ross Saldaña MD Work Phone: Neurology Start: 02-19-2024 Telephone encounter Irasema Lenz [employer] Work Phone: Neurology Comment on above: Orders (Faxed office note to Temo Bright and received confirmation at [phone].) Start: 01-28-2024 Telephone encounter Kostas smith [employer] Work Phone: Neurology Comment on above: PAP Therapy Follow U p (12/29/23 - 01/27/24 ) Start: 12-04-2023 End: 12-04-[address] Mahin Ryan Work Phone: [facility] Work Phone: Start: 12-04-2023 End: 12-04-[address] Mahin Ryan Work Phone: [facility]-Speech Therapy Work Phone: Start: 09-20-2023 End: 09-20-[address] Mahin Ryan Work Phone: [facility] Work Phone: Start: 08-07-2023 Telephone encounter Ross Saldaña MD Work Phone: Neurology Comment on above: Patient Question Start: 07-31-2023 End: 07-31-2023 ambulatory ROSS SALDAÑA JR Facility[facility] Start: 07-31-2023 End: 07-31-2023 ambulatory Ross Saldaña MD Work Phone: Sleep Comment on above: Obstructive sleep ap edgar (Primary Dx); Class 1 obesity with body mass index (BMI) of 33.0 to 33.9 in adult, unspecified obesity type, unspecified whether serious comorbidity present Start: 07-31-2023 End: 07-31-2023 Telemedicine consultation with patient Ross Saldaña Jr., MD Work Phone: [facility] Start: 07-17-2023 Telephone encounter Ross Saldaña MD Work Phone: Sleep Comment on above: cpap compliance Start: 06-29-2023 End: 06-29-[address] [facility] Work Phone: Start: 06-29-2023 End: 06-29-2023 Patient encounter procedure [facility] Work Phone: Start: 05-14-2023 Registered Recurring [facility]-Speech Therapy Work Phone: Start: 03-02-2023 Non-patient / Non-visit Dr. Reji Mcgarry Work Phone: [facility] Start: 03-02-2023 End: 03-02-[address] Ethan Mcgarry Work Phone: [facility] Work Phone: Start: 03-02-2023 End: 03-02-[address] Ethan Mcgarry Work Phone: [facility]-Cardiovascular Services Start: 02-27-2023 Non-patient / Non-visit Dr. Reji Mcgarry Work Phone: [facility] Start: 02-27-2023 End: 02-27-[address] Ethan Mcgarry Work Phone: [facility]-Cardiovascular Services Start: 02-21-2023 End: 02-21-[address] Ethan Mcgarry Work Phone: [facility] Gastroenterology Start: 12-26-2022 End: 12-26-[address] Ethan Mcgarry Work Phone: [facility] Work Phone: Start: 12-26-2022 End: 12-26-[address] Ethan Mcgarry Work Phone: [facility]-Radiology, [facility] Start: 12-14-2022 End: 12-14-[address] Ethan Mcgarry Work Phone: [facility] Work Phone: Start: 12-14-2022 End: 12-14-[address] Ethan Mcgarry Work Phone: [facility] Start: 12-07-2022 End: 12-07-[address] Ethan Mcgarry Work Phone: [facility] Work Phone: Start: 12-07-2022 End: 12-07-[address] Ethan Mcgarry Work Phone: [facility]-Cat Scan, [facility] Start: 11-29-2022 End: 11-29-2022 ambulatory Irasema Cassia [employer]GRAM DIRECTOR Work Phone: Neurology Comment on above: Obstructive sleep ap edgar (adult) (pediatric) (Primary Dx) Start: 11-29-2022 End: 11-29-2022 Telemedicine consultation with patient Irasema Antony [employer] DIRECT[employer] Work Phone: [facility] Start: 11-24-2022 End: 11-24-[address] Ethan Mcgarry Work Phone: [facility] Work Phone: Start: 11-24-2022 End: 11-24-[address] Ethan Mcgarry Work Phone: [facility]enter[facility] Start: 10-23-2022 Office outpatient ne w 30 minutes Ethan Mcgarry Work Phone: [facility] Work Phone: Start: 10-23-[address] Ethan Mcgarry Facility: Start: 09-26-2022 Telephone encounter Ross Saldaña MD Work Phone: Neurology Comment on above: Orders (Pressure shy nge on AutoVPAP) Start: 09-20-2022 ambulatory Ross garcia MD Work Phone: Neurology Comment on above: Cpap Start: 08-30-2022 Telephone encounter Ross Saldaña MD Work Phone: Neurology Comment on above: Appointment Start: 08-29-2022 Telephone encounter Ross Saldaña MD Work Phone: Neurology Comment on above: Orders (AutoPAP orde r faxed to [facility]) Start: 08-28-2022 End: 08-28-2022 ambulatory Ross Saldaña MD Work Phone: Neurology Comment on above: Obstructive sleep ap edgar (adult) (pediatric) (Primary Dx) Start: 08-28-2022 End: 08-28-2022 Telemedicine consultation with patient Ross Saldaña Jr., MD Work Phone: [facility] Start: 08-23-2022 Telephone encounter Ross Saldaña MD Work Phone: Neurology Comment on above: Question Start: 08-22-2022 ambulatory Ross garcia MD Work Phone: Neurology Comment on above: Cpap Start: 04-20-2022 Telephone encounter Ross Saldaña MD Work Phone: Neurology Comment on above: Electronic Communica tion Start: 03-24-2022 End: 03-24-2022 Emergency department patient visit Loni Miriam [facility] Emergency 03 Start: 03-20-2022 End: 03-20-2022 Patient encounter procedure Ross Saldaña MD Work Phone: Neurology Comment on above: Obstructive sleep ap edgar (adult) (pediatric) (Primary Dx) Start: 06-15-2018 Emergency department patient visit [facility] Procedures Date Procedure Procedure Detail Performing Clinician Start: 06-24-2025 Urnls dip stick/tabl et reagent auto microscopy Dr. Mahin Ryan MD Work Phone: Start: 03-02-[address] Ethan Mcgarry Work Phone: Start: 12-26-[address] Ethan Mcgarry Work Phone: Start: 12-07-2022 Computed tomography of abdomen and pelvis with contrast Dr. Ethan Mcgarry Work Phone: Start: 07-28-2019 Follow-up visit Start: 04-22-2019 Transurethral prostatectomy Ethan Mcgarry Work Phone: Arthroplasty of knee Mahin Keating ck II Cataract surgery Mahin Erwni I I Operative procedure on spinal structure Mahin Erwin II Prosthetic arthropla sty of the hip Mahin Erwin II Tonsillectomy Mahin Erwin II Total replacement of hip Sco franky Mcgarry Work Phone: End: 04-22-2019 Transurethral prostatectomy Mahin Erwin II Plan of Treatment Date Care Activity Detail Author Start: 07-06-2025 End: 07-06-2025 Patient encounter procedure Neurology Comment on above: EFREN follow up, On rview Start: 06-15-2025 Influenza vaccination Influenz a Vaccine (#1) [facility] Start: 02-03-2025 Urine microalbumin profile [facility] Start: 10-15-2024 Advance Directive Discussion Advance Directive Discussion [facility] Start: 06-15-2024 Covid-19 Vaccine () Covid-19 Vaccine () [facility] Start: 06-15-2024 Influenza vaccination Influenz a Vaccine (#1) [facility] Start: 10-15-2023 Advance Directive Discussion Advance Directive Discussion [facility] Start: 10-15-2023 Behavioral Health Screening Behavioral Health Screening [facility] Start: 09-17-2023 Shingrix Vaccine (2 of 2) Shingrix Vaccine (2 of 2) [facility] Start: 06-15-2023 Covid-19 Vaccine ( season) Covid-19 Vaccine () [facility] Start: 06-15-2023 Influenza vaccination Influenz a Vaccine (#1) [facility] Start: 02-05-2023 FUV, Provider: Marc Rahman, Status: Pen, Time: 1:30 PM FUV, Provider: Marc Rahman, Status: Pen, Time: 1:30 PM WN-Zjzkexzanhsfkw-R [place] Work Phone: Start: 10-15-2022 ADVANCE DIRECTIVE DISCUSSION ADVANCE DIRECTIVE DISCUSSION [facility] Start: 10-15-2022 DEPRESSION ASSESSMENT DEPRESSION ASS ESSMENT [facility] Start: 06-15-2022 Influenza vaccination [facility] Start: 11-18-2021 COVID-19 VACCINE (4 - Booster for Pfizer series) COVID-19 VACCINE (4 - Booster for Pfizer series) [facility] Start: 10-15-2021 ADVANCE DIRECTIVE DISCUSSION ADVANCE DIRECTIVE DISCUSSION [facility] Start: 10-15-2021 DEPRESSION ASSESSMENT DEPRESSION ASS ESSMENT [facility] Start: 09-26-2021 Covid-19 Vaccine (5 - Pfizer series) Covid-19 Vaccine (5 - Pfizer series) [facility] Start: 09-12-2021 COVID-19 VACCINE (4 - Booster for Pfizer series) COVID-19 VACCINE (4 - Booster for Pfizer series) [facility] Start: 06-15-2021 Diabetes Screening Diabetes Screenin g [facility] Start: 01-11-2020 DIABET[facility] S[facility]EN [facility] Start: 01-11-2020 Diabetes Screening Diabetes Screenin g [facility] Start: 08-15-2005 Medicare Annual Wellness Visit Medicare Annual Wellness Visit [facility] Start: 2000 RSV Vaccine (1 - 1-d ose 60+ series) RSV Vaccine (1 - 1-dose 60+ series) [facility] Start: 1990 SHINGRIX VACCINE (1 of 2) SHINGRIX VACCINE (1 of 2) [facility] Start: 1958 Anxiety Screening Anxiety Screening [facility] Start: 1958 Depression Screening Depression Scre ening [facility] Assay of prostate specific antigen total Prostate Specific Antigen KT-Zzyoipf-Vksamcwf d Work Phone: Comment on above: Approx [id number] CT Abdomen and Pelvi s W contrast IV [facility] NEGATED: Highlighted row has been ruled out! Planned Goals not documented CL-Iccfzgf-Jwecfzfn d Work Phone: Immunizations Immunization Date Immunization Notes Care Provider Fa cili 07-23-2023 influenza virus vacc ine, unspecified formulation Ross Saldaña Jr., MD Work Phone: [facility] 12-03-2020 COVID-19 vaccine, ag e 12+ yr (PFIZER-BIONTECH - PURPLE TOP) Ross Saldaña Jr., MD Work Phone: [facility] 11-05-2020 COVID-19 vaccine, ag e 12+ yr (PFIZER-BIONTECH - PURPLE TOP) Ross Saldaña Jr., MD Work Phone: [facility] 07-21-2020 influenza, high dose seasonal, preservative-free Ross Saldaña Jr., MD Work Phone: [facility] 07-21-2020 influenza virus vacc ine, unspecified formulation Ross Saldaña Jr., MD Work Phone: [facility] 01-16-2017 pneumococcal polysaccharide vaccine, 23 valent Ross Saldaña Jr., MD Work Phone: [facility] 02-16-2015 pneumococcal conjuga te vaccine, 13 valent Ross Saldaña Jr., MD Work Phone: [facility] 02-03-2015 TD(adult) unspecifie d formulation Ross Saldaña Jr., MD Work Phone: [facility] 02-03-2015 tetanus and diphther ia toxoids, adsorbed, preservative free, for adult use (2 Lf of tetanus toxoid and 2 Lf of diphtheria toxoid) Ross Saldaña Jr., MD Work Phone: [facility] 02-03-2015 tetanus toxoid, redu estelle diphtheria toxoid, and acellular pertussis vaccine, adsorbed Ross Saldaña Jr., MD Work Phone: [facility] 09-02-2012 influenza virus vacc ine, unspecified formulation Ross Saldaña Jr., MD Work Phone: [facility] 09-02-2012 tetanus toxoid, redu estelle diphtheria toxoid, and acellular pertussis vaccine, adsorbed Ross Saldaña Jr., MD Work Phone: [facility] 08-21-2011 influenza virus vacc ine, unspecified formulation Ross Saldaña Jr., MD Work Phone: [facility] 07-30-2009 influenza virus vacc ine, unspecified formulation Ross Saldaña Jr., MD Work Phone: [facility] Work Phone: 08-11-2005 influenza virus vacc ine, unspecified formulation Ross Saldaña Jr., MD Work Phone: [facility] Work Phone: 10-15-2003 pneumococcal polysaccharide vaccine, 23 valent Ross Saldaña Jr., MD Work Phone: [facility] Work Phone: Payers Date Payer Category Payer Self-pay [id number] [id number] 2015 Private Health Insurance HUMANA HUMANA MEDICARE SUPPLEMENT [id number] 2015-Present [phone] [address] [address] [place] [address] Indemnity [id number] 2015 Private Health Insurance [id number] 2015 Private Health Insurance [id number] 2005 Medicare MEDICARE MEDICAR E A AND B [id number] 2005-Present [phone] [facility] [address] [place] [address] Medicare [id number] 2005 Medicare [id number] 2005 Medicare [id number] 1940 Unknown [id number] 1940 Unknown [id number] Unknown Unknown [id number] Unknown [id number] Unknown [id number] Unknown [id number] Unknown [id number] Unknown [id number] Unknown [id number] Unknown [id number] Social History Date Type Detail Facility Start: 10-02-2014 End: 01-28-2025 Tobacco smoking status OHIS Ex-smoker [facility] Work Phone: End: 10-15-1968 History of tobacco use Current smoker [facility] Work Phone: End: 10-15-1968 History of tobacco use Cigar Smoker [facility] Work Phone: Start: 03-20-2022 End: 07-04-2024 Alcohol intake Current drinker of alcohol (finding) [facility] Start: 03-20-2022 End: 03-23-2023 Alcohol intake [facility] Start: 06-30-2014 End: 03-23-2023 Tobacco Comment Quit age 28 [facility] Start: 1940 Sex Assigned At Not on file [facility] Start: 03-10-2022 End: 03-20-2022 Exposure to SARS-CoV-2 (event) Not sure [facility] Start: 10-10-2022 End: 09-20-2023 Tobacco smoking consumption unknown [facility] [facility] Start: 10-02-2014 End: 03-23-2023 Tobacco use and exposure Smokeless tobacco non-user [facility] Start: 07-16-2020 Non-smoker [facility] Start: 1940 Sex Assigned At Male [facility] Start: 03-23-2023 End: 07-31-2023 Tobacco use panel [facility] Start: 09-15-2012 Adult Depression Screening Assessment 0 [facility] Start: 01-01-2025 Sex Male (finding) [facility] NEGATED: Highlighted row - - [id number]-[id number]-Mmdcyujtd Work Phone: Medical Equipment Procedure Code Equipment Code Equipment Origin al Text Equipment Identifier Dates Insertion, spinal cord stimulator, permanent Adaptive Stim FDA Start: 07-19-2020 Insertion, spinal cord stimulator, permanent Lead Kit [id number] FDA Start: 07-19-2020 Insertion, spinal cord stimulator, permanent Lead Kit [id number] FDA Start: 07-19-2020 Insertion, spinal cord stimulator, permanent Adaptive Stim FDA Start: 07-19-2020 Insertion, spinal cord stimulator, permanent Lead Kit [id number] FDA Start: 07-19-2020 Insertion, spinal cord stimulator, permanent Lead Kit [id number] FDA Start: 07-19-2020 Insertion, spinal cord stimulator, permanent Adaptive Stim FDA Start: 07-19-2020 Insertion, spinal cord stimulator, permanent Lead Kit [id number] FDA Start: 07-19-2020 Insertion, spinal cord stimulator, permanent Lead Kit [id number] FDA Start: 07-19-2020 Insertion, spinal cord stimulator, permanent Adaptive Stim FDA Start: 07-19-2020 Insertion, spinal cord stimulator, permanent Lead Kit [id number] FDA Start: 07-19-2020 Insertion, spinal cord stimulator, permanent Lead Kit [id number] FDA Start: 07-19-2020 Insertion, spinal cord stimulator, permanent Adaptive Stim FDA Start: 07-19-2020 Insertion, spinal cord stimulator, permanent Lead Kit [id number] FDA Start: 07-19-2020 Insertion, spinal cord stimulator, permanent Lead Kit [id number] FDA Start: 07-19-2020 Insertion, spinal cord stimulator, permanent Adaptive Stim FDA Start: 07-19-2020 Insertion, spinal cord stimulator, permanent Lead Kit [id number] FDA Start: 07-19-2020 Insertion, spinal cord stimulator, permanent Lead Kit [id number] FDA Start: 07-19-2020 Insertion, spinal cord stimulator, permanent Adaptive Stim FDA Start: 07-19-2020 Insertion, spinal cord stimulator, permanent Lead Kit [id number] FDA Start: 07-19-2020 Insertion, spinal cord stimulator, permanent Lead Kit [id number] FDA Start: 07-19-2020 Insertion, spinal cord stimulator, permanent Adaptive Stim FDA Start: 07-19-2020 Insertion, spinal cord stimulator, permanent Lead Kit [id number] FDA Start: 07-19-2020 Insertion, spinal cord stimulator, permanent Lead Kit [id number] FDA Start: 07-19-2020 Insertion, spinal cord stimulator, permanent Adaptive Stim FDA Start: 07-19-2020 Insertion, spinal cord stimulator, permanent Lead Kit [id number] FDA Start: 07-19-2020 Insertion, spinal cord stimulator, permanent Lead Kit [id number] FDA Start: 07-19-2020 Insertion, spinal cord stimulator, permanent Adaptive Stim FDA Start: 07-19-2020 Insertion, spinal cord stimulator, permanent Lead Kit [id number] FDA Start: 07-19-2020 Insertion, spinal cord stimulator, permanent Lead Kit [id number] FDA Start: 07-19-2020 Insertion, spinal cord stimulator, permanent Adaptive Stim FDA Start: 07-19-2020 Insertion, spinal cord stimulator, permanent Lead Kit [id number] FDA Start: 07-19-2020 Insertion, spinal cord stimulator, permanent Lead Kit [id number] FDA Start: 07-19-2020 Liner Actb R3 20 d 52mm 32mm - [id number] Start: 07-10-2014 Shell Actb 52mm Hip 3 H Poly R - [id number] Start: 07-10-2014 Stem Fem 160mm 14mm Hi Ofst - [id number] Start: 07-10-2014 Head Fem -3mm 09/27 32mm Hip - [id number] Start: 07-10-2014 Shell Actb 52mm Hip 3 H Poly R - [id number] Start: 10-21-2014 Liner Actb R3 20 d 52mm 32mm - [id number] Start: 10-21-2014 Stem Fem 160mm 14mm Hi Ofst - [id number] Start: 10-21-2014 Head Fem -3mm 09/27 32mm Hip - [id number] Start: 10-21-2014 Functional Status Date Assessment Result Facility 04-12-2015 Are you deaf, or do you have serious difficulty hearing No 04/12/2015 12:09 PM Veronica Costa RN No [facility] 04-12-2015 Are you blind, or do you have serious difficulty seeing, even when wearing glasses No 04/12/2015 12:09 PM Veronica Costa RN No [facility] 04-12-2015 Do you have serious difficulty walking or climbing stairs Yes 04/12/2015 12:09 PM Veronica Costa RN Yes [facility] 04-12-2015 Do you have difficul ty dressing or bathing No 04/12/2015 12:09 PM Veronica Costa RN No [facility] 04-12-2015 Because of a physica l, mental, or emotional condition, do you have difficulty doing errands alone such as visiting a physician's office or shopping No 04/12/2015 12:09 PM Veronica Costa RN No [facility] NEGATED: Highlighted row Functional performance Functional status health issues are not documented Disease UX-Xzyxflc-Fgcaxwdhe Work Phone: Mental Status Date Assessment Result Facility 04-12-2015 Because of a physical, mental, or emotional condition, do you have serious difficulty concentrating, remembering, or making decisions No 04/12/2015 12:09 PM Veronica Costa RN No [facility] NEGATED: Highlighted row Cognitive function [Interpretation] Cognitive status health issues are not documented Disease VS-Kzzshuu-Xztwhbufv Work Phone: Clinical Notes 04-06-2013 to 07-20-2025 Note Date & Type Note Facility 07-20-2025 Note HNO ID: [id number] Author: KOSTAS YI APRN.PRESCHOOL PROGRAM DIRECTOR Service: ? Author Type: Nurse Practitioner Type: Progress Notes Filed: 07/20/2025 16:51 Note Text: [facility] Follow up/ Established patient visit Recording using ambient AI software for draft documentation of the visit was discussed with the patient/authorized freight representative; all questions welcomed and answered. Patient/authorized freight representative agreed to proceed Assessment/Plan from last visit: Date of last visit : 07/04/24 ASSESSMENT/PLAN: 1. EFREN on CPAP - ICD9: 327.23, ICD10: G47.33 (primary diagnosis) 2. Class 1 obesity with body mass index (BMI) of 34.0 to 34.9 in adult, unspecified obesity type, unspecified whether serious comorbidity present - ICD9: 278.00, V85.34, ICD10: E66.9, Z68.34 Patient with known history of sleep apnea for which he is treating with Auto bilevel PAP. Doing well. Compliance confirmed both subjective and objectively. AHI normalized per download. Pt with perceived benefit. No PAP related complaints. Reminded to clean and replace equipment regularly. Advised that if he does begin to note a mask leak let myself or Jackie Gonzalez at DME know. Encouraged weight loss. Follow up in 1 year or sooner prn. Ross Saldaña MD CURRENT VISIT: 07/20/2025 The patient is an 84-year-old male with EFREN presenting for a regular annual check-in to obtain Rx for PAP supplies. The patient reports consistent nightly use of his auto BiPAPs. He notes significant benefit, including improved daytime alertness and no longer dozing off during the day. He uses a full face mask, but dislikes it due to facial conde and air leaks during apneic episodes. He previously tried a different mask but was unable to use it due to mouth breathing. He inquires about alternative mask options. He reports sleeping 7.75-8 hours nightly, with occasional longer sleep durations of 8.5-9 hours during his recent vacation. He typically sleeps through the night, waking only occasionally to void. Residual AHI 1.4 events/hour with therapy. He inquires about reducing his BiPAP pressure settings--unable to since his P95 pressure is at the upper end of his pressure setting. He reports weight loss from 228 lbs to 203 lbs after a recent flu illness. SLEEP APNEA Sleep apnea type : EFREN, Most Recent Apnea-Hypopnea Index (AHI): 47 Treatment : PAP therapy DME: [facility] PAP History: Uses Bilevel PAP for 8.25 hours per night, 7 nights per week. Current PAP setting: Max IPAP 19, Min EPAP 9 and PS of 5 cmH2O Difficulties with Bilevel PAP: None Reviewed objective PAP compliance data: see scanned docs AHI 1.4 P95 18.4/13.4 cmH2O Mask type: full face mask Mask issues: none There is a perceived benefit by the patient: no daytime sleepiness PATIENT-ENTERED QUESTIONNAIRE SLEEP SCORES: 07/31/2023 Sleep Questions Reason for visit: Sleep apnea On average, hours of sleep in 24 hours: 7.5 Accidents or near accidents due to drowsy drivin 11/29/2022 07/31/2023 [place] Sleepiness Scale Score 7 (No clinically significant daytime sleepiness) 5 (No clinically significant daytime sleepiness) 11/29/2022 07/31/2023 PROMIS CAT Sleep Disturbance PROMIS Sleep Disturbance T-Score 49 (within normal limits) 44 (within normal limits) PROMIS Sleep Disturbance Percentile 54 73 09/20/2011 11/29/2022 07/31/2023 PHQ-9 Score 6 4 0 Data saved with a previous flowsheet row definition 11/29/2022 07/31/2023 07/03/2024 PROMIS Global Health - (T-Scores - the mean of general population = 50. Five points is a clinically meaningful difference.) Physical T-Score 47.7 47.7 39.8 Mental T-Score 59 59 53.3 ALLERGIES Allergen Reactions Bacitracin Rash Rash-blistering Iodine Hives, Swelling pts states he got tongue swelling with iv dye the last time he had it,not just hives. kmr 02/15/16 Adhesive Tape (Bernie* Rash blisters Amoxicillin Hives Ciprofloxacin Rash Doxycycline Swelling Metoprolol Myalgia leg cramps Naproxen Intolerance elevates blood pressure Shellfish Hives Blue crab only. No reaction to betadine Zosyn [Piperacillin* flushed and itching - IV - er visit. CURRENT MEDICATIONS: CPAP/BIPAP/OTHER Auto biPAP IPAP max 19, EPAP min 9, PS 5 cmH2O DME [employer] hydrocortisone 2.5 % cream Apply to irritant dermatitis rash at any sensitive deep fold areas (eg., groin area), selectively twice up to three times per day until clear and then stop or taper off as able. AVOID direct application to eyelids//eyes. Psyllium Seed-Sucrose Take 1 Tablespoonful by mouth once daily. PHYSICAL EXAMINATION: Vital Signs: BP 164/76 (BP Site: Right Arm, BP Position: Sitting, BP Cuff Size: Large Adult) Pulse 71 Resp 12 Ht 170.2 cm (5' 7) Wt 96.3 kg (212 lb 3.2 oz) SpO2 96% BMI 33.24 kg/m? PHYSI (more content not included)... [facility] 01-28-2025 Evaluation note Diagnosis Onset Date Resolution Constipation acute January 28, 2025 8:10am [facility] Work Phone: 1(443) 837-346509-20-2024 History of Present illness Narrative* Ross Saldaña Jr., MD - 07/04/2024 10:21 AM EDT ESTABLISHED PATIENT VISIT CHIEF COMPLAINT: Follow Up HISTORY OF PRESENT ILLNESS: Hannah Paredes is a 83 year old male, BMI 34.16 kg/m2 with a PMH significant for and per last visit on 07/31/23: Pt doing well on PAP with perceived benefit and confirmed compliance. Will again request that EPAP min be decreased to 9 cmH2O. If patient feels pressures getting too high asked him to contact us, but at this time, no complaints. Reminded to clean and replace equipment regularly. Advised pt not to drive or operate heavy machinery if sleepy. Encouraged weight loss. 90 day PAP data download up to 06/29/24 shows nightly use for avg of 7 hours and 27 minutes. Max IPAP 19, Min EPAP 9 and PS of 5 cmH2O. AHI is 2.1. 95% leak is 14.2 LPM. Feels refreshed upon waking in the AM. Never slept in much. Baseline sleep study in scanned docs. Also available through DME ([employer]). Patient reports doing well with bilevel PAP. States no issues with mask or pressures. States R eye was red during recent eye doctor appt but pt not having any complaints of dry eye or pain in the AMs. 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 REVIEW OF SYSTEMS GENERAL:No weight loss, malaise or fevers. HEENT:Negative for frequent or significant headaches, No changes in hearing or vision, no nose bleeds or other nasal problems RESPIRATORY: Negative for cough, wheezing or shortness of breath. CARDIOVASCULAR: Negative for chest pain, leg swelling or palpitations. LAB/IMAGING: Those performed since patient's last visit have been reviewed. WBC (k/uL) Date Value 01/10/2017 6.31 RBC (m/uL) Date Value 01/10/2017 4.90 Hemoglobin (g/dL) Date Value 01/10/2017 15.4 Hematocrit (%) Date Value 01/10/2017 47.3 MCV (fL) Date Value 01/10/2017 96.5 MCH (pG) Date Value 01/10/2017 31.4 MCHC (g/dL) Date Value 01/10/2017 32.6 RDW-CV (%) Date Value 01/10/2017 13.6 Platelet Count (k/uL) Date Value 01/10/2017 175 MPV (fL) Date Value 01/10/2017 10.0 Glucose (mg/dL) Date Value 01/10/2017 100 (H) BUN (mg/dL) Date Value 01/10/2017 14 Creatinine (mg/dL) Date Value 01/10/2017 0.95 Sodium (mmol/L) Date Value 01/10/2017 141 Potassium (mmol/L) Date Value 01/10/2017 4.2 Chloride (mmol/L) Date Value 01/10/2017 104 CO2 (mmol/L) Date Value 01/10/2017 23 Protein, Total (g/dL) Date Value 01/10/2017 7.4 Albumin (g/dL) Date Value 01/10/2017 3.9 Calcium (mg/dL) Date Value 01/10/2017 9.1 Alkaline Phosphatase (U/L) Date Value 01/10/2017 38 Bilirubin, Total (mg/dL) Date Value 01/10/2017 0.5 AST (U/L) Date Value 01/10/2017 24 ALT (U/L) Date Value 01/10/2017 24 MEDICATIONS: CPAP/BIPAP/OTHER Pressure adjust to IPAP 19, EPAP 9, PS 5 cm H2O, suitable mask per pt preference, chin strap, head gear, humidity, tubing, lifetime supplies. G47.33 EFREN hydrocortisone 2.5 % cream Apply to irritant dermatitis rash at any sensitive deep fold areas (eg.,groin area), selectively twice up to three times per day until clear and then stop or taper off as able. AVOID direct application to eyelids//eyes. Psyllium Seed-Sucrose Take 1 Tablespoonful by mouth once daily. qpoqjce-cmag-lhorh-oreg-capryl 100 mg-150 mg- 50 mg-150 mg cap Take 300 mg by mouth once daily. (Patient not taking: Reported on 07/04/2024) multivitamin tablet Take 1 tablet by mouth once daily. 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 Diabetes (HCC) Now has IFG (noted when established with me 01/16/17) Diaphragmatic hernia without mention of obstruction or gangrene Diverticulosis of colon (without mention of hemorrhage) Diverticulosis Esophageal reflux GOUT NOS 04/10/2007 no recurrence since Hypertension Hypertrophy of prostate without urinary obstruction and other lower urinary tract symptoms (LUTS) Internal hemorrhoids without mention of complication Obstructive sleep apnea Osteoarthrosis, unspecified whether generalized or localized, unspecified site Other and unspecified hyperlipidemia SCAR & FIBROSIS OF SKIN 02/24/2008 Unspecified sleep apnea FAMILY HISTORY Problem Relation Age of Onset Stroke Father stroke at age 54 other (melanoma [Other]) Brother other (Blood clot [Other]) Son ? temporal artery other (chf [Other]) Other mother SOCIAL HISTORY Social History Tobacco Use Smoking status: Former Types: Cigars Quit date: 10/15/1968 Years since quittin.7 Smokeless tobacco: Never Tobacco comments: Quit age 28 Substance Use Topics Alcohol use: Yes Alcohol/week: 5.0 standard drinks of alcohol Types: 5 Glasses of Wine (5oz) per week Drug use: No PHYSICAL EXAMINATION BP 167/99 (BP Site: Left Arm, BP Position: Sitting) Pulse 82 Wt 101.9 kg (224 lb 9.6 oz) WlI197% BMI 34.16 kg/m GENERAL EXAM: General appearance: NAD, pleasant. HEENT: NC/AT, nasal congestion absent, no oral lesions, membranes moist. NECK: ROM nml. Lungs: CTA bilaterally. CV: RRR nl S1, S2 NEUROLOGICAL EXAM: General: Awake, alert, oriented x3 (person,place,time), speech fluent, no dysarthria; comprehension, naming, repetition intact. CN: PERRL, EOMI and without nystagmus, VFF to confrontation, facial sensation and strength are normal and symmetric, hearing is intact, palate and tongue movements are intact and symmetric. SCM and trapezius strength normal. Motor: Normal tone, bulk and strength (5/5) bilaterally (throughout extremities x4). Coordination: FNF, DAYANA intact. No tremors. Sensation: Light touch intact throughout. No evidence of neglect. Gait: Stable with normal stride and arm swing. Assessment and Plan: ASSESSMENT/PLAN: 1. EFREN on CPAP - ICD9: 327.23, ICD10: G47.33 (primary diagnosis) 2. Class 1 obesity with body mass index (BMI) of 34.0 to 34.9 in adult, unspecified obesity type, unspecified whether serious comorbidity present - ICD9: 278.00, V85.34, ICD10: E66.9, Z68.34 Patient with known history of sleep apnea for which he is treating with Auto bilevel PAP. Doing well. Compliance confirmed both subjective and objectively. AHI normalized per download. Pt with perceived benefit. No PAP related complaints. Reminded to clean and replace equipment regularly. Advised that if he does begin to note a mask leak let myself or Jackie Gonzalez at DME know. Encouraged weight loss. Follow up in 1 year or sooner prn. Ross Saldaña MD I spent a total of 21 minutes on the date of the service which included preparing to see the patient, [id number] patient care, completing clinical documentation, obtaining and/or reviewing separately obtained history, performing a medically appropriate examination, counseling and educating the pat ient/family/caregiver, independently interpreting results (not separately reported), and communicating results to the patient/family/caregiver (studies include interp of download data). * Ross Saldaña Jr., MD - 07/04/2024 10:20 AM EDT 07/03/2024 PROMIS Global Health Physical Health Summary Physical health: Good Everyday physical activity, ability: Moderately Fatigue: Moderate Pain level: 4 General health: Very good Social activities/roles, ability: Very good Physical Health T-Score 39.8 (Fair) Physical Health Percentile 15 PROMIS Global Health Mental Health Summary Quality of life: Very good Mental health (mood,thinking): Very good Social satisfaction: Very good Emotional problems (anxious,depressed): Rarely Mental Health T-Score 53.3 (Very Good) Mental Health Percentile 63 PROMIS Physical Function T-Score 40(Mild Dysfunction) PROMIS Physical Function Percentile 16 PROMIS Pain Interference T-Score 58(Mild) PROMIS Pain Interference Percentile 21 Percentiles provide an indication of how a patient's score ranks in relation to the [place] general population. > 31st percentile is within normal limits or better *< 31st percentile is at least SD worse than population, which may be clinically relevant < 16th percentile is at least 1 SD worse than population and warrants attention 07/03/2024 Sleep Apnea Probability Snores loudly: No Tired, fatigued or sleepy in daytime: No Stops breathing or choking/gasping during sleep: No High blood pressure: No Sleep Apnea Probability Score: 68 (Recommend sleep study) [facility] Telephone encounter Note * Telephone Encounter - Ana Romero LPN - 03/21/2024 11:21 AM EDT Shenae request signed OV dated 07/31/2023, 08/28/2022, 09/16/2021, 01/21/2021, 10/18/2020, 09/20/2011. Printed for pickup by Gui Plascencia. Signed Rx CPAP supplies dated 03/21/2024. Ana Romero LPN [facility]-07-[facility] Miscellaneous Notes* Telephone Encounter - Ana Romero LPN - 03/21/2024 11:21 AM EDT [employer] request signed OV dated 07/31/2023, 08/28/2022, 09/16/2021, 01/21/2021, 10/18/2020, 09/20/2011. Printed for pickup by Gui Plascencia. Signed Rx CPAP supplies dated 03/21/2024. Ana Romero LPN documented in [facility]The [facility] Telephone encounter Note * Telephone Encounter - Kaela Cho OCCA - 02/19/2024 1:19 PM EDT Faxed office note to [facility] and received confirmation at [phone]. [facility] Miscellaneous Notes* Telephone Encounter - Kaela Cho OCCA - 02/19/2024 1:19 PM EDT Faxed office note to [facility] and received confirmation at [phone]. documented in this encounterThe [facility]04-[facility]24 Miscellaneous Notes* Telephone Encounter - Jorge Machado MA - 01/28/2024 1:06 PM EDT Images from the original note were not included. [facility] in [facility]The [facility]10-[facility]23 Miscellaneous Notes* Telephone Encounter - Ana Romero LPN - 08/07/2023 8:54 AM EDT [facility] [phone] to reduce pressure CPAP. Patient notified by [employer] last log on 07/31/2023. Ana Romero LPN * Telephone Encounter - Dedra Keith LPN - 08/07/2023 8:35 AM EDT [facility]i [facility] patient had just called him asking if Dr Saldaña sent orders to reduce his pressure on the CPAP? If so could order be faxed to [facility], fax number is [phone]. Please advise documented in [facility] encounterThe [facility]10-[facility]23 NoteHNO ID: [id number] Author: Ross Saldaña Jr., MD Service: ? Author Type: Physician Type: Progress Notes Filed: 07/31/2023 12:46 PM Note Text: [facility] Virtual Visit Follow up/ Established patient visit Date of last visit : 2020 HPI: Hannah Paredes is a 82 year old who presents today for follow up for EFREN evaluation Interval history : SLEEP APNEA Sleep apnea type : EFREN, Treatment : PAP therapy PAP History: Uses BIPAP for 6 hours per night, 7 nights per week. Current PAP settin/12 cm H2O. PS-5 Difficulties with Bilevel PAP: None Reviewed objective PAP compliance data: Compliance-99%, >4 hours-100 %, AHI-1.9, Setting-17/12-PS-5 Mask type: full face mask Mask issues: none Uses chin strap: No Uses ramp function: No Uses humidity: No There is a perceived benefit by the patient: More refreshed, less drowsy Observers report abolition of snoring with Bilevel PAP use. SLEEP HYGIENE QUESTIONS: Bedtime : 11 pm Wake up Time : 7 am Time it takes to fall sleep : 5 min Estimated total sleep time ( in a 24 hour period of time) : 7-8 hours Naps : Naps PATIENT-ENTERED QUESTIONNAIRE SLEEP SCORES Sleep Questions 07/31/2023 Reason for visit: Sleep apnea Average hours slept in 24 hours: 7.5 Average hours of CPAP per night: - Percent of nights CPAP used at least 4 hours: - Accidents or near accidents due to drowsy drivin [place] Sleepiness Scale 11/29/2022 07/31/2023 Score 7 (No daytime sleepiness) 5 (No daytime sleepiness) PHQ-9 09/20/2011 11/29/2022 07/31/2023 Score 6 4 0 MEDICAL HISTORY REVIEWED ACTIVE PROBLEM LIST ACTINIC KERATOSES (Premalignant AK's) Diverticulosis of Colon (Without Mention of Hemorrhage) Esophageal Reflux Diaphragmatic Hernia Without Mention of Obstruction Or Gangrene Osteoarthrosis, Unspecified Whether Generalized Or Localized, Unspecified Site Hyperlipidemia Hypertrophy of Prostate Without Urinary Obstruction and Other Lower Urinary Tract Symptoms (Luts) Essential Hypertension OVERWEIGHT HYPERGLYCEMIA Degeneration of Intervertebral Disc, Site Unspecified Personal History of Other Malignant Neoplasm of Skin Disorder of Thyroid Unspecified Disorder of Prostate Benign Neoplasm of Colon Insomnia, unspecified Lipoma of Other Specified Sites Impaired Fasting Glucose Actinic Damage//Sun-damaged skin Pain in Joint, Lower Leg Obstructive Sleep Apnea (Adult) (Pediatric) Actinic Skin Damage Xerosis Cutis Solar Lentigines Contact dermatitis and other eczema due to other specified agent: Efudex (Fluorouracil) cream Piezogenic Pedal Papule Spinal Stenosis, Lumbar Region, With Neurogenic Claudication Pain in Joint, Pelvic Region and Thigh History of Total Hip Replacement Hip Pain Pain in Joint, Site Unspecified Osteoarthrosis, Unspecified Whether Generalized Or Localized, Other Specified Sites Pressure Sore Mixed Hyperlipidemia Hyperglycemia Pyriformis Syndrome Primary Osteoarthritis Involving Multiple Joints Left Hip Pain Weakness of Left Leg CURRENT MEDICATIONS REVIEWED CPAP/BIPAP/OTHER Pressure adjust to IPAP 19, EPAP 9, PS 5 cm H2O, suitable mask per pt preference, chin strap, head gear, humidity, tubing, lifetime supplies. G47.33 EFREN ruubefj-vxsd-zmkfj-oreg-capryl 100 mg-150 mg- 50 mg-150 mg cap Take 300 mg by mouth once daily. hydrocortisone 2.5 % cream Apply to irritant dermatitis rash at any sensitive deep fold areas (eg., groin area), selectively twice up to three times per day until clear and then stop or taper off as able. AVOID direct application to eyelids//eyes. Psyllium Seed-Sucrose Take 1 Tablespoonful by mouth once daily. multivitamin tablet Take 1 tablet by mouth once daily. (Patient not taking: Reported on 03/20/2022 ) Prior Insomnia Medications (last 20 years) Some values may be hidden. Unless noted otherwise, only the newest values recorded on each date are displayed. Insomnia Medications citalopram (CELEXA) 20 mg ORAL tablet Dose: Take one(1) tablet daily. Starting date: 08/26/2010 Ending date: 10/04/2010 (Discontinued) citalopram (CELEXA) 20 mg ORAL tablet Dose: Take one-half(1/2) tablet daily x 1 week then one-half(1/2) tablet q other day x 1 week then stop. Starting date: 10/04/2010 Ending date: 02/23/2011 (Discontinued) zolpidem (AMBIEN) 5 mg ORAL tablet Dose: Take one(1) tablet at bedtime as needed for insomnia. Starting date: 08/17/2010 Ending date: 11/11/2010 (Discontinued) zolpidem (AMBIEN) 5 mg ORAL tablet Dose: Take one(1) tablet at bedtime as needed for insomnia. Starting date: 11/11/2010 Ending date: 02/23/2011 (Discontinued) zolpidem (AMBIEN) 5 mg ORAL tablet Dose: 5 mg AT BEDTIME NEEDED FOR INSOMNIA Starting date: 02/23/2011 Ending date: 02/23/2011 (Discontinued) zolpidem 5 mg ORAL tablet Dose: 5 mg (more content not included)...[facility]10-17-2023 Instructions* Patient Instructions* Ross Saldaña Jr., MD - 07/31/2023 12:44 PM EDT Your most recent body mass index (BMI) that we have on record is 33.70. Obstructive sleep apnea (EFREN) worsens with an increase in weight; reduction in weight may improve or resolve your EFREN. If you are not already seeking treatment, there are resources available at the [facility] such as a nut rition consultation or referral to weight management programs at our [facility] [place]. Please let us know if we can assist with a referral. documented in this [facility]The [facility]10-[facility] History of Present illness Narrative* Ross Saldaña Jr., MD - 07/31/2023 11:12 AM EDT Images from the original note were not included. [facility] Virtual Visit Follow up/ Established patient visit Date of last visit : 2020 HPI: Hannah Paredes is a 82 year old who presents today for follow up for EFREN evaluation Interval history : SLEEP APNEA Sleep apnea type : EFREN, Treatment : PAP therapy PAP History: Uses BIPAP for 6 hours per night, 7 nights per week. Current PAP settin/12 cm H2O. PS-5 Difficulties with Bilevel PAP: None Reviewed objective PAP compliance data: Compliance-99%, >4 hours-100 %, AHI-1.9, Setting-17/12-PS-5 Mask type: full face mask Mask issues: none Uses chin strap: No Uses ramp function: No Uses humidity: No There is a perceived benefit by the patient: More refreshed, less drowsy Observers report abolition of snoring with Bilevel PAP use. SLEEP HYGIENE QUESTIONS: Bedtime : 11 pm Wake up Time : 7 am Time it takes to fall sleep : 5 min Estimated total sleep time ( in a 24 hour period of time) : 7-8 hours Naps : Naps PATIENT-ENTERED QUESTIONNAIRE SLEEP SCORES Sleep Questions 07/31/2023 Reason for visit: Sleep apnea Average hours slept in 24 hours: 7.5 Average hours of CPAP per night: - Percent of nights CPAP used at least 4 hours: - Accidents or near accidents due to drowsy drivin [place] Sleepiness Scale 11/29/2022 07/31/2023 Score 7 (No daytime sleepiness) 5 (No daytime sleepiness) PHQ-9 09/20/2011 11/29/2022 07/31/2023 Score 6 4 0 MEDICAL HISTORY REVIEWED ACTIVE PROBLEM LIST ACTINIC KERATOSES (Premalignant AK's) Diverticulosis of Colon (Without Mention of Hemorrhage) Esophageal Reflux Diaphragmatic Hernia Without Mention of Obstruction Or Gangrene Osteoarthrosis, Unspecified Whether Generalized Or Localized, Unspecified Site Hyperlipidemia Hypertrophy of Prostate Without Urinary Obstruction and Other Lower Urinary Tract Symptoms (Luts) Essential Hypertension OVERWEIGHT HYPERGLYCEMIA Degeneration of Intervertebral Disc, Site Unspecified Personal History of Other Malignant Neoplasm of Skin Disorder of Thyroid Unspecified Disorder of Prostate Benign Neoplasm of Colon Insomnia, unspecified Lipoma of Other Specified Sites Impaired Fasting Glucose Actinic Damage//Sun-damaged skin Pain in Joint, Lower Leg Obstructive Sleep Apnea (Adult) (Pediatric) Actinic Skin Damage Xerosis Cutis Solar Lentigines Contact dermatitis and other eczema due to other specified agent: Efudex (Fluorouracil) cream Piezogenic Pedal Papule Spinal Stenosis, Lumbar Region, With Neurogenic Claudication Pain in Joint, Pelvic Region and Thigh History of Total Hip Replacement Hip Pain Pain in Joint, Site Unspecified Osteoarthrosis, Unspecified Whether Generalized Or Localized, Other Specified Sites Pressure Sore Mixed Hyperlipidemia Hyperglycemia Pyriformis Syndrome Primary Osteoarthritis Involving Multiple Joints Left Hip Pain Weakness of Left Leg CURRENT MEDICATIONS REVIEWED CPAP/BIPAP/OTHER Pressure adjust to IPAP 19, EPAP 9, PS 5 cm H2O, suitable mask per pt preference, chin strap, head gear, humidity, tubing, lifetime supplies. G47.33 EFREN toixvpj-tpcp-bbnrs-oreg-capryl 100 mg-150 mg- 50 mg-150 mg cap Take 300 mg by mouth once daily. hydrocortisone 2.5 % cream Apply to irritant dermatitis rash at any sensitive deep fold areas (eg.,groin area), selectively twice up to three times per day until clear and then stop or taper off as able. AVOID direct application to eyelids//eyes. Psyllium Seed-Sucrose Take 1 Tablespoonful by mouth once daily. multivitamin tablet Take 1 tablet by mouth once daily. (Patient not taking: Reported on 03/20/2022 ) Prior Insomnia Medications (last 20 years) Some values may be hidden. Unless noted otherwise, only the newest values recorded on each date aredisplayed. Insomnia Medications citalopram (CELEXA) 20 mg ORAL tablet Dose: Take one(1) tablet daily. Starting date: 08/26/2010 Ending date: 10/04/2010 (Discontinued) citalopram (CELEXA) 20 mg ORAL tablet Dose: Take one-half(1/2) tablet daily x 1 week then one-half(1/2) tablet q other day x 1 week then stop. Starting date: 10/04/2010 Ending date: 02/23/2011 (Discontinued) zolpidem (AMBIEN) 5 mg ORAL tablet Dose: Take one(1) tablet at bedtime as needed for insomnia. Starting date: 08/17/2010 Ending date: 11/11/2010 (Discontinued) zolpidem (AMBIEN) 5 mg ORAL tablet Dose: Take one(1) tablet at bedtime as needed for insomnia. Starting date: 11/11/2010 Ending date: 02/23/2011 (Discontinued) zolpidem (AMBIEN) 5 mg ORAL tablet Dose: 5 mg AT BEDTIME NEEDED FOR INSOMNIA Starting date: 02/23/2011 Ending date: 02/23/2011 (Discontinued) zolpidem 5 mg ORAL tablet Dose: 5 mg AT BEDTIME NEEDED Starting date: 02/23/2011 Ending date: 08/08/2011 (Discontinued) zolpidem 5 mg ORAL tablet Dose: 5 mg AT BEDTIME NEEDED Starting date: 08/08/2011 Ending date: 01/15/2012 (Discontinued) zolpidem 5 mg ORAL tablet Dose: 5 mg AT BEDTIME NEEDED Starting date: 01/15/2012 Ending date: 09/02/2012 (Discontinued) zolpidem 5 mg tablet Dose: 5 mg AT BEDTIME NEEDED Starting date: 09/04/2013 Ending date: 02/23/2014 (Discontinued) zolpidem 5 mg tablet Dose: 5 mg AT BEDTIME NEEDED Starting date: 02/23/2014 Ending date: 04/21/2014(Discontinued) zolpidem tartrate(AMBIEN 5 MG TAB) Dose: Take one(1) tablet at bedtime as needed for insomnia. Starting date: 12/25/2008 Ending date: 12/25/2008 (Discontinued) zolpidem tartrate(AMBIEN 5 MG TAB) Dose: Take one(1) tablet at bedtime as needed for insomnia. Starting date: 12/25/2008 Ending date: 08/10/2009 (Discontinued) zolpidem tartrate(AMBIEN 5 MG TAB) Dose: Take one(1) tablet at bedtime as needed for insomnia. Starting date: 08/10/2009 Ending date: 04/04/2010 (Discontinued) zolpidem tartrate(AMBIEN 5 MG TAB) Dose: Take one(1) tablet at bedtime as needed for insomnia. Starting date: 04/04/2010 Ending date: 08/17/2010 (Discontinued) PHYSICAL EXAMINATION: There were no vitals taken for this visit. General appearance: NAD Mental status: Alert and oriented. Able to provide own history Neck: no visible goiter Constitutional: WNL Skin: No visible rashes on exposed skin Eyes: conjugate, no obvious ptosis ENT : Nose and mouth midline Neuro: No focal deficits observed, no tremors DIAGNOSIS: G47.33 Obstructive sleep apnea (primary encounter diagnosis) IMPRESSION/PLAN: The patient is a 82 year old who presents today for evaluation of EFREN. .- Continue Bilevel PAP at 17/12cm H2O. PS-5 - Remember to clean your mask and equipment regularly, as directed. - You should be eligible for new supplies approximately every 3-6 months, depending on your insurance coverage. Contact your Durable Medical Equipment (DME) company for new supplies as needed. - Follow up in 12 months Daniela Delgado MD MPH Sleep Medicine Fellow [facility] [place] STAFF PHYSICIAN NOTE OF PERSONAL INVOLVEMENT IN CARE I have reviewed the progress note obtained and documented by Daniela Delgado MD MPH and I personally participated in the magaña components. I have discussed the case and management of the patient's care. The following comments revise or confirm relevant magaña components of the note. With the current coronavirus outbreak, we want to minimize the risk of exposing patients to this illness. I have reviewed this patient's chart and, per patient's request for an opportunity to be seenwithout having to present to the office, feel appropriate that this appointment be made a virtual visit. Those taking part in visit: Patient and physician via [employer]. Consent for this visit received from patient. I have communicated my name and active licensure. The patient's identity and physical location ([place]) were verified at the time of this visit. The patient has been informed of the risks and benefits of -- and alternatives to -- treatment through a remote evaluation and consents to proceed with the e valuation remotely. Patient reports doing well on his bilevel PAP device which per download I reviewed shows set at IPAP max 19 cmH2O, EPAP min 12 cmH2O and PS 5 cmH2O. Note at last visit EPAP min was supposed to be decreased to 9 cmH2O. Pt with no complaints. Compliant both subjectively and objectively used 89/90 nights for avg of 7 hours and 25 minutes. Feels good. Wakes refreshed in AM. Not sleeping during the day. Cleaning PAP regularly. On review of download with pt note that 95% IPAP is 18.5 and EPAP is 13.5cmH2O. Getting a new mask liner every 5 weeks. Sleep Questionnaire Data Depression Screening 05/08/2016 11/29/2022 07/31/2023 PHQ-2 Score 0 0 0 PHQ-9 Score - 4 0 PED PHQ-9 05/08/2016 11/29/2022 07/31/2023 Little interest or pleasure in doing things - Not at all Not at all Feeling down, depressed, or hopeless - Not at all Not at all Trouble falling or staying asleep, or sleeping too much - Not at all Not at all Feeling tired or having little energy - More than half the days Not at all Poor appetite or overeating - Not at all Not at all Feeling bad about yourself - or that you are a failure or have let yourself or your family down - Not at all Not at all Trouble concentrating on things, such as reading the newspaper or watching television - More than half the days Not at all Moving or speaking so slowly that other people could have noticed. Or the opposite - being so fidgety or restless that you have been moving around a lot more than usual - Not at all Not at all Thoughts that you would be better off , or of hurting yourself in some way - Not at all Not at all If you checked off any problems, how difficult have these problems made it for you to do your work,take care of things at home, or get along with other people? - Not difficult at all Not difficult at all PHQ-9 Score - 4 (None-Minimal Depression) 0 (None-Minimal Depression) [place] Sleepiness Scale 05/08/2016 11/29/2022 07/31/2023 Score - 7 (No daytime sleepiness) 5 (No daytime sleepiness) IMPRESSION: Pt doing well on PAP with perceived benefit and confirmed compliance. Will again request that EPAP min be decreased to 9 cmH2O. If patient feels pressures getting too high asked him to contact us, but at this time, no complaints. Reminded to clean and replace equipment regularly. Advised pt not to drive or operate heavy machinery if sleepy. Encouraged weight loss. Follow up in 6 months or sooner prn. I spent a total of 25 minutes on the date of the service which included preparing to see the patient, [id number] patient care, completing clinical documentation, obtaining and/or reviewing separately obtained history, performing a medically appropriate examination, counseling and educating the pat ient/family/caregiver, ordering medications, tests, or procedures, communicating with other HCPs (not separately reported), independently interpreting results (not separately reported), and communicating results to the patient/family/caregiver (results include PAP data download). [facility] Miscellaneous Notes* Telephone Encounter - Jacqueline Dela Cruz LPN - 07/17/2023 10:58 AM EDT Spoke with [facility] and requested 90 day pap download Waiting for report to be faxed Jacqueline Dela Cruz LPN documented in this encounterThe [facility]05-[facility]23 Procedure [facility]02-15-2023 History of Present illness Narrative* Rody Alcaraz Ma - 11/29/2022 2:30 PM EST Order for annual PAP compliance supplies and this OV note faxed to DME; [facility] # [phone]------FAX# [phone] Confirmed and filed. Rody Alcaraz Ma * Irasema Antony APRN.PRESCHOOL PROGRAM DIRECTOR - 11/29/2022 1:30 PM EST Images from the original note were not included. [facility] Virtual Visit Follow up/ Established patient visit Date of last visit : 08/28/2022 Assessment and Plan: ASSESSMENT/PLAN: 1. Obstructive sleep apnea (adult) (pediatric) - ICD9: 327.23, ICD10: G47.33 Patient with persistent symptoms of EFREN despite PAP compliance. Using a loaner AutoPAP at present, but AHI remains elevated and pt noting difficulties exhaling at times when on higher pressures. Alsostill with some degre of daytime sleepiness as above. Per discussion today, will transition to bilevel PAP and more specifically auto bilevel PAP as recommended following last titration. Pt agrees with plan. Will order bilevel PAP as EPAP min 12 cmH2O, IPAP max 25 cmH2O and PS of 5 cmH2O with lifetime supplies. Advised pt not to drive or operate heavy machinery if sleepy. Reminded to clean and replace equipment regularly but avoid ozone medical collections specialist. Pt with follow up scheduled in 10/2022 with sleepAPP. Advised pt to contact us sooner if difficulties with new PAP device. Note I did discuss the plan with Gui Gonzalez at [facility]. Rx sent. Ross Saldaña MD Interval history : Here for follow up for EFREN on BiPAP with nightly use and benefit. SLEEP APNEA Sleep apnea type : EFREN, Most Recent Apnea-Hypopnea Index (AHI): NOF Treatment : PAP therapy DME: [facility] PAP History: Current PAP setting: EPAP min 12 cmH2O, IPAP max 25 cmH2O and PS of 5 cmH2O Difficulties with Bilevel PAP: None Reviewed objective PAP compliance data: 10/15/2022 to 11/13/2022 Compliance download: 93% >=4 hours Average use: 7 hours 7 minutes 90/95th percentile pressure: 19.6/14.6 Leaks 32.6, residual AHI 4.4 Mask issues: air leak Uses chin strap: No Uses ramp function: Yes Uses humidity: Yes There is a perceived benefit by the patient SLEEP HYGIENE QUESTIONS: Bedtime : 1030-11 PM Wake up Time : 6 AM Time it takes to fall sleep : no issue Number of times patient wakes up per night : 1-2 times Reason (s) why patient wakes up during the night : BRB and reposition Estimated total sleep time ( in a 24 hour period of time) : 7-8 hour Naps : No Can doze for 15 min in recliner SLEEP FUNCTIONAL OUTCOME MEASURES Reviewed PMH, PSH, SH: Reviewed SLEEP RELATED ROS REVIEW OF SYSTEMS SLEEP RELATED ROS GENERAL: See HPI RESPIRATORY: negative dyspnea CARDIOVASCULAR: negative palpitations and chest pain MUSCULOSKELETAL: positive joint discomfort SKIN: negative mask irritation PSYCH: negative depression and suicidal thoughts ENDOCRINE: negative thyroid problems NEURO: negative cognitive changes All other systems reviewed and are negative. ALLERGIES Allergen Reactions Iodine Hives, Swelling pts states he got tongue swelling with iv dye the last time he had it,not just hives. kmr 02/15/16 Polysporin, Bacitr* Rash Acute blistering eczematous allergic contact dermatitis type rash from use of Polysporin on an inflamed keratosis at left side of neck during this past winter/spring season. Had to stop it and go on a strong cortisone cream (Rx type) to clear it up. Likely to be allergic to both Polysporin and Bacitracin because of this reaction. ---Bakari Merino M.D. Adhesive Tape (Bernie* Other: See Comments blisters Amoxicillin Hives Ciprofloxacin Rash Metoprolol Other: See Comments leg cramps Naproxen Other: See Comments elevates blood pressure Shellfish Hives Blue crab only. No reaction to betadine Zosyn [Piperacillin* flushed and itching - IV - er visit. CURRENT MEDICATIONS: CPAP/BIPAP/OTHER Pressure adjust to IPAP 19, EPAP 12, PS 5 cm H2O, suitable mask per pt preference,chin strap, head gear, humidity, tubing, lifetime supplies. G47.33 EFREN myizlki-gxdy-jipnj-oreg-capryl 100 mg-150 mg- 50 mg-150 mg cap Take 300 mg by mouth once daily. hydrocortisone 2.5 % cream Apply to irritant dermatitis rash at any sensitive deep fold areas (eg.,groin area), selectively twice up to three times per day until clear and then stop or taper off as able. AVOID direct application to eyelids//eyes. Psyllium Seed-Sucrose (METAMUCIL) powd Take 1 Tablespoonful by mouth once daily. multivitamin tablet Take 1 tablet by mouth once daily. (Patient not taking: Reported on 03/20/2022 ) PHYSICAL EXAMINATION: General appearance: awake alert in NAD Mental status: normal Constitutional: Normal IMPRESSION: Obstructive sleep apnea (adult) (pediatric) (primary encounter diagnosis) 82 yo male here for follow up for EFREN on BiPAP with nightly use and benefit. He does endorse some pressure intolerance leading to mask leak. He is asking for a pressure reduction to improve comfort. PLAN: - Continue Auto Bilevel PAP and lower IPAP to 19, EPAP stays at 12, and PS 5cmH2O. - Order printed and faxed to [facility] - Remember to clean your mask and equipment regularly, as directed. - You should be eligible for new supplies approximately every 3-6 months, depending on your insurance coverage. Contact your Durable Medical Equipment (DME) company for new supplies as needed. Patient has follow up scheduled in March with Dr. Saldaña and wishes to keep. Otherwise Q12 month f/u appropriate Irasema Antony APRN.KRISSY I spent a total of 24 minutes on the date of the service which included preparing to see the patient, [id number] patient care, completing clinical documentation, obtaining and/or reviewing separately obtained history, counseling and educating the patient/family/caregiver, ordering medications, blade ts, or procedures, and communicating results to the patient/family/caregiver. documented in this encounterThe [facility]12-13-2022 Miscellaneous Notes* Telephone Encounter - Amber Richard LPN - 09/26/2022 8:56 AM EST Received fax from Gui at [facility]. Patient's IPAP pressure on VPAP machine was changed to 20 cmH2O per script. Gui called patient due to mask leaks, the new pressure setting, to go in the DME office to work with patient on mask leaks. Amber Richard LPN documented in this encounterThe [facility] Hospital12-08-2022 Miscellaneous Notes* Telephone Encounter - Amber Richard LPN - 09/21/2022 1:11 PM EST Report printed and forwarded to Provider at this time. Patient updated via [employer]. Amber Richard LPN * Telephone Encounter - Ross Saldaña Jr., MD - 09/21/2022 11:31 AM EST Please get PAP data download for review so that I can better determine the problem. Please send data to me as soon as available. Please let pt know that we will get back to him once results reviewed. Thank you, Ross Saldaña MD * Telephone Encounter - Ariadna Velasquez Pss - 09/21/2022 8:04 AM EST AMBER: 08/28/22 NOV: 11/29/22 with [facility] Assessment and Plan: ASSESSMENT/PLAN: 1. Obstructive sleep apnea (adult) (pediatric) - ICD9: 327.23, ICD10: G47.33 Patient with persistent symptoms of EFREN despite PAP compliance. Using a loaner AutoPAP at present, but AHI remains elevated and pt noting difficulties exhaling at times when on higher pressures. Alsostill with some degre of daytime sleepiness as above. Per discussion today, will transition to bilevel PAP and more specifically auto bilevel PAP as recommended following last titration. Pt agrees with plan. Will order bilevel PAP as EPAP min 12 cmH2O, IPAP max 25 cmH2O and PS of 5 cmH2O with lifetime supplies. Advised pt not to drive or operate heavy machinery if sleepy. Reminded to clean and replace equipment regularly but avoid ozone medical collections specialist. Pt with follow up scheduled in 10/2022 with sleepAPP. Advised pt to contact us sooner if difficulties with new PAP device. Note I did discuss the plan with Gui Gonzalez at [facility]. Rx sent. documented in this encounterThe [facility] Hospital12-[facility]-2022 Miscellaneous Notes* Telephone Encounter - Ariadna Khalil - 09/21/2022 8:01 AM EST The [facility] scheduled the patient an appointment. * Telephone Encounter - RAFITA Peterson - 09/05/2022 8:51 AM EST Please assist patient in scheduling with a [facility] within the time frame below to follow up with PAP therapy. Thank you. RAFITA Peterson * Telephone Encounter - Dedra Keith LPN - 08/30/2022 3:40 PM EST Patient calling [facility] set up his CPAP today. He was told he needs a follow up appt from 30 to 90 days after set up with Dr Saldaña. Schedulers told him Dr Saldaña is scheduling into December of next year. Patient was asking if nurse in the office can help him please, he is willing to do virtual or in person appt. documented in this encounterThe [facility] Hospital11-15-2022 Miscellaneous Notes* Telephone Encounter - Amber Richard LPN - 08/29/2022 9:28 AM EST AutoPAP order and pertinent information faxed to [facility] per patient request. Amber Richard LPN documented in this encounterThe [facility] Hospital11-14-2022 History of Present illness Narrative* Ross Saldaña Jr., MD - 08/28/2022 5:10 PM EST ESTABLISHED PATIENT VISIT (Virtual Visit with Video) For this virtual visit, the patient has been identified by name and (MRN and photo identification as well if available). Those taking part in visit: Patient, physician via [employer]. Consent for this visit received from patient. Patient's vidoe would work but microphone would not. Thus, with patient persmission called for audio by phone and continued video by computer. HISTORY OF PRESENT ILLNESS: Hannah Paredes is a 81 year old male, with a PMH significant for and perlast office visit note of 03/20/22: 1. Obstructive sleep apnea (adult) (pediatric) - ICD9: 327.23, ICD10: G47.33 Doing well on PAP. AHI normalized. Discussed possible increase in pressure but since clinically feeling good, with no complaints of sleepiness, his sleeping through the night, and no snoring or witnessed apneas -- feel that risk of mask leak or intolerance by increasing PAP outweighs the benefits of current treatment. Discussed use of ozone curtain cleaner and possible negative effects of such and he will transition to soap and water. No other issues at this time. Follow up 1 year. During interim, patient AutoPAP broke and no longer functioning per DME. Thus attempting to get pt an Auto-bilevel PAP as was recommended per his PAP titration earlier this year. 1. Auto titrating Bilevel PAP with IPAP max 25, EPAP min 15 cmH2O with pressure support (PS) 4-6 cmH2O. Positional therapy may be advised. Close clinical and download data in a month to ensure resolution of events. A medium ResMed AirFit F30 full face mask was used. Pt's last PAP download using AutoPAP from 12-16 cmH2O, showed AHI of 4.4. and nightly use with 95% pressure of 15.7 cmH2O. Patient would like to try the bilevel PAP. e states he currently has a loaner auto-CPAP through DME. Patient states he is doing ok but is not feeling fully refreshed on the AutoCPAP at this time. Still feeling tired on current PAP device (loaner) - AHI is >5.0. Going to bed around 11PM and waking at 7AM. Sleeping most of the night. Needs 30-60 minute nap during the day. ESS=14/24 on current AutoPAP device. He does have some difficulties exhaling at times, and felt it was easier when using bilevel PAP. Note that PAP titration also confirmed supine positioning which is likely exacerbating AHI when at home while on AutoCPAP. Note despite elevated PLMI during bilevel PAP titration, pt denies leg kicking at night at this time. REVIEW OF SYSTEMS GENERAL:No weight loss, malaise or fevers. HEENT:Negative for frequent or significant headaches, No changes in hearing or vision, no nose bleeds or other nasal problems NECK:Negative for lumps, goiter, pain and significant neck swelling RESPIRATORY: Negative for cough, wheezing or shortness of breath. CARDIOVASCULAR: Negative for chest pain or palpitations. LAB/IMAGING: Those performed since patient's last visit have been reviewed. WBC (k/uL) Date Value 01/10/2017 6.31 RBC (m/uL) Date Value 01/10/2017 4.90 Hemoglobin (g/dL) Date Value 01/10/2017 15.4 Hematocrit (%) Date Value 01/10/2017 47.3 MCV (fL) Date Value 01/10/2017 96.5 MCH (pG) Date Value 01/10/2017 31.4 MCHC (g/dL) Date Value 01/10/2017 32.6 RDW-CV (%) Date Value 01/10/2017 13.6 Platelet Count (k/uL) Date Value 01/10/2017 175 MPV (fL) Date Value 01/10/2017 10.0 Glucose (mg/dL) Date Value 01/10/2017 100 (H) BUN (mg/dL) Date Value 01/10/2017 14 Creatinine (mg/dL) Date Value 01/10/2017 0.95 Sodium (mmol/L) Date Value 01/10/2017 141 Potassium (mmol/L) Date Value 01/10/2017 4.2 Chloride (mmol/L) Date Value 01/10/2017 104 CO2 (mmol/L) Date Value 01/10/2017 23 Protein, Total (g/dL) Date Value 01/10/2017 7.4 Albumin (g/dL) Date Value 01/10/2017 3.9 Calcium (mg/dL) Date Value 01/10/2017 9.1 Alkaline Phosphatase (U/L) Date Value 01/10/2017 38 Bilirubin, Total (mg/dL) Date Value 01/10/2017 0.5 AST (U/L) Date Value 01/10/2017 24 ALT (U/L) Date Value 01/10/2017 24 MEDICATIONS: CPAP/BIPAP/OTHER Auto titrating Bilevel PAP with IPAP max 25, EPAP min 15 cmH2O with pressure support (PS) 5 cmH2O. A medium ResMed AirFit F30 full face mask. vasupep-peon-nsvbf-oreg-capryl 100 mg-150 mg- 50 mg-150 mg cap Take 300 mg by mouth once daily. CPAP Mask fitting at [facility] when available. CPAP Please adjust AutoPAP to 12-16 cmH2O with download in 2 weeks. Thank you. CPAP Please change autoPAP setting to 12-20 cmH2O. (Patient not taking: Reported on 09/16/2021 ) CPAP Please increase pressure to 13 cmH2O on patient's CPAP. Please also get a download from his auto-PAP device as unclear why he was unable to tolerate. Thank you. (Patient not taking: Reported on 09/16/2021 ) CPAP Please set Auto-PAP with humidity for 8-16 cmH2O. Please provide us download in 4 weeks. Thankyou. DME = [facility] Please increase PAP setting to 12 cmH2O, and provide use download in 4 weeks for review. Ross Saldaña MD hydrocortisone 2.5 % cream Apply to irritant dermatitis rash at any sensitive deep fold areas (eg.,groin area), selectively twice up to three times per day until clear and then stop or taper off as able. AVOID direct application to eyelids//eyes. ketoconazole (NIZORAL) 2 % cream Apply 1 application to affected area once daily. to groin rash (Patient not taking: Reported on 10/18/2020 ) Psyllium Seed-Sucrose (METAMUCIL) powd Take 1 Tablespoonful by mouth once daily. multivitamin tablet Take 1 tablet by mouth once daily. (Patient not taking: Reported on 03/20/2022 ) alfuzosin SR 10 mg ORAL 24 hr tablet Take 1 tablet by mouth once daily. (Patient not taking: Reported on 01/21/2021 ) sildenafil (VIAGRA) 50 mg ORAL Tab Take one(1) tablet 30-60 minutes before sexual intercourse as needed. 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 Diabetes (HCC) Now has IFG (noted when established with me 01/16/17) Diaphragmatic hernia without mention of obstruction or gangrene Diverticulosis of colon (without mention of hemorrhage) Diverticulosis Esophageal reflux GOUT NOS 04/10/2007 no recurrence since Hypertension Hypertrophy of prostate without urinary obstruction and other lower urinary tract symptoms (LUTS) Internal hemorrhoids without mention of complication Obstructive sleep apnea Osteoarthrosis, unspecified whether generalized or localized, unspecified site Other and unspecified hyperlipidemia SCAR & FIBROSIS OF SKIN 02/24/2008 Unspecified sleep apnea FAMILY HISTORY Problem Relation Age of Onset Stroke Father stroke at age 54 other (melanoma [Other]) Brother other (Blood clot [Other]) Son ? temporal artery other (chf [Other]) Other mother SOCIAL HISTORY Social History Tobacco Use Smoking status: Former Types: Cigars Quit date: 10/15/1968 Years since quittin.9 Smokeless tobacco: Never Tobacco comments: Quit age 28 Substance Use Topics Alcohol use: Yes Alcohol/week: 12.5 standard drinks Types: 5 Glasses of Wine (5oz) per week Drug use: No PHYSICAL EXAMINATION There were no vitals taken for this visit. GENERAL EXAM: General appearance: NAD, pleasant. HEENT: NC/AT, nasal congestion absent, no oral lesions, membranes moist. NECK: ROM nml. Lungs: No audible cough, wheeze sob. NEUROLOGICAL EXAM: General: Awake, alert, oriented x3 (person,place,time), speech fluent, no dysarthria; comprehension, naming, repetition intact. CN: EOMI, face symmetric, hearing is intact, palate and tongue movements are intact and symmetric. SCM and trapezius strength symmetric. Motor: Moves upper ext equal and symmetric. Coordination: FNF, DAYANA intact. No tremors. Assessment and Plan: ASSESSMENT/PLAN: 1. Obstructive sleep apnea (adult) (pediatric) - ICD9: 327.23, ICD10: G47.33 Patient with persistent symptoms of EFREN despite PAP compliance. Using a loaner AutoPAP at present, but AHI remains elevated and pt noting difficulties exhaling at times when on higher pressures. [place]ill with some degre of daytime sleepiness as above. Per discussion today, will transition to bilevel PAP and more specifically auto bilevel PAP as recommended following last titration. Pt agrees with plan. Will order bilevel PAP as EPAP min 12 cmH2O, IPAP max 25 cmH2O and PS of 5 cmH2O with lifetime supplies. Advised pt not to drive or operate heavy machinery if sleepy. Reminded to clean and replace equipment regularly but avoid ozone medical collections specialist. Pt with follow up scheduled in 10/2022 with sleepAPP. Advised pt to contact us sooner if difficulties with new PAP device. Note I did discuss the plan with Gui Gonzalez at [facility]. Rx sent. Ross Saldaña MD I spent a total of 35 minutes on the date of the service which included preparing to see the patient, [id number] patient care, completing clinical documentation, obtaining and/or reviewing separately obtained history, performing a medically appropriate examination, counseling and educating the pat ient/family/caregiver, ordering medications, tests, or procedures, communicating results to the patient/family/caregiver, and care coordination (not separately reported). documented in this encounterThe [facility]11-14-[facility]22 Miscellaneous Notes* Telephone Encounter - Ariadna Velasquez Pss - 08/28/2022 3:55 PM EST Called the patient and scheduled an virtual appointment for today. * Telephone Encounter - Amber Richard LPN - 08/28/2022 3:41 PM EST Have opening today at 5pm, staff to call pt to see if available for VV. Amber Richard LPN * Telephone Encounter - Inocencia Rush Pss - 08/28/2022 1:57 PM EST Patient is scheduled next opening 10/25/2022 and asking for a nurse to return his call as he can notgo this long without a machine. * Telephone Encounter - Amber Richard LPN - 08/25/2022 3:13 PM EST Will forward message to PSS to assist in scheduling with RILEY as soon as possible. Whether be VV or in office. Amber Richard LPN * Telephone Encounter - Amber Richard LPN - 08/25/2022 2:22 PM EST Spoke with Gui Gonzalez at [facility]. Needing to have charting to state the patient had titration study and showed failed and patient needing to be switched to bilevel. A new script will need to be provided for the bilevel PAP. Amber Richard LPN * Telephone Encounter - Judie Bae LPN - 08/23/2022 4:54 PM EST Rob Gonzalez called asking about BiPap if office notes were addended to explain reasoning to switch to BiPap. Brain is asking if Amber would call him to go over what is needed to get the BiPap approved through insurance at [phone]. documented in this encounterThe [facility] Hospital11-08-2022 Miscellaneous Notes* Telephone Encounter - RAFITA Peterson - 08/22/2022 4:18 PM EST Per providers request, TC to [facility] to inquire about Auto bilevel v. Auto PAP. This staff was informed that CPAP and Auto CPAP are ordered under the same code and therefore are not eligible for replacement within 5 years of each other. A BiPAP is a totally different code and therefore can be ordered any amount of time before or aftera CPAP. The patients current machine is a CPAP ordered on 05/18/2020 and he is not eligible for a CPAP until 2024. However, this staff was informed his broken CPAP was just received back from repair and if is still in working condition and the patient needs to switch back from BiPAP to CPAP, he would be ableto do so if he keeps the current machine. Please advise. Thank you. RAFITA Peterson * Telephone Encounter - RAFITA Peterson - 08/22/2022 11:19 AM EST In TE from 08/18, Brain with [facility] contacted office asking if patient should be switched to an AutoBiPAP. In encounter it states, if Patient to change to Auto BiPap, will need to have a [id number] with Provider and then have order written. At this time provider needed to review download as at previous appointment (03/20) ahi was normalized. Pt asking if provider has had time to review download and if auto bipap is suggested. Please advise if this report was received by provider. Thank you. RAFITA Peterson documented in this encounterThe [facility] Hospital07-07-2022 Miscellaneous Notes* Telephone Encounter - Ariadna Velasquez Pss - 04/20/2022 9:30 AM EDT Received RX for CPAP supplies by fax from [facility] for the provider's signature. Faxed the signed form to fax# [phone]. # [phone] documented in this encounterThe [facility] Hospital06-06-2022 History of Present illness Narrative* Ross Saldaña Jr., MD - 03/20/2022 1:45 PM EDT ESTABLISHED PATIENT VISIT CHIEF COMPLAINT: Follow Up HISTORY OF PRESENT ILLNESS: Hannah Paredes is a 81 year old male, with a PMH significant for and perlast office visit of 09/16/21: 1. Obstructive sleep apnea (adult) (pediatric) - ICD9: 327.23, ICD10: G47.33 Patient overall doing well with PAP therapy. AHI best it has been at 5.2. Continues to have on and off mask leaks. Can go week with great fit and then week with poor fit. Will ask Gui Gonzalez at [facility] to try one more mask fitting with the patient. While he never received the Auto Bilevel, as heis doing so well with AutoPAP at this time, we have decided to not make any changes to the patient's equipment/settings. Remind pt to clean equipment regularly. Advised not to drive or operate heavy machinery if sleepy. We (patient and physician) reviewed PAP data downloads during this visit. PAP data download reviewed. Wearing nightly for avg of 7 hours and 11 minutes. Current autoPAP settings at 12-16 cmH2O. AHI is 4.1. 95% leak is 15.3 LPM. 95% pressure is 15.9 cmH2O. Rare leaks throughout the months of January and February. Patient feels doing well on PAP device. States that he feels that more frequent new cushions have allowed for resolution of leaks. Cleaning mask and equipment regularly, but using an ozone curtain cleaner. States also quit drinking all together. Sleeping through the night. No EDS. No snoring or witnessed apneas. No falling asleep driving or need for naps. REVIEW OF SYSTEMS GENERAL:No weight loss, malaise or fevers. HEENT:Negative for frequent or significant headaches, No changes in hearing or vision, no nose bleeds or other nasal problems RESPIRATORY: Negative for cough, wheezing or shortness of breath. CARDIOVASCULAR: Negative for chest pain, leg swelling or palpitations. LAB/IMAGING: Those performed since patient's last visit have been reviewed. WBC (k/uL) Date Value 01/10/2017 6.31 RBC (m/uL) Date Value 01/10/2017 4.90 Hemoglobin (g/dL) Date Value 01/10/2017 15.4 Hematocrit (%) Date Value 01/10/2017 47.3 MCV (fL) Date Value 01/10/2017 96.5 MCH (pG) Date Value 01/10/2017 31.4 MCHC (g/dL) Date Value 01/10/2017 32.6 RDW-CV (%) Date Value 01/10/2017 13.6 Platelet Count (k/uL) Date Value 01/10/2017 175 MPV (fL) Date Value 01/10/2017 10.0 Glucose (mg/dL) Date Value 01/10/2017 100 (H) BUN (mg/dL) Date Value 01/10/2017 14 Creatinine (mg/dL) Date Value 01/10/2017 0.95 Sodium (mmol/L) Date Value 01/10/2017 141 Potassium (mmol/L) Date Value 01/10/2017 4.2 Chloride (mmol/L) Date Value 01/10/2017 104 CO2 (mmol/L) Date Value 01/10/2017 23 Protein, Total (g/dL) Date Value 01/10/2017 7.4 Albumin (g/dL) Date Value 01/10/2017 3.9 Calcium (mg/dL) Date Value 01/10/2017 9.1 Alkaline Phosphatase (U/L) Date Value 01/10/2017 38 Bilirubin, Total (mg/dL) Date Value 01/10/2017 0.5 AST (U/L) Date Value 01/10/2017 24 ALT (U/L) Date Value 01/10/2017 24 MEDICATIONS: CPAP Mask fitting at [facility] when available. CPAP Please adjust AutoPAP to 12-16 cmH2O with download in 2 weeks. Thank you. CPAP Please change autoPAP setting to 12-20 cmH2O. CPAP Please increase pressure to 13 cmH2O on patient's CPAP. Please also get a download from his auto-PAP device as unclear why he was unable to tolerate. Thank you. CPAP Please set Auto-PAP with humidity for 8-16 cmH2O. Please provide us download in 4 weeks. Thankyou.DME = [facility] Please increase PAP setting to 12 cmH2O, and provide use download in 4 weeks for review.Ross Saldaña MD hydrocortisone 2.5 % cream Apply to irritant dermatitis rash at any sensitive deep fold areas (eg.,groin area), selectively twice up to three times per day until clear and then stop or taper off as able. AVOID direct application to eyelids//eyes. ketoconazole (NIZORAL) 2 % cream Apply 1 application to affected area once daily. to groin rash Psyllium Seed-Sucrose (METAMUCIL) powd Take 1 Tablespoonful by mouth once daily. multivitamin tablet Take 1 tablet by mouth once daily. alfuzosin SR 10 mg ORAL 24 hr tablet Take 1 tablet by mouth once daily. sildenafil (VIAGRA) 50 mg ORAL Tab Take one(1) tablet 30-60 minutes before sexual intercourse as needed. 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 Diabetes (HCC) Now has IFG (noted when established with me 01/16/17) Diaphragmatic hernia without mention of obstruction or gangrene Diverticulosis of colon (without mention of hemorrhage) Diverticulosis Esophageal reflux GOUT NOS 04/10/2007 no recurrence since Hypertension Hypertrophy of prostate without urinary obstruction and other lower urinary tract symptoms (LUTS) Internal hemorrhoids without mention of complication Obstructive sleep apnea Osteoarthrosis, unspecified whether generalized or localized, unspecified site Other and unspecified hyperlipidemia SCAR & FIBROSIS OF SKIN 02/24/2008 Unspecified sleep apnea FAMILY HISTORY Problem Relation Age of Onset Stroke Father stroke at age 54 other (melanoma [Other]) Brother other (Blood clot [Other]) Son ? temporal artery other (chf [Other]) Unknown mother SOCIAL HISTORY Social History Tobacco Use Smoking status: Former Smoker Types: Cigars Quit date: 10/15/1968 Years since quittin.4 Smokeless tobacco: Never Used Tobacco comment: Quit age 28 Substance Use Topics Alcohol use: Yes Alcohol/week: 12.5 standard drinks Types: 5 Glasses of Wine (5oz) per week Drug use: No PHYSICAL EXAMINATION Blood pressure 128/70, pulse 62, temperature 36.3 C (97.3 F), temperature source Temporal, resp. rate 18, weight 97.3 kg (214 lb 9.6 oz), SpO2 96 %. GENERAL EXAM: General appearance: NAD, pleasant. HEENT: NC/AT, nasal congestion absent, no oral lesions, membranes moist. Lungs: CTA bilaterally. No wheezes present. CV: RRR nl S1, S2, no murmurs. Extr: No cyanosis, clubbing or edema. Skin: Cool to touch. NEUROLOGICAL EXAM: General: Awake, alert, oriented x3 (person,place,time), speech fluent, no dysarthria; comprehension, naming, repetition intact. CN: PERRL, EOMI and without nystagmus, VFF to confrontation, facial sensation and strength are normal and symmetric, hearing is intact to finger rub bilaterally, palate and tongue movements are intact and symmetric. SCM and trapezius strength normal. Motor: Normal tone, bulk and strength (5/5) bilaterally (throughout extremities x4). Coordination: FNF, DAYANA intact. No tremors. Sensation: Light touch intact throughout. No evidence of neglect. Gait: Stable with normal stride and arm swing. Assessment and Plan: ASSESSMENT/PLAN: 1. Obstructive sleep apnea (adult) (pediatric) - ICD9: 327.23, ICD10: G47.33 Doing well on PAP. AHI normalized. Discussed possible increase in pressure but since clinically feeling good, with no complaints of sleepiness, his sleeping through the night, and no snoring or witnessed apneas -- feel that risk of mask leak or intolerance by increasing PAP outweighs the benefits of current treatment. Discussed use of ozone curtain cleaner and possible negative effects of such and he will transition to soap and water. No other issues at this time. Follow up 1 year. Ross Saldaña MD I spent a total of 20+ minutes on the date of the service which included preparing to see the patient, [id number] patient care, completing clinical documentation, obtaining and/or reviewing separately obtained history, performing a medically appropriate examination, counseling and educating the pa tient/family/caregiver, ordering medications, tests, or procedures, independently interpreting results (not separately reported) and communicating results to the patient/family/caregiver (results = PAP data download). 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 03/31/2012 04/23/2014 Open wound(s) (multiple) of unspecified site(s), without mention of complication 01/26/2010 08/26/2010 Epidermal Inclusion Cyst (at L outer eyebrow are a) 11/05/2009 08/26/2010 Impetigo 05/19/2009 07/08/2010 Contact dermatitis and other eczema, due to unspecified cause 05/19/2009 08/26/2010 INTERTRIGO///ERYTHEMATOUS COND NEC 05/19/2009 08/26/2010 Viral warts, unspecified 01/05/2009 012 SEBORRHEIC KERATOSIS: IRRITATED//INFLAMED 200808/26/2010 Internal hemorrhoids without mention of complica tion 07/07/2008 05/08/2016 SOLAR LENTIGINES///DYSCHROMIA OTHER 10/09/2007 03/31/2012 Other seborrheic keratosis 10/09/200703/31 Unspecified hypertrophic and atrophic condition of skin 10/09/2007 03/31/2012 Gout, unspecified 04/10/2007 07/08/2010 Sprain of neck 03/01/2007 07/08/2010 Open wound(s) (multiple) of unspecified site(s), without mention of complication 08/02/2005 10/28/2008 Unspecified hemorrhoids without mention of compl ication 05/08/2016 Overview: Hemorrhoids documented as of this encounter (statuses as of 03/20/2022) [facility] of Past illness Narrative* Problem Noted Date Resolved Date Surgical wound infection 04/06/2013 014 Hypertension 09/02/2012 05/08/2016 Pyoderma, 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 03/31/2012 04/23/2014 Open wound(s) (multiple) of unspecified site(s), without mention of complication 01/26/2010 08/26/2010 Epidermal Inclusion Cyst (at L outer eyebrow are a) 11/05/2009 08/26/2010 Impetigo 05/19/2009 07/08/2010 Contact dermatitis and other eczema, due to unspecified cause 05/19/2009 08/26/2010 INTERTRIGO///ERYTHEMATOUS COND NEC 05/19/2009 08/26/2010 Viral warts, unspecified 01/05/2009 012 SEBORRHEIC KERATOSIS: IRRITATED//INFLAMED 200808/26/2010 Internal hemorrhoids without mention of complica tion 07/07/2008 05/08/2016 SOLAR LENTIGINES///DYSCHROMIA OTHER 10/09/2007 03/31/2012 Other seborrheic keratosis 10/09/200703/31 Unspecified hypertrophic and atrophic condition of skin 10/09/2007 03/31/2012 Gout, unspecified 04/10/2007 07/08/2010 Sprain of neck 03/01/2007 07/08/2010 Open wound(s) (multiple) of unspecified site(s), without mention of complication 08/02/2005 10/28/2008 Unspecified hemorrhoids without mention of compl ication 05/08/2016 Overview: Hemorrhoids documented as of this encounter (statuses as of 04/20/2022) [facility] Narrative* Problem Noted Date Resolved Date Surgical wound infection 04/06/2013 014 Hypertension 09/02/2012 05/08/2016 Pyoderma, 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 03/31/2012 04/23/2014 Open wound(s) (multiple) of unspecified site(s), without mention of complication 01/26/2010 08/26/2010 Epidermal Inclusion Cyst (at L outer eyebrow are a) 11/05/2009 08/26/2010 Impetigo 05/19/2009 07/08/2010 Contact dermatitis and other eczema, due to unspecified cause 05/19/2009 08/26/2010 INTERTRIGO///ERYTHEMATOUS COND NEC 05/19/2009 08/26/2010 Viral warts, unspecified 01/05/2009 012 SEBORRHEIC KERATOSIS: IRRITATED//INFLAMED 200808/26/2010 Internal hemorrhoids without mention of complica tion 07/07/2008 05/08/2016 SOLAR LENTIGINES///DYSCHROMIA OTHER 10/09/2007 03/31/2012 Other seborrheic keratosis 10/09/200703/31 Unspecified hypertrophic and atrophic condition of skin 10/09/2007 03/31/2012 Gout, unspecified 04/10/2007 07/08/2010 Sprain of neck 03/01/2007 07/08/2010 Open wound(s) (multiple) of unspecified site(s), without mention of complication 08/02/2005 10/28/2008 Unspecified hemorrhoids without mention of compl ication 05/08/2016 Overview: Hemorrhoids documented as of this encounter (statuses as of 08/23/2022) [facility] Narrative* Problem Noted Date Resolved Date Surgical wound infection 04/06/2013 014 Hypertension 09/02/2012 05/08/2016 Pyoderma, 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 03/31/2012 04/23/2014 Open wound(s) (multiple) of unspecified site(s), without mention of complication 01/26/2010 08/26/2010 Epidermal Inclusion Cyst (at L outer eyebrow are a) 11/05/2009 08/26/2010 Impetigo 05/19/2009 07/08/2010 Contact dermatitis and other eczema, due to unspecified cause 05/19/2009 08/26/2010 INTERTRIGO///ERYTHEMATOUS COND NEC 05/19/2009 08/26/2010 Viral warts, unspecified 01/05/2009 012 SEBORRHEIC KERATOSIS: IRRITATED//INFLAMED 200808/26/2010 Internal hemorrhoids without mention of complica tion 07/07/2008 05/08/2016 SOLAR LENTIGINES///DYSCHROMIA OTHER 10/09/2007 03/31/2012 Other seborrheic keratosis 10/09/200703/31 Unspecified hypertrophic and atrophic condition of skin 10/09/2007 03/31/2012 Gout, unspecified 04/10/2007 07/08/2010 Sprain of neck 03/01/2007 07/08/2010 Open wound(s) (multiple) of unspecified site(s), without mention of complication 08/02/2005 10/28/2008 Unspecified hemorrhoids without mention of compl ication 05/08/2016 Overview: Hemorrhoids documented as of this encounter (statuses as of 08/29/2022) [facility] Narrative* Problem Noted Date Resolved Date Surgical wound infection 04/06/2013 014 Hypertension 09/02/2012 05/08/2016 Pyoderma, 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 03/31/2012 04/23/2014 Open wound(s) (multiple) of unspecified site(s), without mention of complication 01/26/2010 08/26/2010 Epidermal Inclusion Cyst (at L outer eyebrow are a) 11/05/2009 08/26/2010 Impetigo 05/19/2009 07/08/2010 Contact dermatitis and other eczema, due to unspecified cause 05/19/2009 08/26/2010 INTERTRIGO///ERYTHEMATOUS COND NEC 05/19/2009 08/26/2010 Viral warts, unspecified 01/05/2009 012 SEBORRHEIC KERATOSIS: IRRITATED//INFLAMED 200808/26/2010 Internal hemorrhoids without mention of complica tion 07/07/2008 05/08/2016 SOLAR LENTIGINES///DYSCHROMIA OTHER 10/09/2007 03/31/2012 Other seborrheic keratosis 10/09/200703/31 Unspecified hypertrophic and atrophic condition of skin 10/09/2007 03/31/2012 Gout, unspecified 04/10/2007 07/08/2010 Sprain of neck 03/01/2007 07/08/2010 Open wound(s) (multiple) of unspecified site(s), without mention of complication 08/02/2005 10/28/2008 Unspecified hemorrhoids without mention of compl ication 05/08/2016 Overview: Hemorrhoids documented as of this encounter (statuses as of 08/29/2022) [facility] History of Past illness Narrative* Problem Noted Date Resolved Date Surgical wound infection 04/06/2013 014 Hypertension 09/02/2012 05/08/2016 Pyoderma, 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 03/31/2012 04/23/2014 Open wound(s) (multiple) of unspecified site(s), without mention of complication 01/26/2010 08/26/2010 Epidermal Inclusion Cyst (at L outer eyebrow are a) 11/05/2009 08/26/2010 Impetigo 05/19/2009 07/08/2010 Contact dermatitis and other eczema, due to unspecified cause 05/19/2009 08/26/2010 INTERTRIGO///ERYTHEMATOUS COND NEC 05/19/2009 08/26/2010 Viral warts, unspecified 01/05/2009 012 SEBORRHEIC KERATOSIS: IRRITATED//INFLAMED 200808/26/2010 Internal hemorrhoids without mention of complica tion 07/07/2008 05/08/2016 SOLAR LENTIGINES///DYSCHROMIA OTHER 10/09/2007 03/31/2012 Other seborrheic keratosis 10/09/200703/31 Unspecified hypertrophic and atrophic condition of skin 10/09/2007 03/31/2012 Gout, unspecified 04/10/2007 07/08/2010 Sprain of neck 03/01/2007 07/08/2010 Open wound(s) (multiple) of unspecified site(s), without mention of complication 08/02/2005 10/28/2008 Unspecified hemorrhoids without mention of compl ication 05/08/2016 Overview: Hemorrhoids documented as of this encounter (statuses as of 08/29/2022) [facility] History of Past illness Narrative* Problem Noted Date Resolved Date Surgical wound infection 04/06/2013 014 Hypertension 09/02/2012 05/08/2016 Pyoderma, 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 03/31/2012 04/23/2014 Open wound(s) (multiple) of unspecified site(s), without mention of complication 01/26/2010 08/26/2010 Epidermal Inclusion Cyst (at L outer eyebrow are a) 11/05/2009 08/26/2010 Impetigo 05/19/2009 07/08/2010 Contact dermatitis and other eczema, due to unspecified cause 05/19/2009 08/26/2010 INTERTRIGO///ERYTHEMATOUS COND NEC 05/19/2009 08/26/2010 Viral warts, unspecified 01/05/2009 012 SEBORRHEIC KERATOSIS: IRRITATED//INFLAMED 200808/26/2010 Internal hemorrhoids without mention of complica tion 07/07/2008 05/08/2016 SOLAR LENTIGINES///DYSCHROMIA OTHER 10/09/2007 03/31/2012 Other seborrheic keratosis 10/09/200703/31 Unspecified hypertrophic and atrophic condition of skin 10/09/2007 03/31/2012 Gout, unspecified 04/10/2007 07/08/2010 Sprain of neck 03/01/2007 07/08/2010 Open wound(s) (multiple) of unspecified site(s), without mention of complication 08/02/2005 10/28/2008 Unspecified hemorrhoids without mention of compl ication 05/08/2016 Overview: Hemorrhoids documented as of this encounter (statuses as of 09/21/2022) [facility] History of Past illness Narrative* Problem Noted Date Resolved Date Surgical wound infection 04/06/2013 014 Hypertension 09/02/2012 05/08/2016 Pyoderma, 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 03/31/2012 04/23/2014 Open wound(s) (multiple) of unspecified site(s), without mention of complication 01/26/2010 08/26/2010 Epidermal Inclusion Cyst (at L outer eyebrow are a) 11/05/2009 08/26/2010 Impetigo 05/19/2009 07/08/2010 Contact dermatitis and other eczema, due to unspecified cause 05/19/2009 08/26/2010 INTERTRIGO///ERYTHEMATOUS COND NEC 05/19/2009 08/26/2010 Viral warts, unspecified 01/05/2009 012 SEBORRHEIC KERATOSIS: IRRITATED//INFLAMED 200808/26/2010 Internal hemorrhoids without mention of complica tion 07/07/2008 05/08/2016 SOLAR LENTIGINES///DYSCHROMIA OTHER 10/09/2007 03/31/2012 Other seborrheic keratosis 10/09/200703/31 Unspecified hypertrophic and atrophic condition of skin 10/09/2007 03/31/2012 Gout, unspecified 04/10/2007 07/08/2010 Sprain of neck 03/01/2007 07/08/2010 Open wound(s) (multiple) of unspecified site(s), without mention of complication 08/02/2005 10/28/2008 Unspecified hemorrhoids without mention of compl ication 05/08/2016 Overview: Hemorrhoids documented as of this encounter (statuses as of 09/21/2022) [facility] History of Past illness Narrative* Problem Noted Date Resolved Date Surgical wound infection 04/06/2013 014 Hypertension 09/02/2012 05/08/2016 Pyoderma, 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 03/31/2012 04/23/2014 Open wound(s) (multiple) of unspecified site(s), without mention of complication 01/26/2010 08/26/2010 Epidermal Inclusion Cyst (at L outer eyebrow are a) 11/05/2009 08/26/2010 Impetigo 05/19/2009 07/08/2010 Contact dermatitis and other eczema, due to unspecified cause 05/19/2009 08/26/2010 INTERTRIGO///ERYTHEMATOUS COND NEC 05/19/2009 08/26/2010 Viral warts, unspecified 01/05/2009 012 SEBORRHEIC KERATOSIS: IRRITATED//INFLAMED 200808/26/2010 Internal hemorrhoids without mention of complica tion 07/07/2008 05/08/2016 SOLAR LENTIGINES///DYSCHROMIA OTHER 10/09/2007 03/31/2012 Other seborrheic keratosis 10/09/200703/31 Unspecified hypertrophic and atrophic condition of skin 10/09/2007 03/31/2012 Gout, unspecified 04/10/2007 07/08/2010 Sprain of neck 03/01/2007 07/08/2010 Open wound(s) (multiple) of unspecified site(s), without mention of complication 08/02/2005 10/28/2008 Unspecified hemorrhoids without mention of compl ication 05/08/2016 Overview: Hemorrhoids documented as of this encounter (statuses as of 09/26/2022) [facility] of Past illness Narrative* Problem Noted Date Resolved Date Surgical wound infection 04/06/2013 014 Hypertension 09/02/2012 05/08/2016 Pyoderma, 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 03/31/2012 04/23/2014 Open wound(s) (multiple) of unspecified site(s), without mention of complication 01/26/2010 08/26/2010 Epidermal Inclusion Cyst (at L outer eyebrow are a) 11/05/2009 08/26/2010 Impetigo 05/19/2009 07/08/2010 Contact dermatitis and other eczema, due to unspecified cause 05/19/2009 08/26/2010 INTERTRIGO///ERYTHEMATOUS COND NEC 05/19/2009 08/26/2010 Viral warts, unspecified 01/05/2009 012 SEBORRHEIC KERATOSIS: IRRITATED//INFLAMED 200808/26/2010 Internal hemorrhoids without mention of complica tion 07/07/2008 05/08/2016 SOLAR LENTIGINES///DYSCHROMIA OTHER 10/09/2007 03/31/2012 Other seborrheic keratosis 10/09/200703/31 Unspecified hypertrophic and atrophic condition of skin 10/09/2007 03/31/2012 Gout, unspecified 04/10/2007 07/08/2010 Sprain of neck 03/01/2007 07/08/2010 Open wound(s) (multiple) of unspecified site(s), without mention of complication 08/02/2005 10/28/2008 Unspecified hemorrhoids without mention of compl ication 05/08/2016 Overview: Hemorrhoids documented as of this encounter (statuses as of 11/30/2022) [facility] History of Past illness Narrative* Problem Noted Date Diagnosed Date Resolved Date Surgical wound infection 04/06/201307/2014 Hypertension 09/02/2012 05/08/2016 Pyoderma, 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 03/31/2012 04/23/2014 Open wound(s) (multiple) of unspecified site(s), without mention of complication 01/26/2010 08/26/2010 Epidermal Inclusion Cyst (at L outer eyebrow area) 11/05/2009 08/26/2010 Impetigo 05/19/2009 07/08/2010 Contact dermatitis and other eczema, due to unspecified cause 05/19/2009 08/26/2010 INTERTRIGO///ERYTHEMATOUS COND NEC 05/19/2009 08/26/2010 Viral warts, unspecified 01/05/2009 SEBORRHEIC KERATOSIS: IRRITATED//INFLAMED 01/05/2009 08/26/2010 Internal hemorrhoids without mention of complication 07/07/2008 05/08/2016 SOLAR LENTIGINES///DYSCHROMIA OTHER 10/09/2007 03/31/2012 Other seborrheic keratosis 10/09/2007 0 03/31/2012 Unspecified hypertrophic and atrophic condition of skin 10/09/2007 03/31/2012 Gout, unspecified 04/10/2007 07/08/2010 Sprain of neck 03/01/2007 07/08/2010 Open wound(s) (multiple) of unspecified site(s), without mention of complication 08/02/2005 10/28/2008 Unspecified hemorrhoids with out mention of complication 05/08/2016 Overview: Hemorrhoids documented as of this encounter (statuses as of 07/18/2023) [facility] Past illness Narrative* Problem Noted Date Diagnosed Date Resolved Date Surgical wound infection 04/06/201307/2014 Hypertension 09/02/2012 05/08/2016 Pyoderma, 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 03/31/2012 04/23/2014 Open wound(s) (multiple) of unspecified site(s), without mention of complication 01/26/2010 08/26/2010 Epidermal Inclusion Cyst (at L outer eyebrow area) 11/05/2009 08/26/2010 Impetigo 05/19/2009 07/08/2010 Contact dermatitis and other eczema, due to unspecified cause 05/19/2009 08/26/2010 INTERTRIGO///ERYTHEMATOUS COND NEC 05/19/2009 08/26/2010 Viral warts, unspecified 01/05/2009 SEBORRHEIC KERATOSIS: IRRITATED//INFLAMED 01/05/2009 08/26/2010 Internal hemorrhoids without mention of complication 07/07/2008 05/08/2016 SOLAR LENTIGINES///DYSCHROMIA OTHER 10/09/2007 03/31/2012 Other seborrheic keratosis 10/09/2007 0 03/31/2012 Unspecified hypertrophic and atrophic condition of skin 10/09/2007 03/31/2012 Gout, unspecified 04/10/2007 07/08/2010 Sprain of neck 03/01/2007 07/08/2010 Open wound(s) (multiple) of unspecified site(s), without mention of complication 08/02/2005 10/28/2008 Unspecified hemorrhoids with out mention of complication 05/08/2016 Overview: Hemorrhoids documented as of this encounter (statuses as of 07/31/2023) [facility] of Past illness Narrative* Problem Noted Date Diagnosed Date Resolved Date Surgical wound infection 04/06/201307/2014 Hypertension 09/02/2012 05/08/2016 Pyoderma, unspecified: shaniqua mendozal from wounds and pt allergic to Polysporin 03/31/2012 04/23/2014 Open wound(s) (multiple) of unspecified site(s), without mention of complication 01/26/2010 08/26/2010 Epidermal Inclusion Cyst (at L outer eyebrow area) 11/05/2009 08/26/2010 Impetigo 05/19/2009 07/08/2010 Contact dermatitis and other eczema, due to unspecified cause 05/19/2009 08/26/2010 INTERTRIGO///ERYTHEMATOUS COND NEC 05/19/2009 08/26/2010 Viral warts, unspecified 01/05/2009 SEBORRHEIC KERATOSIS: IRRITATED//INFLAMED 01/05/2009 08/26/2010 Internal hemorrhoids without mention of complication 07/07/2008 05/08/2016 SOLAR LENTIGINES///DYSCHROMIA OTHER 10/09/2007 03/31/2012 Other seborrheic keratosis 10/09/2007 0 03/31/2012 Unspecified hypertrophic and atrophic condition of skin 10/09/2007 03/31/2012 Gout, unspecified 04/10/2007 07/08/2010 Sprain of neck 03/01/2007 07/08/2010 Open wound(s) (multiple) of unspecified site(s), without mention of complication 08/02/2005 10/28/2008 Unspecified hemorrhoids with out mention of complication 05/08/2016 Overview: Hemorrhoids documented as of this encounter (statuses as of 08/07/2023) [facility] Narrative* Problem Noted Date Diagnosed Date Resolved Date Surgical wound infection 04/06/201307/2014 Hypertension 09/02/2012 05/08/2016 Pyoderma, 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 03/31/2012 04/23/2014 Open wound(s) (multiple) of unspecified site(s), without mention of complication 01/26/2010 08/26/2010 Epidermal Inclusion Cyst (at L outer eyebrow area) 11/05/2009 08/26/2010 Impetigo 05/19/2009 07/08/2010 Contact dermatitis and other eczema, due to unspecified cause 05/19/2009 08/26/2010 INTERTRIGO///ERYTHEMATOUS COND NEC 05/19/2009 08/26/2010 Viral warts, unspecified 01/05/2009 SEBORRHEIC KERATOSIS: IRRITATED//INFLAMED 01/05/2009 08/26/2010 Internal hemorrhoids without mention of complication 07/07/2008 05/08/2016 SOLAR LENTIGINES///DYSCHROMIA OTHER 10/09/2007 03/31/2012 Other seborrheic keratosis 10/09/2007 0 03/31/2012 Unspecified hypertrophic and atrophic condition of skin 10/09/2007 03/31/2012 Gout, unspecified 04/10/2007 07/08/2010 Sprain of neck 03/01/2007 07/08/2010 Open wound(s) (multiple) of unspecified site(s), without mention of complication 08/02/2005 10/28/2008 Unspecified hemorrhoids with out mention of complication 05/08/2016 Overview: Hemorrhoids documented as of this encounter (statuses as of 01/29/2024) [facility] [place] [facility] Diagnosis Obstructive sleep apnea (adult) (pediatric)- Primary [facility] in this encounter [facility] [place] [facility]* Diagnosis Obstructive sleep apnea (adult) (pediatric)- Primary [facility] [place] [facility] Diagnosis Obstructive sleep apnea (adult) (pediatric)- Primary documented in this encounter [facility] note* Diagnosis Obstructive sleep apnea (adult) (pediatric)- Primary documented in this encounter [facility] note* Diagnosis Obstructive sleep apnea (adult) (pediatric)- Primary documented in this encounter [facility] noteNo assessment information availableWTrinity [facility] Work Phone: Evaluation note* Diagnosis Onset Date Resolution Status Diverticulitis [facility] Work Phone: Evaluation note* Diagnosis Onset Date Resolution Status Diverticulosis chronic [facility] Work Phone: Evaluation note* Diagnosis Obstructive sleep apnea- Primary Obstructive sleep apnea (adult) (pediatric) Class 1 obesity with body mass index (BMI) of 33.0 to 33.9 in adult, unspecified obesity type, unspecified whether serious comorbidity present documented in this encounter [facility] note* Diagnosis Onset Date Resolution Status Paronychia of finger of right hand acute [facility] Work Phone: Evaluation note* Diagnosis HYPERTENSION NOS- Primary Unspecified essential hypertension Anxiety Anxiety state, unspecified Impaired fasting glucose HYPERLIPIDEMIA NEC/NOS Other and unspecified hyperlipidemia EFREN on CPAP- Primary Obstructive sleep apnea (adult) (pediatric) Class 1 obesity with body mass index (BMI) of 34.0 to 34.9 in adult, unspecified obesity type, unspecified whether serious comorbidity present [facility] this encounter [facility] [id number] male referred by Rosangela Salvador for evaluation of 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 He recently had a shave biopsy of the left lateral cheek lesion that returned squamous cell carcinoma. He previously had Mohs in the same location. He is scheduled to have Mohs again later today. He is referred for examination of his lymph node basin. The patient has not noticed any masses on his neck or areas of tenderness. Denies deficiency or hypthdxtiropnjmsarIY-Wciovuygtxwduu-Xoocovza Work Phone: Reason for referral (narrative)No reason for referral information availableWTrinity Health [facility] Work Phone: Summary Purpose Family History No Family History Records Found Father Name Dates Details Family history of cerebrovas cular accident (CVA)(V17.1, Z82.3) Status:Active Brother Name Dates Details Family history of malignant melanoma(V16.8, Z80.8) Status:Active Unknown Family Member Name Dates Details Family history of malignant melanoma: Brother(V16.8, Z80.8) Status:Active Family history of cerebrovas cular accident (CVA): Father(V17.1, Z82.3) Status:Active Relationship Condition Age at Onset Recorded Date/T harinder father Transient ischemic attack Unknown brother Malignant melanoma Unknown Advance Directives No Advanced Directives Records FoundDocuments on File Type Date Recorded 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 Advance Directive(s) 07/14/2014 3:36 PM Advance Directive Response Recorded Date/ Time Living Will Yes July 16 0 1:04pm Power of Film Processing Supervisor Yes July 16 1:04pm Advance Directive Response Recorded Date/ Time Living Will Yes July 16 0 2:04pm Power of Film Processing Supervisor Yes July 16 2:04pm Chief Complaint recurrent scca Chief Complaint and Reason for Visit Chief Complaint DIVITICULITIS E-ORDER Chief Complaint DIVITICULITIS E-ORDER DIVERTICULITIS Chief Complaint DIVITICULITIS E-ORDER DIVERTICULITIS DYSPHAGIA *12MM TABLET* Reason for Visit Diverticulitis Chief Complaint DIVITICULITIS E-ORDER DIVERTICULITIS DYSPHAGIA *12MM TABLET* 3 MO FU SOB DYSPHAGIA Reason for Visit Diverticulosis Chief Complaint DYSPHAGIA / RX HERE EORDER Chief Complaint CONCERN FOR INFECTIO N ON RT RING FINGER DYSPHAGIA / RX HERE Reason for Visit Paronychia of finger of right hand Chief Complaint Admit Date E-ORDER December 18, 2024 11:2 1am Chief Complaint Admit Date E-ORDER December 18, 2024 11:2 1am constipation January 28, 2025 8:1 0am OCCLUSION AND STENOSIS OF CAROTID ARTERY February 17, 2025 9:43am Reason for Visit Admit Date Constipation January 28, 2025 8:1 0am Chief Complaint Admit Date EORDERS June 24, 2025 11:04am LAB July 02, 2025 11:08am Additional Source Comments (unrecognized sect ion and content) No Status Records FoundNo Status Records FoundNo Status Records FoundNo Status Records FoundNo Status Records FoundNo Status Records FoundNo Status Records FoundNo Status Records FoundNo Status Records Found INFORMATION SOURCE (unrecogn ized section and content) DATE CREATED AUTHOR 09/22/2018 [facility] DATE CREATED AUTHOR AUTHOR'S ORGANIZ ATION 05/31/2019 [facility] ([place]) DATE CREATED AUTHOR AUTHOR'S ORGANIZ ATION 07/20/2019 [facility] DATE CREATED AUTHOR AUTHOR'S ORGANIZ ATION 07/28/2019 [employer] DATE CREATED AUTHOR AUTHOR'S ORGANIZ ATION 03/29/2022 [facility] DATE CREATED AUTHOR AUTHOR'S ORGANIZ ATION 01/27/2023 [facility] DATE CREATED AUTHOR AUTHOR'S ORGANIZ ATION 08/01/2023 [facility] DATE CREATED AUTHOR AUTHOR'S ORGANIZ ATION 07/20/2025 [facility] DATE CREATED AUTHOR AUTHOR'S ORGANIZ ATION 07/26/2025 [facility] Source Comments (unrecognize d section and content) In the event this informatio n is protected by the Federal Confidentiality of Alcohol and Drug Abuse Patient Records regulations: The Federal rules restrict any use of the information to criminally investigate or prosecute any alcohol or drug abuse patient.[facility] the event this information is protected by the Federal Confidentiality of Alcohol and Drug Abuse Patient Records regulations: The Federal rules restrict any use of the information to criminally investigate or prosecute any alcohol or drug abuse patient.[facility]In the event this information is protected by the Federal Confidentiality of Alcohol and Drug Abuse Patient Records regulations: The Federal rules restrict any use of the information to criminally investigate or prosecute any alcohol or drug abuse patient.[facility] the event this information is protected by the Federal Confidentiality of Alcohol and Drug Abuse Patient Records regulations: The Federal rules restrict any use of the information to criminally investigate or prosecute any alcohol or drug abuse patient.[facility] HospitalIn the event this information is protected by the Federal Confidentiality of Alcohol and Drug Abuse Patient Records regulations: The Federal rules restrict any use of the information to criminally investigate or prosecute any alcohol or drug abuse patient.[facility]In the event this information is protected by the Federal Confidentiality of Alcohol and Drug Abuse Patient Records regulations: The Federal rules restrict any use of the information to criminally investigate or prosecute any alcohol or drug abuse patient.[facility]In the event this information is protected by the Federal Confidentiality of Alcohol and Drug Abuse Patient Records regulations: The Federal rules restrict any use of the information to criminally investigate or prosecute any alcohol or drug abuse patient.[facility]In the event this information is protected by the Federal Confidentiality of Alcohol and Drug Abuse Patient Records regulations: The Federal rules restrict any use of the information to criminally investigate or prosecute any alcohol or drug abuse patient.[facility]In the event this information is protected by the Federal Confidentiality of Alcohol and Drug Abuse Patient Records regulations: The Federal rules restrict any use of the information to criminally investigate or prosecute any alcohol or drug abuse patient.[facility]In the event this information is protected by the Federal Confidentiality of Alcohol and Drug Abuse Patient Records regulations: The Federal rules restrict any use of the information to criminally investigate or prosecute any alcohol or drug abuse patient.[facility] HospitalIn the event this information is protected by the Federal Confidentiality of Alcohol and Drug Abuse Patient Records regulations: The Federal rules restrict any use of the information to criminally investigate or prosecute any alcohol or drug abuse patient.[facility] HospitalIn the event this information is protected by the Federal Confidentiality of Alcohol and Drug Abuse Patient Records regulations: The Federal rules restrict any use of the information to criminally investigate or prosecute any alcohol or drug abuse patient.[facility]In the event this information is protected by the Federal Confidentiality of Alcohol and Drug Abuse Patient Records regulations: The Federal rules restrict any use of the information to criminally investigate or prosecute any alcohol or drug abuse patient.[facility] HospitalIn the event this information is protected by the Federal Confidentiality of Alcohol and Drug Abuse Patient Records regulations: The Federal rules restrict any use of the information to criminally investigate or prosecute any alcohol or drug abuse patient.[facility] HospitalIn the event this information is protected by the Federal Confidentiality of Alcohol and Drug Abuse Patient Records regulations: The Federal rules restrict any use of the information to criminally investigate or prosecute any alcohol or drug abuse patient.[facility] HospitalIn the event this information is protected by the Federal Confidentiality of Alcohol and Drug Abuse Patient Records regulations: The Federal rules restrict any use of the information to criminally investigate or prosecute any alcohol or drug abuse patient.[facility]In the event this information is protected by the Federal Confidentiality of Alcohol and Drug Abuse Patient Records regulations: The Federal rules restrict any use of the information to criminally investigate or prosecute any alcohol or drug abuse patient.[facility] HospitalIn the event this information is protected by the Federal Confidentiality of Alcohol and Drug Abuse Patient Records regulations: The Federal rules restrict any use of the information to criminally investigate or prosecute any alcohol or drug abuse patient.[facility] Reason for Visit (unrecogniz ed section and content) Reason Comments F/U 6 months Reason Comments Electronic Communication Reason Comments Question Reason Comments Established Patient Reason Comments Orders AutoPAP order faxed to [facility] Reason Comments Appointment Reason Comments Orders Pressure change on A utoVPAP Reason Comments Follow Up Reason Comments cpap compliance Reason Comments Established Patient Sleep Apnea Reason Comments Patient Question Reason Comments PAP Therapy Follow Up 12/29/23 - 01/27/24 Reason Comments Orders Faxed office note to [facility] and received confirmation at [phone]. Reason Comments Follow Up Efren w/ cpap follow u p Care Teams (unrecognized sec tion and content) Business Services Administrator Relationship Specialty Start Date End Date Nerissa Ryan RN Transitional Rn Palliative Care 10/21/14 Business Services Administrator Relationship Specialty Start Date End Date Nerissa Ryan RN Transitional Rn Palliative Care 10/21/14 Business Services Administrator Relationship Specialty Start Date End Date Nerissa Ryan RN Transitional Rn Palliative Care 10/21/14 Business Services Administrator Relationship Specialty Start Date End Date Nerissa Ryan RN Transitional Rn Palliative Care 10/21/14 Business Services Administrator Relationship Specialty Start Date End Date Nerissa Ryan RN Transitional Rn Palliative Care 10/21/14 Business Services Administrator Relationship Specialty Start Date End Date Nerissa Ryan RN Transitional Rn Palliative Care 10/21/14 Team Status: Active Member Role Status Dates Dr. Ethan Mcgarry MD Family Provider Active Team Status: Inactive Member Role Status Dates Dr. Ethan Mcgarry MD Primary Care Provider, Referring Provider Active Dr. Kennedy Kenny DO Attending Provider Active Team Status: Inactive Member Role Status Dates Dr. Ethan Mcgarry MD Primary Care Provider Active Dr. Kennedy Kenny DO Attending Provider, Referring Provider Active Team Status: Active Member Role Status Dates Dr. Ethan Mcgarry MD Family Provider Active No Primary Care Physician Primary Care Provider Active Team Status: Inactive Member Role Status Dates Dr. Kennedy Kenny DO Attending Provider, Referring Provider Active No Primary Care Physician Primary Care Provider Active Team Status: Active Member Role Status Dates Dr. Ethan Mcgarry MD Family Provider Active Dr. Mahin Ryan MD Primary Care Provider Active Team Status: Inactive Member Role Status Dates Dr. Mahin Ryan MD Primary Care Pr ovider, Attending Provider, Referring Provider Active Team Status: Inactive Member Role Status Dates Dr. Ethan Mcgarry MD Referring Provider Active Dr. Kennedy Kenny DO Attending Provider Active Dr. Mahin Ryan MD Primary Care Provider Active Team Status: Active Member Role Status Dates Dr. Mahin Ryan MD Primary Care Provider Active Dr. Terrence Bullard MD Attending Provider, Referring Pro vider Active Team Status: Active Member Role Status Dates Dr. Mahin Ryan MD Primary Care Provider, Referr ing Provider Active Dr. Jonny Shoemaker MD Attending Provider Active Team Status: Active Member Role Status Dates Dr. Mahin Ryan MD Primary Care Provider, Attend ing Provider Active Business Services Administrator Relationship Specialty Start Date End Date Nerissa Ryan RN Transitional Rn Palliative Care 10/21/14 Business Services Administrator Relationship Specialty Start Date End Date Nerissa Ryan RN Transitional Rn Palliative Care 10/21/14 Business Services Administrator Relationship Specialty Start Date End Date Nerissa Ryan RN Transitional Rn Palliative Care 10/21/14 Team Status: Inactive Member Role Status Dates Dr. Mahin Ryan MD Primary Care Provider, Referr ing Provider Active Frederick Billingsley PA, PA Attending Provider Active Team Status: Inactive Member Role Status Dates Dr. Mahin Ryan MD Primary Care Provider, Attend ing Provider Active Business Services Administrator Relationship Specialty Start Date End Date Nerissa Ryan RN Transitional Rn Palliative Care 10/21/14 Business Services Administrator Relationship Specialty Start Date End Date Nerissa Ryan RN Transitional Rn Palliative Care 10/21/14 Team Status: Inactive Member Role Status Dates Dr. Mahin Ryan MD Primary Care Provider Active Start: December 18, 2024 End: December 18, 2024 Dr. Mahin Ryan MD Attending Provider Active Start: December 18, 2024 End: December 18, 2024 Dr. Mahin Ryan MD Referring Provider Active Start: December 18, 2024 End: December 18, 2024 Team Status: Active Member Role Status Dates Dr. Mahin Ryan MD Primary Care Provider Active Team Status: Inactive Member Role Status Dates Dr. Mahin Ryan MD Primary Care Provider Active Start: January 28, 2025 End: January 28, 2025 Dr. Mahin Ryan MD Referring Provider Active Start: January 28, 2025 End: January 28, 2025 NATE Campbell Attending Provider Active Start: January 28, 2025 End: January 28, 2025 Team Status: Inactive Member Role Status Dates Dr. Mahin Ryan MD Primary Care Provider Active Start: February 17, 2025 End: February 17, 2025 Dr. Mahin Ryan MD Attending Provider Active Start: February 17, 2025 End: February 17, 2025 Dr. Mahin Ryan MD Referring Provider Active Start: February 17, 2025 End: February 17, 2025 Team Status: Active Member Role Status Dates Dr. Mahin Ryan MD Primary Care Provider Active Start: February 17, 2025 Dr. Dayton Brooks MD Attending Provider Active S tart: February 17, 2025 Business Services Administrator Relationship Specialty Start Date End Date Nerissa Ryan RN Transitional Rn Palliative Care 10/21/14 Team Status: Active Member Role/Relationship Status Dates Dr. Mahin Ryan MD Primary care physician Active Team Status: Inactive Member Role/Relationship Status Dates Dr. Mahin Ryan MD Primary care physician Active Start: June 24, 2025 End: June 24, 2025 Dr. Mahin Ryan MD Attending physician Active Start: June 24, 2025 End: June 24, 2025 Dr. Mahin Ryan MD Referring Provider Active Start: June 24, 2025 End: June 24, 2025 Team Status: Inactive Member Role/Relationship Status Dates Dr. Mahin Ryan MD Primary care physician Active Start: July 02, 2025 End: July 02, 2025 Dr. Mahin Ryan MD Attending physician Active Start: July 02, 2025 End: July 02, 2025 <item> Privacy Markings (unrecogniz ed section and content) Section Author: Yuridia Acharya PROHIBITION ON REDISCLOSURE OF CONFIDENTIAL INFORMATION This notice accompanies a disclosure of information concerning a client made to you with the consent of such client. Goals (unrecognized section and content) Goals may be documented in a n alternate sectionGoals may be documented in an alternate sectionGoals may be documented in an alternate sectionGoals may be documented in an alternate sectionGoals may be documented in an alternate sectionGoals may be documented in an alternate sectionGoals may be documented in an alternate sectionGoals may be documented in an alternate sectionGoals may be documented in an alternate sectionGoals may be documented in an alternate sectionGoals may be documented in an alternate section FOR RECORDS PERTAINING TO PATIENTS WHO ARE OR HAVE BEEN ENROLLED IN A CHEMICAL DEPENDENCY/SUBSTANCEABUSE PROGRAM, SOME INFORMATION MAY BE OMITTED. This clinical summary was aggregated from multiple sources. Caution should be exercised in using it in the provision of clinical care. This summary normalizes information from multiple sources, and as a consequence, information in this document may materially change the coding, format and clinical context of patient data. In addition, data may be omitted in some cases. CLINICAL DECISIONS SHOULD BE BASED ON THE PRIMARY CLINICAL RECORDS. [employer] [facility]. provides no warranty or guarantee of the accuracy or completeness of information in this document.
[2025-10-13] MEDS: Lactated Ringers 1,000 ML 15 ML IV (06:19)
--- NOTE | 2025-10-13 06:35 | PRE.ANES_ITS ---
ASA Classification* ASA Classification ASA Classification: 3 Assessment & Plan Anesthesia* Anesthesia Assessment Anesthesia Assessment: Discussed sedation and/or anesthesia options, risks, benefits, and alternatives with patient/parents/legal guardian/POA. Questions invited. The patient/parents/legal guardian/POA seems to understand and agrees to proceed with anesthesia plan. Reviewed the physical assessment, medical history, allergy history and patient home medications list prior to surgery/procedure/anesthetic and documented any changes. Performed airway and anesthesia risk assessments. Anesthesia Type Anesthesia Type: General History Source History Obtained from:: Patient and Chart Anesthesia Focused Assessment* Temperature: 99.4 F Pulse Rate: 90 Blood Pressure: 182/66 Respiratory Rate: 18 Pulse Ox: 95 Oxygen Delivery Method: Room Air Airway Assessment Mouth opens: >3 cm Mallampati Score: III Teeth Condition: Caps/Crowns (Patient has crowns on #8 #9.) and Missing (Patient has a couple missing molars on the right.) Neck Range of motion (ROM): Limited ROM (Somewhat Decreased) Labs Anesthesia Preop lab: CBC WBC, (4.4-11.0) 8.4 K/mm3 10/02/25, 09:41 RBC, (4.6-6.2) 4.30 M/mm3 L 10/02/25, 09:41 Hgb, (13.0-16.5) 13.3 g/dL 10/02/25, 09:41 Hct, (40-54) 40.0 % 10/02/25, 09:41 Plt Count, (150-450) 190 K/mm3 10/02/25, 09:41 CHEMISTRY Potassium, (3.3-5.1) 4.4 mmol/L 10/02/25, 09:41 Sodium, (133-145) 143 mmol/L 10/02/25, 09:41 BUN, (4-19) 25 mg/dL H 10/02/25, 09:41 Creatinine, (0.70-1.20) 1.24 mg/dL H 10/02/25, 09:41 Glucose, (70-99) 108 mg/dL H 10/02/25, 09:41 POC Glucose, (70-110) 87 mg/dL 01/04/19, 13:51 TSH, (0.300-4.200) 3.930 uIU/mL 06/24/25, 11:19 COAG PT, (11.7-14.9) 14.8 SECONDS 09/16/25, 16:50 Pre-Assessment Diagnosis/Proposed Procedure Planned Operative Procedure(s): (R) Carotid stent in Purchase Price Analyst, OR, CLIENT SERVICE EXECUTIVE, Anes Anesthesia History 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 When Was Last Pacemaker Check QUESTION #4 FULL TEXT: You/Your Family Experience fever (hyperthermia) with Anesthesia Last Oral Intake Last Oral intake: Last Oral Intake NPO since 04:30 10/13/25 06:12 Meds taken in AM with sips of Yes 10/13/25 06:12 water? 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 crops farm manager Female No 09/29/25 15:15 HX of Motion Sickness No 09/29/25 15:15 HX of N/V After Surgery No 09/29/25 15:15 Non-Smoker Yes 09/29/25 15:15 Duration of Surgery greater Yes 09/29/25 15:15 than 60 minutes Number of Risk Factors 2 09/29/25 15:15 PONV Score Moderate Risk 09/29/25 15:15 Height & Weight Height & Weight: Anesthesia: Height & Weight Height 5 ft 8 in 10/13/25 06:12 Weight: 94 kg 10/13/25 06:12 Body Mass Index (BMI) 31.5 10/13/25 06:12 Respiratory Assessment Respiratory Assessment - fruit or nut crops farm manager: Respiratory Tract Infection Hx - fruit or nut crops farm manager Hx Respiratory Tract Infection No 09/29/25 15:15 STOP Sleep Apnea STOP Sleep Apnea - fruit or nut crops farm manager: STOP Sleep Apnea - fruit or nut crops farm manager Hx Hypertension Yes: CONTROLLED ON MED 09/29/25 15:15 Hx Sleep Apnea Yes 09/29/25 15:15 CPAP No 09/29/25 15:15 BIPAP Yes 09/29/25 15:15 Do you snore loudly (louder than talking or can be heard Do you often feel tired/ fatigued/ sleepy during daytime? Has anyone observed you stop breathing during sleep? STOP Results Positive 09/29/25 15:15 QUESTION #5 FULL TEXT : Do you snore loudly (louder than talking or can be heard through closed doors)? 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 Specify any problems Hx of Preganancy in last 3 N/A 09/29/25 15:15 Months Nurse Filling Out Transfusion VCHRISTIN 09/29/25 15:15 & Questions: Date: 09/29/25 09/29/25 15:15 Time: 15:17 09/29/25 15:15 Patient unable to answer at this time (ie. confused, unrespo /Reproduction History /Reproductive History - fruit or nut crops farm manager: /Reproductive Hx- fruit or nut crops farm manager Hx Now No 09/29/25 15:15 Gestational Age (in weeks): EDC: Hx Hx Para Hx Section SAB No 09/29/25 15:15 Does the father of the baby or his family experience fever w Father of the baby Malignant Hypertension history comment Active Medications Active Medications: Current Medications Generic Name Dose Route Start Last Admin Trade Name Vince PRN Reason Stop Dose Admin Clindamycin Phosphate 900 mg in 50 mls @ 75 mls/hr 10/13/25 07:00 Cleocin IV 10/13/25 07:39 INTRAOP ONE Lactated Ringer's 1,000 mls @ 15 mls/hr 10/13/25 06:30 10/13/25 06:19 IV 15 mls/hr .Q48H KYMBERLY Administration PFSH Medical History Coronary artery calcification Hypertension EFREN treated with BiPAP HLD (hyperlipidemia) TIA (transient ischemic attack) Hearing aid worn GERD (gastroesophageal reflux disease) Wears glasses Cancer Alcohol use Arthritis High cholesterol Back pain Gastric reflux Non-smoker BiPAP (biphasic positive airway pressure) dependence Sleep apnea Hx of edema Hx of echocardiogram History of Holter monitoring Amaurosis fugax of right eye Diverticulitis History of squamous cell carcinoma Lumbar disc disease Impaired fasting glucose Osteoarthritis Internal hemorrhoids BPH (benign prostatic hyperplasia) Gout Hiatal hernia Benign neoplasm of colon Actinic keratosis Home Medications ?Medication ?Instructions ?Recorded ?Last Taken ?Type losartan 100 mg tablet 100 mg PO QDAY blood pressur e 01/28/25 10/12/25 21:00 History esomeprazole magnesium 20 mg 20 mg PO DAILY reflux 01/0610/13/25 04:30 History capsule,delayed release (Acid Order Caller (esomeprazole)) vit C 250 mg-vit E 90 mg-zinc 40 1 tab PO BID macular degeneration 09/16/25 10/12/25 21:00 History mg-copper 1 [id number] capsule (PreserVision AREDS-2) atorvastatin 40 mg tablet 40 mg PO QHS CHOLESTEROL #30 tabs 09/17/25 10/12/25 21:00 Rx prednisone 50 mg tablet 50 mg PO Q6H STEROID 3 doses #3 09/24/25 10/13/25 04:30 Rx tabs ticagrelor 90 mg tablet 90 mg PO Q12H BLOOD THINNER #70 09/24/25 10/13/25 04:30 Rx tabs amlodipine 5 mg tablet 5 mg PO DAILY BP 09/29/25 21:00 History aspirin 81 mg tablet,delayed 81 mg PO DAILY heart 09/1410/12/25 21:00 History release (Adult Low Dose Aspirin) Allergy/AdvReac Type Severity Reaction Status Date / Time adhesive tape Allergy Intermediate Other Verified 10/13/25 06:08 metoprolol Allergy Intermediate Other Verified 10/13/25 06:08 piperacillin (From Zosyn) Allergy Intermediate Other Verified 10/13/25 06:08 tazobactam (From Zosyn) Allergy Intermediate Other Verified 10/13/25 06:08 iodine Allergy Anaphylaxis Verified 10/13/25 06:08 Penicillins (PCN) Allergy Anaphylaxis Verified 10/13/25 06:08 shellfish derived Allergy Anaphylaxis Verified 10/13/25 06:08 Family History Father TIA (transient ischemic attack) Brain aneurysm Brother Melanoma Mother CHF (congestive heart failure) Surgical History Presence of spinal cord stimulator (07/19/20) History of total knee replacement Hx of bilateral hip replacements History of transurethral resection of prostate History of back surgery History of cataract extraction Social History household members: spouse housing: house Smoking Status: Former smoker alcohol intake: current Review of Systems (Anesthesia) ROS Narrative System reviewed and no additional complaints, except as documented.
--- NOTE | 2025-10-13 07:32 | HP.PCM_ITS ---
History and Physical Allergies adhesive tape Allergy (Intermediate, Verified 09/23/25 15:56) Other metoprolol Allergy (Intermediate, Verified 09/23/25 15:56) Other piperacillin (From Zosyn) Allergy (Intermediate, Verified 09/23/25 15:56) Other tazobactam (From Zosyn) Allergy (Intermediate, Verified 09/23/25 15:56) Other iodine Allergy (Verified 09/23/25 15:56) Anaphylaxis Penicillins (PCN) Allergy (Verified 09/23/25 15:56) Anaphylaxis shellfish derived Allergy (Verified 09/23/25 15:56) Anaphylaxis Medication Reconciliation completed?: Yes Have you fallen in the past year?: No PFSH Medical History Diverticulitis History of squamous cell carcinoma Lumbar disc disease Impaired fasting glucose HLD (hyperlipidemia) Osteoarthritis EFREN (obstructive sleep apnea) Internal hemorrhoids BPH (benign prostatic hyperplasia) HTN (hypertension) Gout Hiatal hernia GERD (gastroesophageal reflux disease) Benign neoplasm of colon Actinic keratosis Surgical History S/P insertion of spinal cord stimulator S/P left knee arthroscopy History of back surgery History of cataract extraction Status post bilateral total hip replacement Family History Father TIA (transient ischemic attack) Brother Melanoma Social History household members: spouse housing: house Smoking Status: Former smoker alcohol intake: current HPI HPI HPI: HANNAH BLOCK, is a 85 M who presents to the office today for follow up of right carotid stenosis with transient amarosis fugax. No recurrent visual disturbances, no numbness/weakness/vision loss/speech difficulty. During admission had CTA, duplex, MRI. Currently on aspirin, plavix, lipitor. No prior neck surgery/XRT, does have limited neck extension. ROS General General: Yes weakness; No weight change, appetite, fatigue, colon cancer or breast cancer HEENT HEENT: No difficulty swallowing, eye injury, eye surgery, swollen glands or hoarseness Endo Endocrine: No thyroid disease, diabetes mellitus, thyroid cancer, Hair loss, heat intolerance or cold intolerance Skin Skin: No rash or changing moles Musc Musculoskeletal: Yes back problems, arthritis and joint pain; No rheumatoid arthritis or gout Cardio Cardiovascular: Yes high blood pressure; No murmur, pacemaker, heart disease, atrial fibrillation, heart attack, heart stent, palpitations, shortness of breath with exertion or chest pain Psych Psychiatric: No depression, anxiety or hearing voices Resp Respiratory: No shortness of breath, Yes sleep apnea, No cough, No COPD, No asthma, No emphysema and No wheezing Gastro Gastrointestinal: No abdominal pain, No nausea or vomiting, No diarrhea, No constipation, No blood in stool, No acid reflux, No hemorrhoids, No ulcers, No gallbladder problem and No black,tarry stools Masoud Hematologic: Yes blood thinners, No blood disorders, No bleeding, No anemia and No blood clots Additional Details: asa, plavix Neuro Neurologic: No system reviewed and no additional complaints, except as documente d, No as per HPI, No abnormal gait, Yes abnormal hearing, No abnormal movements, No abnormal speech, No behavioral changes, No burning sensations, No confusion, No convulsions, No disequilibrium, No dizziness, No localized weakness, No frequent falls, No headache(s), No lack of coordination, No loss of vision, No memory loss, No numbness, No other visual disturbances, No radicular pain, No restless legs, No sensory deficit, No syncope, No tingling, No tremor(s), Yes weakness and No other Exam Const General: cooperative, healthy appearing, comfortable, no acute distress and well developed Nutritional Appearance: well nourished Orientation: alert, awake and oriented x3 [facility] Head: normocephalic and atraumatic Ears: hearing grossly normal bilaterally Nose: external nose normal Eyes General: appearance normal, both eyes and all related structures EOM: EOM intact bilaterally Neck Neck: normal visual inspection, limited ROM and trachea midline Resp Effort & Inspection: normal respiratory effort, able to speak in complete sentences, symmetric chest movement, no audible wheezes, not labored, no stridor and no use of accessory muscles Cardio Rate: regular rate Rhythm: regular rhythm Pulses: brachial pulses present and radial pulses present Skin General: no rashes or lesions noted and no erythema Wounds: no wounds Neuro Cranial Nerves: CN's II-XI intact bilaterally and EOM intact bilaterally Speech: speech normal Gait: normal gait Motor: strength 5/5 throughout Sensory Exam: no sensory deficits noted Psych Appearance: grossly normal and well kempt Mental Status: mental status grossly normal Mood: congruent mood Speech and Movement: speech and movement normal Thought Content: normal Judgment: judgment good Coding Level of Care Code Off vis,new,level 4 Diagnoses 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
[2025-10-13] MEDS: Lidocaine 1% (5 ml sdv) 5 ML Vial 4 ML IV (07:45)
[2025-10-13] MEDS: DiphenhydrAMINE 50 MG/ML Syringe IV (08:02)
[2025-10-13] MEDS: fentaNYL 100 MCG/2 ML Ampul IV (08:07)
[2025-10-13] MEDS: Heparin Injection (Vial) 5,000 UNIT/ML VIAL 10000 UNIT IV (08:34)
[2025-10-13] MEDS: Lactated Ringers 2,000 ML 2000 ML IV (09:26)
[2025-10-13 09:36] LABS: ACT Activated Clotting Time 322 sec (74-137)
[2025-10-13 09:36] LABS: ACT Activated Clotting Time 368 sec (74-137)
--- NOTE | 2025-10-13 10:19 | PCM.POST.ANE ---
Anesthesia: Postop Eval I Current Vital Signs Temperature: 97.4 F Pulse Rate: 97 Blood Pressure: 163/55 Respiratory Rate: 20 Pulse Ox: 98 Oxygen Delivery Method: Room Air Assessment Airway patent: Yes Spontaneous unlabored respirations: Yes Mental status: Awake and Calm nausea: No Vomiting: No Anesthesia Complication: No Fluid Hydration Crystalloid volume administer (ml): 1,500 Total IV fluid infused: 1,500 Progress Note Anesthesia document: Postop Eval 1 completed: Yes
--- NOTE | 2025-10-13 12:40 | POSTOPAN2_ITS ---
Anesthesia Postop Eval I Sum Postop Eval Completion status Anesthesia document: Postop Eval 1 completed: Yes Anesthesia Postop Eval I Summary Anesthesia Postop Eval I Summary: Anesthesia Postop Eval I: Assessment Summary Airway patent Yes 10/13/25 10:20 [email or web address] Spontaneous unlabored Yes 10/13/25 10:20 INSPECTOR [email or web address] respirations Mental status Awake,Calm 10/13/25 10:20 [email or web address] [email or web address] nausea No 10/13/25 10:20 INSPECTOR [email or web address] Vomiting No 10/13/25 10:20 INSPECTOR [email or web address] Anesthesia Postop Eval I: Fluid Summary Crystalloid volume administer 1,500 10/13/25 10:20 INSPECTOR [email or web address] (ml) Colloids volume administered ( ml) Blood Product volume administered (ml) Total IV fluid infused 1,500 10/13/25 10:20 INSPECTOR [email or web address] Anesthesia Postop Eval I: Summary Notes Anesthesia Complication No 10/13/25 10:20 INSPECTOR [email or web address] Anesthesia Complication Comment: Post-operative progress note Anesthesia: Postop Eval II Evaluation Mental status: Awake and Calm Pain Level: 1 nausea: No Vomiting: No Complications Anesthesia Complication: No
--- NOTE | 2025-10-13 12:40 | PCM.POSTANE2 ---
Anesthesia Postop Eval I Sum Postop Eval Completion status Anesthesia document: Postop Eval 1 completed: Yes Anesthesia Postop Eval I Summary Anesthesia Postop Eval I Summary: Anesthesia Postop Eval I: Assessment Summary Airway patent Yes 10/13/25 10:20 [email or web address] [email or web address] Spontaneous unlabored Yes 10/13/25 10:20 WATER [email or web address] [email or web address] respirations Mental status Awake,Calm 10/13/25 10:20 [email or web address] [email or web address] nausea No 10/13/25 10:20 WATER [email or web address] Vomiting No 10/13/25 10:20 WATER [email or web address] Anesthesia Postop Eval I: Fluid Summary Crystalloid volume administer 1,500 10/13/25 10:20 [email or web address] [email or web address] (ml) Colloids volume administered ( ml) Blood Product volume administered (ml) Total IV fluid infused 1,500 10/13/25 10:20 WATER [email or web address] Anesthesia Postop Eval I: Summary Notes Anesthesia Complication No 10/13/25 10:20 WATER [email or web address] Anesthesia Complication Comment: Post-operative progress note Anesthesia: Postop Eval II Evaluation Mental status: Awake and Calm Pain Level: 1 nausea: No Vomiting: No Complications Anesthesia Complication: No
--- NOTE | 2025-10-13 14:01 | OP.PCM_ITS ---
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 Post-Operative Diagnosis: Same Surgery/Procedure Performed: Right transcarotid artery stenting chicken cleaner: Yes Dog Sitter: Bri Davenport Tasks completed by assistant professor of surgery: Opening, Closing, Opening & closing, Implanting device and Retracting Type of Anesthesia: General RN Documented Start/Stop Times: Operation Date: 10/13/25 07:30 Case Time Into Pre-Op 10/13/25 06:05 Into Recovery 10/13/25 10:15 Out of Recovery 10/13/25 11:28 Procedure Start Time: 08:20 Procedure Stop Time: 09:30 Select all DRAINS/GRAFTS/IMPLANTS that apply: Implanted device Implanted device details: [address] en route tapered 9-7 x 40 Estimated Blood Loss: 8 Specimen collected: No Description of surgery: HPI: Patient is an 85-year-old male who suffered transient right eye vision loss consistent with amaurosis fugax. He had carotid duplex which revealed severe carotid artery stenosis and CT angiography which confirmed soft plaque which was amenable to stenting. He has significant limitation in his neck mobility and rotation so he is felt to be a poor candidate for carotid endarterectomy. He presents now for transcarotid artery stenting. Description of procedure: Upon obtaining informed consent and verification correct patient procedure site the patient was taken to the Business Management Professor where he was placed under general anesthesia. He was then positioned prepped and draped in usual sterile fashion and timeout was performed. Ultrasound used to evaluate the carotid artery and its position as well as location of the bifurcation. Transverse incision was made 1 fingerbreadth cephalad to the clavicle and Bovie used to dissect through the subcutaneous tissue down to level of the platysma. The platysma was then divided and self-retaining retractors put in position. Further dissection was then carried down to the cleft between the sternal clavicular heads of the sternocleidomastoid and combination of Bovie and blunt dissection utilized to develop this plane and retract the heads medially and laterally. Self-retaining retractors were then placed deeper in the wound and further dissection with the Bovie performed until the jugular vein was visualized. This point sharp dissection was used to dissect free along the anterior border line to be retracted posterior laterally exposing the proximal common carotid artery. Sharp dissection was used dissect free with care taken to identify and protect adjacent nerve structures. A right angle was used to place a vessel loop at the proximal extent of the vessel and the patient was then heparinized allowed to circulate for 3 minutes with subsequent heparin dosed based on ACT results. Next under ultrasound guidance the left common femoral vein was accessed with a micropuncture needle wire. This then exchanged for micropuncture sheath through which a J-wire was advanced and the micropuncture sheath exchanged for the 8 Cypriot venous return sheath which was advanced without difficulty. A 5-0 Prolene pursestring suture was then placed at the intended access site in the proximal common carotid artery and the vessel accessed in antegrade fashion with a micropuncture needle wire. This then exchanged for a micropuncture sheath through which hand-injection carotid angiogram was performed revealing satisfactory positioning with no extravasation or dissection and provided positioning of the bifurcation in the lesion. Next the J-wire was advanced through the micropuncture sheath and positioned inferior to the leading edge of the plaque. The micropuncture sheath then exchanged for the flow reversal arterial sheath which was advanced without resistance. The flow reversal tubing was then attached to the arterial sheath in then flushed to clear of air. It was then attached to the venous return sheath and adequate flow reversal confirmed. Multiple oblique views were then obtained with subtraction angiography confirming sheath tip position and lesion position. The proximal common carotid artery was then occluded with Vesseloops and continued flow reversal confirmed. Through the arterial sheath the 014 wire and angioplasty balloon 5.5 x 25 were advanced under fluoroscopic guidance and utilized to traverse the internal carotid artery and lesion into the distal cervical carotid. The angioplasty balloon was then centered on the area of stenosis and inflated nominal for 20 seconds then deflated and withdrawn. Next of the en route stent a tapered 9-7 x 40 was advanced in position and deployed. 2 minutes of flow reversal was then performed after which completion angiography in multiple oblique views was performed revealing satisfactory stent position with no extravasation or dissection and no plaque prolapse or residual stenosis. The proximal common carotid artery clamp was then released and additional 2 minutes of flow reversal performed after which the tubing was detached and blood returned via the venous return sheath. The femoral venous access was then withdrawn followed by 5 minutes of manual pressure with satisfactory stasis observed. The carotid sheath was then withdrawn as the pursestring suture was secured with an additional pursestring suture required to obtain for hemostasis. Heparin was then reversed with protamine and the incision inspected for hemostasis. A 19 Cypriot channel ROSELIA was then placed via separate stab incision. Once there was satisfactory stasis the neck incision was closed with 3-0 Vicryl, 4-0 Monocryl and Dermabond for the skin. The patient was then taken to the recovery room with anticipated mission to the intensive care unit for hemodynamic and neurologic monitoring. Surgical Findings: See above Complications Complications: No
[2025-10-13] MEDS: Clindamycin 900 MG/50 ML BAG 75 MG IV ×2 (15:13→23:27)
[2025-10-13] MEDS: BENZOCAINE/MENTHOL 1 LOZENGE MUCOUS MEM (15:13)
[2025-10-13] MEDS: 0.9% Normal Saline (250mL Bag) 250 ML 15 ML IV (15:13)
[2025-10-13] MEDS: Aspirin E.C. 81 MG Tablet PO (20:46)
[2025-10-13] MEDS: TICAGRELOR 90 MG TABLET PO (20:46)
[2025-10-13] MEDS: Multivitamin (Healthy Eyes) Capsule 1 CAP PO (20:46)
[2025-10-14] VITALS (12 sets, daily range): BP systolic 99–127; BP diastolic 46–59; PULSE 60–81; RESP 10–19; TEMP 36.1–36.3; O2SAT 94–98; BMI 31.9
--- NOTE | 2025-10-14 07:42 | PCM.PN.SRG ---
Subjective Subjective I saw Mr. Paredes resting comfortably in bed this morning. He reports he had a good night, he is feeling better than he expected. He has not had any difficulty urinating. He had a liquid diet yesterday and tolerated that well, has a normal breakfast ordered this morning. He was up to the chair yesterday and did well with that. His blood pressure have been within normal range, around 110-120s systolic without his home BP meds. He denies any headache, vision changes, weakness/numbness/paresthesias. He report tylenol is managing his mild R neck incision site discomfort and he has no discomfort in the L groin. Objective Data Objective Data Vital Signs: Vital Signs Temp Pulse Resp BP Pulse Ox O2 Del Method O2 Flow Rate 96.9 F L 73 12 119/55 L 97 Room Air 2 10/14/25 04:00 10/14/25 07:27 10/14/25 07:00 10/14/25 07:00 10/14/25 07:00 10/14/25 07:00 10/13/25 11:18 Oxygen Flow Rate (L/min) 2 Oxygen Delivery Method Room Air Weight: 210 lb 1.608 oz Body Mass Index (BMI) 31.9 Intake & Output: Intake and Output for Last 24 Hours 10/12/25 10/13/25 10/14/25 23:59 23:59 23:59 Intake Total 1139.5 / 1139.5 227 / 227 Output Total 340 / 340 415 / 415 Balance 799.5 / 799.5 -188 / -188 Lab / Micro Data 10/02/25 09:41 10/02/25 09:41 Labs: Laboratory Results - last 24 hr 10/13/25 08:45: Activated Clotting Time 368 H 10/13/25 09:17: Activated Clotting Time 322 H Physical Exam Const alert, oriented x3 and no apparent distress General Appearance: cooperative and comfortable HEENT normocephalic, hearing grossly normal bilaterally, external ears normal and external nose normal Eyes General Eye: normal appearance of both eyes Neck Neck Narrative: R neck incision site with skin glue intact, no dehiscence. There is moderate ecchymosis, no significant swelling, soft to palpation. ROSELIA drain with serosanguineous output. Resp normal respiratory effort, no retractions and no use of accessory muscles Effort and Inspection: able to speak in complete sentences; Negative for labored, grunting or stridor Cardio regular rate and regular rhythm Extremity Extremity Narrative: L groin puncture site with pressure dressing intact, there is bleed-through onto the gauze but no signs of active bleeding, no significant swelling/ecchymosis, soft to palpation. Skin no rashes or lesions noted Neuro oriented x3, CN's II-XII intact bilaterally, moves all extremities and no focal motor deficits Speech: speech normal Psych mental status grossly normal Appearance: grossly normal Attitude: calm and engaged Activity / Motor Behavior: appropriate eye contact Speech: normal speech Assessment & Plan Assessment/Plan (1) Symptomatic stenosis of right carotid artery without infarction: PLAN: He is POD#1 from R TCAR. ROSELIA drain removed this morning, patient tolerated this well. Incision site is satisfactory in appearance. L groin puncture site satisfactory in appearance. He will have a regular diet this morning, has tolerated liquids. Will plan for him to ambulate with nursing after breakfast. As long as he does well with this, anticipate d/c to home with family later this morning/early afternoon.
--- NOTE | 2025-10-14 08:23 | DS.PCM_ITS ---
Providers Date of Admission: 10/13/25 Primary Care Physician: Dr. 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 ROSELIA drain removed this morning, patient tolerated this well. Incision site is satisfactory in appearance. L groin puncture site satisfactory in appearance. He will have a regular diet this morning, has tolerated liquids. Will plan for him to ambulate with nursing after breakfast. As long as he does well with this, anticipate d/c to home with family later this morning/early afternoon. Medications at Discharge Home Medications losartan 100 mg tablet 100 mg PO QDAY blood pressure 01/28/25 Held on 10/14/25. Instructions: Resume on 10/15/25. esomeprazole magnesium 20 mg capsule,delayed release (Acid Continuity Director (esomeprazole)) 20 mg PO DAILY reflux 09/16/25 vit C 250 mg-vit E 90 mg-zinc 40 mg-copper 1 xy-dobaeh-pzlanw capsule (PreserVision AREDS-2) 1 tab PO BID macular degeneration 09/16/25 atorvastatin 40 mg tablet 40 mg PO QHS CHOLESTEROL #30 tabs 09/17/25 ticagrelor 90 mg tablet 90 mg PO Q12H BLOOD THINNER #70 tabs 09/24/25 amlodipine 5 mg tablet 5 mg PO DAILY BP 09/29/25 Held on 10/14/25. Instructions: Resume on 10/16/25. aspirin 81 mg tablet,delayed release (Adult Low Dose Aspirin) 81 mg PO DAILY heart 09/30/25 Hospital Course Operations - (R TCAR) Summary of Care Provided Hospital Course: Mr. Sanju Paredes is an 85 y/o male who underwent R TCAR on 10/13/25. The procedure was without complication and he tolerated it well. Postoperatively, he was routinely admitted to the ICU for ongoing hemodynamic and neurologic monitoring. He has remained neurologically intact and stable throughout his admission. He has remained hemodynamically stable, blood pressures remain 110- 120s without his home antihypertensives on day of discharge. Postoperatively, he voided without issue, tolerated a normal diet, and ambulated to his baseline. ROSELIA drain was removed on POD#1 and the incision site satisfactory in appearance and well-healing. He is discharged home with family and with planned outpatient follow-up in the office on 11/03/25. Physical Exam Const alert, oriented x3 and no apparent distress General Appearance: cooperative and comfortable HEENT normocephalic, hearing grossly normal bilaterally, external ears normal and external nose normal Eyes General Eye: normal appearance of both eyes Neck Neck Narrative: R neck incision site with skin glue intact, no dehiscence. There is moderate ecchymosis, no significant swelling, soft to palpation. ROSELIA drain with serosanguineous output. Resp normal respiratory effort, no retractions and no use of accessory muscles Effort and Inspection: able to speak in complete sentences; Negative for labored, grunting or stridor Cardio regular rate and regular rhythm Extremity Extremity Narrative: L groin puncture site with pressure dressing intact, there is bleed-through onto the gauze but no signs of active bleeding, no significant swelling/ecchymosis, soft to palpation. Skin no rashes or lesions noted Neuro oriented x3, CN's II-XII intact bilaterally, moves all extremities and no focal motor deficits Speech: speech normal Psych mental status grossly normal Appearance: grossly normal Attitude: calm and engaged Activity / Motor Behavior: appropriate eye contact Speech: normal speech Weight / BMI Weight Weight: 210 lb 1.608 oz Body Mass Index (BMI) 31.9 ABG / Lab / Microbiology Data 10/02/25 09:41 10/02/25 09:41 Laboratory: Laboratory Results - last 24 hr 10/13/25 08:45: Activated Clotting Time 368 H 10/13/25 09:17: Activated Clotting Time 322 H D/C Instructions May shower in (days): 1 Weight Bearing Status: Weight bearing as tolerated Lifting Restricted to (Lbs): 20 Lifting Restrictions: do not lift >20 pounds for 3 weeks Call your doctor if your incision/area has: Sudden Increased Bleeding, Increased Pain/ Swelling and Foul Smelling Discharge Call your doctor if you observe: Fever of 101 or Higher and Uncontrolled pain DC O2, CPAP, BIPAP Needs Home O2 Discharge instructions: No Additional Instructions: INCISION CARE: You have a small bandage on your neck over the site from which the surgical drain was removed and over the L groin puncture site. You may remove both bandages tomorrow. As long as there is no residual drainage, you may leave these sites open to air. If you do notice some continued drainage, you may re- cover with a Band-Aid. Your neck incision site is covered with skin glue which will continue to protect it. The skin glue will peel/flake off on its own over the next few weeks. Please do not pick at it. You may shower tomorrow. It is okay for soap and water to rinse over the incision site, pat to dry. Do not submerge the incision site in water such as to take a bath or go swimming etc. for 3 weeks. MEDICATION INSTRUCTIONS Continue to take Aspirin 81mg daily and Brillinta 90mg twice daily. Your blood pressures have been a bit lower than usual following surgery. Please check your blood pressure this evening before you take your blood pressure medications. If your blood pressure is 140 or greater systolic (top number), then please take your medications as usual and continue to do so. If your blood pressure remains <140 systolic (top number) then please hold off on taking your medications and check again tomorrow; continue to hold your medications until your systolic BP is 140 or greater. We discussed a possible prescription pain medication and you declined this at discharge. You may continue to take Tylenol as needed for any pain. If you feel you need the prescription pain medication once you are home, please call the office. Call the office at [phone] with any questions about your medications ACTIVITY INSTRUCTIONS Do not lift greater than 20 pounds for 3 weeks. Otherwise, please continue with activity as tolerated. Do not drive until you can turn your head well enough to safely check your blind spots. FOLLOW-UP INSTRUCTIONS You are scheduled for follow-up in the office on 11/03/2025. If you need to change this appointment or have any other questions/concerns, please call the office at [phone]. Please Follow Up With: Priyanka Robles PA When: 11/03/25 Meaningful Use Info Meaningful Use Meaningful Use Diagnoses (Choose all that apply): None applicable Discharge Plan Admission Admit Date/Time: 10/13/25 09:50 Primary Reason for Your Visit: R TCAR Attending Provider: Dayton Brooks Primary Care Provider: Mahin Ryan Instructions Additional Instructions / Restrictions: INCISION CARE: You have a small bandage on your neck over the site from which the surgical drain was removed and over the L groin puncture site. You may remove both bandages tomorrow. As long as there is no residual drainage, you may leave these sites open to air. If you do notice some continued drainage, you may re- cover with a Band-Aid. Your neck incision site is covered with skin glue which will continue to protect it. The skin glue will peel/flake off on its own over the next few weeks. Please do not pick at it. You may shower tomorrow. It is okay for soap and water to rinse over the incision site, pat to dry. Do not submerge the incision site in water such as to take a bath or go swimming etc. for 3 weeks. MEDICATION INSTRUCTIONS Continue to take Aspirin 81mg daily and Brillinta 90mg twice daily. Your blood pressures have been a bit lower than usual following surgery. Please check your blood pressure this evening before you take your blood pressure medications. If your blood pressure is 140 or greater systolic (top number), then please take your medications as usual and continue to do so. If your blood pressure remains <140 systolic (top number) then please hold off on taking your medications and check again tomorrow; continue to hold your medications until your systolic BP is 140 or greater. We discussed a possible prescription pain medication and you declined this at discharge. You may continue to take Tylenol as needed for any pain. If you feel you need the prescription pain medication once you are home, please call the office. Call the office at [phone] with any questions about your medications ACTIVITY INSTRUCTIONS Do not lift greater than 20 pounds for 3 weeks. Otherwise, please continue with activity as tolerated. Do not drive until you can turn your head well enough to safely check your blind spots. FOLLOW-UP INSTRUCTIONS You are scheduled for follow-up in the office on 11/03/2025. If you need to change this appointment or have any other questions/concerns, please call the office at [phone]. Discharge Orders/Prescriptions Prescriptions: Continued ticagrelor 90 mg tablet 90 mg PO Q12H Qty: 70 0RF Patient Comments: PT TO START 10/08/25 aspirin [Adult Low Dose Aspirin] 81 mg tablet,delayed release (DR/EC) 81 mg PO DAILY esomeprazole magnesium [Acid Continuity Director (esomeprazole)] 20 mg capsule,delayed release(/EC) 20 mg PO DAILY PreserVision AREDS-2 250-90-40-1 mg capsule 1 tab PO BID atorvastatin 40 mg Tablet 40 mg PO QHS Qty: 30 2RF Held losartan 100 mg tablet 100 mg PO QDAY Hold Instructions: Resume on 10/15/25. amlodipine 5 mg tablet 5 mg PO DAILY Hold Instructions: Resume on 10/16/25. Discontinued prednisone 50 mg tablet 50 mg PO Q6H Qty: 3 0RF Patient Comments: FOR OR 10/13/25 Rx Instructions: administer 13 hr, 7 hr, and 1 hr before time of procedure Referrals / Follow Up: Mahin Ryan MD [Primary Care Provider, Family Practice] Disposition Disposition (needs filled in before D/C Order can be placed): Home, Self Care Charges/Coding Procedures Integumentary [id number]: [id number] Global Visit
[2025-10-14] MEDS: TICAGRELOR 90 MG TABLET PO (09:11)
[2025-10-14] MEDS: Multivitamin (Healthy Eyes) Capsule 1 CAP PO (09:11)
--- NOTE | 2025-10-14 09:25 | CASEMGMT ---
RN CM Face to Face with patient for initial transition planning/care coordination assessment. RN CM introduced self and role at [facility]. Patient lying in bed, alert and oriented. Patient willing to participate in assessment and is able to answer all questions appropriately. Care providers, pharmacy, and demographics verified. Strata: 1 PCP: [place] Specialists: Cecilia, vascular; Chuckie, virtual reality specialist, [facility]; Friend, GI Preferred Pharmacy: [facility] Insurance: [facility], [employer] Prescription Benefit: yes Living Will/HPOA: yes, daughter Dara Escalante LNOK: , daughter Living Arrangements: Patient lives with in a split level home with 12 steps with railings between levels. Patient states he is independent and able to ambulate stairs. Transportation: self, DME/HHC: Patient states he has shower chair, raised toilet, grab bars, and cpap at home. No previous HHC or SNF. Patient wishes to discharge home, denies need for home health at this time. Patient states he has no further needs or concerns at this time. CM to follow for discharge planning needs that may arise. Disposition Plan: Patient to discharge home with family support and follow-up plans in place. Griselda ALFRED, RN, CM
== END 2025-10-14 10:45 | disposition home or self-care (01) | DRG 35 ==
PROVIDERS: Admitting Provider Surgery Trauma Surgery; PCP Family Medicine; Referring Provider Surgery Trauma Surgery; Visit Provider Surgery Trauma Surgery
PROC: 037K3DZ Dilation of Right Internal Carotid Artery with Intraluminal Device, Percutaneous Approach (ICD-10-PCS; CPT 37236; principal; 2025-10-13 07:00)
DX: I65.21 Occlusion and stenosis of right carotid artery (principal); G45.3 Amaurosis fugax; E78.5 Hyperlipidemia, unspecified; I10 Essential (primary) hypertension; K21.9 Gastro-esophageal reflux disease without esophagitis; G47.33 Obstructive sleep apnea (adult) (pediatric); Z86.73 Personal history of transient ischemic attack (TIA), and cerebral infarction without residual deficits; Z79.02 Long term (current) use of antithrombotics/antiplatelets; Z79.82 Long term (current) use of aspirin; Z79.899 Other long term (current) drug therapy; Z87.891 Personal history of nicotine dependence
CPT/HCPCS: 36415; 37215; 76937; 80048; 85027; 85347; 86850; 86900; 86901; 94668; 94762; 99252; A4648; C1725; C1769; C1876; C1884; C1894; Q9967; G0463; J2405